=== PATIENT | male | born 1935 | race Caucasian/White ===

== ENCOUNTER 2020-01-08 13:46 | Outpatient (CLI) | payer MEDICARE, SELFPAY ==
--- NOTE | ~2020-01-08 | CT_ITS ---
EXAMINATION: CT chest w con DATE: 01/08/2020 14:42 INDICATION: THORACIC AORTIC ANEURYSM TECHNIQUE: Computed tomography (CT) of the chest was performed with 100 mL Omnipaque-350 intravenous contrast. Additional 3D reconstructions utilizing coronal maximum intensity projection (MIP) were per formed. Automated exposure control and iterative reconstruction technique were employed. The dose-annabelle gth product was 135.32 mGy-cm. COMPARISON: 07/11/2019 FINDINGS: Lungs are clear with no evident lung disease, pulmonary edema, pleural effusion or pneumothorax. Mild cardiomegaly. No pericardial effusion. Mild scattered atherosclerotic coronary artery calcifications . 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 The aorta tapers to a normal caliber at the takeoff of the left subclavian artery with normal caliber of the descending thoracic aorta. No aortic dissection. No pathologically enlarged thoracic l ymphadenopathy. Bilateral gynecomastia. Partially visualized 4.0 cm exophytic cyst at the upper pole of the right kidney. There are bridging osteophytes at multiple levels in the spine, consistent with diffuse idiopathic skeletal hyperostosis (DISH). IMPRESSION: 1. No significant change in a 5.1 x 4.7 cm these from aneurysm of the ascending thoracic aorta. 2. Unchanged mild cardiomegaly. Reviewed, dictated and finalized at location A.
[2020-01-08 14:24] LABS: Estimated Glomerular Filt Rate 39
== END 2020-01-08 13:47 | disposition home or self-care (01) ==
PROVIDERS: PCP Internal Medicine
DX: I71.2 Thoracic aortic aneurysm, without rupture (principal)
CPT/HCPCS: 36415; 71260; Q9967

== ENCOUNTER 2020-07-08 14:56 | Outpatient (CLI) | payer MEDICARE, SELFPAY ==
--- NOTE | ~2020-07-08 | CT_ITS ---
EXAMINATION: CTA chest EXAM DATE: 07/08/2020 15:35 INDICATION: Thoracic aortic aneurysm. TECHNIQUE: Spiral CT of the chest following intravenous injection of 75 mL Omnipaque 350. Axial, cor onal and sagittal images were reviewed. Coronal maximum intensity pixel images of chest reviewed. T he dose-length product (DLP) for this examination was 175.40 mGy-cm. The exposure was tailored accor ding to patient size (auto mA exposure control), and iterative reconstruction (ASIR) was used as kianna tional dose reduction technique. Comparison is made to prior examination from 01/07/2029. FINDINGS: Dimension the patient's ascending aortic aneurysm today are 5.2 x 4.9 cm, slightly increase d in reported dimensions on prior study (previously 5.1 x 4.7 cm). There is no aortic dissection. The re are no central pulmonary emboli. The lungs are clear. There are no pleural or pericardial effusi ons. Tracheobronchial tree is patent. There is no mediastinal, hilar or axillary lymphadenopathy. There is no pneumothorax. Mild cardiomegaly. No evidence of coronary arterial calcification. U pper abdomen is unremarkable. There is thoracic spondylosis without osteoblastic or osteolytic lesi ons identified. IMPRESSION: 1. Modest interval increase in ascending aortic aneurysm size up to 5.2 cm. 2. Mild cardiomegaly. Reviewed, dictated and finalized at location A.
[2020-07-08 15:30] LABS: Estimated Glomerular Filt Rate 39
== END 2020-07-08 14:57 | disposition home or self-care (01) ==
LOC: ANHIMG 14:57
PROVIDERS: PCP Internal Medicine
DX: I71.2 Thoracic aortic aneurysm, without rupture (principal)
CPT/HCPCS: 71275; Q9967

== ENCOUNTER 2021-01-15 08:19 | Outpatient (CLI) | payer MEDICARE, SELFPAY ==
--- NOTE | ~2021-01-15 | CT_ITS ---
EXAMINATION: CTA chest DATE: 01/15/2021 08:56 INDICATION: Thoracic aortic aneurysm. TECHNIQUE: Computed tomographic angiography (CTA) of the chest was performed with 100 mL Omnipaque-35 0 intravenous contrast. Automated exposure control and iterative reconstruction technique were employ ed. The dose-length product was 185.86 mGy-cm. Maximum intensity projection 3D-reconstructions of the aorta and other arteries were constructed by the technologist on a separate workstation. COMPARISON: CT 07/08/2020 FINDINGS: The lungs demonstrate mild atelectasis. There is minimal scarring at the lung apices. No pl eural effusion. The heart size is normal. No pericardial effusion. Partially visualized is a 4.2 cm c yst in right kidney. There is cortical thinning in left kidney. The aorta measures 4.8 cm at the sinu ses of Valsalva, 3.5 cm at the sinotubular junction, 5.1 cm in the mid ascending aorta, 3.1 cm at the aortic isthmus, and 2.9 cm in the mid descending aorta. There are bridging endplate osteophytes at m ultiple levels in the spine, consistent with diffuse idiopathic skeletal hyperostosis (DISH). IMPRESSION: 1. Stable 5.1 cm fusiform aneurysm of ascending aorta. Reviewed, dictated and finalized at location B.
== END 2021-01-15 08:20 | disposition home or self-care (01) ==
PROVIDERS: PCP Internal Medicine
DX: I71.2 Thoracic aortic aneurysm, without rupture (principal)
CPT/HCPCS: 71275; Q9967

== ENCOUNTER → 2021-01-21 13:20 | Outpatient (CLI) | payer MEDICARE, SELFPAY ==
--- NOTE | ~2021-01-21 | US_ITS ---
EXAMINATION: US soft tissue head and neck DATE: 01/21/2021 13:51 INDICATION: Neck mass. TECHNIQUE: Multiple grayscale and Doppler ultrasound images of the neck were obtained. COMPARISON: None FINDINGS: There is no abnormal lymphadenopathy in the patient's areas of concern in the neck. Right t hyroid lobe measures 4.5 x 1.5 x 1.9 cm. Left thyroid lobe measures 4.9 x 1.5 x 1.3 cm. There is a 4 mm nodule in left thyroid lobe, likely not clinically significant. IMPRESSION: 1. No lymphadenopathy. Reviewed, dictated and finalized at location A. IMPRESSION: 1. No lymphadenopathy.
== END ==
PROVIDERS: PCP Internal Medicine; Visit Provider Internal Medicine
DX: R22.1 Localized swelling, mass and lump, neck (principal); I10 Essential (primary) hypertension; Z79.899 Other long term (current) drug therapy
CPT/HCPCS: 76536

== ENCOUNTER 2024-07-07 11:27 | Outpatient (CLI) | payer MEDICARE, SELFPAY ==
--- NOTE | ~2024-07-07 | PE_ITS ---
EXAMINATION: PET_PETPSMAST_PT DATE: 07/07/2024 14:04 INDICATION: Malignant neoplasm of prostate. TECHNIQUE: 4.746 mCi of Ga-68 gozetotide was administered intravenously. Low dose computed tomography (CT) images were acquired from the base of the brain to the proximal thighs for attenuation correcti on and anatomic localization. Automated exposure control was employed. Dose-length product (DLP) was 586 mGy-cm. Positron emission tomography (PET) images were acquired in the same distribution. COMPARISON: Chest CT 01/15/2021, CT abdomen and pelvis 12/30/2016 FINDINGS: Head/neck: There are no pathologically enlarged lymph nodes. Chest: There is scattered centrilobular nodules and tree-in-bud opacities in all lobes, consistent wi th pneumonia. No pleural effusion. Cardiomegaly is noted. There are coronary artery calcifications. N o pericardial effusion. There is a 5.2 cm fusiform aneurysm of ascending aorta. Abdomen/pelvis/proximal thighs: Calcifications in the liver consistent with old edematous disease. Th ere is an 8 mm cyst in the liver. There are gallstones in the gallbladder, which is normal in size. T he spleen, pancreas, and adrenal glands are normal. There is a 5.3 cm cyst in right kidney. There is mild atrophy of the kidneys. The prostate is moderately enlarged. There is increased activity in the prostate on the right and in the right seminal vesicle with maximum SUV of 36.9. There is diverticulo sis of the colon without evidence of diverticulitis. There are no dilated loops of bowel. The appendi x is normal. There are no pathologically enlarged lymph nodes. There is increased activity in bilater al internal iliac, right external iliac, and bilateral common iliac lymph nodes. There is no free int raperitoneal fluid. There is focal increased activity at left sacroiliac joint with maximum SUV of 6. 6. IMPRESSION: 1. Moderately enlarged prostate with increased activity in the prostate and right seminal vesicle, co nsistent with primary malignancy. 2. Increased activity in normal-sized pelvic lymph nodes, consistent with metastatic disease. 3. Focal increased activity at left sacroiliac joint suspicious for metastatic disease. 4. Bilateral pneumonia. 5. Stable 5.2 cm fusiform aneurysm of ascending aorta. Reviewed, dictated and finalized at location A. IMPRESSION: 1. Moderately enlarged prostate with increased activity in the prostate and rig ht seminal vesicle, consistent with primary malignancy. 2. Increased activity in normal-sized pelvic lymph nodes, consistent with metas tatic disease. 3. Focal increased activity at left sacroiliac joint suspicious for metastatic disease. 4. Bilateral pneumonia. 5. Stable 5.2 cm fusiform aneurysm of ascending aorta.
== END 2024-07-07 11:28 | disposition home or self-care (01) ==
PROVIDERS: PCP Nurse Practitioner Family; Visit Provider Urology
DX: C61 Malignant neoplasm of prostate (principal); J18.9 Pneumonia, unspecified organism; I71.21 Aneurysm of the ascending aorta, without rupture
CPT/HCPCS: 78815; A9596

== ENCOUNTER 2024-08-30 10:38 | Outpatient (CLI) | payer MEDICARE, SELFPAY ==
--- NOTE | ~2024-08-30 | XR_ITS ---
EXAMINATION: XR chest 2V DATE: 08/30/2024 10:55 INDICATION: Pneumonia TECHNIQUE: PA and lateral views of the chest were obtained. COMPARISON: Chest radiograph dated 01/12/2019 and PET/CT dated 07/07/2024 FINDINGS: New small right pleural effusion. There are few small patchy airspace opacity left midlung zone corre sponding to the centrilobular nodular groundglass opacities seen on the prior PET/CT. Similar opaciti es in the right mid and lower lung on the prior PET/CT have now coalesced into a larger region of con solidation in the anterior segment of the right upper lobe and increasing patchy airspace opacities i n the lower lung zone. The appearance and temporal evolution of the opacities within the most consist ent with progression of multifocal pneumonia. No pneumothorax or left-sided pleural effusion. Heart s ize is normal. Increased prominence of the ascending thoracic aorta corresponding to a fusiform aneur ysm measuring up to 5.2 cm on the recent prior PET/CT. Visualized bones and soft tissues are unremark able. IMPRESSION: 1. Bilateral lung disease most prominent in width significant progression in the anterior segment of the right upper lobe consistent with progression of multifocal pneumonia. 2. New small right pleural effusion. 3. Aneurysmal ascending thoracic aorta. Reviewed, dictated and finalized at location A. NG SERVICE WORKER IMPRESSION: 1. Bilateral lung disease most prominent in width significant progression in th e anterior segment of the right upper lobe consistent with progression of multi focal pneumonia. 2. New small right pleural effusion. 3. Aneurysmal ascending thoracic aorta.
== END 2024-08-30 10:39 | disposition home or self-care (01) ==
LOC: MICIMG 10:38
PROVIDERS: PCP Nurse Practitioner Family; Visit Provider Nurse Practitioner Family
DX: J98.4 Other disorders of lung (principal); J90 Pleural effusion, not elsewhere classified; I71.21 Aneurysm of the ascending aorta, without rupture; J18.9 Pneumonia, unspecified organism
CPT/HCPCS: 71046

== ENCOUNTER 2024-09-07 13:42 | Outpatient (CLI) | payer MEDICARE, SELFPAY ==
--- NOTE | ~2024-09-07 | XR_ITS ---
EXAMINATION: XR chest 2V DATE: 09/07/2024 14:10 INDICATION: Pneumonia. TECHNIQUE: Frontal and lateral views of the chest were obtained. COMPARISON: Chest 2 views 08/30/2024 FINDINGS: There are airspace opacities in right midlung zone with interval improvement. There is a sm all right pleural effusion. No pneumothorax. The heart size is normal. IMPRESSION: 1. Airspace opacities in right midlung zone with interval improvement, consistent with pneumonia. 2. Small right pleural effusion. Reviewed, dictated and finalized at location A. 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 Airspace opacities in right midlung zone with interval improvement, consiste nt with pneumonia. 2. Small right pleural effusion.
== END 2024-09-07 13:43 | disposition home or self-care (01) ==
PROVIDERS: PCP Nurse Practitioner Family; Visit Provider Nurse Practitioner Family
DX: J18.9 Pneumonia, unspecified organism (principal); J90 Pleural effusion, not elsewhere classified; R91.8 Other nonspecific abnormal finding of lung field
CPT/HCPCS: 71046

== ENCOUNTER 2024-09-21 18:03 | Inpatient (IN) | payer MEDICARE, SELFPAY ==
--- NOTE | ~2024-09-21 | XR_ITS ---
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 RESULT: Lines, tubes, and devices: None. Lungs and pleura: Emphysematous/senescent change. Improving wedge-shaped consolidation in the periph eral right midlung with adjacent atelectasis/scar. Minimal bilateral hemidiaphragm tenting. Cardiomediastinal silhouette: Stable. Aortic ectasia. Other: No acute osseous or upper abdominal finding. IMPRESSION: No acute cardiopulmonary process. Reviewed, dictated and finalized at location K. ENING INSTRUCTOR
--- NOTE | ~2024-09-21 | XR_ITS ---
EXAMINATION: XR barium swallow modified DATE: 10/02/2024 10:43 INDICATION: Dysphagia. TECHNIQUE: The patient was given barium-containing material of multiple consistencies to swallow by t hieu speech pathologist while I performed fluoroscopy. Fluoroscopy exposure time was 1.8 minutes. The n umber of fluoroscopy images saved to the PACS was 1. Dose-area product was 1 Gy-cm^2. FINDINGS: There is reduced laryngeal elevation, reduced laryngeal adduction, reduced tongue base retraction, re duced pharyngeal squeeze, vallecular residue, pyriform sinus residue, laryngeal penetration, and aspi ration. IMPRESSION: 1. Aspiration. 2. Please refer to the speech therapy report for recommendations. Reviewed, dictated and finalized at location A. OR MANUFACTURING TEST ENGINEER
--- NOTE | ~2024-09-21 | XR_ITS ---
XR chest 1V portable Ordering provider: Ezra Collins MD History: 88 years Male with . possible aspiration . Comparison: September 21, 2024 FINDINGS: MEDIASTINUM: The cardiac silhouette is not enlarged. LUNGS: No effusions or pneumothorax. Opacification in the right upper lobe near to the transverse fis sure is seen laterally minimally changed since previous examination. Patchy opacities in the left yan g perihilar noted. Follow-up to resolution is advised. Emphysematous changes. OTHER: No free air under the diaphragm. Degenerative changes of the spine. IMPRESSION: Atelectasis versus pneumonia in the right upper lobe near to the transverse fissure. Follow-up to res olution is advised. Reviewed, dictated and finalized at location A. FLEXER IMPRESSION: Atelectasis versus pneumonia in the right upper lobe near to the transverse fis sure. Follow-up to resolution is advised.
--- NOTE | ~2024-09-21 | XR_ITS ---
EXAMINATION: XR barium swallow modified DATE: 10/10/2024 15:00 INDICATION: Dysphagia. TECHNIQUE: The patient was given barium-containing material of multiple consistencies to swallow by t hieu speech pathologist while I performed fluoroscopy. Fluoroscopy exposure time was 3.2 minutes. The n umber of fluoroscopy images saved to the PACS was 1. Dose-area product was 1.8 Gy-cm^2. FINDINGS: There is reduced laryngeal elevation, reduced tongue base retraction, reduced pharyngeal squeeze, gail lecular residue, pyriform sinus residue, pharyngeal wall residue, and laryngeal penetration. IMPRESSION: 1. Laryngeal penetration. 2. Please refer to the speech therapy report for recommendations. Reviewed, dictated and finalized at location A. SAFETY INSPECTOR
--- NOTE | ~2024-09-21 | NM_ITS ---
EXAMINATION: NM hepatobiliary wo pharm DATE: 09/25/2024 12:17 INDICATION: Gallstones. Abdominal pain. COMPARISON: Ultrasound dated 09/22/2024 TECHNIQUE: 5.9 mCi Tc-99m mebrofenin (Choletec) was administered intravenously. Scintigraphic images of the abdomen were obtained for one hour. Additional 1.5 hour delayed scintigrams obtained. FINDINGS: There is normal clearance of radiotracer from the blood pool. There is homogeneous tracer u ptake by the liver. Activity progresses to the bowel with duodenal and jejunal activity seen by 20 m inutes. Activity seen within the gallbladder on the 1.5 hour delayed image. IMPRESSION: 1. Normal hepatobiliary scan. Reviewed, dictated and finalized at location B. ATOR CATALYST CONCENTRATION
--- NOTE | ~2024-09-21 | XR_ITS ---
EXAMINATION: XR barium swallow modified DATE: 10/09/2024 11:46 INDICATION: Dysphagia. Weakness. TECHNIQUE: The patient was given barium-containing material of multiple consistencies to swallow by t hieu speech pathologist while I performed fluoroscopy. Fluoroscopy exposure time was 1.7 minutes. The n umber of fluoroscopy images saved to the PACS was 1. Dose-area product was 0.837 Gy-cm^2. FINDINGS: There is reduced laryngeal elevation, reduced tongue base retraction, reduced pharyngeal squeeze, gail lecular residue, pyriform sinus residue, pharyngeal wall residue, laryngeal penetration, and aspirati on. Cervical spine osteophytes are noted. IMPRESSION: 1. Aspiration. 2. Please refer to the speech therapy report for recommendations. Reviewed, dictated and finalized at location A. E ASSEMBLER
--- NOTE | ~2024-09-21 | US_ITS ---
COMPLETE ABDOMINAL ULTRASOUND Ordering provider: Uri Feldman MD History: . right upper quadrant pain w/ meals . Comparison: None. FINDINGS: LIVER: Normal size and echotexture. No focal hepatic lesions or perihepatic fluid collections are lyndsey ntified. Cyst is seen in the left lobe measuring 0.8 x 0.6 x 0.7 cm. Normal flow of the portal vein. GALLBLADDER: Cholelithiasis. The largest stone measures 1.1 x 1.3 x 1.4 cm. No evidence for sludge, o r gallbladder wall thickening. Minimal pericholecystic fluid.. Thickness is 3 mm. A negative sonographic Foster's sign was noted. BILIARY DUCTS: No evidence for intra or extrahepatic biliary dilation. Common bile duct measures 5 mm in diameter which is within normal limits. PANCREAS: Normal echotexture and size. SPLEEN: Normal size, echotexture and contour and measures 6.7 cm in length. KIDNEYS: Right measures 12.3x 3.8x 4 cm in length and the left 9x 3.9x 3.6 cm in length. There is no evidence for hydronephrosis, solid renal mass, renal calculi or perinephric fluid collections. Simple cyst is seen in the right kidney upper pole measuring 4.7 x 4.8 x 4 cm. Cyst is seen in the left kidney upper pole measuring 1.2 x 0.9 x 1.2 cm. UPPER ABDOMINAL AORTA: Normal in caliber. Proximal aorta measures 1.5 cm. Mid aorta measures 1.5 cm. Distal aorta measures 1.6 cm. IVC: Patent. FREE FLUID: None. IMPRESSION: Cholelithiasis. Possibility of cholecystitis cannot be excluded. Clinical correlation advised. Bilateral renal cysts. Small left hepatic lobe cyst. Reviewed, dictated and finalized at location A. GENCY SERVICE RESTORER IMPRESSION: Cholelithiasis. Possibility of cholecystitis cannot be excluded. Clinical corre lation advised. Bilateral renal cysts. Small left hepatic lobe cyst.
--- NOTE | ~2024-09-21 | CT_ITS ---
CT chest abdomen pelvis wo con Ordering provider: Ezra Collins MD History: . new peg tube placement, new onset nausea, vomiting . Comparison: 01 15 2021 Technique: CT chest without IV contrast. CT abdomen and pelvis without oral and IV contrast. Radiatio n reduction technique utilized. The dose-length product was 265.77 mGy-cm FINDINGS: The study is limited due to lack of IV contrast. CHEST: --VISUALIZED THORACIC INLET: Normal as visualized. --MEDIASTINUM: Aorta/coronary arteries: Mild atheromatous disease. Ascending aorta measures 5 cm. Heart/other: The heart is slightly enlarged. Prominent pulmonary vessels suggestive of portal hypert ension. Lymph nodes: No mediastinal or hilar adenopathy. Prevascular lymph node --LUNGS: Nodule in the left lower lobe measuring 7.5 cm. Groundglass area seen in the left upper lobe laterally which may be nodules measuring 1.1 cm. Possible nodule in the left apical area medially 4 mm. Nodule also seen in the lingula measuring 9 mm. Another nodule in the lingula is seen 5 mm. No pu lmonary masses. Pneumonia in the right upper lobe is noted laterally.. No pneumothorax. --MUSCULOSKELETAL: Soft tissues: The superficial soft tissues are normal. Bones: Age appropriate degenerative changes of the spine. ABDOMEN/PELVIS: --MUSCULOSKELETAL: Bones: Age appropriate degenerative changes of the spine. Bilateral sacroiliitis Superficial soft tissues: The superficial soft tissues are normal. --UPPER ABDOMINAL ORGANS: Liver: Hepatomegaly. Gallbladder: Normal. Spleen: Normal. Stomach/duodenum: Gastrostomy is seen. Pancreas: Normal. Adrenals: Normal. Kidneys: Large cyst in the right kidney upper pole measuring 5.3 --PELVIC ORGANS: The bladder is normal. No bladder stones. --BOWEL AND MESENTERY: Colon: No evidence of direct colitis. Residual contrast seen in the colon. No evidence of appendiciti s. Small Bowel: Normal. No obstruction. Peritoneum/mesentery: No free air or free fluid. No mesenteric lymphadenopathy. --RETROPERITONEUM: Mild atheromatous disease of the abdominal aorta. No retroperitoneal lymphadenop athy. IMPRESSION: CHEST: 1. Dilated ascending aorta measuring 5 cm. 2. Dilated pulmonary vessels suggestive of pulmonary hypertension. 3. Multiple nodules. 3 months follow-up or PET scan is advised. 4. Pneumonia in the right upper lobe. ABDOMEN/PELVIS: 1. Hepatomegaly. 2. Cholelithiasis 3. Large cyst in the right kidney upper pole. 4. No evidence of appendicitis, diverticulitis or intestinal obstruction. 5. Colostomy tube with no definite abnormality. Reviewed, dictated and finalized at location A. CTOR CHILD ABUSE THERAPY
[2024-09-21 18:27] VITALS: BP 143/74; PULSE 58; RESP 18; TEMP 36.7; O2SAT 99
--- NOTE | 2024-09-21 18:27 | ECG_ITS ---
Test Date: 2024-09-21 19:04:22 Measurements Intervals [place] Rate: 59 P: 0 AL: 0 QRS: 88 QRSD: 102 T: 250 QT: 466 QTc: 465 Interpretive Statements SINUS BRADYCARDIA PREMATURE ATRIAL CONTRACTIONS INCOMPLETE RIGHT BUNDLE BRANCH BLOCK [90+ ms QRS DURATION, TERMINAL R IN V1/V2, 40+ ms S IN I/aVL/V4/V5/V6] POSSIBLE LEFT VENTRICULAR HYPERTROPHY [VOLTAGE CRITERIA PLUS LAE OR QRS WIDENING] ST DEVIATION AND MODERATE T-WAVE ABNORMALITY, CONSIDER LATERAL ISCHEMIA [-0.1+ mV T WAVE IN I/aVL/V5/V6] ST DEVIATION AND MODERATE T-WAVE ABNORMALITY, CONSIDER INFERIOR ISCHEMIA [-0.1+ mV T WAVE IN II/aVF] No previous ECG available for comparison Electronically Signed On 09-22-2024 17:08:08 ENGLISH LECTURER by Damaso Coats M.D.
--- NOTE | 2024-09-21 18:27 | ED_ITS ---
HPI - General Adult General Chief complaint: Unspecified Stated complaint: weight loss, decreased appetite Time Seen by Provider: 09/21/24 18:27 Focused HPI: This is a 88 year old male that presents to the ER for generalized weakness. Reports weight loss and no appetite. This has been ongoing over the last month. He does have history of prostate cancer. Undergoing treatment GENERAL: Elderly, thin, and in no acute distress. HEAD: Normocephalic, atraumatic. CHEST: Clear to auscultation. ?No respiratory distress. HEART: Regular rate and rhythm.? NEURO: ?Alert and oriented x3. Patient screened in triage and initial orders placed.? ?Additional care and disposition to be based upon?diagnostic testing and treatment. Related Data Home Medications ?Medication ?Instructions ?Recorded ?Confirmed ?Last Taken ?Type multivitamin 1 tablet PO DAILY 12/08/19 09/07/24 Unknown History sotalol 80 mg tablet 80 mg PO DAILY 09/14/23 09/07/24 Unknown History enzalutamide 80 mg tablet (Xtandi) 80 mg PO DAILY 08/30/24 09/07/24 Unknown History Allergies Allergy/AdvReac Type Severity Reaction Status Date / Time No Known Allergies Allergy Verified 09/07/24 13:00 [facility] Past Medical History Medical History Anxiety CKD (chronic kidney disease), stage III Essential hypertension H/O Malignant melanoma Mixed hyperlipidemia Prostatism Thoracic aortic aneurysm (TAA) Surgical History Surgical History H/O hernia repair Social History Social History Smoking packs per day: 0.5 Smoking cigarettes per day: 10.0 Years smoked: 10 Smoking pack-years: 5.00 Smoking status: Former smoker Second hand tobacco smoke exposure: No Smoking end date: 10/05/79 Alcohol intake: current Alcohol use details: social Substance use: never Substance use type: does not use Lack of Transportation: No Lack of Food: Never True Current Housing: I Have Housing Concerned About Future Housing: No Difficulty Paying Gas/Electric Bills: No Difficulty Paying for Meds: No Currently Unemployed: No Education: Trade/Vocational Certificate Difficulty w/ Childcare or Family Care: No Gender identity (if verbalized by the patient): Male Sexual Orientation (if Verbalized by the Patient): Straight or Heterosexual Spiritual care concerns: No Agree to blood products: Yes Discharge Plan Discharge Patient Language: Libyan Prescriptions: No Action Xtandi 80 mg tablet 80 mg PO DAILY fluticasone propionate [Children's Flonase Allergy Rlf] 50 mcg/actuation spray,suspension 2 spray intranasal DAILY Qty: 16 0RF Rx Instructions: administer into each nostril albuterol sulfate 90 mcg/actuation HFA aerosol inhaler 2 inh inhalation Q4H PRN (Reason: shortness of breath or wheezing) Qty: 8.5 0RF sotalol 80 mg tablet 80 mg PO DAILY Patient Comments: half a pill escitalopram oxalate [Lexapro] 5 mg tablet 5 mg PO DAILY Qty: 30 1RF multivitamin Tablet 1 tablet PO DAILY fluticasone propionate 50 mcg/actuation spray,suspension See Rx Instructions .ROUTE .COMPLEX Qty: 48 0RF Dose Instruction: SHAKE LIQUID AND USE 1 SPRAY IN EACH NOSTRIL TWICE DAILY FOR 14 DAYS Rx Instructions: SHAKE LIQUID AND USE 1 SPRAY IN EACH NOSTRIL TWICE DAILY FOR 14 DAYS lorazepam 0.5 mg tablet 0.5 mg PO TID PRN (Reason: anxiety) Qty: 90 0RF amoxicillin-pot clavulanate 500-125 mg tablet 1 tablet PO Q12H Qty: 14 0RF famotidine 20 mg tablet See Rx Instructions .ROUTE .COMPLEX Qty: 90 0RF Dose Instruction: TAKE 1 TABLET BY MOUTH DAILY Rx Instructions: TAKE 1 TABLET BY MOUTH DAILY dicyclomine 20 mg tablet 20 mg PO TID PRN (Reason: abdominal pain) Qty: 20 0RF ondansetron 4 mg tablet,disintegrating See Rx Instructions .ROUTE .COMPLEX Qty: 10 0RF Dose Instruction: DISSOLVE 1 TABLET ON THE TONGUE EVERY 8 HOURS NEEDED FOR NAUSEA OR VOMITING Rx Instructions: DISSOLVE 1 TABLET ON THE TONGUE EVERY 8 HOURS NEEDED FOR NAUSEA OR VOMITING doxazosin 8 mg tablet See Rx Instructions .ROUTE .COMPLEX Qty: 90 0RF Dose Instruction: TAKE 1 TABLET BY MOUTH DAILY Rx Instructions: TAKE 1 TABLET BY MOUTH DAILY Follow-up/Referrals: Ibeth Patel APRN [Primary Care Provider] -
[2024-09-21 19:10] LABS: Basophils Percent Auto 0.3 % (0.2-1.2); Eosinophils Absolute Auto 0.1 K/mm3 (0-0.3); Eosinophils Percent Auto 0.8 % (0-4.4); Hematocrit 32.6 % (42.0-52.0); Hemoglobin 10.9 g/dL (14.0-18.0); Immature Granulocyte Absolute 0.03 K/mm3 (0.00-0.031); Immature Granulocyte Percent A 0.4 % (0-0.5); Lymphocytes Absolute Auto 1.94 K/mm3 (0.9-3.2); Lymphocytes Percent Auto 26.9 % (18.3-44.2); Mean Corpuscular HGB Conc 33.4 g/dl (32-36); Mean Corpuscular Hemoglobin 28.5 pg (26-34); Mean Corpuscular Volume 85.1 fl (80-100); Mean Platelet Volume 10.8 fl (7.4-10.4); Monocytes Absolute Auto 0.9 K/mm3 (0.1-0.6); Monocytes Percent Auto 11.8 % (2.6-8.5); Neutrophils Absolute Auto 4.3 K/mm3 (1.3-6.7); Neutrophils Percent Auto 59.8 % (45.5-73.1); Platelet Count Result 165 k/mm3 (150-375); Red Blood Count 3.83 M/mm3 (4.6-6.20); Red Cell Distribution Width 14.4 % (11.5-14.5); White Blood Count 7.2 K/mm3 (4.5-10.0)
[2024-09-21 19:26] LABS: INR 1.6; Prothrombin Time 19.2 Seconds (11.1-14.7)
[2024-09-21 19:32] LABS: Alanine Aminotransferase 12 U/L (6-50); Albumin Level 2.5 g/dL (3.5-5.1); Alkaline Phosphatase 137 U/L (38-126); Anion Gap 1 mmol/L (4-12); Aspartate Amino Transferase 24 U/L (17-59); Bilirubin,Total 0.7 mg/dL (0.2-1.3); Blood Urea Nitrogen 55 mg/dL (9-20); Calcium 8.6 mg/dL (8.4-10.2); Carbon Dioxide 28 mmol/L (22-30); Chloride 98 mmol/L (98-107); Estimated CRCL calculation 18 ml/min; Estimated Glomerular Filt Rate 36; Glucose 105 mg/dL (65-110); Sodium 127 mmol/L (137-145)
[2024-09-21 21:36] VITALS: BP 152/82; PULSE 54; RESP 14; O2SAT 98
--- NOTE | 2024-09-21 21:45 | ED_ITS ---
HPI - General Adult General Chief complaint: Unspecified Stated complaint: weight loss, decreased appetite Time Seen by Provider: 09/21/24 18:27 Source: patient and family Mode of arrival: ambulatory Limitations: no limitations History of Present Illness HPI narrative: 88 years old white male came to the ED from home with his family complaining of poor appetite, weight loss for the last few months. History of prostatic cancer recently had home health care, was suggested that patient go to the ER for further evaluation. Patient is awake, alert and oriented x4 his main complaint right now is scared to of dying. Patient denies any fever, chills, vomiting, diarrhea, constipation, chest pain, shortness of breath or headache or back pain. Patient reports intermittent nausea and stomach upset Related Data Home Medications ?Medication ?Instructions ?Recorded ?Confirmed ?Last Taken ?Type multivitamin 1 tablet PO DAILY 12/08/19 09/07/24 Unknown History sotalol 80 mg tablet 80 mg PO DAILY 09/14/23 09/07/24 Unknown History enzalutamide 80 mg tablet (Xtandi) 80 mg PO DAILY 08/30/24 09/07/24 Unknown History Allergies Allergy/AdvReac Type Severity Reaction Status Date / Time No Known Allergies Allergy Verified 09/07/24 13:00 Review of Systems 2 Review of Systems: All systems reviewed & are unremarkable except as noted in HPI and below PMFSH Past Medical History Medical History Prostatism Thoracic aortic aneurysm (TAA) CKD (chronic kidney disease), stage III H/O Malignant melanoma Anxiety Mixed hyperlipidemia Essential hypertension Surgical History Surgical History H/O hernia repair Social History Social History Smoking packs per day: 0.5 Smoking cigarettes per day: 10.0 Years smoked: 10 Smoking pack-years: 5.00 Smoking status: Former smoker Second hand tobacco smoke exposure: No Smoking end date: 10/05/79 Alcohol intake: current Alcohol use details: social Substance use: never Substance use type: does not use Lack of Transportation: No Lack of Food: Never True Current Housing: I Have Housing Concerned About Future Housing: No Difficulty Paying Gas/Electric Bills: No Difficulty Paying for Meds: No Currently Unemployed: No Education: Trade/Vocational Certificate Difficulty w/ Childcare or Family Care: No Gender identity (if verbalized by the patient): Male Sexual Orientation (if Verbalized by the Patient): Straight or Heterosexual Spiritual care concerns: No Agree to blood products: Yes Exam 2 Narrative: General appearance: Well-developed, malnourished Skin: Normal color Head: Normocephalic, nontraumatic Eyes: Clear conjunctiva ENT: Oropharynx normal, ears normal, nose normal Neck: Supple, nontender Chest and respiratory: Airway patent, no respiratory distress, no accessory muscle use Heart: Regular rate/rhythm Abdomen: Soft, nontender, no organomegaly, quiet bowel sounds Musculoskeletal: Normal range of motion, nontender back Neurologic: Alert and oriented ?3, PLATE GAUGER is normal as tested, no gross motor deficit Course Vital Signs Vital signs: Vital Signs Temperature 36.7 C 09/21/24 18:27 Pulse Rate 58 L 09/21/24 18:27 Respiratory Rate 18 09/21/24 18:27 Blood Pressure 143/74 H 09/21/24 18:27 Pulse Oximetry 99 09/21/24 18:27 Oxygen Delivery Room Air 09/21/24 18:27 Temperature 36.7 C 09/21/24 18:27 Pulse Rate 54 L 09/21/24 21:36 Respiratory Rate 14 09/21/24 21:36 Blood Pressure 152/82 H 09/21/24 21:36 Pulse Oximetry 98 09/21/24 21:36 Oxygen Delivery Room Air 09/21/24 21:36 Medical Decision Making [facility] Narrative Medical decision making narrative: patient came to the ED with poor appetite, weight loss, recent diagnosis of prostatic cancer Vital signs showing sinus bradycardia 58 beats per minute otherwise within normal limit Physical examination showing cachectic patient, severely depressed, Differential diagnosis includes severe depression secondary to recent diagnosis of prostatic cancer, poor p.o. intake secondary to depression and prostatic cancer medications. Blood workup today includes CBC, CMP which showed hemoglobin of 10.9, sodium 127, creatinine 1.8, anion gap of 1, protein of 5.0, albumin 2.5. Urinalysis showed no evidence of infection Chest x-ray showed no acute abnormalities Differential Diagnosis Differential Diagnosis: as above Vital Signs Vital Signs: Vital Signs Temperature 36.7 C 09/21/24 18:27 Pulse Rate 58 L 09/21/24 18:27 Respiratory Rate 18 09/21/24 18:27 Blood Pressure 143/74 H 09/21/24 18:27 Pulse Oximetry 99 09/21/24 18:27 Oxygen Delivery Room Air 09/21/24 18:27 Temperature 36.7 C 09/21/24 18:27 Pulse Rate 54 L 09/21/24 21:36 Respiratory Rate 14 09/21/24 21:36 Blood Pressure 152/82 H 09/21/24 21:36 Pulse Oximetry 98 09/21/24 21:36 Oxygen Delivery Room Air 09/21/24 21:36 Lab Data 09/21/24 19:01 09/21/24 19:01 Labs: Lab Results 09/21/24 09/21/24 Range/Units 19:01 21:51 WBC 7.2 (4.5-10.0) K/mm3 RBC 3.83 L (4.6-6.20) M/mm3 Hgb 10.9 L (14.0-18.0) g/dL Hct 32.6 L (42.0-52.0) % MCV 85.1 (80-100) fl MCH 28.5 (26-34) pg MCHC 33.4 (32-36) g/dl RDW 14.4 (11.5-14.5) % Plt Count 165 (150-375) k/mm3 MPV 10.8 H (7.4-10.4) fl Immature Gran % (Auto) 0.4 (0-0.5) % Neut % (Auto) 59.8 (45.5-73.1) % Lymph % (Auto) 26.9 (18.3-44.2) % Thayer % (Auto) 11.8 H (2.6-8.5) % Eos % (Auto) 0.8 (0-4.4) % Baso % (Auto) 0.3 (0.2-1.2) % Lymph # (Auto) 1.94 (0.9-3.2) K/mm3 [place]ayer # (Auto) 0.9 H (0.1-0.6) K/mm3 Eos # (Auto) 0.1 (0-0.3) K/mm3 Baso # (Auto) 0.0 (0.0-0.1) K/mm3 Abs Immat Gran (auto) 0.03 (0.00-0.031) K/mm3 Absolute Neuts (auto) 4.3 (1.3-6.7) K/mm3 Absolute Nucleated RBC 0.000 (0.0-0.012) K/mm3 Nucleated RBC % 0.0 (0.0-0.2) % PT 19.2 H (11.1-14.7) Seconds INR 1.6 APTT 34.0 (22.3-36.8) Seconds Sodium 127 L (137-145) mmol/L Potassium 4.0 (3.4-5.0) mmol/L Chloride 98 (98-107) mmol/L Carbon Dioxide 28 (22-30) mmol/L Anion Gap 1 L (4-12) mmol/L BUN 55 H (9-20) mg/dL Creatinine 1.80 H (0.7-1.3) mg/dL Estim Creat Clear Calc 18 ml/min Estimated GFR 36 L (59 - ) Glucose 105 (65-110) mg/dL Calcium 8.6 (8.4-10.2) mg/dL Total Bilirubin 0.7 (0.2-1.3) mg/dL AST 24 (17-59) U/L ALT 12 (6-50) U/L Alkaline Phosphatase 137 H (38-126) U/L Total Protein 5.0 L (6.3-8.2) g/dL Albumin 2.5 L (3.5-5.1) g/dL Urine Color Yellow (Yellow) Urine Appearance Clear (Clear) Urine pH 6.0 (5.0-9.0) Ur Specific [place] 1.012 (1.001-1.035) Urine Protein 1+ H (Negative) mg/dL Urine Glucose (UA) Negative (Negative) mg/dL Urine Ketones Negative (Negative) mg/dL Ur Blood (Man) Negative (Negative) Urine Nitrate Negative (Negative) Urine Bilirubin Negative (Negative) Urine Urobilinogen 0.2 (<2.0) mg/dL Leukocyte Esterase Rfl Negative (Negative) VENKATESH/UL Urine RBC 0-2 (0-2) /hpf Urine WBC 0-5 (0-3) /hpf Ur Squamous Epith Cells None seen (Few) /hpf Urine Bacteria None seen /hpf Urine Casts 0-2 Imaging Data Radiologist's impression: Impressions Chest X-Ray 09/21/24 19:27 IMPRESSION: No acute cardiopulmonary process. Critical Care Time Critical Care Time Critical Care Time: No Discharge Plan Discharge Clinical Impression: Adult failure to thrive, Major depression, Acute hyponatremia Patient Disposition: Still a Patient Condition: Stable Patient Language: Tajik Prescriptions: No Action Xtandi 80 mg tablet 80 mg PO DAILY fluticasone propionate [Children's Flonase Allergy Rlf] 50 mcg/actuation spray,suspension 2 spray intranasal DAILY Qty: 16 0RF Rx Instructions: administer into each nostril albuterol sulfate 90 mcg/actuation HFA aerosol inhaler 2 inh inhalation Q4H PRN (Reason: shortness of breath or wheezing) Qty: 8.5 0RF sotalol 80 mg tablet 80 mg PO DAILY Patient Comments: half a pill escitalopram oxalate [Lexapro] 5 mg tablet 5 mg PO DAILY Qty: 30 1RF multivitamin Tablet 1 tablet PO DAILY fluticasone propionate 50 mcg/actuation spray,suspension See Rx Instructions .ROUTE .COMPLEX Qty: 48 0RF Dose Instruction: SHAKE LIQUID AND USE 1 SPRAY IN EACH NOSTRIL TWICE DAILY FOR 14 DAYS Rx Instructions: SHAKE LIQUID AND USE 1 SPRAY IN EACH NOSTRIL TWICE DAILY FOR 14 DAYS lorazepam 0.5 mg tablet 0.5 mg PO TID PRN (Reason: anxiety) Qty: 90 0RF amoxicillin-pot clavulanate 500-125 mg tablet 1 tablet PO Q12H Qty: 14 0RF famotidine 20 mg tablet See Rx Instructions .ROUTE .COMPLEX Qty: 90 0RF Dose Instruction: TAKE 1 TABLET BY MOUTH DAILY Rx Instructions: TAKE 1 TABLET BY MOUTH DAILY dicyclomine 20 mg tablet 20 mg PO TID PRN (Reason: abdominal pain) Qty: 20 0RF ondansetron 4 mg tablet,disintegrating See Rx Instructions .ROUTE .COMPLEX Qty: 10 0RF Dose Instruction: DISSOLVE 1 TABLET ON THE TONGUE EVERY 8 HOURS NEEDED FOR NAUSEA OR VOMITING Rx Instructions: DISSOLVE 1 TABLET ON THE TONGUE EVERY 8 HOURS NEEDED FOR NAUSEA OR VOMITING doxazosin 8 mg tablet See Rx Instructions .ROUTE .COMPLEX Qty: 90 0RF Dose Instruction: TAKE 1 TABLET BY MOUTH DAILY Rx Instructions: TAKE 1 TABLET BY MOUTH DAILY Follow-up/Referrals: Ibeth Patel APRN [Primary Care Provider] -
[2024-09-21 21:58] LABS: Add Urine Microscopic? YES; Appearance Urine Clear (Clear); Bacteria Urine None Seen /hpf; Bilirubin Urine Negative (Negative); Blood Urine Negative (Negative); Color Urine Yellow (Yellow); Glucose Urine UA Negative (Negative); Ketones Urine Negative (Negative); Leukocyte Esterase Ur Negative LEU/UL (Negative); Nitrate Urine Negative (Negative); Non Pathogenic Casts 0-2; Protein Urine 1+ mg/dL (Negative); RBC Urine 0-2 /hpf (0-2); Specific Grav Ur 1.012 (1.001-1.035); Squamous Epithelial Cell Urine None Seen /hpf (Few); Urobilinogen Urine 0.2 mg/dL (<2.0); WBC Urine 0-5 /hpf (0-3)
[2024-09-21] MEDS: SODIUM CHLORIDE 0.9% IV 1,000 ML 100 ML IV CONT (22:06)
--- NOTE | 2024-09-21 22:47 | PM.IMHP ---
H&P: HPI History of Present Illness Date/Time: 09/21/24 22:47 Chief Complaint: Generalized weakness Narrative: This is an 88-year-old male with past medical history significant for prostate CA, chronic kidney disease ,anxiety, hypertension ,dyslipidemia. Patient was brought to the emergency room due to poor per orally intake, weight loss, generalized weakness. Patient denies any fevers, rigors, chills, cough, sputum production, shortness of breath, nausea, vomiting, diarrhea. Most of the history has been obtained from daughter who is at bedside. Preliminary workup has been significant for sodium of 127, creatinine is 1.8 BUN is 55 albumin is 2.5. Patient has been admitted for further evaluation management and treatment. 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 RESULT: Lines, tubes, and devices: None. Lungs and pleura: Emphysematous/senescent change. Improving wedge-shaped consolidation in the peripheral right midlung with adjacent atelectasis/scar. Minimal bilateral hemidiaphragm tenting. Cardiomediastinal silhouette: Stable. Aortic ectasia. Other: No acute osseous or upper abdominal finding. IMPRESSION: No acute cardiopulmonary process. Review of Systems Review of Systems: Generalized weakness, poor appetite, poor per orally intake PMFSH Past Medical History Medical History Prostatism Thoracic aortic aneurysm (TAA) CKD (chronic kidney disease), stage III H/O Malignant melanoma Anxiety Mixed hyperlipidemia Essential hypertension Surgical History Surgical History H/O hernia repair Family History Family History (Updated 09/22/24 @ 02:32 by Marilyn Garcia) Father Hypertension Mother Hypertension Sibling Hypertension Social History Social History Smoking packs per day: 0.5 Smoking cigarettes per day: 10.0 Years smoked: 10 Smoking pack-years: 5.00 Smoking status: Former smoker Second hand tobacco smoke exposure: No Alcohol intake: former Alcohol use details: social Substance use: never Substance use type: does not use Do You Feel Safe in your Home?: Yes Lack of Transportation: No Lack of Food: Never True Current Housing: I Have Housing Concerned About Future Housing: No Difficulty Paying Gas/Electric Bills: No Difficulty Paying for Meds: No Currently Unemployed: No Education: Trade/Vocational Certificate Difficulty w/ Childcare or Family Care: No Gender identity (if verbalized by the patient): Male Sexual Orientation (if Verbalized by the Patient): Straight or Heterosexual Spiritual care concerns: No Agree to blood products: Yes Meds Home Medications and Allergies Home Medications ?Medication ?Instructions ?Recorded ?Confirmed ?Type multivitamin 1 tablet PO DAILY 12/08/19 09/22/24 History sotalol 80 mg tablet 40 mg PO DAILY 09/14/23 09/22/24 History albuterol sulfate 90 mcg/actuation 2 inh inhalation Q4H PRN shortness 08/30/24 09/22/24 Rx aerosol inhaler of breath or wheezing #8.5 grams enzalutamide 80 mg tablet (Xtandi) 80 mg PO DAILY 08/30/24 09/22/24 History fluticasone propionate 50 2 spray intranasal DAILY #16 grams 08/30/24 09/22/24 Rx mcg/actuation nasal spray,suspension (Children's Flonase Allergy Relief) lorazepam 0.5 mg tablet 0.5 mg PO TID PRN anxiety #90 tabs 09/01/24 09/22/24 Rx escitalopram oxalate 5 mg tablet 5 mg PO DAILY #30 tabs 09/07/24 09/22/24 Rx (Lexapro) dicyclomine 20 mg tablet 20 mg PO TID PRN abdominal pain 09/13/24 09/22/24 Rx #20 tabs famotidine 20 mg tablet See Rx Instructions .Route 09/13/24 09/22/24 Rx .COMPLEX #90 tabs ondansetron 4 mg disintegrating See Rx Instructions .Route 09/18/24 09/22/24 Rx tablet .COMPLEX #10 tabs doxazosin 8 mg tablet See Rx Instructions .Route 09/19/24 09/22/24 Rx .COMPLEX #90 tabs apixaban 2.5 mg tablet (Eliquis) 2.5 mg PO .q12hr 09/22/24 09/22/24 History Allergies Allergy/AdvReac Type Severity Reaction Status Date / Time latex Allergy Mild Rash Verified 09/22/24 02:17 Vital Signs Vital Signs - 24 hr 09/21/24 18:27 09/21/24 21:36 Temperature 98.1 F Pulse Rate 58 L 54 L Respiratory Rate 18 14 Blood Pressure 143/74 H 152/82 H Pulse Oximetry 99 98 Oxygen Delivery Room Air Room Air Exam Narrative: Patient is laying in a stretcher Const: General: comfortable, no acute distress, well developed, alert, awake, ill appearing chronically, malnourished and underweight Nutritional Appearance: malnourished and underweight Orientation/consciousness: patient oriented x3 HENMT: Head: normal to inspection, normocephalic and atraumatic Ears: hearing grossly normal bilaterally Face/Nose/Sinus: normal facial exam Face and sinus: normal facial exam Other: Bitemporal muscle wasting Eyes: General: appearance normal, both eyes and all related structures Pupils: Equal, round and reactive pupils present EOM: EOMs intact bilaterally Neck: Neck: full ROM, no lymphadenopathy and no JVD Thyroid: thyroid normal Lymphatic: no lymphadenopathy noted Resp: Effort & Inspection: normal respiratory effort and able to speak in complete sentences Auscultation: clear to auscultation bilaterally Cardio: Jugular venous distension: no JVD Rate: regular rate Rhythm: regular rhythm Heart sounds: S1 normal heart sound present and S2 normal heart sound present GI: GI Palp: Yes Soft to palpation and Yes No hepatosplenomegaly present : General: Yes deferred Skin: Rashes: no rashes Wounds: no wounds Neuro: General: patient oriented x3 and CN's II-XI intact bilaterally Cranial nerves: Yes CN's II-XII intact bilaterally and Yes Equal, round and reactive pupils present Cognition (Neuro): normal cognition Speech: normal speech Gait exam (Neuro): Normal gait present Motor exam (neuro): 5/5 motor strength present throughout Extrem: General: normal to inspection, full ROM, no joint enlargement and no pedal edema H&P: Results Labs Labs: Short CBC 09/21/24 Range/Units 19:01 WBC 7.2 (4.5-10.0) K/mm3 Hgb 10.9 L (14.0-18.0) g/dL Hct 32.6 L (42.0-52.0) % Plt Count 165 (150-375) k/mm3 BMP 09/21/24 19:01 Sodium 127 L Potassium 4.0 Chloride 98 Carbon Dioxide 28 BUN 55 H Creatinine 1.80 H Glucose 105 Calcium 8.6 Liver Function 09/21/24 Range/Units 19:01 Total Bilirubin 0.7 (0.2-1.3) mg/dL AST 24 (17-59) U/L ALT 12 (6-50) U/L Alkaline Phosphatase 137 H (38-126) U/L Albumin 2.5 L (3.5-5.1) g/dL Urine 09/21/24 Range/Units 21:51 Urine Color Yellow (Yellow) Urine Appearance Clear (Clear) Urine pH 6.0 (5.0-9.0) Ur Specific [place] 1.012 (1.001-1.035) Urine Protein 1+ H (Negative) mg/dL Urine Glucose (UA) Negative (Negative) mg/dL Assessment and Plan Assessment and plan (1) Acute hyponatremia: Code(s): E87.1 - Hypo-osmolality and hyponatremia Status: Acute Assessment and Plan: Admit to regular medical floor Currently on NS likely secondary to poor per orally intake (2) Adult failure to thrive: Code(s): R62.7 - Adult failure to thrive Status: Acute Assessment and Plan: PT OT consult Consider speech therapy consult Calorie count (3) Unintentional weight loss: Code(s): R63.4 - Abnormal weight loss Status: Acute Assessment and Plan: Poor per orally intake (4) Protein-calorie malnutrition, moderate: Code(s): E44.0 - Moderate protein-calorie malnutrition Status: Acute Assessment and Plan: Reinforce diet (5) Major depression: Code(s): F32.9 - Major depressive disorder, single episode, unspecified Status: Acute Assessment and Plan: Continue Lexapro (6) Afib: Code(s): I48.91 - Unspecified atrial fibrillation Status: Acute Assessment and Plan: Rate controlled anticoagulated (7) Prostate CA: Code(s): C61 - Malignant neoplasm of prostate Status: Acute Assessment and Plan: Follow-up in outpatient setting Hospitalist MIPS Advance Care Plan I have confirmed that the patient's Advanced Care Plan is present, code status is documented, or surrogate decision maker is listed in patient medical record.: Yes Medication Reconciliation I have utilized all available resources to obtain, update and review the patients current medications (includes all prescriptions, OTC, herbals, cannabis, and nutritional supplements).: Yes
[2024-09-21 23:41] VITALS: BP 165/75; PULSE 56; RESP 16; O2SAT 96
[2024-09-22 01:10] VITALS: BMI 15.0
--- NOTE | 2024-09-22 01:10 | ADMGEN ---
This patient, Trevor Condon Jr., was admitted to [facility] Surg Room 309-01 at 01:10. Patient/family oriented to hospital policies and general routines including ID bracelet, bed and alarms, visiting hours, pain management, procedures, bathroom and other care routines, personal items, smoking policy, room service/diet, and visiting hours. Information on how to activate the Rapid Response Team has been discussed. Patient/Family are encouraged to report perceived risks to care and to ask questions if they do not understand what they are told or what they should do.
[2024-09-22 01:34] VITALS: BP 157/82; PULSE 51; RESP 12; TEMP 36.7; O2SAT 98
[2024-09-22] MEDS: SODIUM CHLORIDE 0.9% IV 1,000 ML 100 ML IV CONT ×2 (01:48→19:00)
[2024-09-22] MEDS: ONDANSETRON INJ 4 MG/2 ML VIAL IV PUSH ×2 (01:48→08:55)
[2024-09-22 05:17] VITALS: BP 154/71; PULSE 52; RESP 14; TEMP 36.7; O2SAT 100
[2024-09-22 08:44] LABS: Alanine Aminotransferase 11 U/L (6-50); Albumin Level 2.1 g/dL (3.5-5.1); Alkaline Phosphatase 121 U/L (38-126); Anion Gap -1 mmol/L (4-12); Aspartate Amino Transferase 19 U/L (17-59); Bilirubin,Total 0.8 mg/dL (0.2-1.3); Blood Urea Nitrogen 44 mg/dL (9-20); Calcium 8.2 mg/dL (8.4-10.2); Carbon Dioxide 29 mmol/L (22-30); Chloride 106 mmol/L (98-107); Estimated CRCL calculation 19 ml/min; Estimated Glomerular Filt Rate 38; Glucose 82 mg/dL (65-110); Magnesium 2.1 mg/dL (1.6-2.3); Potassium 3.8 mmol/L (3.4-5.0); Sodium 134 mmol/L (137-145)
[2024-09-22 09:08] LABS: Basophils Percent Auto 0.3 % (0.2-1.2); Eosinophils Absolute Auto 0.1 K/mm3 (0-0.3); Eosinophils Percent Auto 0.7 % (0-4.4); Hematocrit 30.1 % (42.0-52.0); Hemoglobin 9.7 g/dL (14.0-18.0); Immature Granulocyte Absolute 0.02 K/mm3 (0.00-0.031); Immature Granulocyte Percent A 0.3 % (0-0.5); Immature Platelet Fraction Pct 5.4 % (0.9-11.2); Lymphocytes Absolute Auto 2.27 K/mm3 (0.9-3.2); Lymphocytes Percent Auto 33.9 % (18.3-44.2); Mean Corpuscular HGB Conc 32.2 g/dl (32-36); Mean Corpuscular Hemoglobin 28.2 pg (26-34); Mean Corpuscular Volume 87.5 fl (80-100); Mean Platelet Volume 11.1 fl (7.4-10.4); Monocytes Absolute Auto 0.8 K/mm3 (0.1-0.6); Monocytes Percent Auto 11.5 % (2.6-8.5); Neutrophils Absolute Auto 3.6 K/mm3 (1.3-6.7); Neutrophils Percent Auto 53.3 % (45.5-73.1); Platelet Count Result 135 k/mm3 (150-375); Red Blood Count 3.44 M/mm3 (4.6-6.20); Red Cell Distribution Width 14.5 % (11.5-14.5); White Blood Count 6.7 K/mm3 (4.5-10.0)
[2024-09-22] MEDS: PROMETHAZINE HCL 25 MG/ML AMPUL 12.5 MG IV PUSH ×2 (10:27→23:26)
[2024-09-22] MEDS: FLUTICASONE PROPIONATE 0.05% NA SPR 16 GM BTL (*BKC) 2 SPRAY NASAL (10:32)
[2024-09-22] MEDS: ESCITALOPRAM OXALATE 5 MG TABLET PO (10:32)
[2024-09-22] MEDS: APIXABAN 2.5 MG TABLET PO ×2 (10:32→20:38)
[2024-09-22] MEDS: FAMOTIDINE 20 MG TABLET BY MOUTH (10:32)
[2024-09-22] MEDS: SOTALOL HCL 40 MG TABLET PO ×2 (10:33→20:38)
[2024-09-22] MEDS: DOXAZOSIN MESYLATE 4 MG TABLET 8 MG BY MOUTH (10:34)
--- NOTE | 2024-09-22 12:16 | PM.IMPN ---
Progress Note: A&P Assessment and Plan (1) Acute hyponatremia: Code(s): E87.1 - Hypo-osmolality and hyponatremia Status: Acute Assessment and Plan: NA 134 Currently on NS likely secondary to poor per orally intake Patient still vomiting Monitor (2) Adult failure to thrive: Code(s): R62.7 - Adult failure to thrive Status: Acute Assessment and Plan: PT OT consult Consider speech therapy consult Calorie count Protein supplementation (3) Unintentional weight loss: Code(s): R63.4 - Abnormal weight loss Status: Acute Assessment and Plan: Poor per orally intake (4) Protein-calorie malnutrition, moderate: Code(s): E44.0 - Moderate protein-calorie malnutrition Status: Acute Assessment and Plan: Continue above care Dronabinol ordered (5) Major depression: Code(s): F32.9 - Major depressive disorder, single episode, unspecified Status: Acute Assessment and Plan: Continue Lexapro (6) Afib: Code(s): I48.91 - Unspecified atrial fibrillation Status: Acute Assessment and Plan: Rate controlled anticoagulated (7) Prostate CA: Code(s): C61 - Malignant neoplasm of prostate Status: Acute Assessment and Plan: Follow-up in outpatient setting Plan DVT prophylaxis on Eliquis Subjective Date/time seen: 09/22/24 12:16 Interval history: Patient comfortable at bedside adn still having nausea and vomiting Promethazine added to ZOfran and monitor Review of Systems Review of Systems: Generalized weakness, poor appetite, poor per orally intake Exam Narrative: Patient is laying in a stretcher Const: General: comfortable, no acute distress, well developed, alert, awake, ill appearing chronically, malnourished and underweight Nutritional Appearance: malnourished and underweight Orientation/consciousness: patient oriented x3 HENMT: Head: normal to inspection, normocephalic and atraumatic Ears: hearing grossly normal bilaterally Face/Nose/Sinus: normal facial exam Face and sinus: normal facial exam Other: Bitemporal muscle wasting Eyes: General: appearance normal, both eyes and all related structures Pupils: Equal, round and reactive pupils present EOM: EOMs intact bilaterally Neck: Neck: full ROM, no lymphadenopathy and no JVD Thyroid: thyroid normal Lymphatic: no lymphadenopathy noted Resp: Effort & Inspection: normal respiratory effort and able to speak in complete sentences Auscultation: clear to auscultation bilaterally Cardio: Jugular venous distension: no JVD Rate: regular rate Rhythm: regular rhythm Heart sounds: S1 normal heart sound present and S2 normal heart sound present : General: Yes deferred Skin: Rashes: no rashes Wounds: no wounds Neuro: General: patient oriented x3 and CN's II-XI intact bilaterally Cranial nerves: Yes CN's II-XII intact bilaterally and Yes Equal, round and reactive pupils present Cognition (Neuro): normal cognition Speech: normal speech Gait exam (Neuro): Normal gait present Motor exam (neuro): 5/5 motor strength present throughout Extrem: General: normal to inspection, full ROM, no joint enlargement and no pedal edema Objective Data Vital Signs Vital Signs: Vital Signs - 24 hr 09/21/24 18:27 09/21/24 21:36 09/21/24 23:41 Temperature 98.1 F Pulse Rate 58 L 54 L 56 L Respiratory Rate 18 14 16 Blood Pressure 143/74 H 152/82 H 165/75 H Pulse Oximetry 99 98 96 Oxygen Delivery Room Air Room Air 09/22/24 01:10 09/22/24 01:34 09/22/24 05:17 Temperature 98.1 F 98.0 F Pulse Rate 51 L 52 L Respiratory Rate 12 14 Blood Pressure 157/82 H 154/71 H Pulse Oximetry 98 100 Oxygen Delivery Room Air Intake/Output Intake/Output: Intake & Output 09/19/24 09/20/24 09/21/24 09/22/24 23:59 23:59 23:59 23:59 Intake Total 240 Output Total 500 Balance -500 240 Meds/Results Medications: Active Medications Generic Name Dose Route Start Last Admin Trade Name Freq PRN Reason Stop Dose Admin Acetaminophen 650 mg 09/21/24 22:50 Acetaminophen 325 Mg Tablet PO Q4H PRN Mild Pain (1-3) or Fever Albuterol 2 puff 09/22/24 02:42 Albuterol Sulfate (*Sp) Aerosol 1 Puff INHALATION Q4HRT PRN shortness of breath or wheezing Apixaban 2.5 mg 09/22/24 09:00 09/22/24 10:32 Apixaban 2.5 Mg Tablet PO 2.5 mg Q12HR [facility]UE Administration Dicyclomine HCl 20 mg 09/22/24 02:42 Dicyclomine Hcl 10 Mg Capsule PO TID PRN abdominal pain Doxazosin Mesylate 8 mg 09/22/24 09:00 09/22/24 10:34 Doxazosin Mesylate 4 Mg Tablet BY MOUTH 8 mg DAILY HUE Administration Escitalopram Oxalate 5 mg 09/22/24 09:00 09/22/24 10:32 Escitalopram Oxalate 5 Mg Tablet PO 5 mg DAILY [facility]UE Administration Famotidine 20 mg 09/22/24 09:00 09/22/24 10:32 Famotidine 20 Mg Tablet BY MOUTH 20 mg DAILY [facility]UE Administration Fluticasone Propionate 2 spray 09/22/24 09:00 09/22/24 10:32 Fluticasone Propionate 0.05% Na Spr 16 Gm Btl (*Bkc) NASAL 2 spray DAILY [facility]UE Administration Sodium Chloride 1,000 mls @ 100 mls/hr 09/21/24 22:50 09/22/24 01:48 Normal Saline Iv IV CONT 100 mls/hr .Q10H [facility]UE Administration Megestrol Acetate 40 mg 09/22/24 09:00 09/22/24 10:33 Megestrol Acetate (*Chemo) 40 Mg Tablet PO 40 mg QID HUE Administration Miscellaneous Information 1 each 09/22/24 00:01 Enzalutamide [Xtandi] 80 Mg Tablet Is Nonformulary, Can Patient Bring From Home? XX 10/22/24 00:00 CL[facility]IFY [facility] [place] Non-Formulary Medication 80 mg 09/22/24 09:00 Enzalutamide [Xtandi] PO 10/22/24 08:59 DAILY [facility] [place] Ondansetron HCl 4 mg 09/21/24 22:50 09/22/24 08:55 Ondansetron Inj 4 Mg/2 Ml Vial IV PUSH 4 mg Q4H PRN Administration Nausea Promethazine HCl 12.5 mg 09/22/24 09:57 09/22/24 10:27 Promethazine Hcl 25 Mg/Ml Ampul IV PUSH 12.5 mg Q6H PRN Administration Nausea And Vomiting Sotalol HCl 40 mg 09/22/24 09:00 09/22/24 10:33 Sotalol Hcl 40 Mg Tablet PO 40 mg Q12HR [facility]UE Administration Radiology Results: ITS Impressions Chest X-Ray 09/21/24 19:27 IMPRESSION: No acute cardiopulmonary process. Labs Labs: Laboratory Results - last 24 hr 09/21/24 09/21/2424 19:01 21:51 07:57 WBC 7.2 6.7 RBC 3.83 L 3.44 L Hgb 10.9 L 9.7 L Hct 32.6 L 30.1 L MCV 85.1 87.5 MCH 28.5 28.2 MCHC 33.4 32.2 RDW 14.4 14.5 Plt Count 165 135 L MPV 10.8 H 11.1 H Immature Gran % (Auto) 0.4 0.3 Neut % (Auto) 59.8 53.3 Lymph % (Auto) 26.9 33.9 [place] % (Auto) 11.8 H 11.5 H Eos % (Auto) 0.8 0.7 Baso % (Auto) 0.3 0.3 Lymph # (Auto) 1.94 2.27 [place] # (Auto) 0.9 H 0.8 H Eos # (Auto) 0.1 0.1 Baso # (Auto) 0.0 0.0 Abs Immat Gran (auto) 0.03 0.02 Absolute Neuts (auto) 4.3 3.6 Absolute Nucleated RBC 0.000 0.000 Nucleated RBC % 0.0 0.0 % Immature Plt Fraction 5.4 PT 19.2 H INR 1.6 APTT 34.0 Sodium 127 L 134 L Potassium 4.0 3.8 Chloride 98 106 Carbon Dioxide 28 29 Anion Gap 1 L -1 L BUN 55 H 44 H D Creatinine 1.80 H 1.70 H Estim Creat Clear Calc 18 19 Estimated GFR 36 L 38 L Glucose 105 82 Calcium 8.6 8.2 L Magnesium 2.1 Total Bilirubin 0.7 0.8 AST 24 19 ALT 12 11 Alkaline Phosphatase 137 H 121 Total Protein 5.0 L 5.0 L Albumin 2.5 L 2.1 L Urine Color Yellow Urine Appearance Clear Urine pH 6.0 Ur Specific [place] 1.012 Urine Protein 1+ H Urine Glucose (UA) Negative Urine Ketones Negative Ur Blood (Man) Negative Urine Nitrate Negative Urine Bilirubin Negative Urine Urobilinogen 0.2 Leukocyte Esterase Rfl Negative Urine RBC 0-2 Urine WBC 0-5 Ur Squamous Epith Cells None seen Urine Bacteria None seen Urine Casts 0-2
[2024-09-22 12:22] VITALS: BMI 15.0
[2024-09-22] MEDS: MEGESTROL ACETATE (*CHEMO) 40 MG TABLET PO ×3 (12:30→20:38)
[2024-09-22 14:00] VITALS: BP 127/67; PULSE 53; RESP 14; TEMP 37.1; O2SAT 97
[2024-09-22] MEDS: droNABinol (*CRX) 2.5 MG CAPSULE PO (18:57)
[2024-09-22 20:38] VITALS: PULSE 64
[2024-09-22 20:45] VITALS: BP 144/57; PULSE 111; RESP 18; TEMP 36.9; O2SAT 97
[2024-09-22] MEDS: traZODone HCL 50 MG TABLET PO (22:41)
[2024-09-23] MEDS: ACETAMINOPHEN 325 MG TABLET 650 MG PO ×2 (00:10→20:37)
--- NOTE | 2024-09-23 01:42 | PC.NURSE ---
pt repeatedly using call light and yelling into hallway that he cannot sleep. order for trazodone receieved. prn phenergan given for pt's c/o nausea in hopes of increasing drowsiness. pt still states he cannot sleep and begged this RN to just put me to sleep . order for one time PO benadryl recieved. this RN brought the medication to pt's room and told pt it will help make him sleepy. patient refused to take it, verbalized that he is agitated, and asked why won't they just give me my lorazepam?
[2024-09-23 04:00] VITALS: BP 112/64; PULSE 54; RESP 18; TEMP 36.6; O2SAT 95
[2024-09-23 06:30] LABS: Basophils Percent Auto 0.4 % (0.2-1.2); Eosinophils Absolute Auto 0.1 K/mm3 (0-0.3); Eosinophils Percent Auto 1.3 % (0-4.4); Hematocrit 29.4 % (42.0-52.0); Hemoglobin 9.8 g/dL (14.0-18.0); Immature Granulocyte Absolute 0.03 K/mm3 (0.00-0.031); Immature Granulocyte Percent A 0.6 % (0-0.5); Immature Platelet Fraction Pct 4.3 % (0.9-11.2); Lymphocytes Absolute Auto 1.92 K/mm3 (0.9-3.2); Lymphocytes Percent Auto 35.2 % (18.3-44.2); Mean Corpuscular HGB Conc 33.3 g/dl (32-36); Mean Corpuscular Hemoglobin 28.7 pg (26-34); Mean Corpuscular Volume 86.2 fl (80-100); Mean Platelet Volume 11.3 fl (7.4-10.4); Monocytes Absolute Auto 0.6 K/mm3 (0.1-0.6); Monocytes Percent Auto 10.8 % (2.6-8.5); Neutrophils Absolute Auto 2.8 K/mm3 (1.3-6.7); Neutrophils Percent Auto 51.7 % (45.5-73.1); Platelet Count Result 116 k/mm3 (150-375); Red Blood Count 3.41 M/mm3 (4.6-6.20); Red Cell Distribution Width 14.6 % (11.5-14.5); White Blood Count 5.5 K/mm3 (4.5-10.0)
[2024-09-23 06:40] LABS: Alanine Aminotransferase 11 U/L (6-50); Albumin Level 2.2 g/dL (3.5-5.1); Alkaline Phosphatase 120 U/L (38-126); Anion Gap -1 mmol/L (4-12); Aspartate Amino Transferase 20 U/L (17-59); Bilirubin,Total 0.8 mg/dL (0.2-1.3); Blood Urea Nitrogen 37 mg/dL (9-20); Carbon Dioxide 28 mmol/L (22-30); Chloride 105 mmol/L (98-107); Estimated CRCL calculation 19 ml/min; Estimated Glomerular Filt Rate 38; Glucose 85 mg/dL (65-110); Potassium 3.1 mmol/L (3.4-5.0); Sodium 132 mmol/L (137-145)
--- NOTE | 2024-09-23 08:50 | PCPTNOTE ---
Ateempted to see the patient, but patient having trouble staying awake, reports he didn't get much sleep last night and wants to sleep more. Physical therapy will check on patient again as time allows.
[2024-09-23 08:58] VITALS: O2SAT 97
[2024-09-23] MEDS: FLUTICASONE PROPIONATE 0.05% NA SPR 16 GM BTL (*BKC) 2 SPRAY NASAL (11:17)
[2024-09-23] MEDS: SODIUM CHLORIDE 0.9% IV 1,000 ML 100 ML IV CONT (11:17)
[2024-09-23] MEDS: PROMETHAZINE HCL 25 MG/ML AMPUL 12.5 MG IV PUSH ×2 (11:50→20:37)
[2024-09-23] MEDS: ALBUMIN HUMAN 25% 25 GM/100 ML 100 ML IVPB (12:10)
[2024-09-23 14:00] VITALS: BP 137/69; PULSE 59; RESP 18; TEMP 36.7; O2SAT 98
--- NOTE | 2024-09-23 14:31 | PCPTNOTE ---
Patient still sleeping and not wanting to do physical therapy at 1415 this afternoon. Physical therapy will check on patient again tomorrow as time allows.
[2024-09-23] MEDS: MEGESTROL ACETATE (*CHEMO) 40 MG TABLET PO ×3 (15:00→20:37)
--- NOTE | 2024-09-23 15:09 | PM.IMPN ---
Progress Note: A&P Assessment and Plan (1) Acute hyponatremia: Code(s): E87.1 - Hypo-osmolality and hyponatremia Status: Acute Assessment and Plan: NA 134 Currently on NS likely secondary to poor per orally intake lethargic at bedside Monitor (2) Adult failure to thrive: Code(s): R62.7 - Adult failure to thrive Status: Acute Assessment and Plan: PT OT consult Consider speech therapy consult Calorie count Protein supplementation (3) Unintentional weight loss: Code(s): R63.4 - Abnormal weight loss Status: Acute Assessment and Plan: Poor per orally intake (4) Protein-calorie malnutrition, moderate: Code(s): E44.0 - Moderate protein-calorie malnutrition Status: Acute Assessment and Plan: Continue above care On Dronabinol (5) Major depression: Code(s): F32.9 - Major depressive disorder, single episode, unspecified Status: Acute Assessment and Plan: Continue Lexapro (6) Afib: Code(s): I48.91 - Unspecified atrial fibrillation Status: Acute Assessment and Plan: Rate controlled anticoagulated (7) Prostate CA: Code(s): C61 - Malignant neoplasm of prostate Status: Acute Assessment and Plan: Follow-up in outpatient setting Plan DVT prophylaxis on Eliquis Subjective Date/time seen: 09/23/24 15:09 Interval history: Patient very lethargic at bedside this morning, was noted to refuse foods and meds I discuss with family to consider hospice/comfort care RUQ US showed cholelithiasis and patient reported pain with meals Family noted they will discuss hospice at a later time thus gen surgery consulted Still do not think patient is a good candidate for surgery Review of Systems Review of Systems: Generalized weakness, poor appetite, poor per orally intake Exam Narrative: Patient is laying in a stretcher Const: General: comfortable, no acute distress, well developed, alert, awake, ill appearing chronically, malnourished and underweight Nutritional Appearance: malnourished and underweight Orientation/consciousness: patient oriented x3 HENMT: Head: normal to inspection, normocephalic and atraumatic Ears: hearing grossly normal bilaterally Face/Nose/Sinus: normal facial exam Face and sinus: normal facial exam Other: Bitemporal muscle wasting Eyes: General: appearance normal, both eyes and all related structures Pupils: Equal, round and reactive pupils present EOM: EOMs intact bilaterally Neck: Neck: full ROM, no lymphadenopathy and no JVD Thyroid: thyroid normal Lymphatic: no lymphadenopathy noted Resp: Effort & Inspection: normal respiratory effort and able to speak in complete sentences Auscultation: clear to auscultation bilaterally Cardio: Jugular venous distension: no JVD Rate: regular rate Rhythm: regular rhythm Heart sounds: S1 normal heart sound present and S2 normal heart sound present : General: Yes deferred Skin: Rashes: no rashes Wounds: no wounds Neuro: General: patient oriented x3 and CN's II-XI intact bilaterally Cranial nerves: Yes CN's II-XII intact bilaterally and Yes Equal, round and reactive pupils present Cognition (Neuro): normal cognition Speech: normal speech Gait exam (Neuro): Normal gait present Motor exam (neuro): 5/5 motor strength present throughout Extrem: General: normal to inspection, full ROM, no joint enlargement and no pedal edema Objective Data Vital Signs Vital Signs: Vital Signs - 24 hr 09/22/24 15:40 09/22/24 20:00 09/22/24 20:38 Temperature Pulse Rate 64 Respiratory Rate Blood Pressure Pulse Oximetry Oxygen Delivery Room Air Room Air Fraction of Inspired Oxygen 09/22/24 20:45 09/23/24 04:00 09/23/24 08:58 Temperature 98.4 F 97.8 F Pulse Rate 111 H 54 L Respiratory Rate 18 18 Blood Pressure 144/57 H 112/64 Pulse Oximetry 97 95 97 Oxygen Delivery Room Air Fraction of Inspired Oxygen 21 Intake/Output Intake/Output: Intake & Output 09/20/24 09/21/24 09/22/24 09/23/24 23:59 23:59 23:59 23:59 Intake Total 2140 1693.0 Output Total 500 Balance -500 2140 1693.0 Meds/Results Medications: Active Medications Generic Name Dose Route Start Last Admin Trade Name Freq PRN Reason Stop Dose Admin Acetaminophen 650 mg 09/21/24 22:50 09/23/24 00:10 Acetaminophen 325 Mg Tablet PO 650 mg Q4H PRN Administration Mild Pain (1-3) or Fever Albuterol 2 puff 09/22/24 02:42 Albuterol Sulfate (*Sp) Aerosol 1 Puff INHALATION Q4HRT PRN shortness of breath or wheezing Apixaban 2.5 mg 09/22/24 09:00 09/23/24 10:45 Apixaban 2.5 Mg Tablet PO Not Given Q12HR [facility] Dicyclomine HCl 20 mg 09/22/24 02:42 Dicyclomine Hcl 10 Mg Capsule PO TID PRN abdominal pain Doxazosin Mesylate 8 mg 09/22/24 09:00 09/23/24 10:45 Doxazosin Mesylate 4 Mg Tablet BY MOUTH Not Given DAILY [facility] Dronabinol 2.5 mg 09/22/24 17:00 09/23/24 10:45 Dronabinol (*Crx) 2.5 Mg Capsule PO Not Given BID [facility] Escitalopram Oxalate 5 mg 09/22/24 09:00 09/23/24 10:45 Escitalopram Oxalate 5 Mg Tablet PO Not Given DAILY [facility] Famotidine 20 mg 09/22/24 09:00 09/23/24 10:45 Famotidine 20 Mg Tablet BY MOUTH Not Given DAILY [facility] Fluticasone Propionate 2 spray 09/22/24 09:00 09/23/24 11:17 Fluticasone Propionate 0.05% Na Spr 16 Gm Btl (*Bkc) NASAL 2 spray DAILY [facility]UE Administration Sodium Chloride 1,000 mls @ 100 mls/hr 09/21/24 22:50 09/23/24 14:59 Normal Saline Iv IV CONT 100 mls/hr .Q10H [facility]UE Infusion Lorazepam 0.5 mg 09/23/24 11:48 Lorazepam (*Crx) 0.5 Mg Tablet PO BID PRN Anxiety Megestrol Acetate 40 mg 09/22/24 09:00 09/23/24 15:00 Megestrol Acetate (*Chemo) 40 Mg Tablet PO 40 mg QID [facility] Administration Miscellaneous Information 1 each 09/22/24 00:01 Enzalutamide [Xtandi] 80 Mg Tablet Is Nonformulary, Can Patient Bring From Home? XX 10/22/24 00:00 CLARIFY [facility] Non-Formulary Medication 80 mg 09/22/24 09:00 Enzalutamide [Xtandi] PO 10/22/24 08:59 DAILY [facility] Ondansetron HCl 4 mg 09/21/24 22:50 09/22/24 08:55 Ondansetron Inj 4 Mg/2 Ml Vial IV PUSH 4 mg Q4H PRN Administration Nausea Promethazine HCl 12.5 mg 09/22/24 09:57 09/23/24 11:50 Promethazine Hcl 25 Mg/Ml Ampul IV PUSH 12.5 mg Q6H PRN Administration Nausea And Vomiting Sotalol HCl 40 mg 09/22/24 09:00 09/23/24 10:45 Sotalol Hcl 40 Mg Tablet PO Not Given Q12HR [facility] Trazodone HCl 50 mg 09/22/24 22:25 09/22/24 22:41 Trazodone Hcl 50 Mg Tablet PO 50 mg HS HUE Administration Radiology Results: ITS Impressions Chest X-Ray 09/21/24 19:27 IMPRESSION: No acute cardiopulmonary process. Abdomen Ultrasound 09/22/24 19:31 IMPRESSION: Cholelithiasis. Possibility of cholecystitis cannot be excluded. Clinical correlation advised. Bilateral renal cysts. Small left hepatic lobe cyst. Labs Labs: Laboratory Results - last 24 hr 09/23/24 06:04 WBC 5.5 RBC 3.41 L Hgb 9.8 L Hct 29.4 L MCV 86.2 MCH 28.7 MCHC 33.3 RDW 14.6 H Plt Count 116 L MPV 11.3 H Immature Gran % (Auto) 0.6 H Neut % (Auto) 51.7 Lymph % (Auto) 35.2 [place] % (Auto) 10.8 H Eos % (Auto) 1.3 Baso % (Auto) 0.4 Lymph # (Auto) 1.92 [place] # (Auto) 0.6 Eos # (Auto) 0.1 Baso # (Auto) 0.0 Abs Immat Gran (auto) 0.03 Absolute Neuts (auto) 2.8 Absolute Nucleated RBC 0.000 Nucleated RBC % 0.0 % Immature Plt Fraction 4.3 Sodium 132 L Potassium 3.1 L Chloride 105 Carbon Dioxide 28 Anion Gap -1 L BUN 37 H Creatinine 1.70 H Estim Creat Clear Calc 19 Estimated GFR 38 L Glucose 85 Calcium 8.0 L Magnesium 2.0 Total Bilirubin 0.8 AST 20 ALT 11 Alkaline Phosphatase 120 Total Protein 5.0 L Albumin 2.2 L
--- NOTE | 2024-09-23 15:45 | PM.CNGS ---
Assessment and Plan Assessment and plan (1) Cholelithiasis: Qualifiers: Cholelithiasis location: gallbladder Cholecystitis presence: without cholecystitis Biliary obstruction: without biliary obstruction Qualified Code(s): K80.20 - Calculus of gallbladder without cholecystitis without obstruction Code(s): K80.20 - Calculus of gallbladder without cholecystitis without obstruction Status: Acute Assessment and Plan: Ultrasound showed gallstones. There was no evidence of cholecystitis on the ultrasound. I explained to the patient's daughter and to his , as well as the patient, that gallstones can be a cause of chronic abdominal pain and poor eating in the elderly. I will order an hepatobiliary scan for Wednesday. If this shows cholecystitis, we will discuss further the option of cholecystectomy. If this is normal. I would not advocate cholecystectomy. (2) Adult failure to thrive: Code(s): R62.7 - Adult failure to thrive Status: Chronic Assessment and Plan: Multifactorial but could be related to chronic cholecystitis. (3) Unintentional weight loss: Code(s): R63.4 - Abnormal weight loss Status: Chronic Assessment and Plan: Eating better in the hospital on Megestrol. Seems that his poor appetite is relatively coincident with treatment of prostate cancer with hormonal antineoplastic chemotherapy and leuprolide. This could also be contributing to his poor eating and being helped with the Megestrol. 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 He was diagnosed with high risk prostate cancer last January. He has been undergoing hormonal anti neoplastic chemotherapy. He was also diagnosed with pneumonia at the in of July, early August. He came to the emergency room 09/21/24 with his family due to his continued poor eating, weight loss and deterioration. He was admitted for evaluation. He was started on 40mg of Megestrol QID and his family reports that he has been eating better. He has had some vague complaints of abdominal pain which after more direct questioning in the hospital, seemed to be in the right upper quadrant per the patient's daughter. An ultrasound of the gallbladder was performed and did showed gallstones with the largest of the stones being 1.4 cm. There was no gallbladder wall thickening, no sonographic Foster sign, no pericholecystic fluid. I was asked to see the patient in consultation regarding chronic cholecystitis as a cause for his persistent weight loss and poor eating. Patient appeared tired when I evaluated him. He did not identify abdominal pain at this time. He does take Eliquis for history of atrial fibrillation although is EKG on admission did not show atrial fibrillation. Review of Systems Review of Systems: All systems reviewed & are unremarkable except as noted in HPI and below (HPI) FORMERLY [facility] Past Medical History Medical History Prostatism Thoracic aortic aneurysm (TAA) CKD (chronic kidney disease), stage III H/O Malignant melanoma Anxiety Mixed hyperlipidemia Essential hypertension Surgical History Surgical History H/O hernia repair Family History Family History Father Hypertension Mother Hypertension Sibling Hypertension Social History Social History Smoking packs per day: 0.5 Smoking cigarettes per day: 10.0 Years smoked: 10 Smoking pack-years: 5.00 Smoking status: Former smoker Second hand tobacco smoke exposure: No Alcohol intake: former Alcohol use details: social Substance use: never Substance use type: does not use Do You Feel Safe in your Home?: Yes Lack of Transportation: No Lack of Food: Never True Current Housing: I Have Housing Concerned About Future Housing: No Difficulty Paying Gas/Electric Bills: No Difficulty Paying for Meds: No Currently Unemployed: No Education: Trade/Vocational Certificate Difficulty w/ Childcare or Family Care: No Gender identity (if verbalized by the patient): Male Sexual Orientation (if Verbalized by the Patient): Straight or Heterosexual Spiritual care concerns: No Agree to blood products: Yes Meds Home Medications and Allergies Home Medications ?Medication ?Instructions ?Recorded ?Confirmed ?Type multivitamin 1 tablet PO DAILY 12/08/19 09/22/24 History sotalol 80 mg tablet 40 mg PO DAILY 09/14/23 09/22/24 History albuterol sulfate 90 mcg/actuation 2 inh inhalation Q4H PRN shortness 08/30/24 09/22/24 Rx aerosol inhaler of breath or wheezing #8.5 grams enzalutamide 80 mg tablet (Xtandi) 80 mg PO DAILY 08/30/24 09/22/24 History fluticasone propionate 50 2 spray intranasal DAILY #16 grams 08/30/24 09/22/24 Rx mcg/actuation nasal spray,suspension (Children's Flonase Allergy Relief) lorazepam 0.5 mg tablet 0.5 mg PO TID PRN anxiety #90 tabs 09/01/24 09/22/24 Rx escitalopram oxalate 5 mg tablet 5 mg PO DAILY #30 tabs 09/07/24 09/22/24 Rx (Lexapro) dicyclomine 20 mg tablet 20 mg PO TID PRN abdominal pain 09/13/24 09/22/24 Rx #20 tabs famotidine 20 mg tablet See Rx Instructions .Route 09/13/24 09/22/24 Rx .COMPLEX #90 tabs ondansetron 4 mg disintegrating See Rx Instructions .Route 09/18/24 09/22/24 Rx tablet .COMPLEX #10 tabs doxazosin 8 mg tablet See Rx Instructions .Route 09/19/24 09/22/24 Rx .COMPLEX #90 tabs apixaban 2.5 mg tablet (Eliquis) 2.5 mg PO .q12hr 09/22/24 09/22/24 History Allergies Allergy/AdvReac Type Severity Reaction Status Date / Time latex Allergy Mild Rash Verified 09/22/24 02:17 Vital Signs Vital Signs - 24 hr 09/22/24 20:00 09/22/24 20:38 09/22/24 20:45 Temperature 36.9 C Pulse Rate 64 111 H Respiratory Rate 18 Blood Pressure 144/57 H Pulse Oximetry 97 Oxygen Delivery Room Air Fraction of Inspired Oxygen 09/23/24 04:00 09/23/24 08:58 09/23/24 14:00 Temperature 36.6 C 36.7 C Pulse Rate 54 L 59 L Respiratory Rate 18 18 Blood Pressure 112/64 137/69 Pulse Oximetry 95 97 98 Oxygen Delivery Room Air Fraction of Inspired Oxygen 21 Exam Const: General: awake, lethargic, tired appearing and cachectic Orientation/consciousness: lethargic HENMT: Head: normocephalic and atraumatic Ears: external ears normal Face/Nose/Sinus: Normal external nose present and Normal nares present Face and sinus: face symmetric, no crepitus, no ecchymosis, no erythema and dry mucous membranes Mouth: Yes Normal oral and palatal mucosa present and Yes dry mucous membranes Eyes: Conjunctivae: conjunctivae normal Pupils: Equal, round and reactive pupils present EOM: EOMs intact bilaterally Neck: Neck: normal visual inspection, no lymphadenopathy and nontender Resp: Effort & Inspection: normal respiratory effort Auscultation: clear to auscultation bilaterally Cardio: Rate: regular rate Rhythm: regular rhythm Heart sounds: no gallops, no murmurs and no rubs GI: Inspection: non-distended GI Palp: Yes Soft to palpation, No Tenderness to palpation present (GI), No Hepatomegaly present and No Splenomegaly present Skin: Lesions: no lesions Rashes: no rashes Neuro: General: no focal motor deficits and CN's II-XI intact bilaterally Cranial nerves: Yes Equal, round and reactive pupils present, Yes Bilaterally intact EOM present, Yes facial symmetry and Yes Midline tongue present Speech: normal speech Motor exam (neuro): 5/5 motor strength present throughout and Motor abnormalities not present Extrem: General: no clubbing, cyanosis or edema and edema Psych: Speech and movement: Clear speech present Affect: Indifferent affect present Attitude: cooperative Thought process: Impoverished thought process present Insight: Limited insight present (Psych) Results Labs 09/23/24 06:04 09/23/24 06:04 Labs: Abnormal lab results 09/23/24 Range/Units 06:04 RBC 3.41 L (4.6-6.20) M/mm3 Hgb 9.8 L (14.0-18.0) g/dL Hct 29.4 L (42.0-52.0) % RDW 14.6 H (11.5-14.5) % Plt Count 116 L (150-375) k/mm3 MPV 11.3 H (7.4-10.4) fl Immature Gran % (Auto) 0.6 H (0-0.5) % [place] % (Auto) 10.8 H (2.6-8.5) % Sodium 132 L (137-145) mmol/L Potassium 3.1 L (3.4-5.0) mmol/L Anion Gap -1 L (4-12) mmol/L BUN 37 H (9-20) mg/dL Creatinine 1.70 H (0.7-1.3) mg/dL Estimated GFR 38 L (59 - ) Calcium 8.0 L (8.4-10.2) mg/dL Total Protein 5.0 L (6.3-8.2) g/dL Albumin 2.2 L (3.5-5.1) g/dL Diabetes panel 09/23/24 Range/Units 06:04 Sodium 132 L (137-145) mmol/L Potassium 3.1 L (3.4-5.0) mmol/L Chloride 105 (98-107) mmol/L Carbon Dioxide 28 (22-30) mmol/L BUN 37 H (9-20) mg/dL Creatinine 1.70 H (0.7-1.3) mg/dL Glucose 85 (65-110) mg/dL Calcium 8.0 L (8.4-10.2) mg/dL AST 20 (17-59) U/L ALT 11 (6-50) U/L Alkaline Phosphatase 120 (38-126) U/L Total Protein 5.0 L (6.3-8.2) g/dL Albumin 2.2 L (3.5-5.1) g/dL Calcium panel 09/23/24 Range/Units 06:04 Calcium 8.0 L (8.4-10.2) mg/dL Albumin 2.2 L (3.5-5.1) g/dL Pituitary panel 09/23/24 Range/Units 06:04 Sodium 132 L (137-145) mmol/L Potassium 3.1 L (3.4-5.0) mmol/L Chloride 105 (98-107) mmol/L Carbon Dioxide 28 (22-30) mmol/L BUN 37 H (9-20) mg/dL Creatinine 1.70 H (0.7-1.3) mg/dL Glucose 85 (65-110) mg/dL Calcium 8.0 L (8.4-10.2) mg/dL Adrenal panel 09/23/24 Range/Units 06:04 Sodium 132 L (137-145) mmol/L Potassium 3.1 L (3.4-5.0) mmol/L Chloride 105 (98-107) mmol/L Carbon Dioxide 28 (22-30) mmol/L BUN 37 H (9-20) mg/dL Creatinine 1.70 H (0.7-1.3) mg/dL Glucose 85 (65-110) mg/dL Calcium 8.0 L (8.4-10.2) mg/dL Total Bilirubin 0.8 (0.2-1.3) mg/dL AST 20 (17-59) U/L ALT 11 (6-50) U/L Alkaline Phosphatase 120 (38-126) U/L Total Protein 5.0 L (6.3-8.2) g/dL Albumin 2.2 L (3.5-5.1) g/dL All other labs normal.
[2024-09-23] MEDS: droNABinol (*CRX) 2.5 MG CAPSULE PO (18:56)
[2024-09-23] MEDS: LORazepam (*CRX) 0.5 MG TABLET PO (18:56)
[2024-09-23 20:00] VITALS: PULSE 52; RESP 18; O2SAT 98
[2024-09-23 20:35] VITALS: BP 159/87; PULSE 52; PULSE 59; RESP 18; TEMP 37.3; O2SAT 97
[2024-09-23] MEDS: DICYCLOMINE HCL 10 MG CAPSULE 20 MG PO (20:35)
[2024-09-23] MEDS: SOTALOL HCL 40 MG TABLET PO (20:35)
[2024-09-23] MEDS: traZODone HCL 50 MG TABLET PO (20:37)
[2024-09-23] MEDS: APIXABAN 2.5 MG TABLET PO (20:37)
[2024-09-24 05:45] VITALS: BP 176/85; PULSE 58; RESP 18; TEMP 37.2; O2SAT 97
[2024-09-24] MEDS: SODIUM CHLORIDE 0.9% IV 1,000 ML 100 ML IV CONT ×2 (08:09→21:55)
[2024-09-24] MEDS: PROMETHAZINE HCL 25 MG/ML AMPUL 12.5 MG IV PUSH (08:10)
[2024-09-24] MEDS: LORazepam (*CRX) 0.5 MG TABLET PO ×2 (10:48→21:54)
[2024-09-24] MEDS: MEGESTROL ACETATE (*CHEMO) 40 MG TABLET PO ×4 (10:48→21:54)
[2024-09-24] MEDS: droNABinol (*CRX) 2.5 MG CAPSULE PO ×2 (10:49→17:49)
--- NOTE | 2024-09-24 10:52 | PCOTNOTE ---
Attempted to see pt for OT treatment. Per RN, pt is not appropriate at this time. Will continue per poc duration/frequency when appropriate.
--- NOTE | 2024-09-24 10:53 | PM.IMPN ---
Progress Note: A&P Assessment and Plan (1) Acute hyponatremia: Code(s): E87.1 - Hypo-osmolality and hyponatremia Status: Acute Assessment and Plan: NA 134 Currently on NS likely secondary to poor per orally intake lethargic at bedside Monitor (2) Adult failure to thrive: Code(s): R62.7 - Adult failure to thrive Status: Chronic Assessment and Plan: PT OT consult Consider speech therapy consult Calorie count Protein supplementation (3) Unintentional weight loss: Code(s): R63.4 - Abnormal weight loss Status: Chronic Assessment and Plan: Poor per orally intake (4) Protein-calorie malnutrition, moderate: Code(s): E44.0 - Moderate protein-calorie malnutrition Status: Acute Assessment and Plan: Continue above care On Dronabinol (5) Major depression: Code(s): F32.9 - Major depressive disorder, single episode, unspecified Status: Acute Assessment and Plan: Continue Lexapro (6) Afib: Qualifiers: Atrial fibrillation type: paroxysmal Qualified Code(s): I48.0 - Paroxysmal atrial fibrillation Code(s): I48.91 - Unspecified atrial fibrillation Status: Chronic Assessment and Plan: Rate controlled anticoagulated (7) Prostate CA: Code(s): C61 - Malignant neoplasm of prostate Status: Chronic Assessment and Plan: Follow-up in outpatient setting Plan Cholelithiasis r/o Cholecystitis RUQ US showed Cholelithiasis, HIDA scan to rule out Blood culture and Zosyn pending HIDA scan Gen surgery following monitor DVT prophylaxis on Eliquis Subjective Date/time seen: 09/24/24 10:53 Interval history: Gen surgery eval appreciated, HIDA scan pending Review of Systems Review of Systems: Generalized weakness, poor appetite, poor per orally intake Exam Narrative: Patient is laying in a stretcher Const: General: comfortable, no acute distress, well developed, alert, awake, ill appearing chronically, malnourished and underweight Nutritional Appearance: malnourished and underweight Orientation/consciousness: patient oriented x3 HENMT: Head: normal to inspection, normocephalic and atraumatic Ears: hearing grossly normal bilaterally Face/Nose/Sinus: normal facial exam Face and sinus: normal facial exam Other: Bitemporal muscle wasting Eyes: General: appearance normal, both eyes and all related structures Pupils: Equal, round and reactive pupils present EOM: EOMs intact bilaterally Neck: Neck: full ROM, no lymphadenopathy and no JVD Thyroid: thyroid normal Lymphatic: no lymphadenopathy noted Resp: Effort & Inspection: normal respiratory effort and able to speak in complete sentences Auscultation: clear to auscultation bilaterally Cardio: Jugular venous distension: no JVD Rate: regular rate Rhythm: regular rhythm Heart sounds: S1 normal heart sound present and S2 normal heart sound present : General: Yes deferred Skin: Rashes: no rashes Wounds: no wounds Neuro: General: patient oriented x3 and CN's II-XI intact bilaterally Cranial nerves: Yes CN's II-XII intact bilaterally and Yes Equal, round and reactive pupils present Cognition (Neuro): normal cognition Speech: normal speech Gait exam (Neuro): Normal gait present Motor exam (neuro): 5/5 motor strength present throughout Extrem: General: normal to inspection, full ROM, no joint enlargement and no pedal edema Objective Data Vital Signs Vital Signs: Vital Signs - 24 hr 09/23/24 14:00 09/23/24 20:00 09/23/24 20:35 Temperature 98.0 F Pulse Rate 59 L 52 L 52 L Respiratory Rate 18 18 Blood Pressure 137/69 Pulse Oximetry 98 98 Oxygen Delivery Room Air Fraction of Inspired Oxygen 21 09/23/24 20:35 09/24/24 05:45 Temperature 99.2 F 99 F Pulse Rate 59 L 58 L Respiratory Rate 18 18 Blood Pressure 159/87 H 176/85 H Pulse Oximetry 97 97 Oxygen Delivery Fraction of Inspired Oxygen Intake/Output Intake/Output: Intake & Output 09/21/24 09/22/24 09/23/24 09/24/24 23:59 23:59 23:59 23:59 Intake Total 2140 2258.0 582 Output Total 500 1400 Balance -500 2140 2258.0 -818 Meds/Results Medications: Active Medications Generic Name Dose Route Start Last Admin Trade Name Freq PRN Reason Stop Dose Admin Acetaminophen 650 mg 09/21/24 22:50 09/23/24 20:37 Acetaminophen 325 Mg Tablet PO 650 mg Q4H PRN Administration Mild Pain (1-3) or Fever Albuterol 2 puff 09/22/24 02:42 Albuterol Sulfate (*Sp) Aerosol 1 Puff INHALATION Q4HRT PRN shortness of breath or wheezing Apixaban 2.5 mg 09/22/24 09:00 09/23/24 20:37 Apixaban 2.5 Mg Tablet PO 2.5 mg Q12HR HUE Administration Dicyclomine HCl 20 mg 09/22/24 02:42 09/23/24 20:35 Dicyclomine Hcl 10 Mg Capsule PO 20 mg TID PRN Administration abdominal pain Doxazosin Mesylate 8 mg 09/22/24 09:00 09/23/24 10:45 Doxazosin Mesylate 4 Mg Tablet BY MOUTH Not Given DAILY HUE Doxycycline Hyclate 100 mg 09/24/24 17:00 Doxycycline Hyclate 100 Mg Tablet PO BID HUE Dronabinol 2.5 mg 09/22/24 17:00 09/23/24 18:56 Dronabinol (*Crx) 2.5 Mg Capsule PO 2.5 mg BID HUE Administration Escitalopram Oxalate 5 mg 09/22/24 09:00 09/23/24 10:45 Escitalopram Oxalate 5 Mg Tablet PO Not Given DAILY HUE Famotidine 20 mg 09/22/24 09:00 09/23/24 10:45 Famotidine 20 Mg Tablet BY MOUTH Not Given DAILY HUE Fluticasone Propionate 2 spray 09/22/24 09:00 09/23/24 11:17 Fluticasone Propionate 0.05% Na Spr 16 Gm Btl (*Bkc) NASAL 2 spray DAILY HUE Administration Sodium Chloride 1,000 mls @ 100 mls/hr 09/21/24 22:50 09/24/24 08:09 Normal Saline Iv IV CONT 50 mls/hr .Q10H HUE Administration Lisinopril 5 mg 09/24/24 09:00 Lisinopril 5 Mg Tablet PO QAM HUE Lisinopril 5 mg 09/24/24 10:55 Lisinopril 5 Mg Tablet PO QAM HUE Lorazepam 0.5 mg 09/23/24 11:48 09/23/24 18:56 Lorazepam (*Crx) 0.5 Mg Tablet PO 0.5 mg BID PRN Administration Anxiety Megestrol Acetate 40 mg 09/22/24 09:00 09/23/24 20:37 Megestrol Acetate (*Chemo) 40 Mg Tablet PO 40 mg QID HUE Administration Miscellaneous Information 1 each 09/22/24 00:01 Enzalutamide [Xtandi] 80 Mg Tablet Is Nonformulary, Can Patient Bring From Home? XX 10/22/24 00:00 CLARIFY HUE Non-Formulary Medication 80 mg 09/22/24 09:00 Enzalutamide [Xtandi] PO 10/22/24 08:59 DAILY HUE Ondansetron HCl 4 mg 09/21/24 22:50 09/22/24 08:55 Ondansetron Inj 4 Mg/2 Ml Vial IV PUSH 4 mg Q4H PRN Administration Nausea Promethazine HCl 12.5 mg 09/22/24 09:57 09/24/24 08:10 Promethazine Hcl 25 Mg/Ml Ampul IV PUSH 12.5 mg Q6H PRN Administration Nausea And Vomiting Sotalol HCl 40 mg 09/22/24 09:00 09/23/24 20:35 Sotalol Hcl 40 Mg Tablet PO 40 mg Q12HR HUE Administration Trazodone HCl 50 mg 09/22/24 22:25 09/23/24 20:37 Trazodone Hcl 50 Mg Tablet PO 50 mg HS HUE Administration Radiology Results: ITS Impressions Chest X-Ray 09/21/24 19:27 IMPRESSION: No acute cardiopulmonary process. Abdomen Ultrasound 09/22/24 19:31 IMPRESSION: Cholelithiasis. Possibility of cholecystitis cannot be excluded. Clinical correlation advised. Bilateral renal cysts. Small left hepatic lobe cyst.
[2024-09-24] MEDS: DOXAZOSIN MESYLATE 4 MG TABLET 8 MG BY MOUTH (11:25)
[2024-09-24] MEDS: ESCITALOPRAM OXALATE 5 MG TABLET PO (11:25)
[2024-09-24 11:26] VITALS: PULSE 58
[2024-09-24] MEDS: SOTALOL HCL 40 MG TABLET PO ×2 (11:26→21:54)
[2024-09-24] MEDS: APIXABAN 2.5 MG TABLET PO ×2 (11:26→21:54)
[2024-09-24] MEDS: FAMOTIDINE 20 MG TABLET BY MOUTH (11:27)
[2024-09-24] MEDS: lisinopriL 5 MG TABLET PO (11:27)
[2024-09-24] MEDS: FLUTICASONE PROPIONATE 0.05% NA SPR 16 GM BTL (*BKC) 2 SPRAY NASAL (11:27)
--- NOTE | 2024-09-24 11:58 | PHAR ---
HOME MED XTANDI 80 MG TAB; TAKE 2 TABS BY MOUTH DAILY. BOTTLE HAS 2 PM WRITTEN ON IT.VERIFIED BY PHARMACY.
[2024-09-24] MEDS: ENZALUTAMIDE 80 MG 160 EACH PO (13:49)
[2024-09-24 14:00] VITALS: BP 108/73; PULSE 106; RESP 18; TEMP 37.1; O2SAT 97
[2024-09-24] MEDS: DOXYCYCLINE HYCLATE 100 MG TABLET PO (17:49)
[2024-09-24] MEDS: PIPERACILLIN/TAZ 2.25G/NS 50ML 2.25 GM/50 ML BAG IVPB ×2 (17:50→21:55)
[2024-09-24 21:54] VITALS: PULSE 60
[2024-09-24] MEDS: traZODone HCL 50 MG TABLET PO (21:54)
[2024-09-24 22:00] VITALS: BP 125/69; PULSE 57; RESP 14; TEMP 36.5; O2SAT 98
[2024-09-24] MEDS: ACETAMINOPHEN 325 MG TABLET 650 MG PO (23:47)
[2024-09-25] VITALS (10 sets, daily range): BP systolic 93–155; BP diastolic 60–84; PULSE 51–77; RESP 20–25; TEMP 36.2–37.2; O2SAT 96–98
[2024-09-25] MEDS: PIPERACILLIN/TAZ 2.25G/NS 50ML 2.25 GM/50 ML BAG IVPB (05:11)
[2024-09-25 06:25] LABS: Basophils Percent Auto 0.4 % (0.2-1.2); Eosinophils Absolute Auto 0.3 K/mm3 (0-0.3); Eosinophils Percent Auto 3.6 % (0-4.4); Hematocrit 29.6 % (42.0-52.0); Hemoglobin 9.8 g/dL (14.0-18.0); Immature Granulocyte Absolute 0.02 K/mm3 (0.00-0.031); Immature Granulocyte Percent A 0.3 % (0-0.5); Lymphocytes Absolute Auto 2.36 K/mm3 (0.9-3.2); Lymphocytes Percent Auto 34.4 % (18.3-44.2); Mean Corpuscular HGB Conc 33.1 g/dl (32-36); Mean Corpuscular Hemoglobin 28.4 pg (26-34); Mean Corpuscular Volume 85.8 fl (80-100); Mean Platelet Volume 10.5 fl (7.4-10.4); Monocytes Absolute Auto 0.8 K/mm3 (0.1-0.6); Monocytes Percent Auto 11.8 % (2.6-8.5); Neutrophils Absolute Auto 3.4 K/mm3 (1.3-6.7); Neutrophils Percent Auto 49.5 % (45.5-73.1); Platelet Count Result 117 k/mm3 (150-375); Red Blood Count 3.45 M/mm3 (4.6-6.20); Red Cell Distribution Width 14.5 % (11.5-14.5); White Blood Count 6.9 K/mm3 (4.5-10.0)
[2024-09-25 06:56] LABS: Alanine Aminotransferase 10 U/L (6-50); Albumin Level 2.3 g/dL (3.5-5.1); Alkaline Phosphatase 108 U/L (38-126); Anion Gap 0 mmol/L (4-12); Aspartate Amino Transferase 20 U/L (17-59); Bilirubin,Total 1.3 mg/dL (0.2-1.3); Blood Urea Nitrogen 27 mg/dL (9-20); Calcium 8.1 mg/dL (8.4-10.2); Carbon Dioxide 28 mmol/L (22-30); Chloride 108 mmol/L (98-107); Estimated CRCL calculation 17 ml/min; Estimated Glomerular Filt Rate 34; Glucose 87 mg/dL (65-110); Magnesium 1.8 mg/dL (1.6-2.3); Potassium 2.3 mmol/L (3.4-5.0); Sodium 136 mmol/L (137-145)
[2024-09-25] MEDS: SODIUM CHLORIDE 0.9% IV 1,000 ML 100 ML IV CONT (07:35)
[2024-09-25] MEDS: POTASSIUM CHLORIDE INJ 40 MEQ in SODIUM CHLORIDE 0.9% IV 500 ML 90 MEQ IVPB ×2 (07:35→13:05)
[2024-09-25] MEDS: MAGNESIUM SULF 1 GM/D5W 100 ML 1 GM/100 ML BAG IVPB (09:13)
[2024-09-25] MEDS: LORazepam (*CRX) 0.5 MG TABLET PO ×2 (09:44→22:20)
--- NOTE | 2024-09-25 10:06 | PCOTNOTE ---
Patient unavailable for OT treatment session at this time. Patient is going down for a HIDA scan at this time.
--- NOTE | 2024-09-25 10:28 | P.PNGS_ITS ---
Progress Note: A&P Assessment and Plan (1) Cholelithiasis: Qualifiers: Cholelithiasis location: gallbladder Cholecystitis presence: without cholecystitis Biliary obstruction: without biliary obstruction Qualified Code(s): K80.20 - Calculus of gallbladder without cholecystitis without obstruction Code(s): K80.20 - Calculus of gallbladder without cholecystitis without obstruction Status: Acute Assessment and Plan: US showed cholelithiasis and he has been experiencing chronic abdominal pain and poor eating with weight loss. HIDA scan ordered today. If this shows cholecystitis, then we will discuss the option of cholecystectomy further. If this is normal, then we would not advocate cholecystectomy. (2) Adult failure to thrive: Code(s): R62.7 - Adult failure to thrive Status: Chronic Assessment and Plan: Multifactorial and HIDA ordered today to further evaluate for cholecystitis. 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 Laguerre. Subjective Subjective Date/Time Seen: 09/25/24 10:28 Interval history: Chart reviewed and patient seen today with his and daughter at the bedside. He does not endorse any abdominal pain to me at this time. His family states he has eaten at times, but refuses at other times. They have not noticed him complaining of abdominal pain the past few days. He denies nausea this morning, but endorses generalized malaise without other specific complaints. Exam Const: General: no acute distress and tired appearing Nutritional Appearance: cachectic Orientation/consciousness: oriented to person and oriented to place GI: Inspection: non-distended GI Palp: Yes Soft to palpation, Yes Tenderness to palpation present (GI) (RUQ), No Guarding due to palpation present (GI), Yes No hepatosplenomegaly present and No Rebound tenderness present Auscultation: normal bowel sounds Objective Data Vital Signs Vital Signs: Vital Signs - 24 hr 09/24/24 11:26 09/24/24 13:21 09/24/24 14:00 Temperature 98.7 F Pulse Rate 58 L 106 H Respiratory Rate 18 Blood Pressure 108/73 Pulse Oximetry 97 Oxygen Delivery Room Air 09/24/24 20:00 09/24/24 21:54 09/24/24 22:00 Temperature 97.7 F Pulse Rate 60 57 L Respiratory Rate 14 Blood Pressure 125/69 Pulse Oximetry 98 Oxygen Delivery Room Air 09/25/24 06:00 09/25/24 06:05 09/25/24 08:00 Temperature 97.1 F L Pulse Rate 51 L 54 L Respiratory Rate 25 H Blood Pressure 155/83 H Pulse Oximetry 98 Oxygen Delivery Room Air Intake/Output Intake/Output: Intake & Output 09/22/24 09/23/24 09/24/24 09/25/24 23:59 23:59 23:59 23:59 Intake Total 2140 2258.0 2282 1206.7 Output Total 2900 750 Balance 2140 2258.0 -618 456.7 Meds/Results Medications: Active Medications Generic Name Dose Route Start Last Admin Trade Name Freq PRN Reason Stop Dose Admin Acetaminophen 650 mg 09/21/24 22:50 09/24/24 23:47 Acetaminophen 325 Mg Tablet PO 650 mg Q4H PRN Administration Mild Pain (1-3) or Fever Albuterol 2 puff 09/22/24 02:42 Albuterol Sulfate (*Sp) Aerosol 1 Puff INHALATION Q4HRT PRN shortness of breath or wheezing Apixaban 2.5 mg 09/22/24 09:00 09/24/24 21:54 Apixaban 2.5 Mg Tablet PO 2.5 mg Q12HR HUE Administration Dicyclomine HCl 20 mg 09/22/24 02:42 09/23/24 20:35 Dicyclomine Hcl 10 Mg Capsule PO 20 mg TID PRN Administration abdominal pain Doxazosin Mesylate 8 mg 09/22/24 09:00 09/24/24 11:25 Doxazosin Mesylate 4 Mg Tablet BY MOUTH 8 mg DAILY HUE Administration Doxycycline Hyclate 100 mg 09/24/24 17:00 09/24/24 17:49 Doxycycline Hyclate 100 Mg Tablet PO 100 mg BID HUE Administration Dronabinol 2.5 mg 09/22/24 17:00 09/24/24 17:49 Dronabinol (*Crx) 2.5 Mg Capsule PO 2.5 mg BID HUE Administration Escitalopram Oxalate 5 mg 09/22/24 09:00 09/24/24 11:25 Escitalopram Oxalate 5 Mg Tablet PO 5 mg DAILY HUE Administration Famotidine 20 mg 09/22/24 09:00 09/24/24 11:27 Famotidine 20 Mg Tablet BY MOUTH 20 mg DAILY HUE Administration Fluticasone Propionate 2 spray 09/22/24 09:00 09/24/24 11:27 Fluticasone Propionate 0.05% Na Spr 16 Gm Btl (*Bkc) NASAL 2 spray DAILY HUE Administration Sodium Chloride 1,000 mls @ 100 mls/hr 09/21/24 22:50 09/25/24 10:13 Normal Saline Iv IV CONT Not Given .Q10H HUE Piperacillin Sod/Tazobactam Sod 2.25 gm in 50 mls @ 100 mls/hr 09/24/24 14:00 09/25/24 05:11 Zosyn 2.25 Gm/Ns 50 Ml IVPB 100 mls/hr Q8HR HUE Administration Potassium Chloride 40 meq/ 520 mls @ 130 mls/hr 09/25/24 07:30 09/25/24 07:35 Sodium Chloride IVPB 09/25/24 11:29 90 mls/hr ONCE ONE Administration Potassium Chloride 40 meq/ 520 mls @ 130 mls/hr 09/25/24 11:30 Sodium Chloride IVPB 09/25/24 15:29 ONCE ONE Lisinopril 5 mg 09/24/24 09:00 09/24/24 11:27 Lisinopril 5 Mg Tablet PO 5 mg QAM HUE Administration Lisinopril 5 mg 09/24/24 10:55 09/24/24 10:55 Lisinopril 5 Mg Tablet PO Not Given QAM HUE Lorazepam 0.5 mg 09/23/24 11:48 09/25/24 09:44 Lorazepam (*Crx) 0.5 Mg Tablet PO 0.5 mg BID PRN Administration Anxiety Megestrol Acetate 40 mg 09/22/24 09:00 09/25/24 09:53 Megestrol Acetate (*Chemo) 40 Mg Tablet PO Not Given QID [facility] Enzalutamide [Xtandi 160 mg 09/24/24 14:00 09/24/24 13:49 ] 80 Mg Tablet PO 10/24/24 13:59 160 mg Home DAILY@1400 [facility] Administration Ondansetron HCl 4 mg 09/21/24 22:50 09/22/24 08:55 Ondansetron Inj 4 Mg/2 Ml Vial IV PUSH 4 mg Q4H PRN Administration Nausea Promethazine HCl 12.5 mg 09/22/24 09:57 09/24/24 08:10 Promethazine Hcl 25 Mg/Ml Ampul IV PUSH 12.5 mg Q6H PRN Administration Nausea And Vomiting Sotalol HCl 40 mg 09/22/24 09:00 09/24/24 21:54 Sotalol Hcl 40 Mg Tablet PO 40 mg Q12HR HUE Administration Trazodone HCl 50 mg 09/22/24 22:25 09/24/24 21:54 Trazodone Hcl 50 Mg Tablet PO 50 mg HS HUE Administration Radiology Results: ITS Impressions Chest X-Ray 09/21/24 19:27 IMPRESSION: No acute cardiopulmonary process. Abdomen Ultrasound 09/22/24 19:31 IMPRESSION: Cholelithiasis. Possibility of cholecystitis cannot be excluded. Clinical correlation advised. Bilateral renal cysts. Small left hepatic lobe cyst. Labs Labs: Laboratory Results - last 24 hr 09/25/24 06:20 WBC 6.9 RBC 3.45 L Hgb 9.8 L Hct 29.6 L MCV 85.8 MCH 28.4 MCHC 33.1 RDW 14.5 Plt Count 117 L MPV 10.5 H Immature Gran % (Auto) 0.3 Neut % (Auto) 49.5 Lymph % (Auto) 34.4 [place] % (Auto) 11.8 H Eos % (Auto) 3.6 Baso % (Auto) 0.4 Lymph # (Auto) 2.36 [place] # (Auto) 0.8 H Eos # (Auto) 0.3 Baso # (Auto) 0.0 Abs Immat Gran (auto) 0.02 Absolute Neuts (auto) 3.4 Absolute Nucleated RBC 0.000 Nucleated RBC % 0.0 Sodium 136 L Potassium 2.3 L* Chloride 108 H Carbon Dioxide 28 Anion Gap 0 L BUN 27 H D Creatinine 1.90 H Estim Creat Clear Calc 17 Estimated GFR 34 L Glucose 87 Calcium 8.1 L Magnesium 1.8 Total Bilirubin 1.3 AST 20 ALT 10 Alkaline Phosphatase 108 Total Protein 5.0 L Albumin 2.3 L
--- NOTE | 2024-09-25 10:30 | PC.NURSE ---
Patient down to HIDA scan via bed.
--- NOTE | 2024-09-25 11:58 | P.PNIM_ITS ---
Progress Note: A&P Assessment and Plan (1) Acute hyponatremia: Code(s): E87.1 - Hypo-osmolality and hyponatremia Status: Acute Assessment and Plan: NA 134 Currently on NS likely secondary to poor per orally intake lethargic at bedside Monitor (2) Adult failure to thrive: Code(s): R62.7 - Adult failure to thrive Status: Chronic Assessment and Plan: PT OT consult Consider speech therapy consult Calorie count Protein supplementation (3) Unintentional weight loss: Code(s): R63.4 - Abnormal weight loss Status: Chronic Assessment and Plan: Poor per orally intake (4) Protein-calorie malnutrition, moderate: Code(s): E44.0 - Moderate protein-calorie malnutrition Status: Acute Assessment and Plan: Continue above care On Dronabinol (5) Major depression: Code(s): F32.9 - Major depressive disorder, single episode, unspecified Status: Acute Assessment and Plan: Continue Lexapro (6) Afib: Qualifiers: Atrial fibrillation type: paroxysmal Qualified Code(s): I48.0 - Paroxysmal atrial fibrillation Code(s): I48.91 - Unspecified atrial fibrillation Status: Chronic Assessment and Plan: Rate controlled anticoagulated (7) Prostate CA: Code(s): C61 - Malignant neoplasm of prostate Status: Chronic Assessment and Plan: Follow-up in outpatient setting Plan Cholelithiasis r/o Cholecystitis RUQ US showed Cholelithiasis, HIDA scan to rule out Blood culture and Zosyn pending HIDA scan Gen surgery following monitor DVT prophylaxis on Eliquis Subjective Date/time seen: 09/25/24 11:58 Interval history: HIDA scan pending this morning Review of Systems Review of Systems: Generalized weakness, poor appetite, poor per orally intake Exam Narrative: Patient is laying in a stretcher Const: General: comfortable, no acute distress, well developed, alert, awake, ill appearing chronically, malnourished and underweight Nutritional Appearance: malnourished and underweight Orientation/consciousness: patient oriented x3 HENMT: Head: normal to inspection, normocephalic and atraumatic Ears: hearing grossly normal bilaterally Face/Nose/Sinus: normal facial exam Face and sinus: normal facial exam Other: Bitemporal muscle wasting Eyes: General: appearance normal, both eyes and all related structures Pupils: Equal, round and reactive pupils present EOM: EOMs intact bilaterally Neck: Neck: full ROM, no lymphadenopathy and no JVD Thyroid: thyroid normal Lymphatic: no lymphadenopathy noted Resp: Effort & Inspection: normal respiratory effort and able to speak in complete sentences Auscultation: clear to auscultation bilaterally Cardio: Jugular venous distension: no JVD Rate: regular rate Rhythm: regular rhythm Heart sounds: S1 normal heart sound present and S2 normal heart sound present : General: Yes deferred Skin: Rashes: no rashes Wounds: no wounds Neuro: General: patient oriented x3 and CN's II-XI intact bilaterally Cranial nerves: Yes CN's II-XII intact bilaterally and Yes Equal, round and reactive pupils present Cognition (Neuro): normal cognition Speech: normal speech Gait exam (Neuro): Normal gait present Motor exam (neuro): 5/5 motor strength present throughout Extrem: General: normal to inspection, full ROM, no joint enlargement and no pedal edema Objective Data Vital Signs Vital Signs: Vital Signs - 24 hr 09/24/24 13:21 09/24/24 14:00 09/24/24 20:00 Temperature 98.7 F Pulse Rate 106 H Respiratory Rate 18 Blood Pressure 108/73 Pulse Oximetry 97 Oxygen Delivery Room Air Room Air 09/24/24 21:54 09/24/24 22:00 09/25/24 06:00 Temperature 97.7 F 97.1 F L Pulse Rate 60 57 L 51 L Respiratory Rate 14 25 H Blood Pressure 125/69 155/83 H Pulse Oximetry 98 98 Oxygen Delivery 09/25/24 06:05 09/25/24 08:00 09/25/24 08:00 Temperature Pulse Rate 54 L 65 Respiratory Rate Blood Pressure Pulse Oximetry Oxygen Delivery Room Air Intake/Output Intake/Output: Intake & Output 09/22/24 09/23/24 09/24/24 09/25/24 23:59 23:59 23:59 23:59 Intake Total 2140 2258.0 2282 1206.7 Output Total 2900 750 Balance 2140 2258.0 -618 456.7 Meds/Results Medications: Active Medications Generic Name Dose Route Start Last Admin Trade Name Freq PRN Reason Stop Dose Admin Acetaminophen 650 mg 09/21/24 22:50 09/24/24 23:47 Acetaminophen 325 Mg Tablet PO 650 mg Q4H PRN Administration Mild Pain (1-3) or Fever Albuterol 2 puff 12/27/24 02:42 Albuterol Sulfate (*Sp) Aerosol 1 Puff INHALATION Q4HRT PRN shortness of breath or wheezing Apixaban 2.5 mg 09/22/24 09:00 09/24/24 21:54 Apixaban 2.5 Mg Tablet PO 2.5 mg Q12HR HUE Administration Dicyclomine HCl 20 mg 09/22/24 02:42 09/23/24 20:35 Dicyclomine Hcl 10 Mg Capsule PO 20 mg TID PRN Administration abdominal pain Doxazosin Mesylate 8 mg 09/22/24 09:00 09/24/24 11:25 Doxazosin Mesylate 4 Mg Tablet BY MOUTH 8 mg DAILY HUE Administration Doxycycline Hyclate 100 mg 09/24/24 17:00 09/24/24 17:49 Doxycycline Hyclate 100 Mg Tablet PO 100 mg BID HUE Administration Dronabinol 2.5 mg 09/22/24 17:00 09/24/24 17:49 Dronabinol (*Crx) 2.5 Mg Capsule PO 2.5 mg BID HUE Administration Escitalopram Oxalate 5 mg 09/22/24 09:00 09/24/24 11:25 Escitalopram Oxalate 5 Mg Tablet PO 5 mg DAILY HUE Administration Famotidine 20 mg 09/22/24 09:00 09/24/24 11:27 Famotidine 20 Mg Tablet BY MOUTH 20 mg DAILY HUE Administration Fluticasone Propionate 2 spray 09/22/24 09:00 09/24/24 11:27 Fluticasone Propionate 0.05% Na Spr 16 Gm Btl (*Bkc) NASAL 2 spray DAILY HUE Administration Sodium Chloride 1,000 mls @ 100 mls/hr 09/21/24 22:50 09/25/24 10:13 Normal Saline Iv IV CONT Not Given .Q10H HUE Piperacillin Sod/Tazobactam Sod 2.25 gm in 50 mls @ 100 mls/hr 09/24/24 14:00 09/25/24 05:11 Zosyn 2.25 Gm/Ns 50 Ml IVPB 100 mls/hr Q8HR HUE Administration Potassium Chloride 40 meq/ 520 mls @ 130 mls/hr 09/25/24 11:30 Sodium Chloride IVPB 09/25/24 15:29 ONCE ONE Lisinopril 5 mg 09/24/24 09:00 09/24/24 11:27 Lisinopril 5 Mg Tablet PO 5 mg QAM HUE Administration Lisinopril 5 mg 09/24/24 10:55 09/24/24 10:55 Lisinopril 5 Mg Tablet PO Not Given QAM HUE Lorazepam 0.5 mg 09/23/24 11:48 09/25/24 09:44 Lorazepam (*Crx) 0.5 Mg Tablet PO 0.5 mg BID PRN Administration Anxiety Megestrol Acetate 40 mg 09/22/24 09:00 09/25/24 09:53 Megestrol Acetate (*Chemo) 40 Mg Tablet PO Not Given QID HUE Enzalutamide [Xtandi 160 mg 09/24/24 14:00 09/24/24 13:49 ] 80 Mg Tablet PO 10/24/24 13:59 160 mg Home DAILY@1400 HUE Administration Ondansetron HCl 4 mg 09/21/24 22:50 09/22/24 08:55 Ondansetron Inj 4 Mg/2 Ml Vial IV PUSH 4 mg Q4H PRN Administration Nausea Promethazine HCl 12.5 mg 09/22/24 09:57 09/24/24 08:10 Promethazine Hcl 25 Mg/Ml Ampul IV PUSH 12.5 mg Q6H PRN Administration Nausea And Vomiting Sotalol HCl 40 mg 09/22/24 09:00 09/24/24 21:54 Sotalol Hcl 40 Mg Tablet PO 40 mg Q12HR HUE Administration Trazodone HCl 50 mg 09/22/24 22:25 09/24/24 21:54 Trazodone Hcl 50 Mg Tablet PO 50 mg HS HUE Administration Radiology Results: ITS Impressions Chest X-Ray 09/21/24 19:27 IMPRESSION: No acute cardiopulmonary process. Abdomen Ultrasound 09/22/24 19:31 IMPRESSION: Cholelithiasis. Possibility of cholecystitis cannot be excluded. Clinical correlation advised. Bilateral renal cysts. Small left hepatic lobe cyst. Labs Labs: Laboratory Results - last 24 hr 09/25/24 06:20 WBC 6.9 RBC 3.45 L Hgb 9.8 L Hct 29.6 L MCV 85.8 MCH 28.4 MCHC 33.1 RDW 14.5 Plt Count 117 L MPV 10.5 H Immature Gran % (Auto) 0.3 Neut % (Auto) 49.5 Lymph % (Auto) 34.4 [place] % (Auto) 11.8 H Eos % (Auto) 3.6 Baso % (Auto) 0.4 Lymph # (Auto) 2.36 [place] # (Auto) 0.8 H Eos # (Auto) 0.3 Baso # (Auto) 0.0 Abs Immat Gran (auto) 0.02 Absolute Neuts (auto) 3.4 Absolute Nucleated RBC 0.000 Nucleated RBC % 0.0 Sodium 136 L Potassium 2.3 L* Chloride 108 H Carbon Dioxide 28 Anion Gap 0 L BUN 27 H D Creatinine 1.90 H Estim Creat Clear Calc 17 Estimated GFR 34 L Glucose 87 Calcium 8.1 L Magnesium 1.8 Total Bilirubin 1.3 AST 20 ALT 10 Alkaline Phosphatase 108 Total Protein 5.0 L Albumin 2.3 L
[2024-09-25] MEDS: ONDANSETRON INJ 4 MG/2 ML VIAL IV PUSH (13:01)
[2024-09-25] MEDS: SOTALOL HCL 40 MG TABLET PO ×2 (13:04→22:20)
[2024-09-25] MEDS: APIXABAN 2.5 MG TABLET PO ×2 (13:04→22:20)
[2024-09-25] MEDS: ESCITALOPRAM OXALATE 5 MG TABLET PO (13:04)
[2024-09-25] MEDS: droNABinol (*CRX) 2.5 MG CAPSULE PO ×2 (13:04→17:33)
[2024-09-25] MEDS: MEGESTROL ACETATE (*CHEMO) 40 MG TABLET PO ×3 (13:04→22:20)
[2024-09-25] MEDS: DOXAZOSIN MESYLATE 4 MG TABLET 8 MG BY MOUTH (13:04)
[2024-09-25] MEDS: lisinopriL 5 MG TABLET PO (13:04)
[2024-09-25] MEDS: FAMOTIDINE 20 MG TABLET BY MOUTH (13:04)
[2024-09-25] MEDS: DOXYCYCLINE HYCLATE 100 MG TABLET PO (13:04)
[2024-09-25] MEDS: FLUTICASONE PROPIONATE 0.05% NA SPR 16 GM BTL (*BKC) 2 SPRAY NASAL (13:05)
--- NOTE | 2024-09-25 13:50 | PCOTNOTE ---
Attempted again this afternoon, Patient's family have left, Patient states, finally some quite. Patient refuses to participate in therapy, states, not today, I need some sleep .
--- NOTE | 2024-09-25 14:20 | PCNFU ---
Nutrition Follow-Up Complete: Severe protein calorie malnutrition related to reduced po intake as evidenced by family report of poor po intake for greater than 1 month, a significant weight loss of -25% x 6 months, and NFPE findings for severe subcutaneous fat loss (cheeks) and severe muscle wasting (temples, clavicle, shoulders). Goal:PO intake greater than 50% of meal Pt not meeting goal at this time. Pt current nutrition is NPO. Nutrition recommendation: resume regular diet, with Ensure Enlive and thrive ice cream BID Last recorded weight is 49 kg. Bowel Motility: +BM 09/24 Labs Reviewed: Hgb:8.1, HCT:29.6, Alb:2.3, NA:136, K:2.3, GFR:34, BUN:27, Cr:1.9 Meds Noted: megace, eliquis Skin: WNL Additional Notes: Pt NPO today for testing. Was on a regular diet, noted some refusals of meals, some meals 50% intake, family reports intake varied. Recommend to resume a regular diet, resume ensure enlive BID and nutrition ice cream cups BID as previous. Encourage po intake. Monitor intake, wt, labs. Follow up in 5 days.
[2024-09-25] MEDS: traZODone HCL 50 MG TABLET PO (22:20)
[2024-09-25] MEDS: DOXYCYCLINE 100 MG/NS 100 ML 100 MG/100 ML BAG IVPB (22:20)
[2024-09-26] VITALS (11 sets, daily range): BP systolic 108–145; BP diastolic 63–78; PULSE 59–75; RESP 18–20; TEMP 36.5–37.6; O2SAT 96–98
[2024-09-26] MEDS: ONDANSETRON INJ 4 MG/2 ML VIAL IV PUSH ×2 (04:53→21:00)
[2024-09-26] MEDS: SODIUM CHLORIDE 0.9% IV 1,000 ML 100 ML IV CONT ×2 (04:53→14:06)
[2024-09-26] MEDS: ESCITALOPRAM OXALATE 5 MG TABLET PO (09:42)
[2024-09-26] MEDS: LORazepam (*CRX) 0.5 MG TABLET PO ×2 (09:42→21:00)
[2024-09-26] MEDS: SOTALOL HCL 40 MG TABLET PO ×2 (09:42→21:00)
[2024-09-26] MEDS: APIXABAN 2.5 MG TABLET PO ×2 (09:47→21:00)
[2024-09-26] MEDS: FAMOTIDINE 20 MG TABLET BY MOUTH (09:47)
[2024-09-26] MEDS: MEGESTROL ACETATE (*CHEMO) 40 MG TABLET PO ×4 (09:47→21:00)
[2024-09-26] MEDS: DOXAZOSIN MESYLATE 4 MG TABLET 8 MG BY MOUTH (09:47)
[2024-09-26] MEDS: DOXYCYCLINE 100 MG/NS 100 ML 100 MG/100 ML BAG IVPB ×2 (09:47→21:00)
[2024-09-26] MEDS: droNABinol (*CRX) 2.5 MG CAPSULE PO ×2 (09:47→17:24)
[2024-09-26] MEDS: lisinopriL 5 MG TABLET PO ×2 (09:48→09:50)
[2024-09-26] MEDS: FLUTICASONE PROPIONATE 0.05% NA SPR 16 GM BTL (*BKC) 2 SPRAY NASAL (10:00)
--- NOTE | 2024-09-26 13:11 | P.PNIM_ITS ---
Progress Note: A&P Assessment and Plan (1) Acute hyponatremia: Code(s): E87.1 - Hypo-osmolality and hyponatremia Status: Acute Assessment and Plan: NA 136 Currently on NS likely secondary to poor per orally intake lethargic at bedside Monitor (2) Adult failure to thrive: Code(s): R62.7 - Adult failure to thrive Status: Chronic Assessment and Plan: PT OT consult Consider speech therapy consult Calorie count Protein supplementation (3) Unintentional weight loss: Code(s): R63.4 - Abnormal weight loss Status: Chronic Assessment and Plan: Poor per orally intake (4) Protein-calorie malnutrition, moderate: Code(s): E44.0 - Moderate protein-calorie malnutrition Status: Acute Assessment and Plan: Continue above care On Dronabinol (5) Major depression: Code(s): F32.9 - Major depressive disorder, single episode, unspecified Status: Acute Assessment and Plan: Continue Lexapro (6) Afib: Qualifiers: Atrial fibrillation type: paroxysmal Qualified Code(s): I48.0 - Paroxysmal atrial fibrillation Code(s): I48.91 - Unspecified atrial fibrillation Status: Chronic Assessment and Plan: Rate controlled anticoagulated (7) Prostate CA: Code(s): C61 - Malignant neoplasm of prostate Status: Chronic Assessment and Plan: Follow-up in outpatient setting Plan Cholelithiasis r/o Cholecystitis RUQ US showed Cholelithiasis, HIDA scan ordered for today Blood culture and Zosyn pending HIDA scan Gen surgery following monitor DVT prophylaxis on Eliquis Subjective Date/time seen: 09/26/24 13:11 Interval history: Patient was seen during the morning rounds today. Patient is feeling slightly better. No shortness of breath or chest pain. No nausea or vomiting. Review of Systems Review of Systems: Generalized weakness, poor appetite, poor per orally intake Exam Narrative: Patient is laying in a stretcher Const: General: comfortable, no acute distress, well developed, alert, awake, ill appearing chronically, malnourished and underweight Nutritional Appearance: malnourished and underweight Orientation/consciousness: patient oriented x3 HENMT: Head: normal to inspection, normocephalic and atraumatic Ears: hearing grossly normal bilaterally Face/Nose/Sinus: normal facial exam Face and sinus: normal facial exam Other: Bitemporal muscle wasting Eyes: General: appearance normal, both eyes and all related structures Pupils: Equal, round and reactive pupils present EOM: EOMs intact bilaterally Neck: Neck: full ROM, no lymphadenopathy and no JVD Thyroid: thyroid normal Lymphatic: no lymphadenopathy noted Resp: Effort & Inspection: normal respiratory effort and able to speak in complete sentences Auscultation: clear to auscultation bilaterally Cardio: Jugular venous distension: no JVD Rate: regular rate Rhythm: regular rhythm Heart sounds: S1 normal heart sound present and S2 normal heart sound present : General: Yes deferred Skin: Rashes: no rashes Wounds: no wounds Neuro: General: patient oriented x3 and CN's II-XI intact bilaterally Cranial nerves: Yes CN's II-XII intact bilaterally and Yes Equal, round and reactive pupils present Cognition (Neuro): normal cognition Speech: normal speech Gait exam (Neuro): Normal gait present Motor exam (neuro): 5/5 motor strength present throughout Extrem: General: normal to inspection, full ROM, no joint enlargement and no pedal edema Objective Data Vital Signs Vital Signs: Vital Signs - 24 hr 09/25/24 14:00 09/25/24 16:00 09/25/24 20:00 Temperature 36.5 C Pulse Rate 64 65 Respiratory Rate 21 H Blood Pressure 93/60 L Pulse Oximetry 96 Oxygen Delivery Room Air Fraction of Inspired Oxygen 21 09/25/24 20:00 09/25/24 22:15 09/25/24 22:20 Temperature 37.2 C Pulse Rate 77 61 64 Respiratory Rate 20 Blood Pressure 126/84 Pulse Oximetry 98 Oxygen Delivery Fraction of Inspired Oxygen 09/26/24 00:00 09/26/24 04:00 09/26/24 06:00 Temperature 36.5 C Pulse Rate 61 59 L 75 Respiratory Rate 20 Blood Pressure 145/78 H Pulse Oximetry 96 Oxygen Delivery Fraction of Inspired Oxygen 09/26/24 08:03 09/26/24 09:42 Temperature Pulse Rate 59 L 74 Respiratory Rate Blood Pressure Pulse Oximetry Oxygen Delivery Fraction of Inspired Oxygen Intake/Output Intake/Output: Intake & Output 09/23/24 09/24/24 09/25/24 09/26/24 23:59 23:59 23:59 23:59 Intake Total 2258.0 2282 3386.7 300 Output Total 2900 1250 750 Balance 2258.0 -618 2136.7 -450 Meds/Results Medications: Active Medications Generic Name Dose Route Start Last Admin Trade Name Freq PRN Reason Stop Dose Admin Acetaminophen 650 mg 09/21/24 22:50 09/24/24 23:47 Acetaminophen 325 Mg Tablet PO 650 mg Q4H PRN Administration Mild Pain (1-3) or Fever Albuterol 2 puff 09/22/24 02:42 Albuterol Sulfate (*Sp) Aerosol 1 Puff INHALATION Q4HRT PRN shortness of breath or wheezing Apixaban 2.5 mg 09/22/24 09:00 09/26/24 09:47 Apixaban 2.5 Mg Tablet PO 2.5 mg Q12HR HUE Administration Dicyclomine HCl 20 mg 09/22/24 02:42 09/23/24 20:35 Dicyclomine Hcl 10 Mg Capsule PO 20 mg TID PRN Administration abdominal pain Doxazosin Mesylate 8 mg 09/22/24 09:00 09/26/24 09:47 Doxazosin Mesylate 4 Mg Tablet BY MOUTH 8 mg DAILY HUE Administration Dronabinol 2.5 mg 09/22/24 17:00 09/26/24 09:47 Dronabinol (*Crx) 2.5 Mg Capsule PO 2.5 mg BID HUE Administration Escitalopram Oxalate 5 mg 09/22/24 09:00 09/26/24 09:42 Escitalopram Oxalate 5 Mg Tablet PO 5 mg DAILY HUE Administration Famotidine 20 mg 09/22/24 09:00 09/26/24 09:47 Famotidine 20 Mg Tablet BY MOUTH 20 mg DAILY HUE Administration Fluticasone Propionate 2 spray 09/22/24 09:00 09/26/24 10:00 Fluticasone Propionate 0.05% Na Spr 16 Gm Btl (*Bkc) NASAL 2 spray DAILY HUE Administration Sodium Chloride 1,000 mls @ 50 mls/hr 09/21/24 22:50 09/26/24 04:53 Normal Saline Iv IV CONT 100 mls/hr .Q20H HUE Administration Doxycycline Hyclate 100 mg in 100 mls @ 100 mls/hr 09/25/24 21:00 09/26/24 09:47 Vibramycin 100 Mg/Ns 100 Ml IVPB 100 mls/hr Q12H HUE Administration Potassium Chloride 40 meq/ 520 mls @ 130 mls/hr 09/26/24 13:10 Sodium Chloride IVPB 09/26/24 17:09 ONCE ONE Lisinopril 5 mg 09/24/24 09:00 09/26/24 09:50 Lisinopril 5 Mg Tablet PO 5 mg QAM HUE Administration Lisinopril 5 mg 09/24/24 10:55 09/26/24 09:50 Lisinopril 5 Mg Tablet PO Not Given QAM HUE Lorazepam 0.5 mg 09/23/24 11:48 09/26/24 09:42 Lorazepam (*Crx) 0.5 Mg Tablet PO 0.5 mg BID PRN Administration Anxiety Megestrol Acetate 40 mg 09/22/24 09:00 09/26/24 09:47 Megestrol Acetate (*Chemo) 40 Mg Tablet PO 40 mg QID HUE Administration Enzalutamide [Xtandi 160 mg 09/24/24 14:00 09/25/24 13:06 ] 80 Mg Tablet PO 10/24/24 13:59 Not Given Home DAILY@1400 [facility] Ondansetron HCl 4 mg 09/21/24 22:50 09/26/24 04:53 Ondansetron Inj 4 Mg/2 Ml Vial IV PUSH 4 mg Q4H PRN Administration Nausea Potassium Chloride 20 meq 09/26/24 13:10 Potassium Chloride 20 Meq Er Tablet PO 09/26/24 13:11 ONCE ONE Promethazine HCl 12.5 mg 09/22/24 09:57 09/24/24 08:10 Promethazine Hcl 25 Mg/Ml Ampul IV PUSH 12.5 mg Q6H PRN Administration Nausea And Vomiting Sotalol HCl 40 mg 09/22/24 09:00 09/26/24 09:42 Sotalol Hcl 40 Mg Tablet PO 40 mg Q12HR HUE Administration Trazodone HCl 50 mg 09/22/24 22:25 09/25/24 22:20 Trazodone Hcl 50 Mg Tablet PO 50 mg HS HUE Administration Radiology Results: ITS Impressions Chest X-Ray 09/21/24 19:27 IMPRESSION: No acute cardiopulmonary process. Abdomen Ultrasound 09/22/24 19:31 IMPRESSION: Cholelithiasis. Possibility of cholecystitis cannot be excluded. Clinical correlation advised. Bilateral renal cysts. Small left hepatic lobe cyst. Hepatobiliary Scan Nuclear Medicine 12/30/24 12:18 IMPRESSION: 1. Normal hepatobiliary scan.
[2024-09-26] MEDS: POTASSIUM CHLORIDE 20 MEQ ER TABLET PO (14:06)
[2024-09-26] MEDS: POTASSIUM CHLORIDE INJ 40 MEQ in SODIUM CHLORIDE 0.9% IV 500 ML 130 MEQ IVPB (14:06)
[2024-09-26] MEDS: traZODone HCL 50 MG TABLET PO (21:00)
[2024-09-27] VITALS (12 sets, daily range): BP systolic 131–164; BP diastolic 66–83; PULSE 59–69; RESP 16–18; TEMP 36.7–37.1; O2SAT 96–99
[2024-09-27] MEDS: DOXYCYCLINE 100 MG/NS 100 ML 100 MG/100 ML BAG IVPB ×2 (09:08→21:13)
[2024-09-27] MEDS: ESCITALOPRAM OXALATE 5 MG TABLET PO (09:12)
[2024-09-27] MEDS: MEGESTROL ACETATE (*CHEMO) 40 MG TABLET PO ×4 (09:12→21:13)
[2024-09-27] MEDS: FAMOTIDINE 20 MG TABLET BY MOUTH (09:12)
[2024-09-27] MEDS: droNABinol (*CRX) 2.5 MG CAPSULE PO ×2 (09:12→17:27)
[2024-09-27] MEDS: APIXABAN 2.5 MG TABLET PO ×2 (09:13→21:13)
[2024-09-27] MEDS: SOTALOL HCL 40 MG TABLET PO ×2 (09:16→21:20)
[2024-09-27] MEDS: DOXAZOSIN MESYLATE 4 MG TABLET 8 MG BY MOUTH (09:16)
[2024-09-27] MEDS: FLUTICASONE PROPIONATE 0.05% NA SPR 16 GM BTL (*BKC) 2 SPRAY NASAL (09:18)
[2024-09-27] MEDS: lisinopriL 5 MG TABLET PO (09:31)
--- NOTE | 2024-09-27 10:31 | PM.IMPN ---
Progress Note: A&P Assessment and Plan (1) Acute hyponatremia: Code(s): E87.1 - Hypo-osmolality and hyponatremia Status: Acute Assessment and Plan: NA 135 Currently on NS likely secondary to poor per orally intake lethargic at bedside Monitor (2) Adult failure to thrive: Code(s): R62.7 - Adult failure to thrive Status: Chronic Assessment and Plan: PT OT consult Consider speech therapy consult Calorie count Protein supplementation (3) Unintentional weight loss: Code(s): R63.4 - Abnormal weight loss Status: Chronic Assessment and Plan: Poor per orally intake (4) Protein-calorie malnutrition, moderate: Code(s): E44.0 - Moderate protein-calorie malnutrition Status: Acute Assessment and Plan: Continue above care On Dronabinol (5) Major depression: Code(s): F32.9 - Major depressive disorder, single episode, unspecified Status: Acute Assessment and Plan: Continue Lexapro (6) Afib: Qualifiers: Atrial fibrillation type: paroxysmal Qualified Code(s): I48.0 - Paroxysmal atrial fibrillation Code(s): I48.91 - Unspecified atrial fibrillation Status: Chronic Assessment and Plan: Rate controlled anticoagulated (7) Prostate CA: Code(s): C61 - Malignant neoplasm of prostate Status: Chronic Assessment and Plan: Follow-up in outpatient setting Plan Cholelithiasis r/o Cholecystitis RUQ US showed Cholelithiasis, HIDA scan ordered for today Blood culture and Zosyn pending HIDA scan Gen surgery following monitor DVT prophylaxis on Eliquis Subjective Date/time seen: 09/27/24 10:31 Interval history: Patient was seen during the morning rounds today. No new overnight complaints. Patient is feeling slightly better. No shortness of breath or chest pain. No nausea or vomiting. Review of Systems Review of Systems: Generalized weakness, poor appetite, poor per orally intake Exam Narrative: Patient is laying in a stretcher Const: General: comfortable, no acute distress, well developed, alert, awake, ill appearing chronically, malnourished and underweight Nutritional Appearance: malnourished and underweight Orientation/consciousness: patient oriented x3 HENMT: Head: normal to inspection, normocephalic and atraumatic Ears: hearing grossly normal bilaterally Face/Nose/Sinus: normal facial exam Face and sinus: normal facial exam Other: Bitemporal muscle wasting Eyes: General: appearance normal, both eyes and all related structures Pupils: Equal, round and reactive pupils present EOM: EOMs intact bilaterally Neck: Neck: full ROM, no lymphadenopathy and no JVD Thyroid: thyroid normal Lymphatic: no lymphadenopathy noted Resp: Effort & Inspection: normal respiratory effort and able to speak in complete sentences Auscultation: clear to auscultation bilaterally Cardio: Jugular venous distension: no JVD Rate: regular rate Rhythm: regular rhythm Heart sounds: S1 normal heart sound present and S2 normal heart sound present : General: Yes deferred Skin: Rashes: no rashes Wounds: no wounds Neuro: General: patient oriented x3 and CN's II-XI intact bilaterally Cranial nerves: Yes CN's II-XII intact bilaterally and Yes Equal, round and reactive pupils present Cognition (Neuro): normal cognition Speech: normal speech Gait exam (Neuro): Normal gait present Motor exam (neuro): 5/5 motor strength present throughout Extrem: General: normal to inspection, full ROM, no joint enlargement and no pedal edema Objective Data Vital Signs Vital Signs: Vital Signs - 24 hr 09/26/24 12:00 09/26/24 14:00 09/26/24 16:00 Temperature 36.8 C Pulse Rate 66 62 70 Respiratory Rate 18 Blood Pressure 108/63 Pulse Oximetry 97 Oxygen Delivery Fraction of Inspired Oxygen 09/26/24 20:00 09/26/24 20:00 09/26/24 20:27 Temperature 37.6 C H Pulse Rate 73 67 Respiratory Rate 18 Blood Pressure 119/64 Pulse Oximetry 98 Oxygen Delivery Room Air Fraction of Inspired Oxygen 21 09/26/24 21:00 09/27/24 00:00 09/27/24 04:00 Temperature Pulse Rate 60 68 67 Respiratory Rate Blood Pressure Pulse Oximetry Oxygen Delivery Fraction of Inspired Oxygen 09/27/24 06:00 09/27/24 09:16 Temperature 37.1 C Pulse Rate 62 67 Respiratory Rate 18 Blood Pressure 148/66 H Pulse Oximetry 97 Oxygen Delivery Fraction of Inspired Oxygen Intake/Output Intake/Output: Intake & Output 09/24/24 09/25/24 09/26/24 09/27/24 23:59 23:59 23:59 23:59 Intake Total 2282 3386.7 1471.7 1650 Output Total 2900 1250 1150 725 Balance -618 2136.7 321.7 925 Meds/Results Medications: Active Medications Generic Name Dose Route Start Last Admin Trade Name Freq PRN Reason Stop Dose Admin Acetaminophen 650 mg 09/21/24 22:50 09/24/24 23:47 Acetaminophen 325 Mg Tablet PO 650 mg Q4H PRN Administration Mild Pain (1-3) or Fever Albuterol 2 puff 09/22/24 02:42 Albuterol Sulfate (*Sp) Aerosol 1 Puff INHALATION Q4HRT PRN shortness of breath or wheezing Apixaban 2.5 mg 09/22/24 09:00 09/27/24 09:13 Apixaban 2.5 Mg Tablet PO 2.5 mg Q12HR HUE Administration Dicyclomine HCl 20 mg 09/22/24 02:42 09/23/24 20:35 Dicyclomine Hcl 10 Mg Capsule PO 20 mg TID PRN Administration abdominal pain Doxazosin Mesylate 8 mg 09/22/24 09:00 09/27/24 09:16 Doxazosin Mesylate 4 Mg Tablet BY MOUTH 8 mg DAILY HUE Administration Dronabinol 2.5 mg 09/22/24 17:00 09/27/24 09:12 Dronabinol (*Crx) 2.5 Mg Capsule PO 2.5 mg BID HUE Administration Escitalopram Oxalate 5 mg 09/22/24 09:00 09/27/24 09:12 Escitalopram Oxalate 5 Mg Tablet PO 5 mg DAILY HUE Administration Famotidine 20 mg 09/22/24 09:00 09/27/24 09:12 Famotidine 20 Mg Tablet BY MOUTH 20 mg DAILY HUE Administration Fluticasone Propionate 2 spray 09/22/24 09:00 09/27/24 09:18 Fluticasone Propionate 0.05% Na Spr 16 Gm Btl (*Bkc) NASAL 2 spray DAILY HUE Administration Sodium Chloride 1,000 mls @ 50 mls/hr 09/21/24 22:50 09/27/24 09:07 Normal Saline Iv IV CONT Not Given .Q20H HUE Doxycycline Hyclate 100 mg in 100 mls @ 100 mls/hr 09/25/24 21:00 09/27/24 09:08 Vibramycin 100 Mg/Ns 100 Ml IVPB 100 mls/hr Q12H HUE Administration Lisinopril 5 mg 09/27/24 09:00 09/27/24 09:31 Lisinopril 5 Mg Tablet PO 5 mg QAM HUE Administration Lorazepam 0.5 mg 09/23/24 11:48 09/26/24 21:00 Lorazepam (*Crx) 0.5 Mg Tablet PO 0.5 mg BID PRN Administration Anxiety Megestrol Acetate 40 mg 09/22/24 09:00 09/27/24 09:12 Megestrol Acetate (*Chemo) 40 Mg Tablet PO 40 mg QID HUE Administration Enzalutamide [Xtandi 160 mg 09/24/24 14:00 09/26/24 14:08 ] 80 Mg Tablet PO 10/24/24 13:59 Not Given Home DAILY@1400 HUE Ondansetron HCl 4 mg 09/21/24 22:50 09/26/24 21:00 Ondansetron Inj 4 Mg/2 Ml Vial IV PUSH 4 mg Q4H PRN Administration Nausea Promethazine HCl 12.5 mg 09/22/24 09:57 09/24/24 08:10 Promethazine Hcl 25 Mg/Ml Ampul IV PUSH 12.5 mg Q6H PRN Administration Nausea And Vomiting Sotalol HCl 40 mg 09/22/24 09:00 09/27/24 09:16 Sotalol Hcl 40 Mg Tablet PO 40 mg Q12HR HUE Administration Trazodone HCl 50 mg 09/22/24 22:25 09/26/24 21:00 Trazodone Hcl 50 Mg Tablet PO 50 mg HS HUE Administration Radiology Results: ITS Impressions Chest X-Ray 09/21/24 19:27 IMPRESSION: No acute cardiopulmonary process. Abdomen Ultrasound 09/22/24 19:31 IMPRESSION: Cholelithiasis. Possibility of cholecystitis cannot be excluded. Clinical correlation advised. Bilateral renal cysts. Small left hepatic lobe cyst. Hepatobiliary Scan Nuclear Medicine 09/25/24 12:18 IMPRESSION: 1. Normal hepatobiliary scan.
[2024-09-27 11:06] LABS: Alanine Aminotransferase 9 U/L (6-50); Albumin Level 2.1 g/dL (3.5-5.1); Alkaline Phosphatase 114 U/L (38-126); Anion Gap -1 mmol/L (4-12); Aspartate Amino Transferase 18 U/L (17-59); Bilirubin,Total 0.9 mg/dL (0.2-1.3); Blood Urea Nitrogen 32 mg/dL (9-20); Calcium 8.1 mg/dL (8.4-10.2); Carbon Dioxide 25 mmol/L (22-30); Chloride 111 mmol/L (98-107); Estimated CRCL calculation 18 ml/min; Estimated Glomerular Filt Rate 36; Glucose 85 mg/dL (65-110); Potassium 3.7 mmol/L (3.4-5.0); Sodium 135 mmol/L (137-145)
[2024-09-27] MEDS: PROMETHAZINE HCL 25 MG/ML AMPUL 12.5 MG IV PUSH (13:32)
[2024-09-27] MEDS: SODIUM CHLORIDE 0.9% IV 1,000 ML 50 ML IV CONT (18:43)
[2024-09-27] MEDS: LORazepam (*CRX) 0.5 MG TABLET PO (20:19)
[2024-09-27] MEDS: traZODone HCL 50 MG TABLET PO (21:13)
[2024-09-28] VITALS (11 sets, daily range): BP systolic 103–154; BP diastolic 67–83; PULSE 57–111; RESP 12–20; TEMP 36.6–37.2; O2SAT 97–98
[2024-09-28 06:34] LABS: Hematocrit 28.7 % (42.0-52.0); Hemoglobin 9.3 g/dL (14.0-18.0); Mean Corpuscular HGB Conc 32.4 g/dl (32-36); Mean Corpuscular Hemoglobin 27.9 pg (26-34); Mean Corpuscular Volume 86.2 fl (80-100); Mean Platelet Volume 10.9 fl (7.4-10.4); Platelet Count Result 131 k/mm3 (150-375); Red Blood Count 3.33 M/mm3 (4.6-6.20); Red Cell Distribution Width 15.4 % (11.5-14.5); White Blood Count 6.9 K/mm3 (4.5-10.0)
[2024-09-28 06:46] LABS: Alanine Aminotransferase 9 U/L (6-50); Alkaline Phosphatase 126 U/L (38-126); Anion Gap 1 mmol/L (4-12); Aspartate Amino Transferase 16 U/L (17-59); Bilirubin,Total 0.9 mg/dL (0.2-1.3); Blood Urea Nitrogen 32 mg/dL (9-20); Calcium 8.2 mg/dL (8.4-10.2); Carbon Dioxide 26 mmol/L (22-30); Chloride 110 mmol/L (98-107); Estimated CRCL calculation 17 ml/min; Estimated Glomerular Filt Rate 34; Glucose 78 mg/dL (65-110); Potassium 3.1 mmol/L (3.4-5.0); Sodium 137 mmol/L (137-145)
[2024-09-28] MEDS: ONDANSETRON INJ 4 MG/2 ML VIAL IV PUSH (08:52)
[2024-09-28] MEDS: DOXYCYCLINE 100 MG/NS 100 ML 100 MG/100 ML BAG IVPB (08:55)
--- NOTE | 2024-09-28 10:01 | PM.IMPN ---
Progress Note: A&P Assessment and Plan (1) Acute hyponatremia: Code(s): E87.1 - Hypo-osmolality and hyponatremia Status: Acute Assessment and Plan: NA 137 Currently on NS likely secondary to poor per orally intake lethargic at bedside Monitor (2) Adult failure to thrive: Code(s): R62.7 - Adult failure to thrive Status: Chronic Assessment and Plan: PT OT consult Consider speech therapy consult Calorie count Protein supplementation (3) Unintentional weight loss: Code(s): R63.4 - Abnormal weight loss Status: Chronic Assessment and Plan: Poor per orally intake (4) Protein-calorie malnutrition, moderate: Code(s): E44.0 - Moderate protein-calorie malnutrition Status: Acute Assessment and Plan: Continue above care On Dronabinol (5) Major depression: Code(s): F32.9 - Major depressive disorder, single episode, unspecified Status: Acute Assessment and Plan: Continue Lexapro (6) Afib: Qualifiers: Atrial fibrillation type: paroxysmal Qualified Code(s): I48.0 - Paroxysmal atrial fibrillation Code(s): I48.91 - Unspecified atrial fibrillation Status: Chronic Assessment and Plan: Rate controlled anticoagulated (7) Prostate CA: Code(s): C61 - Malignant neoplasm of prostate Status: Chronic Assessment and Plan: Follow-up in outpatient setting Plan Cholelithiasis r/o Cholecystitis RUQ US showed Cholelithiasis, HIDA scan negative On doxycycline started by previous hospitalist and will be continued until 09/30 Gen surgery following monitor DVT prophylaxis on Eliquis Subjective Date/time seen: 09/28/24 10:01 Interval history: Patient has a past medical history of prostate cancer, was admitted due to failure to thrive and decreased appetite. Patient lost approximately 40 lb since February 2024. Right upper quadrant ultrasound showed cholelithiasis HIDA scan was ordered which was negative. Patient is on doxycycline started by previous hospitalist and will be continued until 09/30. Had a conversation with his daughter and his about code status. For now they wanted to continue full code. Review of Systems Review of Systems: Generalized weakness, poor appetite, poor per orally intake Exam Narrative: Patient is laying in a stretcher Const: General: comfortable, no acute distress, well developed, alert, awake, ill appearing chronically, malnourished and underweight Nutritional Appearance: malnourished and underweight Orientation/consciousness: patient oriented x3 HENMT: Head: normal to inspection, normocephalic and atraumatic Ears: hearing grossly normal bilaterally Face/Nose/Sinus: normal facial exam Face and sinus: normal facial exam Other: Bitemporal muscle wasting Eyes: General: appearance normal, both eyes and all related structures Pupils: Equal, round and reactive pupils present EOM: EOMs intact bilaterally Neck: Neck: full ROM, no lymphadenopathy and no JVD Thyroid: thyroid normal Lymphatic: no lymphadenopathy noted Resp: Effort & Inspection: normal respiratory effort and able to speak in complete sentences Auscultation: clear to auscultation bilaterally Cardio: Jugular venous distension: no JVD Rate: regular rate Rhythm: regular rhythm Heart sounds: S1 normal heart sound present and S2 normal heart sound present : General: Yes deferred Skin: Rashes: no rashes Wounds: no wounds Neuro: General: patient oriented x3 and CN's II-XI intact bilaterally Cranial nerves: Yes CN's II-XII intact bilaterally and Yes Equal, round and reactive pupils present Cognition (Neuro): normal cognition Speech: normal speech Gait exam (Neuro): Normal gait present Motor exam (neuro): 5/5 motor strength present throughout Extrem: General: normal to inspection, full ROM, no joint enlargement and no pedal edema Objective Data Vital Signs Vital Signs: Vital Signs - 24 hr 09/27/24 12:00 09/27/24 14:00 09/27/24 16:00 Temperature 98.8 F Pulse Rate 63 59 L 63 Respiratory Rate 18 Blood Pressure 131/83 Pulse Oximetry 96 Oxygen Delivery 09/27/24 20:00 09/27/24 20:14 09/27/24 21:19 Temperature 98.1 F Pulse Rate 62 62 Respiratory Rate 16 Blood Pressure 164/77 H Pulse Oximetry 98 Oxygen Delivery Room Air 09/27/24 21:20 09/28/24 00:00 09/28/24 04:00 Temperature Pulse Rate 62 60 69 Respiratory Rate Blood Pressure Pulse Oximetry Oxygen Delivery 09/28/24 06:00 Temperature 98.5 F Pulse Rate 67 Respiratory Rate 12 Blood Pressure 154/83 H Pulse Oximetry 97 Oxygen Delivery Intake/Output Intake/Output: Intake & Output 09/25/24 09/26/24 09/27/24 09/28/24 23:59 23:59 23:59 23:59 Intake Total 3386.7 1471.7 2870 Output Total 1250 1150 1525 1000 Balance 2136.7 321.7 1345 -1000 Meds/Results Medications: Active Medications Generic Name Dose Route Start Last Admin Trade Name Freq PRN Reason Stop Dose Admin Acetaminophen 650 mg 09/21/24 22:50 09/24/24 23:47 Acetaminophen 325 Mg Tablet PO 650 mg Q4H PRN Administration Mild Pain (1-3) or Fever Albuterol 2 puff 09/22/24 02:42 Albuterol Sulfate (*Sp) Aerosol 1 Puff INHALATION Q4HRT PRN shortness of breath or wheezing Apixaban 2.5 mg 09/22/24 09:00 09/27/24 21:13 Apixaban 2.5 Mg Tablet PO 2.5 mg Q12HR HUE Administration Dicyclomine HCl 20 mg 09/22/24 02:42 09/23/24 20:35 Dicyclomine Hcl 10 Mg Capsule PO 20 mg TID PRN Administration abdominal pain Doxazosin Mesylate 8 mg 09/22/24 09:00 09/27/24 09:16 Doxazosin Mesylate 4 Mg Tablet BY MOUTH 8 mg DAILY HUE Administration Dronabinol 2.5 mg 09/22/24 17:00 09/27/24 17:27 Dronabinol (*Crx) 2.5 Mg Capsule PO 2.5 mg BID HUE Administration Escitalopram Oxalate 5 mg 09/22/24 09:00 09/27/24 09:12 Escitalopram Oxalate 5 Mg Tablet PO 5 mg DAILY HUE Administration Famotidine 20 mg 09/22/24 09:00 09/27/24 09:12 Famotidine 20 Mg Tablet BY MOUTH 20 mg DAILY HUE Administration Fluticasone Propionate 2 spray 09/22/24 09:00 09/27/24 09:18 Fluticasone Propionate 0.05% Na Spr 16 Gm Btl (*Bkc) NASAL 2 spray DAILY HUE Administration Sodium Chloride 1,000 mls @ 50 mls/hr 09/21/24 22:50 09/27/24 18:43 Normal Saline Iv IV CONT 50 mls/hr .Q20H HUE Administration Doxycycline Hyclate 100 mg in 100 mls @ 100 mls/hr 09/25/24 21:00 09/28/24 08:55 Vibramycin 100 Mg/Ns 100 Ml IVPB 100 mls/hr Q12H HUE Administration Lisinopril 5 mg 09/27/24 09:00 09/27/24 09:31 Lisinopril 5 Mg Tablet PO 5 mg QAM HUE Administration Lorazepam 0.5 mg 09/23/24 11:48 09/27/24 20:19 Lorazepam (*Crx) 0.5 Mg Tablet PO 0.5 mg BID PRN Administration Anxiety Megestrol Acetate 40 mg 09/22/24 09:00 09/27/24 21:13 Megestrol Acetate (*Chemo) 40 Mg Tablet PO 40 mg QID HUE Administration Ondansetron HCl 4 mg 09/21/24 22:50 09/28/24 08:52 Ondansetron Inj 4 Mg/2 Ml Vial IV PUSH 4 mg Q4H PRN Administration Nausea Promethazine HCl 12.5 mg 09/22/24 09:57 09/27/24 13:32 Promethazine Hcl 25 Mg/Ml Ampul IV PUSH 12.5 mg Q6H PRN Administration Nausea And Vomiting Sotalol HCl 40 mg 09/22/24 09:00 09/27/24 21:20 Sotalol Hcl 40 Mg Tablet PO 40 mg Q12HR HUE Administration Trazodone HCl 50 mg 09/22/24 22:25 09/27/24 21:13 Trazodone Hcl 50 Mg Tablet PO 50 mg HS HUE Administration Radiology Results: ITS Impressions Chest X-Ray 09/21/24 19:27 IMPRESSION: No acute cardiopulmonary process. Abdomen Ultrasound 09/22/24 19:31 IMPRESSION: Cholelithiasis. Possibility of cholecystitis cannot be excluded. Clinical correlation advised. Bilateral renal cysts. Small left hepatic lobe cyst. Hepatobiliary Scan Nuclear Medicine 09/25/24 12:18 IMPRESSION: 1. Normal hepatobiliary scan. Labs Labs: Laboratory Results - last 24 hr 09/27/24 09/28/24 10:45 06:11 WBC 6.9 RBC 3.33 L Hgb 9.3 L Hct 28.7 L MCV 86.2 MCH 27.9 MCHC 32.4 RDW 15.4 H Plt Count 131 L MPV 10.9 H Sodium 135 L 137 Potassium 3.7 3.1 L Chloride 111 H 110 H Carbon Dioxide 25 26 Anion Gap -1 L 1 L BUN 32 H 32 H Creatinine 1.80 H 1.90 H Estim Creat Clear Calc 18 17 Estimated GFR 36 L 34 L Glucose 85 78 Calcium 8.1 L 8.2 L Total Bilirubin 0.9 0.9 AST 18 16 L ALT 9 9 Alkaline Phosphatase 114 126 Total Protein 5.0 L 4.0 L Albumin 2.1 L 2.0 L Hospitalist MIPS Advance Care Plan I have confirmed that the patient's Advanced Care Plan is present, code status is documented, or surrogate decision maker is listed in patient medical record.: Yes Medication Reconciliation I have utilized all available resources to obtain, update and review the patients current medications (includes all prescriptions, OTC, herbals, cannabis, and nutritional supplements).: Yes
[2024-09-28] MEDS: SOTALOL HCL 40 MG TABLET PO ×2 (10:23→21:19)
[2024-09-28] MEDS: DOXAZOSIN MESYLATE 4 MG TABLET 8 MG BY MOUTH (10:24)
[2024-09-28] MEDS: ESCITALOPRAM OXALATE 5 MG TABLET PO (10:24)
[2024-09-28] MEDS: lisinopriL 5 MG TABLET PO (10:25)
[2024-09-28] MEDS: MEGESTROL ACETATE (*CHEMO) 40 MG TABLET PO ×4 (10:25→21:19)
[2024-09-28] MEDS: FLUTICASONE PROPIONATE 0.05% NA SPR 16 GM BTL (*BKC) 2 SPRAY NASAL (10:25)
[2024-09-28] MEDS: APIXABAN 2.5 MG TABLET PO ×2 (10:25→21:19)
[2024-09-28] MEDS: droNABinol (*CRX) 2.5 MG CAPSULE PO ×2 (10:25→16:56)
[2024-09-28] MEDS: FAMOTIDINE 20 MG TABLET BY MOUTH (10:25)
[2024-09-28 12:42] LABS: Potassium 3.4 mmol/L (3.4-5.0)
[2024-09-28] MEDS: POTASSIUM CHLORIDE INJ 40 MEQ in SODIUM CHLORIDE 0.9% IV 500 ML 130 MEQ IVPB (14:30)
[2024-09-28] MEDS: traZODone HCL 50 MG TABLET PO (21:19)
[2024-09-28] MEDS: LORazepam (*CRX) 0.5 MG TABLET PO (21:19)
[2024-09-28] MEDS: DOXYCYCLINE HYCLATE 100 MG TABLET PO (21:19)
[2024-09-29] VITALS (10 sets, daily range): BP systolic 97–139; BP diastolic 63–72; PULSE 58–78; RESP 14–24; TEMP 36.3–36.9; O2SAT 98
[2024-09-29 07:10] LABS: Alanine Aminotransferase 10 U/L (6-50); Alkaline Phosphatase 117 U/L (38-126); Anion Gap -2 mmol/L (4-12); Aspartate Amino Transferase 20 U/L (17-59); Bilirubin,Total 0.8 mg/dL (0.2-1.3); Blood Urea Nitrogen 40 mg/dL (9-20); Calcium 8.1 mg/dL (8.4-10.2); Carbon Dioxide 25 mmol/L (22-30); Chloride 112 mmol/L (98-107); Estimated CRCL calculation 19 ml/min; Estimated Glomerular Filt Rate 38; Glucose 84 mg/dL (65-110); Potassium 3.7 mmol/L (3.4-5.0); Sodium 135 mmol/L (137-145)
[2024-09-29 08:18] LABS: Hematocrit 28.1 % (42.0-52.0); Hemoglobin 9.4 g/dL (14.0-18.0); Mean Corpuscular HGB Conc 33.5 g/dl (32-36); Mean Corpuscular Hemoglobin 28.5 pg (26-34); Mean Corpuscular Volume 85.2 fl (80-100); Mean Platelet Volume 11.1 fl (7.4-10.4); Platelet Count Result 144 k/mm3 (150-375); Red Cell Distribution Width 15.4 % (11.5-14.5)
[2024-09-29] MEDS: ESCITALOPRAM OXALATE 5 MG TABLET PO (09:10)
[2024-09-29] MEDS: FAMOTIDINE 20 MG TABLET BY MOUTH (09:42)
[2024-09-29] MEDS: SODIUM CHLORIDE 0.9% IV 1,000 ML 50 ML IV CONT (09:42)
[2024-09-29] MEDS: SOTALOL HCL 40 MG TABLET PO ×2 (09:43→20:28)
[2024-09-29] MEDS: lisinopriL 5 MG TABLET PO (09:43)
[2024-09-29] MEDS: APIXABAN 2.5 MG TABLET PO ×2 (09:43→20:27)
[2024-09-29] MEDS: DOXYCYCLINE HYCLATE 100 MG TABLET PO ×2 (09:43→20:27)
[2024-09-29] MEDS: FLUTICASONE PROPIONATE 0.05% NA SPR 16 GM BTL (*BKC) 2 SPRAY NASAL (09:44)
[2024-09-29] MEDS: DOXAZOSIN MESYLATE 4 MG TABLET 8 MG BY MOUTH (09:44)
[2024-09-29] MEDS: MEGESTROL ACETATE (*CHEMO) 40 MG TABLET PO ×3 (09:44→20:27)
[2024-09-29] MEDS: droNABinol (*CRX) 2.5 MG CAPSULE PO ×2 (09:44→17:28)
[2024-09-29] MEDS: ONDANSETRON INJ 4 MG/2 ML VIAL IV PUSH ×2 (09:47→20:42)
--- NOTE | 2024-09-29 14:35 | PC.NURSE ---
Pt given pills by this RN this AM. Pt HOB elevated prior to start. Pt coughed after swallowing 4/7 pills I gave. Pt panting after each pill swallowed. Provider made aware. Family not present during med pass. When they arrived in this AM, they gave the few pills left, stating he did just fine. Family also requesting more food, as it was lunch time. Advised family I would speak with provider. Provider said he would speak with family. After talking with family, provider stated that pt okay to eat and swallow pills at this time.
--- NOTE | 2024-09-29 16:30 | PM.IMPN ---
Progress Note: A&P Assessment and Plan (1) Acute hyponatremia: Code(s): E87.1 - Hypo-osmolality and hyponatremia Status: Acute Assessment and Plan: NA 137 Currently on NS likely secondary to poor per orally intake lethargic at bedside Monitor (2) Adult failure to thrive: Code(s): R62.7 - Adult failure to thrive Status: Chronic Assessment and Plan: PT OT consult Consider speech therapy consult Calorie count Protein supplementation (3) Unintentional weight loss: Code(s): R63.4 - Abnormal weight loss Status: Chronic Assessment and Plan: Poor per orally intake (4) Protein-calorie malnutrition, moderate: Code(s): E44.0 - Moderate protein-calorie malnutrition Status: Acute Assessment and Plan: Continue above care On Dronabinol (5) Major depression: Code(s): F32.9 - Major depressive disorder, single episode, unspecified Status: Acute Assessment and Plan: Continue Lexapro (6) Afib: Qualifiers: Atrial fibrillation type: paroxysmal Qualified Code(s): I48.0 - Paroxysmal atrial fibrillation Code(s): I48.91 - Unspecified atrial fibrillation Status: Chronic Assessment and Plan: Rate controlled anticoagulated (7) Prostate CA: Code(s): C61 - Malignant neoplasm of prostate Status: Chronic Assessment and Plan: Follow-up in outpatient setting Plan Cholelithiasis r/o Cholecystitis RUQ US showed Cholelithiasis, HIDA scan negative On doxycycline started by previous hospitalist and will be continued until 09/30 Gen surgery following monitor DVT prophylaxis on Eliquis Subjective Date/time seen: 09/29/24 16:30 Interval history: Ordered bedside swallow eval. No acute events overnight. Patient's family reports he is able to eat without any signs of choking. Review of Systems Review of Systems: Generalized weakness, poor appetite, poor per orally intake Exam Narrative: Patient is laying in a stretcher Const: General: comfortable, no acute distress, well developed, alert, awake, ill appearing chronically, malnourished and underweight Nutritional Appearance: malnourished and underweight Orientation/consciousness: patient oriented x3 HENMT: Head: normal to inspection, normocephalic and atraumatic Ears: hearing grossly normal bilaterally Face/Nose/Sinus: normal facial exam Face and sinus: normal facial exam Other: Bitemporal muscle wasting Eyes: General: appearance normal, both eyes and all related structures Pupils: Equal, round and reactive pupils present EOM: EOMs intact bilaterally Neck: Neck: full ROM, no lymphadenopathy and no JVD Thyroid: thyroid normal Lymphatic: no lymphadenopathy noted Resp: Effort & Inspection: normal respiratory effort and able to speak in complete sentences Auscultation: clear to auscultation bilaterally Cardio: Jugular venous distension: no JVD Rate: regular rate Rhythm: regular rhythm Heart sounds: S1 normal heart sound present and S2 normal heart sound present : General: Yes deferred Skin: Rashes: no rashes Wounds: no wounds Neuro: General: patient oriented x3 and CN's II-XI intact bilaterally Cranial nerves: Yes CN's II-XII intact bilaterally and Yes Equal, round and reactive pupils present Cognition (Neuro): normal cognition Speech: normal speech Gait exam (Neuro): Normal gait present Motor exam (neuro): 5/5 motor strength present throughout Extrem: General: normal to inspection, full ROM, no joint enlargement and no pedal edema Objective Data Vital Signs Vital Signs: Vital Signs - 24 hr 09/28/24 20:00 09/28/24 21:33 09/29/24 00:00 Temperature 98.9 F Pulse Rate 72 72 64 Respiratory Rate 18 Blood Pressure 135/67 Pulse Oximetry 98 09/29/24 04:00 09/29/24 06:00 09/29/24 08:00 Temperature 97.3 F L Pulse Rate 58 L 77 59 L Respiratory Rate 14 Blood Pressure 139/72 Pulse Oximetry 98 09/29/24 09:43 09/29/24 12:00 09/29/24 14:00 Temperature 98.1 F Pulse Rate 59 L 70 72 Respiratory Rate 24 H Blood Pressure 98/64 L Pulse Oximetry 98 Intake/Output Intake/Output: Intake & Output 09/26/24 09/27/24 09/28/24 09/29/24 23:59 23:59 23:59 23:59 Intake Total 1471.7 2870 1240 550 Output Total 1150 1525 1000 250 Balance 321.7 1345 240 300 Meds/Results Medications: Active Medications Generic Name Dose Route Start Last Admin Trade Name Freq PRN Reason Stop Dose Admin Acetaminophen 650 mg 09/21/24 22:50 09/24/24 23:47 Acetaminophen 325 Mg Tablet PO 650 mg Q4H PRN Administration Mild Pain (1-3) or Fever Albuterol 2 puff 09/22/24 02:42 Albuterol Sulfate (*Sp) Aerosol 1 Puff INHALATION Q4HRT PRN shortness of breath or wheezing Apixaban 2.5 mg 09/22/24 09:00 09/29/24 09:43 Apixaban 2.5 Mg Tablet PO 2.5 mg Q12HR HUE Administration Dicyclomine HCl 20 mg 09/22/24 02:42 09/23/24 20:35 Dicyclomine Hcl 10 Mg Capsule PO 20 mg TID PRN Administration abdominal pain Doxazosin Mesylate 8 mg 09/22/24 09:00 09/29/24 09:44 Doxazosin Mesylate 4 Mg Tablet BY MOUTH 8 mg DAILY HUE Administration Doxycycline Hyclate 100 mg 09/28/24 21:00 09/29/24 09:43 Doxycycline Hyclate 100 Mg Tablet PO 09/30/24 09:01 100 mg Q12HR HUE Administration Dronabinol 2.5 mg 09/22/24 17:00 09/29/24 09:44 Dronabinol (*Crx) 2.5 Mg Capsule PO 2.5 mg BID HUE Administration Escitalopram Oxalate 5 mg 09/22/24 09:00 09/29/24 09:10 Escitalopram Oxalate 5 Mg Tablet PO 5 mg DAILY HUE Administration Famotidine 20 mg 09/22/24 09:00 09/29/24 09:42 Famotidine 20 Mg Tablet BY MOUTH 20 mg DAILY HUE Administration Fluticasone Propionate 2 spray 09/22/24 09:00 09/29/24 09:44 Fluticasone Propionate 0.05% Na Spr 16 Gm Btl (*Bkc) NASAL 2 spray DAILY HUE Administration Sodium Chloride 1,000 mls @ 50 mls/hr 09/21/24 22:50 09/29/24 09:42 Normal Saline Iv IV CONT 50 mls/hr .Q20H HUE Administration Lisinopril 5 mg 09/27/24 09:00 09/29/24 09:43 Lisinopril 5 Mg Tablet PO 5 mg QAM HUE Administration Lorazepam 0.5 mg 09/23/24 11:48 09/28/24 21:19 Lorazepam (*Crx) 0.5 Mg Tablet PO 0.5 mg BID PRN Administration Anxiety Megestrol Acetate 40 mg 09/22/24 09:00 09/29/24 15:10 Megestrol Acetate (*Chemo) 40 Mg Tablet PO Not Given QID HUE Ondansetron HCl 4 mg 09/21/24 22:50 09/29/24 09:47 Ondansetron Inj 4 Mg/2 Ml Vial IV PUSH 4 mg Q4H PRN Administration Nausea Promethazine HCl 12.5 mg 09/22/24 09:57 09/27/24 13:32 Promethazine Hcl 25 Mg/Ml Ampul IV PUSH 12.5 mg Q6H PRN Administration Nausea And Vomiting Sotalol HCl 40 mg 09/22/24 09:00 09/29/24 09:43 Sotalol Hcl 40 Mg Tablet PO 40 mg Q12HR HUE Administration Trazodone HCl 50 mg 09/22/24 22:25 09/28/24 21:19 Trazodone Hcl 50 Mg Tablet PO 50 mg HS HUE Administration Radiology Results: ITS Impressions Chest X-Ray 09/21/24 19:27 IMPRESSION: No acute cardiopulmonary process. Abdomen Ultrasound 09/22/24 19:31 IMPRESSION: Cholelithiasis. Possibility of cholecystitis cannot be excluded. Clinical correlation advised. Bilateral renal cysts. Small left hepatic lobe cyst. Hepatobiliary Scan Nuclear Medicine 09/25/24 12:18 IMPRESSION: 1. Normal hepatobiliary scan. Labs Labs: Laboratory Results - last 24 hr 09/29/24 09/29/24 06:54 08:00 WBC 7.0 RBC 3.30 L Hgb 9.4 L Hct 28.1 L MCV 85.2 MCH 28.5 MCHC 33.5 RDW 15.4 H Plt Count 144 L MPV 11.1 H Sodium 135 L Potassium 3.7 Chloride 112 H Carbon Dioxide 25 Anion Gap -2 L BUN 40 H Creatinine 1.70 H Estim Creat Clear Calc 19 Estimated GFR 38 L Glucose 84 Calcium 8.1 L Total Bilirubin 0.8 AST 20 ALT 10 Alkaline Phosphatase 117 Total Protein 5.0 L Albumin 2.0 L Hospitalist MIPS Advance Care Plan I have confirmed that the patient's Advanced Care Plan is present, code status is documented, or surrogate decision maker is listed in patient medical record.: Yes Medication Reconciliation I have utilized all available resources to obtain, update and review the patients current medications (includes all prescriptions, OTC, herbals, cannabis, and nutritional supplements).: Yes
--- OUTSIDE RECORDS SUMMARY | 2024-09-29 19:20 | XMS_ITS | Clinical Summary ---
Author Organization [facility] Address [facility] [place] [address] [place] [address] Care Team Providers Care Human Resources Consultant Name Role Phone Ibeth Patel NP Primary Care Provider [phone] Ousmane Galvin MD Unavailable [phone] Allergies No known active allergies Medications doxazosin (CARDURA) 8 MG tablet Take 1 tablet (8 mg total) by mouth daily. Active fluticasone propionate (FLONASE) 50 MCG/ACT nasal spray 1 spray by Each Nostril route 2 (two) times daily. 12/12/2023 Active LORazepam (ATIVAN) 0.5 MG tablet Take 1 tablet (0.5 mg total) by mouth 2 (two) times daily as needed. FOR ANXIETY 01/17/2024 Active metoprolol tartrate (LOPRESSOR) 25 MG tablet Take 1 tablet (25 mg total) by mouth 2 (two) times daily. 12/01/2023 Active Multiple Vitamin (MULTIVITAMIN) capsule Take 1 capsule by mouth daily. Active sertraline (ZOLOFT) 25 MG tablet Take 1 tablet (25 mg total) by mouth daily. 12/14/2023 Active sotalol (BETAPACE) 80 MG tablet Take 0.5 tablets (40 mg total) by mouth daily. 12/30/2023 Active Social History Tobacco Use Types Packs/Day Years Used Date Smoking Tobacco: Former Cigarettes 0.5 22 1 957 - 1979 Smokeless Tobacco: Never Alcohol Use Standard Drinks/Week Comments Not Currently 0 (1 standard drink = 0.6 oz pur e alcohol) Sex and Gender Information Value Date Recorded Sex Assigned at Not on file Legal Sex Male 7:31 AM CDT Gender Identity Not on file Sexual Orientation Not on file Last Filed Vital Signs Vital Sign Reading Time Taken Comments Blood Pressure 150/91 02/02/2024 3:40 PM CDT Pulse 55 02/02/2024 3:40 PM CDT Temperature 36.1 ??C (97 ??F) 02/02/2024 3:40 PM CDT Respiratory Rate 16 02/02/2024 3:40 PM CDT Oxygen Saturation 98% 02/02/2024 3:40 PM CDT Inhaled Oxygen Concentration - - Weight 60.7 kg (133 lb 13.1 oz) 024 12:00 PM CDT Height 180.3 cm (5' 11 ) 02/02/2024 12: 00 PM CDT Body Mass Index 18.66 02/02/2024 12:00 PM CDT Plan of Treatment Health Maintenance Due Date Last Done Comments DTaP, Tdap and Td Vaccines (1 - Tdap) 1955 Zoster Vaccines (1 of 2) 1986 Annual Medicare Wellness Visit 2001 RSV Immunization or 60+ Years (1 - 1-dose 75+ series) 2011 Pneumococcal Vaccine: 65+ Years (2 of 2 - PPSV23 or PCV20) 12/21/2017 12/21/2016 COVID-19 Vaccine ( season) 2024 07/20/2023, 05/15/2022, 08/05/2021, Additional history exists Influenza Adult (#1) 2024 06/29/2019, 06/22/2018, 06/24/2017, Additional history exists Meningococcal Vaccine Aged Out No cristo fede eligible based on patient's age to complete this topic RSV Immunizations Under 20 Months Aged Out No longer eligible based on patient's age to complete this topic Insurance [employer] Care Teams Human Resources Consultant Relationship Specialty Start Date End Date Ibeth Patel NP [address] [place] [address] PCP - General Nurse Practitioner Family 01/24/24 Ousmane Galvin MD [address] [facility] [address] [place] [address] CARDIOVASCULAR DISEASE 01/25/24
--- OUTSIDE RECORDS SUMMARY | 2024-09-29 19:20 | XMS_ITS | Encounter Summary ---
Author Organization [facility] Address [facility] [facility]. [place], [place] [address] [place] [id number] Care Team Providers Care School Standards Coach Name Role Phone Ibeth Patel NP Primary Care Provider [phone] Ousmane Galvin MD Unavailable [phone] Encounter Details Date Type Department Care Team (Latest Contact Info) Description 02/02/2024 Travel Social History Tobacco Use Types Packs/Day Years Used Date Smoking Tobacco: Former Cigarettes 0.5 22 1 957 - 1978 Smokeless Tobacco: Never Alcohol Use Standard Drinks/Week Comments Not Currently 0 (1 standard drink = 0.6 oz pur e alcohol) Sex and Gender Information Value Date Recorded Sex Assigned at Not on file Legal Sex Male 7:31 AM CDT Gender Identity Not on file Sexual Orientation Not on file documented as of this encounter Plan of Treatment Not on file documented as of this encounter Visit Diagnoses Not on filedocumented in this encounter Care Teams School Standards Coach Relationship Specialty Start Date End Date Ibeth Patel NP [address] [place] [address] PCP - General Nurse Practitioner Family 01/24/24 Ousmane Galvin MD [address] [facility] [address] [address] CARDIOVASCULAR DISEASE 01/25/24 documented as of this encounter
--- OUTSIDE RECORDS SUMMARY | 2024-09-29 19:20 | XMS_ITS | Encounter Summary ---
Author Organization [facility] Address Critical access hospital[facility] [place] [address] [place] [address] Care Team Providers Care Tablet Coater Name Role Phone Ibeth Patel NP Primary Care Provider [phone] Ousmane Galvin MD Unavailable [phone] Reason for Visit * Auth/Cert Specialty Diagnoses / Procedures Referred By Odette t Referred To Contact Diagnoses PSA ELEVATION; R97.20 Procedures TRANSRECTAL ULTRASOUND FUSION GUIDED PROSTATE BIOPSY Jose A Alatorre MD [address] [facility] [address] [place] [address] Phone: tel: fax: Referral ID Status Reason Start Date Expiration Date Visits Re quested Visits Authorized [id number] 1 1 Encounter Details Date Type Department Care Team (Late st Contact Info) Description 02/02/2024 2:15 PM CDT - 02/02/2024 2:55 PM CDT Surgery [facility] [place], [place] [address] Jose A Alatorre MD [address] [facility] [address] [place] [address] [phone] TRANSRECTAL ULTRASOUND FUSION GUIDED PROSTATE BIOPSY Surgery Details Date/Time Status Location OR Service Patient Class Case Class Case Type Trauma Case? 02/02/2024 2:15 PM Posted [facility] OR OR 10 Urology Short Stay/Outpat ient Surgery E - Elective No Panel 1 Procedure LRB Anes Op Region Wound Class Comments TRANSRECTAL ULTRASOUND FUSION GUIDED PROSTATE BIOPSY N/A Monitor Anesthesia Care Anus Clean Surgeon Surgeon Role Service Panel Jose A Alatorre MD Primary Urology 1 Case Notes SCHED BY FAX 01/13/24 [facility] PHONE [facility] documented in this encounter Social History Tobacco Use Types Packs/Day Years [...] on file documented as of this encounter Last Filed Vital Signs Vital Sign Reading Time Taken Comments Blood Pressure 152/72 02/02/2024 2:45 PM CDT Pulse 52 02/02/2024 2:45 PM CDT Temperature 36.1 ??C (97 ??F) 02/02/2024 2:30 PM CDT Respiratory Rate 18 02/02/2024 2:45 PM CDT Oxygen Saturation 96% 02/02/2024 2:45 PM CDT Inhaled Oxygen Concentration - - Weight 60.7 kg (133 lb 13.1 oz) 024 12:00 PM CDT Height 180.3 cm (5' 11 ) 02/02/2024 12: 00 PM CDT Body Mass Index 18.66 02/02/2024 12:00 PM CDT documented in this encounter Discharge Instructions * Discharge Instructions* Krupa Espinoza RN - 02/02/2024 3:18 PM CDT Your urine and stool may be bloody and should begin to clear a few days after your treatment. Increase fluids until your urine clears. Call your doctor if you develop a fever above 100 degrees or have thick, blood clotted urine. If your doctor hasn???t given you a prescription for pain relievers, take two Tylenol every four hours, as needed. If the pain does not get better, call your doctor. Return to your usual medications, unless otherwise directed by your doctor. Because you had anesthesia No driving for 24 hrs/ or while taking narcotic pain medication No alcohol, no operating machinery, do not sign any binding contracts for 24 hrs/ or while taking narcotic pain medications. Take pain medicine with food. Drink lots of fluids Use stool softener while on narcotics Resume your regular diet and advance as tolerated. Avoid greasy, fried or spicy foods for the rest of today Must have a responsible adult to stay with you for the rest of today and tonight. Home and rest, activity as tolerated. If any emergent problems such as shortness of breath, chest pain or calf pain go to emergency room If unable to void go to ED If you have fever, pain not controlled by your medication, signs of infection such as redness or discharge or swelling at the site, or any other questions, please call your surgeon. * Attachments The following attachments cannot be sent through Care Everywhere. * Prostate Biopsy Discharge Instructions ([place]) * General Anesthesia Discharge Instructions ([place]) documented in this encounter Medications at Time of Discharge doxazosin (CARDURA) 8 MG tablet Take 1 tablet (8 mg total) by mouth daily. fluticasone propionate (FLONASE) 50 MCG/ACT nasal spray 1 spray by Each Nostril route 2 (two) times daily. 12/12/2023 LORazepam (ATIVAN) 0.5 MG tablet Take 1 tablet (0.5 mg total) by mouth 2 (two) times daily as needed. FOR ANXIETY 01/17/2024 metoprolol tartrate (LOPRESSOR) 25 MG tablet Take 1 tablet (25 mg total) by mouth 2 (two) times daily. 12/01/2023 Multiple Vitamin (MULTIVITAMIN) capsule Take 1 capsule by mouth daily. sertraline (ZOLOFT) 25 MG tablet Take 1 tablet (25 mg total) by mouth daily. 12/14/2023 sotalol (BETAPACE) 80 MG tablet Take 0.5 tablets (40 mg total) by mouth daily. 12/30/2023 documented as of this encounter H&P Notes * Jose A Alatorre MD - 02/02/2024 1:13 PM CDT Attending Provider: Jose A Alatorre MD PCP: Ibeth Patel NP Cyrus Condon Jr. is an 88-year-old male. Reason for Admission: * No active hospital problems. * Elevated PSA and prostate nodule HPI: Mr. Condon has an elevated Psa and prostate nodule. We discussed observation versus having a biopsy. Imaging was suspicious for metastatic disease being present. He elected to have the biopsy to helpwith planning for his family. Past Medical History: Diagnosis Date Anxiety Atrial fibrillation (CMS/HCC HHS/HCC) CKD (chronic kidney disease) stage 3, GFR 30-59 ml/min (CMS/HCC HHS/HCC) Elevated PSA Hypertension Skin cancer Thoracic aortic aneurysm (CMS/HCC) Wears dentures Allergies: No Known Allergies Social History Tobacco Use Smoking status: Former Current packs/day: 0.00 Average packs/day: 0.5 packs/day for 22.0 years (11.0 ttl pk-yrs) Types: Cigarettes Start date: 1956 Quit date: 1978 Years since quittin.3 Smokeless tobacco: Never Substance Use Topics Alcohol use: Not Currently Past Surgical History: Procedure Laterality Date COLONOSCOPY EYE SURGERY HERNIA REPAIR OTHER PROCEDURE skin cancer removal from back No family history on file. Travel Exposure: No current facility-administered medications on file prior to encounter. Current Outpatient Medications on File Prior to Encounter Medication Sig doxazosin (CARDURA) 8 MG tablet Take 1 tablet (8 mg total) by mouth daily. fluticasone propionate (FLONASE) 50 MCG/ACT nasal spray 1 spray by Each Nostril route 2 (two) timesdaily. LORazepam (ATIVAN) 0.5 MG tablet Take 1 tablet (0.5 mg total) by mouth 2 (two) times daily as needed. FOR ANXIETY metoprolol tartrate (LOPRESSOR) 25 MG tablet Take 1 tablet (25 mg total) by mouth 2 (two) times daily. Multiple Vitamin (MULTIVITAMIN) capsule Take 1 capsule by mouth daily. sertraline (ZOLOFT) 25 MG tablet Take 1 tablet (25 mg total) by mouth daily. sotalol (BETAPACE) 80 MG tablet Take 0.5 tablets (40 mg total) by mouth daily. Blood pressure (!) 178/85, pulse (!) 52, temperature 97 ??F (36.1 ??C), temperature source Temporal, resp. rate 18, height 1.803 m (5' 11 ), weight 60.7 kg (133 lb 13.1 oz), SpO2 96%. Review of Systems All other systems reviewed and are negative. Physical Exam Constitutional: Appearance: He is normal weight. Pulmonary: Effort: Pulmonary effort is normal. Neurological: General: No focal deficit present. Mental Status: He is alert and oriented to person, place, and time. Psychiatric: Mood and Affect: Mood normal. Behavior: Behavior normal. Assessment: Elevated Psa and prostate nodule Plan: Uronav MRI-US fusion biopsy of the prostate We reviewed risks of bleeding and infection with the biopsy. We discussed that depending on the findings, we may have observation versus treatment. He would like to proceed as planned. JOSE A ALATORRE MD 02/02/2024 documented in this encounter OR Notes * Op Note - Jose A Alatorre MD - 02/02/2024 2:25 PM CDT Operative Report SURGEON: Jose A Alatorre MD SURGICAL TEAM: Surgeons and Role: * Jose A Alatorre MD - Primary DATE OF SURGERY : 02/02/2024 PREOPERATIVE DIAGNOSIS: PSA ELEVATION; R97.20 POSTOPERATIVE DIAGNOSIS: * No Diagnosis Codes entered * PROCEDURE: Prostate biopsy Transrectal ultrasound needle guidance DRAINS: None INDICATION FOR PROCEDURE: This is a 88-year-old man who presents to [facility] with elevated PSA and prostate nodule. Prior to the procedure, I discussed the benefits, risks and alternatives to this procedure. Findings Large right sided prostate nodule 2 LUIS including transition zone and right lobe of prostate No bleeding with procedure ANESTHESIA: Monitor Anesthesia Care Specimens: Order Name Source Comment Collection Info Order Time PATHOLOGY PROSTATE Collected By: Jose A Alatorre MD 02/02/2024 2:05 PM Release to patient System release PATHOLOGY PROSTATE Collected By: Jose A Alatorre MD 02/02/2024 2:08 PM Release to patient System release Complications: none OPERATIVE DETAILS The patient was brought to the operating room in stable condition. He was placed under sedation. Hewas in a left lateral decubitus position. The prostate was examined. There was a large nodule on the right side of the prostate. The ultrasound was placed. On US, the nodule was clearly seen as a hypoechoic area. The MRI and US images were fused. I then performed biopsy of the two LUIS. I then took 6 template biopsies, 3 from the right and 3 from the left. The US was removed. No bleeding was noted. The patient tolerated the procedure well. Condition on Discharge from the operating room was stable JOSE A ALATORRE MD Date: 02/02/2024 Time: 2:26 PM * OR PreOp - Krupa Valle CNP - 01/25/2024 3:03 PM CDT Chart reviewed. Per phone interview, patient denies any SOB/CP with 2 FOS or recent changes in activity tolerance in past 6 months. Patient sees die operator Dr. Galvin and previous cardiac testing copied. EKG listed in Care Everywhere 09/08/23 but no results available. Please request EKG tracing. Per Dr. Galvin's last office note 11/03/23 in Care Everywhere He believes he is scheduled for a prostate biopsy. I told him if that is the case he will need to interrupt his apixaban for 3 days prior to the biopsy 14 day event monitor demonstrates paroxysmal atrial fibrillation with a AF burden of 15% Addendum 01/27/24 EKG 09/08/23 Sinus or ectopic atrial rhythm Probable LVH Rate 62 * OR PreOp - Essence Alva RN - 01/25/2024 2:51 PM CDT Can you climb 2 flights of stairs without CP or extreme SOB? yes Are you physically able to do the same things today that you could 6 months ago? yes What is your average blood pressure? Doesn't know (last 2 charted office visits - 178/92, 156/82) Any recent heart testing? (EKG, stress test, Echo?) EKG - 09/08/23 Do you see a die operator? Who is it? Dr. Galvin Contacted patient regarding pre-op evaluation phone call. Medical history and medications reviewed.Pre-op instructions were discussed. Instructed patient to hold multivitamin # days prior to surgery. Told him pre-op urine sample is needed and to come to [facility] outpatient by 01/28 to have that collected. Patient voiced understanding and questions were answered. Faxed request for EKG tracing to [facility] at [phone]. Addendum 01/27 6976: Called patient to remind him to get a urine culture done at [facility] outpatient lab by Sunday 01/28. Patient voiced understanding and said he was going to do that on Wednesday. documented in this encounter Plan of Treatment Not on file documented as of this encounter Procedures Procedure Name Priority Date/Time Associated Diagnosis Comments BIOPSY PROSTATE TRANSRECTAL WITH ULTRASOUND 02/02/2024 2:09 PM CDT PSA ELEVATION; R97.20 Case Notes SCHED BY FAX 01/13/24 [facility] PHONE ASSESS PATHOLOGY Routine 02/02/2024 12:00 AM CDT documented in this encounter Results * Pathology (02/02/2024 12:00 AM CDT) PATHOLOGY [facility] ? Department of Laboratory Medicine ?[address] [facility] ?[place] [address] ? , extension [phone] ? Pathology Report ? Surgical Pathology Report Name: PERLACYRUS RIVAS JR. ?Specimen #: [id number] Age: 2 1935 (Age: 88) ? Location: [facility] Sex: M ?Procedure Date: 02/02/2024 Hospital #: [id number] ?Date Received: 02/03/2024 Date Reported: 02/10/2024 Provider: JOSE A ALATORRE MD Source: A: Prostate, right medial base, needle biopsy B: Prostate, right medial mid, needle biopsy C: Prostate, right medial apex, needle biopsy D: Prostate, left medial base, needle biopsy E: Prostate, left medial mid, needle biopsy F: Prostate, left medial apex, needle biopsy G: Prostate, LUIS #1, needle biopsy H: Prostate, LUIS #2 needle biopsy Clinical History: Elevated PSA Gross Description: A. ??Received in formalin, labeled with a patient label and as right medial base is a 1.2 cm long, less than 0.1 cm diameter core of white-calderon tissue. ??The specimen is entirely submitted in cassette A1. B. ??Received in formalin, labeled with a patient label and as right medial mid is a 1.1 cm long, less than 0.1 cm diameter core of white-calderon tissue. ??The specimen is entirely submitted in cassette B1. C. ??Received in formalin, labeled with a patient label and as right medial apex is a 1.1 cm long, less than 0.1 cm diameter core of white-calderon tissue. ??The specimen is entirely submitted in cassette C1. D. Received in formalin, labeled with a patient label and as left medial base is a 1.0 cm long, less than 0.1 cm diameter core of white-calderon tissue. ??The specimen is entirely submitted in cassette D1. E. ??Received in formalin, labeled with a patient label and as left medial mid is a 0.7 cm long, less than 0.1 cm diameter core of white-calderon tissue. ??The specimen is entirely submitted in cassette E1. F. ??Received in formalin, labeled with a patient label and as left medial apex is a 1.1 cm long, less than 0.1 cm diameter core of white-calderon tissue. ??The specimen is entirely submitted in cassette F1. G. ??Received in formalin, labeled with a patient label and as region of interest #1 is a 1.0 cm long, less than 0.1 cm diameter core of white-calderon tissue. ??The specimen is entirely submitted in cassette G1. H. ??Received in formalin, labeled with a patient label and as region of interest #2 are 2 less than 0.1 cm diameter cores of white-calderon tissue, each 1.1 cm in length. ??The specimen is entirely submitted in cassette H1. Gross examination (when applicable) was performed at [facility], [address] [place] [address]. This case was interpreted and signed out at [facility], [address] [place] [id number]. FINAL DIAGNOSIS: A. Prostate, right medial base, biopsy: ? 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 Prostate, right medial mid, biopsy: ? -Prostatic adenocarcinoma, grade group 2 (Live score 3+4=7), involving 1 of 1 core and >95% of the tissue ? -Perineural invasion is identified ??C. Prostate, right medial apex, biopsy: ? -Prostatic adenocarcinoma, grade group 2 (Live score 3+4=7), involving 1 of 1 core and >95% of the tissue ??D. Prostate, left medial base, biopsy: ? -Prostatic adenocarcinoma, grade group 1 (Camarillo score 3+3=6), involving 1 of 1 core and 25% of the tissue ?? E. Prostate, left medial mid, biopsy: ? -Prostatic parenchyma with no significant pathologic abnormality F. Prostate, left medial apex, biopsy: ? -Prostatic parenchyma with no significant pathologic abnormality ??G. Prostate, LUIS #1, biopsy: ? -Prostatic parenchyma with no significant pathologic abnormality H. Prostate, LUIS #2, biopsy: ? -Prostatic adenocarcinoma, grade group 2 (Live score 3+4=7), involving 2 of 2 cores and 80% of the tissue Diagnosis Comment: A triple immunostain for AMACR/HMWK/p63 performed on blocks A1, B1, C1, and H1 highlights the areas of prostatic adenocarcinoma in this specimen, characterized by absence of basal cells with strong reactivity for AMACR. A subset of the adenocarcinoma demonstrates a foamy gland appearance as can be seen in foamy gland subtype. Correlation with the resection specimen is recommended, if clinically indicated. The reported immunohistochemistry test(s) was developed and its performance characteristics determined by [facility]. It has not been cleared or approved by the U.S. Food and Drug Administration. However, the use of Analyte Specific Reagents does not require FDA approval. Electronically Signed Out ? URVASHI JACINTO MD [facility] TISSUE PROSTATIC STRUCTURE / Unknown 02/02/2024 2:02 PM CDT Tissue specimen (specimen) PROSTATIC STRUCTURE / Unknown 02/02/2024 2:02 PM CDT Tissue specimen (specimen) PROSTATIC STRUCTURE / Unknown 02/02/2024 2:02 PM CDT Tissue specimen (specimen) PROSTATIC STRUCTURE / Unknown 02/02/2024 2:02 PM CDT Tissue specimen (specimen) PROSTATIC STRUCTURE / Unknown 02/02/2024 2:02 PM CDT Tissue specimen (specimen) PROSTATIC STRUCTURE / Unknown 02/02/2024 2:02 PM CDT us Jose A Alatorre MD PATHOLOGY/CYTOLOGY ORDERABLES F inal Result [facility] [address] [place] [address], [id number] documented in this encounter Visit Diagnoses Not on filedocumented in this encounter Administered Medications Inactive Administered Medications - up to 3 most recent administrations Medication Order MAR Action Action Date Dose Rate Site cefTRIAXone (ROCEPHIN) 2 g in sodium chloride 0.9 % 50 mL IVPB 2 g, Intravenous, at 100 mL/hr, publicist to O.R., 1 dose, First dose on Wed02/02/24 at 1145, Pre-OpIndications:Freehold rosmery PSA New Bag 02/02/2024 1:20 PM CDT 2 g 100 mL/hr gentamicin (GARAMYCIN) 120 mg in sodium chloride 0.9 % 103 mL IVPB 120 mg, Intravenous, at 103 mL/hr, publicist to O.R., 1 dose, First dose on Wed02/02/24 at 1145, Pre-OpIndications:Freehold rosmery PSA New Bag 02/02/2024 12:36 PM CDT 120 mg 103 mL/hr lidocaine (XYLOCAINE) 1 % injection SOLN As needed, Starting on Wed02/02/24 at 1416, Until Wed02/02/24 at 1433, Intra-Op Given 02/02/2024 2:16 PM CDT 10 mLs Operative Site documented in this encounter Active and Recently Administered Medications Times are shown in CDT. Scheduled Medication Order 01/31/2024 02/01/2024 02/02/2024 cefTRIAXone (ROCEPHIN) 2 g in sodium chloride 0.9 % 50 mL IVPB (COMPLETED) 2 g, Intravenous, at 100 mL/hr, publicist to O.R., 1 dose, First dose on Wed02/02/24 at 1145, Pre-Op 1320 (New Bag - Prov ider: Krupa Espinoza, SARA)1330 (Infusion Stop Time - Provider: Krupa Espinoza RN) gentamicin (GARAMYCIN) 120 mg in sodium chloride 0.9 % 103 mL IVPB (COMPLETED) 120 mg, Intravenous, at 103 mL/hr, publicist to O.R., 1 dose, First dose on Wed02/02/24 at 1145, Pre-Op 1236 (New Bag - Prov ider: Ifrah Lal RN)1320 (Infusion Stop Time - Provider: Krupa Espinoza, SARA) PRN Medication Order 01/31/2024 02/01/2024 02/02/2024 lidocaine (XYLOCAINE) 1 % injection SOLN (CANCELED) As needed, Starting on Wed02/02/24 at 1416, Until Wed02/02/24 at 1433, Intra-Op 1416 (Given - Provid er: Jose A Alatorre MD) documented in this encounter Care Teams Tablet Coater Relationship Specialty Start Date End Date Ibeth Patel NP [address] [place] [address] PCP - General Nurse Practitioner Family 01/24/24 Ousmane Galvin MD [address] [address] CARDIOVASCULAR DISEASE 01/25/24 documented as of this encounter
--- OUTSIDE RECORDS SUMMARY | 2024-09-29 19:20 | XMS_ITS | CONTINUITY OF CARE DOCUMENT ---
Author Name jeff tresjose martin Address Unknown Organization [facility] Address [address] [place] [address] Phone [phone] Care Team Providers Care Chief Informatics Officer Name Role Phone Kathryn RODRIGUEZ, Emmett Crespo Unavailable [phone] JESSICA ELIZABETH MD Unavailable GLENN RODRIGUEZ, JESSICA Unavailable [phone] INSURANCE PROVIDERS Payer name Policy type / Coverage type [place] [employer] party ID [facility] MEDICARE ADVANTAGE (HMO) Commercial in [employer] [id number]
--- OUTSIDE RECORDS SUMMARY | 2024-09-29 19:21 | XMS_ITS | Encounter Summary ---
Author Organization [facility] Address [facility]. [place], [place] [address] [place] [address] Care Team Providers Care Assembler Faucets Name Role Phone Ibeth Patel NP Primary Care Provider [phone] Ousmane Galvin MD Unavailable [phone] Reason for Visit * Auth/Cert Specialty Diagnoses / Procedures Referred By Odette t Referred To Contact Diagnoses PSA ELEVATION; R97.20 Procedures TRANSRECTAL ULTRASOUND FUSION GUIDED PROSTATE BIOPSY Iker Alatorre MD [address] [facility] [address] [place] [address] Phone: tel: fax: Referral ID Status Reason Start Date Expiration Date Visits Re quested Visits Authorized [id number] 1 1 Encounter Details Date Type Department Care Team (Late st Contact Info) Description 02/02/2024 11:16 AM CDT - 02/02/2024 3:50 PM T Hospital Encounter [facility] [place] [address] Iker Alatorre MD [address] [facility] [address] [place] [phone] Discharge Disposition: Home or Self Care (Routine Discharge) Social History Tobacco Use Types Packs/Day Years [...] Care Everywhere. * Prostate Biopsy Discharge Instructions (Welsh) * General Anesthesia Discharge Instructions (Welsh) documented in this encounter Medications at Time [...] as of this encounter H&P Notes * Iker Alatorre MD - 02/02/2024 1:13 PM CDT Attending Provider: Iker Alatorre MD PCP: Ibeth Patel NP Trevor Duncan Jr. is an 88-year-old male. Reason for Admission: * No active hospital problems. * Elevated PSA and prostate nodule HPI: Mr. Duncan has an elevated Psa and prostate nodule. We discussed observation versus having a biopsy. Imaging was suspicious for metastatic disease being present. He elected to have the biopsy to helpwith planning for his family. Past Medical History: Diagnosis Date Anxiety Atrial fibrillation (CMS/HCC HHS/HCC) CKD (chronic kidney disease) stage 3, GFR 30-59 ml/min ([facility]/HCC HHS/HCC) Elevated PSA Hypertension Skin cancer Thoracic [...] He would like to proceed as planned. IKER ALATORRE MD 02/02/2024 documented in this encounter OR Notes * Op Note - Iker Alatorre MD - 02/02/2024 2:25 PM CDT Operative Report SURGEON: Iker Alatorre MD SURGICAL TEAM: Surgeons and Role: * Iker Alatorre MD - Primary DATE OF SURGERY : 02/02/2024 PREOPERATIVE DIAGNOSIS: PSA ELEVATION; R97.20 POSTOPERATIVE DIAGNOSIS: * No Diagnosis Codes entered * PROCEDURE: Prostate biopsy Transrectal ultrasound needle guidance DRAINS: None INDICATION FOR PROCEDURE: This is a 88-year-old man who presents to [facility] with elevated PSA and prostate nodule. Prior to the procedure, I discussed the benefits, risks and alternatives to this procedure. Findings Large right sided prostate nodule 2 LUIS including transition zone and right lobe of prostate No bleeding with procedure ANESTHESIA: Monitor Anesthesia Care Specimens: Order Name Source Comment Collection Info Order Time PATHOLOGY PROSTATE Collected By: Iker Alatorre MD 02/02/2024 2:05 PM Release to patient System release PATHOLOGY PROSTATE Collected By: kIer Alatorre MD 02/02/2024 2:08 PM Release to [...] Discharge from the operating room was stable IKER ALATORRE MD Date: 02/02/2024 Time: 2:26 PM * OR PreOp - Krupa Valle CNP - 01/25/2024 3:03 PM CDT Chart reviewed. Per phone interview, patient denies any SOB/CP with 2 FOS or recent changes in activity tolerance in past 6 months. Patient sees technical data analyst Dr. Galvin and previous cardiac testing copied. [...] EKG - 09/08/23 Do you see a technical data analyst? Who is it? Dr. Galvin Contacted patient regarding pre-op evaluation phone call. Medical history and medications reviewed.Pre-op instructions were discussed. Instructed patient to hold multivitamin # days prior to surgery. Told him pre-op urine sample is needed and to come to [facility] outpatient by 01/28 to have that collected. Patient voiced understanding and questions were answered. Faxed request for EKG tracing to [facility] Cardiology [facility] at [phone]. Addendum 01/27 8856: Called patient to remind him to get a urine culture done at [facility] outpatient lab by Sunday 01/28. Patient voiced understanding and said he was going to do that on Wednesday. documented in this encounter Plan of Treatment Not on file documented as of this encounter Procedures Procedure Name Priority Date/Time Associated Diagnosis Comments BIOPSY PROSTATE TRANSRECTAL WITH ULTRASOUND 02/02/2024 2:09 PM CDT PSA ELEVATION; R97.20 Case Notes SCHED BY FAX 01/13/24 [facility] PHONE ASSESS PATHOLOGY Routine 02/02/2024 12:00 AM CDT documented in this encounter Results * Pathology (02/02/2024 12:00 AM CDT) PATHOLOGY [facility] [place] [facility] ? Department of Laboratory Medicine ?[address] ?[place] [address] ? , extension [phone] ? Pathology Report ? Surgical Pathology Report Name: TREVOR DUNCAN JR. ?Specimen #: [id number] Age: 2 1935 (Age: 88) ? Location: [facility] Sex: M ?Procedure Date: 02/02/2024 Hospital #: [id number] ?Date Received: 02/03/2024 Date Reported: 02/10/2024 Provider: IKER ALATORRE MD Source: A: Prostate, right medial [...] Gross examination (when applicable) was performed at [facility], [address] [place] [address]. This case was interpreted and signed out at [facility], [address] [place] [address]. FINAL DIAGNOSIS: A. Prostate, right medial base, biopsy: ? -Prostatic adenocarcinoma, grade group 2 (Joshua score 3+4=7), involving 1 of 1 core and >95% of the tissue B. Prostate, right medial mid, biopsy: ? -Prostatic adenocarcinoma, grade group 2 (Joshua score 3+4=7), involving 1 of 1 core and >95% of the tissue ? -Perineural invasion is identified ??C. Prostate, right medial apex, biopsy: ? -Prostatic adenocarcinoma, grade group 2 (Live score 3+4=7), involving 1 of 1 core and >95% of the tissue ??D. Prostate, left medial base, biopsy: ? -Prostatic adenocarcinoma, grade group 1 (Joshua score 3+3=6), involving 1 of 1 core [...] developed and its performance characteristics determined by [facility]. It has not been cleared or approved by the U.S. Food and Drug Administration. However, the use of Analyte Specific Reagents does not require FDA approval. Electronically Signed Out ? URVASHI JACINTO MD [facility] TISSUE PROSTATIC STRUCTURE / Unknown 02/02/2024 [...] / Unknown 02/02/2024 2:02 PM CDT us Iker Alatorre MD PATHOLOGY/CYTOLOGY ORDERABLES F inal Result [facility] [address] [place] [address], [id number] documented in this encounter Visit Diagnoses Diagnosis Elevated PSA- Primary Elevated prostate specific antigen (PSA) documented in this encounter Administered Medications Inactive Administered Medications - up to 3 most recent administrations Medication Order MAR Action Action Date Dose Rate Site cefTRIAXone (ROCEPHIN) 2 g in sodium chloride 0.9 % 50 mL IVPB 2 g, Intravenous, at 100 mL/hr, crew caller to O.R., 1 dose, First dose on Wed02/02/24 at 1145, Pre-OpIndications:Elevated PSA New Bag 02/02/2024 1:20 PM CDT 2 g 100 mL/hr gentamicin (GARAMYCIN) 120 mg in sodium chloride 0.9 % 103 mL IVPB 120 mg, Intravenous, at 103 mL/hr, crew caller to O.R., 1 dose, First dose on Wed02/02/24 at 1145, Pre-OpIndications:Elevated PSA New Bag 02/02/2024 12:36 PM CDT 120 mg 103 mL/hr documented in this encounter Active and Recently Administered Medications Times are shown in CDT. Scheduled Medication Order 01/31/2024 02/01/2024 02/02/2024 cefTRIAXone (ROCEPHIN) 2 g in sodium chloride 0.9 % 50 mL IVPB (COMPLETED) 2 g, Intravenous, at 100 mL/hr, crew caller to O.R., 1 dose, First dose on Wed02/02/24 at 1145, Pre-Op 1320 (New Bag - Prov ider: Krupa Espinoza RN)1330 (Infusion Stop Time - Provider: Krupa Espinoza RN) gentamicin (GARAMYCIN) 120 mg in sodium chloride 0.9 % 103 mL IVPB (COMPLETED) 120 mg, Intravenous, at 103 mL/hr, crew caller to O.R., 1 dose, First dose on Wed02/02/24 at 1145, Pre-Op 1236 (New Bag - Prov ider: Ifrah Lal RN)1320 (Infusion Stop Time - Provider: Krupa Espinoza RN) PRN Medication Order 01/31/2024 02/01/2024 02/02/2024 lidocaine (XYLOCAINE) 1 % injection SOLN (CANCELED) As needed, Starting on Wed02/02/24 at 1416, Until Wed02/02/24 at 1433, Intra-Op 1416 (Given - Provid er: Iker Alatorre MD) documented in this encounter Care Teams Assembler Faucets Relationship Specialty Start Date End Date Ibeth Patel NP [address] [place] [address] PCP - General Nurse Practitioner Family 01/24/24 Ousmane Galvin MD [address] [facility] [address] [place] [address] CARDIOVASCULAR DISEASE 01/25/24 documented as of this encounter
--- OUTSIDE RECORDS SUMMARY | 2024-09-29 19:21 | XMS_ITS | Referral Summary ---
Author Organization [facility] [address] Address [address] [place] [address] Care Team Providers Care Circuit Walker Name Role Phone Jules Vanegas MD Primary Care Provider [phone] Allergies No known active allergies Medications LORazepam (ATIVAN) 1 mg tablet 1 tablet (1 mg total) daily 1 9 Active doxazosin (CARDURA) 8 mg tablet 3 Active fluticasone propionate (FLONASE) 50 mcg/actuation nasal spray Administer 1 spray into each nostril daily Active sotaloL (BETAPACE) 80 mg tablet TAKE 1/2 TABLET(40 MG) BY MOUTH TWICE DAILY 90 tablet 2 4 Active Eliquis 2.5 mg tablet TAKE 1 TABLET(2.5 MG) BY MOUTH TWICE DAILY 60 tablet 3 4 Active Active Problems Problem Noted Date Diagnosed Date Syncope and collapse 09/08/2023 Atrial fibrillation (CMS/HCC) 09/08/2023 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 Never 09/08/2023 Q2: How many drinks containi ng alcohol do you have on a typical day when you are drinking? Patient does not drink Q3: How often do you have si x or more drinks on one occasion? Never 09/08/2023 Personal Safety Answer Date Recorded Getting School Help Needed Not on file 09/06 Sex and Gender Information Value Date Recorded Sex Assigned at Not on file Legal Sex Male 7:48 PM HEAD ROSE GROWER Gender Identity Not on file Sexual Orientation Not on file Last Filed Vital Signs Vital Sign Reading Time Taken Comments Blood Pressure 178/92 05/17/2024 11:31 AM CDT Pulse 60 05/17/2024 11:31 AM CDT Temperature - - Respiratory Rate 16 05/17/2024 11:31 AM CDT Oxygen Saturation 98% 11/03/2023 11:39 AM HEAD ROSE GROWER Inhaled Oxygen Concentration - - Weight 57.6 kg (127 lb) 05/17/2024 11:31 AM CDT Height 182.9 cm (6') 05/17/2024 11:31 AM CDT Body Mass Index 17.22 05/17/2024 11:31 AM CDT Plan of Treatment Not on file Insurance 20[address] [place] [id number] AET MEDICARE Care Teams Circuit Walker Relationship Specialty Start Date End Date Jules Vanegas MD PCP - General Family Practice 11/03/23
--- OUTSIDE RECORDS SUMMARY | 2024-09-29 19:21 | XMS_ITS | Encounter Summary ---
Author Organization [facility] Address [address] [place] [address] Care Team Providers Care Manual Qa Tester Name Role Phone Shane Whiteside DO Primary Care Provider [phone] Encounter Details Date Type Department Care Team (Late st Contact Info) Description 08/17/[address] [facility] Cardiology [address] [place] [id number] Ousmane Galvin MD [address] [place] [address] Social History Tobacco Use Types Packs/Day Years Used Date Smoking Tobacco: Former Smokeless Tobacco: Never Comments:50 YEARS AGO QUITE Alcohol Use Standard Drinks/Week Comments Not Currently 0 (1 standard drink = 0.6 oz pur e alcohol) Sex and Gender Information Value Date Recorded Sex Assigned at Not on file Legal Sex Male 7:48 PM ORTHO ASSISTANT Gender Identity Not on file Sexual Orientation Not on file documented as of this encounter Miscellaneous Notes * Telephone Encounter - Yael Vernon RN - 08/18/2023 12:36 PM CST Note for Rebeca at her desk with note to make sure these are avail for [facility] appt O ASSISTANT * Telephone Encounter - Yael Vernon RN - 08/17/2023 3:36 PM CST Monitor request sent to Dr Dove office as well O ASSISTANT * Telephone Encounter - Yael Vernon RN - 08/17/2023 3:14 PM CST Spoke with pt. He was in after a fall and cut to his head. He passed out. He was told they thought it was due to his BP meds and Low BP. Pt would like to follow with [facility]. Appt with CT cancelled since pt has not been sen in years here and rescheduled with [facility]. Pt has had no further episodes of lightheadedness, dizziness, or syncope. Records request sent to [facility] for monitor result and in patient record. O ASSISTANT * Telephone Encounter - Janie Westbrook - 08/17/2023 2:28 PM CST Pt requesting a call back to confirm whether or not our office has received heart monitor results. Contact:[phone] O ASSISTANT documented in this encounter Plan of Treatment Not on file documented as of this encounter Visit Diagnoses Not on filedocumented in this encounter Care Teams Manual Qa Tester Relationship Specialty Start Date End Date Shane Whiteside DO PCP - General Internal Medicine 01/31/19 11/02/23 documented as of this encounter
--- OUTSIDE RECORDS SUMMARY | 2024-09-29 19:21 | XMS_ITS | Encounter Summary ---
Author Organization [facility] Healthcare Address [address] [place] [address] Care Team Providers Care Operators School Manager Name Role Phone Shane Whiteside DO Primary Care Provider [phone] Reason for Visit * Reason Comments New Patient Atrial Fibrillation Syncope * Consultation (Routine) - Closed Specialty Diagnoses / Procedures Referred By Odette andersen Referred To Contact Cardiology Diagnoses Atrial fibrillation, unspecified type (HCC) Jules Vanegas MD Phone: tel: fax: [facility] Referral ID Status Reason Start Date Expiration Date V isits Requested Visits Authorized [id number] Closed Specialty Services Required 08/16/2023 02/12/2024 10 10 Encounter Details Date Type Department Care Team (Latest Contact Info) Description 09/08/2023 11:15 AM MAINTENANCE MECHANIC TECHNICIAN Office Visit [facility] Cardiology at [address] [place] [address] Ousmane Galvin MD [address] [facility] [address] [place] [address] Syncope and collapse (Primary Dx); Atrial fibrillation, unspecified type (HCC); Aneurysm of ascending aorta without rupture (HCC); Other thrombophilia (HCC) Social History Tobacco Use Types Packs/Day Years [...] on file Legal Sex Male 7:48 PM MAINTENANCE MECHANIC TECHNICIAN Gender Identity Not on file Sexual Orientation Not on file documented as of this encounter Last Filed Vital Signs Vital Sign Reading Time Taken Comments Blood Pressure 156/82 09/08/2023 11:13 AM MAINTENANCE MECHANIC TECHNICIAN Pulse 62 09/08/2023 11:13 AM MAINTENANCE MECHANIC TECHNICIAN Temperature - - Respiratory Rate - - Oxygen Saturation 98% 09/08/2023 11:13 AM MAINTENANCE MECHANIC TECHNICIAN Inhaled Oxygen Concentration - - Weight 61.2 kg (135 lb) 09/08/2023 11:13 AM MAINTENANCE MECHANIC TECHNICIAN Height 182.9 cm (6') 09/08/2023 11:13 AM MAINTENANCE MECHANIC TECHNICIAN Body Mass Index 18.31 09/08/2023 11:13 AM MAINTENANCE MECHANIC TECHNICIAN documented in this encounter Ordered Prescriptions Prescription Sig Dispense Quantity Refills Last Filled Start Date End Date apixaban (ELIQUIS) 2.5 mg tabletIndications: atrial fibrillation Take 1 tablet (2.5 mg total) by mouth 2 (two) times a day 60 tablet 3 09/08/2023 4 sotaloL (BETAPACE) 80 mg tablet Take 0.5 tablets (40 mg total) by mouth 2 (two) times a day 30 tablet 3 09/08/2023 4 documented in this encounter Progress Notes * Ousmane Galvin MD - 09/08/2023 11:15 AM CST [facility] CARDIOLOG[facility] 09/08/2023 CHIEF COMPLAINT Referral for consultation regarding recent syncopal episode/paroxysmal atrial fibrillation HPI Trevor Condon is a 87 y.o. male with a recent syncopal episode for which he was seen hospitalizedin [place] in July of 2023. He was seen by physicians there including blister rust eradicator. We he was found to have atrial fibrillation. A event monitor was done for 2 weeks following the the the dis charge and he is referred today for follow-up. Apparently when he was hospitalized he experienced asyncopal episode and had a laceration to the scalp. I had seen this patient in the past in 2019 forevaluation and follow-up of a thoracic aortic aneurysms. At the time of my last appointment in August of 2019 he indicated that because of his advanced age he would not consider surgical repair of this. Given that decision we did not recommend ongoing follow-up or imaging of his thoracic aorta since it was not going to affect management. He was of course metoprolol as part of his antihypertensive regimen because of this. His 14 day event monitor demonstrates paroxysmal atrial fibrillation with a AF burden of 15%. His AF at times was with rapid ventricular response his maximum heart rate with rapid AFib was 162. His slowest heart rate with sinus rhythm was 51 beats per minute. There were no significant conversion pauses identified. Since the above described Hospital care he says he has been feeling well he is really not experiencing any further episodes of dizziness but he still is experiencing episodes of intermittent tachycardia/palpitations. I did discuss with he and his family in detail the findings of his 14 day event monitor. Can not recall anybody in the hospital discussing with him the issues regarding his atrial fib, rhythm control or stroke prevention. I do not have those hospital records available to me as I see him in the office at this time. MEDICAL HISTORY History reviewed. No pertinent past medical history. History reviewed. No pertinent surgical history. History reviewed. No pertinent family history. Social History Tobacco Use Smoking status: Former Smokeless tobacco: Never Tobacco comments: 50 YEARS AGO QUITE Substance and Sexual Activity Drug use: Never Sexual activity: None Alcohol Use: Not At Risk (09/08/2023) AUDIT-C Frequency of Alcohol Consumption: Never Average Number of Drinks: Patient does not drink Frequency of Binge Drinking: Never Current Outpatient Medications Medication doxazosin (CARDURA) 8 mg tablet LORazepam (ATIVAN) 1 mg tablet metoprolol tartrate (LOPRESSOR) 25 mg immediate release tablet multivitamin capsule No current facility-administered medications for this visit. No Known Allergies REVIEW OF SYSTEMS General ROS: negative for - chills, fatigue, fever, malaise, night sweats, weight gain or weight loss Psychological ROS: negative for - anxiety, depression, memory difficulties or sleep disturbances Ophthalmic ROS: negative for - blurry vision, decreased vision, loss of vision or scotomata ENT ROS: negative for - epistaxis, headaches, hearing change, nasal congestion, nasal discharge, sore throat, vertigo or visual changes Hematological and Lymphatic ROS: negative for - bleeding problems, blood clots, bruising, fatigue or weight loss Endocrine ROS: negative for - hot flashes, palpitations, polydipsia/polyuria or unexpected weight changes Respiratory ROS: negative for - cough, hemoptysis, orthopnea, shortness of breath, tachypnea or wheezing Cardiovascular ROS: negative for - chest pain, dyspnea on exertion, edema, irregular heartbeat, loss of consciousness, murmur, orthopnea, palpitations, paroxysmal nocturnal dyspnea, rapid heart rate or shortness of breath Gastrointestinal ROS: negative for - abdominal pain, appetite loss, blood in stools, constipation, diarrhea, gas/bloating, heartburn, hematemesis, melena or nausea/vomiting Genito-Urinary ROS: negative for - dysuria, erectile dysfunction or hematuria Musculoskeletal ROS: negative for - joint pain, muscle pain or muscular weakness Dermatological ROS: negative for dry skin, eczema, pruritus and rash LABS AND OTHER DIAGNOSTIC TESTS No results found for: WBC , HGB , HCT , MCV , PLT No lab exists for component: LABALBU No results found for: CHOL No results found for: HDL No results found for: LDLCALC No results found for: TRIG No results found for: CHOLHDL PHYSICAL EXAM Vitals BP 156/82 (BP Location: Right arm, Patient Position: Sitting) Pulse 62 Ht 182.9 cm (6') Wt 61.2 kg (135 lb) SpO2 98% BMI 18.31 kg/m?? General appearance - alert, very pleasant tall thin elderly man oriented to person, place, and timeand acyanotic, in no respiratory distress Mental status - affect appropriate to mood Eyes - extraocular eye movements intact, sclera anicteric, no pallor Ears - external earsappear normal, hearing grossly normal bilaterally Nose - normal and patent, no erythema or discharge Mouth - mucous membranes moist, pharynx appears normal, dental hygiene good and tongue normal Neck - supple, no significant neck masses, carotids upstroke normal bilaterally, no bruits, no JVD Chest - clear to auscultation, no wheezes, rales or rhonchi, symmetric air entry, no tachypnea, retractions or cyanosis Heart - normal rate, regular rhythm, normal S1, S2, very soft crescendo decrescendo murmur not radiating from the left sternal border rubs, clicks or gallops, no JVD Abdomen - soft, nontender, nondistended, no masses or organomegaly bowel sounds normal Neurological - alert, oriented, normal speech, no focal findings or movement disorder noted Musculoskeletal - no joint tenderness, deformity or swelling, no muscular tenderness noted Extremities - peripheral pulses normal, no pedal edema, no clubbing or cyanosis Skin - normal coloration and turgor, no rashes, no suspicious skin lesions noted ASSESSMENT Paroxysmal atrial fibrillation/recently diagnosed Recent syncopal episode etiology unclear possibly related to PE AFib but there have been no conversion pauses identified Hypertension Thoracic aortic aneurysms as detailed previously Stage 3 chronic kidney disease according to the chart PLAN/RECOMMENDATIONS Discontinue metoprolol Start sotalol 40 mg q.12h Start apixaban 2.5 mg q.12h Follow-up 1 month from now Ousmane Galvin MD TENANCE MECHANIC TECHNICIAN documented in this encounter Miscellaneous Notes * Addendum Note - Guillermo Hopkins MA - 09/08/2023 11:15 AM CSTAddended by: GUILLERMO HOPKINS on: 09/08/2023 12:32 PM Modules accepted: Orders TENANCE MECHANIC TECHNICIAN documented in this encounter Plan of Treatment Not on file documented as of this encounter Procedures Procedure Name Priority Date/Time Associated Diagnosis Comments ECG 12-LEAD Routine 09/08/2023 Atrial fibrillation, unspecified type (HCC) Syncope and collapse documented in this encounter Results * ECG 12 lead (09/08/2023) us Ousmane Galvin MD ECG ORDERABLES Final Re sult documented in this encounter Visit Diagnoses Diagnosis Syncope and collapse- Primary Atrial fibrillation, unspecified type (HCC) Aneurysm of ascending aorta without rupture (HCC) Other thrombophilia (HCC) documented in this encounter Discontinued Medications Medication Sig Discontinue Reason Start Date End Da te metoprolol XL (TOPROL-XL) 100 mg 24 hr tablet 1 tablet daily Dose adjustment 02/03/2019 09/08/2023 amLODIPine (NORVASC) 10 mg tablet Take 1 tablet (10 mg total) by mouth daily Discontinued by another clinician 02/24/2019 09/08/2023 lisinopril (ZESTRIL) 40 mg tablet Take 1 tablet by mouth daily Discontinued by another clinician 01/12/2019 09/08/2023 niacin (NIACOR) 500 mg tablet Take 1 tablet by mouth every 12 hours Discontinued by another clinician 06/09/2015 09/08/2023 simvastatin (ZOCOR) 20 mg tablet Take 1 tablet by mouth daily Discontinued by another clinician 01/12/2019 09/08/2023 metoprolol tartrate (LOPRESSOR) 25 mg immediate release tablet Take 1 tablet (25 mg total) by mouth 2 (two) times a day 08/25/2023 09/08/2023 documented as of this encounter Historical Medications * This list may reflect changes made after this encounter. doxazosin (CARDURA) 8 mg tablet 08/09/2023 metoprolol tartrate (LOPRESSOR) 25 mg immediate release tablet Take 1 tablet (25 mg total) by mouth 2 (two) times a day 08/25/2023 09/08/2023 added in this encounter Orders Outpatient Referral Count Last Ordered Date Fir st Ordered Date AMB REFERRAL TO CARDIOLOGY 1 09/08/2023 documented in this encounter Care Teams Operators School Manager Relationship Specialty Start Date End Date Shane Whiteside DO PCP - General Internal Medicine 01/31/19 11/02/23 documented as of this encounter
--- OUTSIDE RECORDS SUMMARY | 2024-09-29 19:21 | XMS_ITS | Encounter Summary ---
Author Organization [facility] Address [address] [facility] [address] [place] [address] Care Team Providers Care Receiving Operator Name Role Phone Shane Whiteside DO Primary Care Provider [phone] Encounter Details Date Type Department Care Team (Late st Contact Info) Description 02/05/[address] 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 Gender Identity Not on file Sexual Orientation Not on file documented as of this encounter Plan of Treatment Not on file documented as of this encounter Procedures Procedure Name Priority Date/Time Associated Diagnosis Comments SCAN - OTHER ORDERS Routine 01/16/2020 documented in this encounter Results * SCAN - OTHER ORDERS (01/16/2020) Historical Provider Final Res ult documented in this encounter Visit Diagnoses Not on filedocumented in this encounter Care Teams Receiving Operator Relationship Specialty Start Date End Date Shane Whiteside DO PCP - General Internal Medicine 01/31/19 11/02/23 documented as of this encounter
--- OUTSIDE RECORDS SUMMARY | 2024-09-29 19:21 | XMS_ITS | Encounter Summary ---
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 Gender Identity Not on file Sexual Orientation Not on file documented as of this encounter Plan of Treatment Not on file documented as of this encounter Procedures Procedure Name Priority Date/Time Associated Diagnosis Comments CARDIOLOGY DOCUMENT SCAN 08/02/2023 documented in this encounter Results * Cardiology Document Scan (08/02/2023) Anatomical Region Laterality Modality Other us Provider Scanning CV CARDIAC SERVICES PROCEDURES Final Result documented in this encounter Visit Diagnoses Not on filedocumented in this encounter Care Teams Coal Washer Relationship Specialty Start Date End Date Shane Whiteside DO PCP - General Internal Medicine 01/31/19 11/02/23 Jules Vanegas MD PCP - General Family Practice 11/03/23 documented as of this encounter
--- OUTSIDE RECORDS SUMMARY | 2024-09-29 19:21 | XMS_ITS | Clinical Summary ---
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 Thoracic ascending aortic aneurysm 02/23/2019 Medical History Medical History Date Comments Atrial flutter (CMS/HCC) (HCC) Syncope Family History Relation Name Status Comments Father (Age 69) HEART TADEO CK Mother (Age 80) STROKE Sister (Age 54) CANCER Social History Tobacco Use Types Packs/Day Years [...] on file 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 Gender Identity Not on file Sexual Orientation Not on file Obstetrics History Last Filed Vital Signs Vital Sign Reading Time Taken Comments Blood Pressure 178/92 05/17/2024 11:31 AM CDT Pulse 60 05/17/2024 11:31 AM CDT Temperature - - Respiratory Rate 16 05/17/2024 11:31 AM CDT Oxygen Saturation 98% 11/03/2023 11:39 AM CASHIER CHECKER Inhaled Oxygen Concentration - - Weight 57.6 kg (127 lb) 05/17/2024 11:31 AM CDT Height 182.9 cm (6') 05/17/2024 11:31 AM CDT Body Mass Index 17.22 05/17/2024 11:31 AM CDT Plan of Treatment Health Maintenance Due Date Last Done Comments Depression Screening 1936 Fall Risk Assessment 1936 DTaP/Tdap/Td Vaccine (1 - Tdap) 1947 Hepatitis B Screening 1954 Zoster Vaccine (1 of 2) 1986 Well Visit 65+ 2001 Pneumococcal vaccine 65+ (2 of 2 - PPSV23 or PCV20) 12/21/2017 12/21/2016 Covid-19 Vaccine (2023-2 5 season) 2024 07/20/2023, 05/15/2022, 08/05/2021, Additional history exists Influenza Vaccine (#1) 2024 , 06/12/2022, 06/17/2021, Additional history exists Insurance [employer] MED[employer] Care Teams Manager Balance Relationship Specialty Start Date End Date Jules Vanegas MD PCP - General Family Practice 11/03/23
--- OUTSIDE RECORDS SUMMARY | 2024-09-29 19:21 | XMS_ITS | Encounter Summary ---
Author Organization [facility] Address [facility] [facility] [place] [address] [place] [address] Care Team Providers Care Addiction Professional Name Role Phone Ibeth Patel NP Primary Care Provider [phone] Ousmane Galvin MD Unavailable [phone] Encounter Details Date Type Department Care Team (Late st Contact Info) Description 01/29/2024 8:38 AM CDT - 01/29/2024 11:59 PM CDT Hospital Encounter [facility] [place] [address] Jose A Gold MD [address] [facility] [address] [facility] [place] [address] Discharge Disposition: Home or Self Care (Routine [...] on file documented as of this encounter Medications at Time of Discharge [...] daily. 12/30/2023 documented as of this encounter Plan of Treatment Not on file documented as of this encounter Procedures Procedure Name Priority Date/Time Associated Diagnosis Comments URINE BACTERIA CULTURE Routine 01/29/2024 9:31 AM CDT Elevated PSA BPH (benign prostatic hyperplasia) documented in this encounter Results * CULTURE URINE (01/29/2024 9:31 AM CDT) SPEC DESCRIPTION URINE CLEAN CATCH 01/29/2024 9:32 AM CDT [facility] SPECIAL REQUESTS NO SPECIAL REQUEST 01/29/2024 9:32 AM CDT [facility] CULTURE RESULT NO GROWTH 2 DAYS 01/31/2024 7:24 AM CDT [facility] URINE SPECIMEN OBTAINED BY CLEAN CATCH PROCEDURE / Unknown 01/29/2024 9:31 AM CDT 01/29/2024 9:32 AM CDT us Jose A Gold MD MICROBIOLOGY - GENERAL ORDERABL ES Final Result [facility] [address] [place] [address], [place] [phone] documented in this encounter Visit Diagnoses Diagnosis Elevated PSA Elevated prostate specific antigen (PSA) BPH (benign prostatic hyperplasia) Unspecified hyperplasia of prostate without urinary obstruction and other lower urinary tract symptoms (LUTS) documented in this encounter Care Teams Addiction Professional Relationship Specialty Start Date End Date Ibeth Patel NP [address] [place], [place] [id number] PCP - General Nurse Practitioner Family 01/24/24 Ousmane Galvin MD [address] [address] CARDIOVASCULAR DISEASE 01/25/24 documented as of this encounter
--- OUTSIDE RECORDS SUMMARY | 2024-09-29 19:21 | XMS_ITS | Encounter Summary ---
Author Organization [facility] Address [facility]6 [facility] [place] [address] [place] [address] Care Team Providers Care Barrel Waterer Name Role Phone Ibeth Patel NP Primary Care Provider [phone] Ousmane Galvin MD Unavailable [phone] Reason for Visit * Auth/Cert Specialty Diagnoses / Procedures Referred By Odette andersen Referred To Contact Diagnoses PSA ELEVATION; R97.20 Procedures TRANSRECTAL ULTRASOUND FUSION GUIDED PROSTATE BIOPSY Jose A Gold MD 3 [facility] [address] [place] [address] Phone: tel: fax: Referral ID Status Reason Start Date Expiration Date Visits Re quested Visits Authorized [id number] 1 1 Encounter Details Date Type Department Care Team (Late st Contact Info) Description 02/02/2024 2:09 PM CDT Anesthesia Event [facility] [place] [address] Neema Mariano MD [address] [place] [address] [place] [address] Krupa Valle CNP [address] [place] [address] Anesthesia Record Procedure Summary Procedure Name Responsible Anesthesiologist Anesthesia Start Time Anesthesia Stop Time TRANSRECTAL ULTRASOUND FUSION GUIDED PROSTATE BIOPSY (Anus) Neema Mariano MD 02/02/24 1409 02/02/24 1428 Events Date Time Event Comment 02/02/2024 1252 1409 An Start Patient ID and consent checked and patient reassessed. 1409 An Start Data 1413 Face Mask Applied 1414 An Induction The patient was reevaluated immediately before moderate or deep sedation use and before anesthesia induction. 1414 Anesthesia Ready 1424 An Emergence 1426 an stop data 1428 Post Anesthetic Care Handoff I completed my handoff to the receiving nurse during which we: 1. Identified the patient 2. Identified the responsible provider 3. Reviewed the pertinent medical history 4. Discussed the surgical course 5. Reviewed intra-op anesthesia management and issues during anesthesia 6. Set expectations for post-procedure period 7. Allowed opportunity for questions and acknowledgement of understanding. 1428 An Stop Meds Name Total propofol (DIPRIVAN) 200 mg/20 mL injecti on 50 mg propofol (DIPRIVAN) 1000 mg/100 mL infus ion 118.85 mg lactated ringers infusion 0 mL * Agents Name O2 Inspired Sevoflurane Sevoflurane Ancillary O2 * Blood No blood administrations on file. Lines, Drains, and Airways Type Details Placement Removal Peripheral IV Placement Date: 02/02/24; Placement Time: 1236; Placed Outside of This Facility?: No; Size: 20 G; Orientation: Right; Location: Forearm; Site Prep: Chlorhexidine; Local Anesthetic: None; Inserted By: bryan reyes ods; Insertion attempts: 1; Ultrasound-guided Placement?: No; Patient Tolerance: Tolerated well; Removal Date: 02/02/24; Removal Time: 1540; Removal Reason: Patient Discharged 02/02/24 1236 by Ifrah Lal RN 02/02/24 1540 by Krupa Espinoza RN Surgical/Incision 02/02/24; 1435; Surg ical Wound; Rectum; No dressings required.; 02/02/24; 1540 02/02/24 1435 by Urmila Golden RN 02/02/24 1540 by Krupa Espinoza RN documented in this encounter Social History Tobacco [...] on file documented as of this encounter OR Notes * Anesthesia Postprocedure Evaluation - Neema Mariano MD - 02/02/2024 6:48 PM CDT Anesthesia Post-op Note Trevor Condon Jr. Procedure(s): TRANSRECTAL ULTRASOUND FUSION GUIDED PROSTATE BIOPSY (Anus) Anesthesia type: general Vitals: 02/02/24 1540 BP: (!) 150/91 Vitals: 02/02/24 1540 Pulse: (!) 55 Vitals: 02/02/24 1540 Resp: 16 Vitals: 02/02/24 1540 Temp: 36.1 ??C Vitals: 02/02/24 1540 SpO2: 98% Patient Location: PACU Level of Consciousness: awake Pain Management: adequate analgesia Airway Patency: patent Respiratory Status: acceptable Cardiovascular Status: acceptable Post-Op Nausea: none Postoperative Hydration: euvolemic No notable events documented. * Anesthesia Preprocedure Evaluation - Neema Mariano MD - 02/02/2024 12:45 PM CDT Anesthesia ROS/MED History Reviewed: Patient summary , ECG, Anesthesia history , Labs Pre-Anesthetic State: awake, alert and responds appropriately Pulmonary Cardiovascular (+) hypertension, arrhythmia, (A-fib) Neuro/Psych Substance Use GI/Hepatic/Renal Endo/Other NPO Status: Physical Evaluation Airway Mallampati: II Dental (upper dentures) Pulmonary Pulmonary exam normal Cardiovascular Rhythm: regular Rate: normal STOP-Bang Assessment: Do you snore loudly?: 1 Do you often feel tired or fatigued after your sleep?: 0 Has anyone ever observed you stop breathing in your sleep?: 0 Do you have or are you being treated for high blood pressure?: 1 Recent BMI (Calculated): 19 Is BMI greater than 35 kg/m2?: 0=No Age older than 50 years old?: 1=Yes Is your neck circumference greater than 17 inches (Male) or 16 inches (Female)?: 0 Gender - Male: 1=Yes STOP-Bang Total Score: 4 Anesthesia Plan ASA 3 Intravenous Induction Anesthesia type: general Informed Consent Anesthetic plan and risks discussed with patient of whom. . documented in this encounter Plan of Treatment Not on file documented as of this encounter Visit Diagnoses Not on filedocumented in this encounter Administered Medications Inactive Administered Medications - up to 3 most recent administrations Medication Order MAR Action Action Date Dose Rate Site lactated ringers infusion Intravenous, Continuous PRN, Starting on Wed02/02/24 at 1414, Until Wed02/02/24 at 1431, Anesthesia Intra-Op New Bag 02/02/2024 2:14 PM CDT propofol (DIPRIVAN) infusion Intravenous, PRN, Starting on Wed02/02/24 at 1414, Until Wed02/02/24 at 1431, Anesthesia Intra-Op Rate/Dose Change 02/02/2024 2:18 PM CDT 80 mcg/kg/min 29.136 mL/hr Given 02/02/2024 2:17 PM CDT 80 mg New Bag 02/02/2024 2:14 PM CDT 60 mcg/kg/min 21.852 mL/ hr propofol (DIPRIVAN) IV bolus Intravenous, PRN, Starting on Wed02/02/24 at 1414, Until Wed02/02/24 at 1431, Anesthesia Intra-Op Given 02/02/2024 2:14 PM CDT 50 mg documented in this encounter Care Teams Barrel Waterer Relationship Specialty Start Date End Date Ibeth Patel NP [address] [place] [address] PCP - General Nurse Practitioner Family 01/24/24 Ousmane Galvin MD [address] [address] CARDIOVASCULAR DISEASE 01/25/24 documented as of this encounter
--- OUTSIDE RECORDS SUMMARY | 2024-09-29 19:21 | XMS_ITS | Encounter Summary ---
Author Organization [facility] Address [facility]6 [facility]. [place], [place] [address] [place] [address] Care Team Providers Care Pipe Cleaner Name Role Phone Ibeth Patel NP Primary Care Provider [phone] Ousmane Galvin MD Unavailable [phone] Encounter Details Date Type Department Care Team (Latest Contact Info) Description 01/25/2024 Travel Social History Tobacco Use Types Packs/Day [...] on filedocumented in this encounter Care Teams Pipe Cleaner Relationship Specialty Start Date End Date Ibeth Patel NP [address] [place] [address] PCP - General Nurse Practitioner Family 01/24/24 Ousmane Galvin MD [address] [facility] [address] [address] CARDIOVASCULAR DISEASE 01/25/24 documented as of this encounter
--- OUTSIDE RECORDS SUMMARY | 2024-09-29 19:21 | XMS_ITS | Encounter Summary ---
Author Organization [facility] Healthcare Address [address] [place] [address] Care Team Providers Care Pastry Wrapper Name Role Phone Jules Vanegas MD Primary Care Provider [phone] Reason for Visit * Reason Comments Follow-up 2 mo f/u Thoracic ascending aortic aneurysm Atrial Fibrillation Encounter Details Date Type Department Care Team (Late st Contact Info) Description 11/03/2023 11:30 AM [employer] Office Visit [facility] Medical Group Cardiology at [address] [place] [address] Ousmane Galvin MD [address] [facility] [address] [place] [address] Atrial fibrillation, unspecified type (HCC) (Primary Dx) Social History Tobacco Use Types Packs/Day Years [...] on file Legal Sex Male 7:48 PM [employer] Gender Identity Not on file Sexual Orientation Not on file documented as of this encounter Last Filed Vital Signs Vital Sign Reading Time Taken Comments Blood Pressure 178/92 11/03/2023 11:39 AM [employer] Pulse 57 11/03/2023 11:39 AM [employer] Temperature - - Respiratory Rate - - Oxygen Saturation 98% 11/03/2023 11: 39 AM [employer] Inhaled Oxygen Concentration - - Weight 59.8 kg (131 lb 14.4 oz) 024 11:39 AM [employer] Height 182.9 cm (6') 11/03/2023 11:39 AM [employer] Body Mass Index 17.89 11/03/2023 11:39 AM [employer] documented in this encounter Progress Notes * Ousmane Galvin MD - 11/03/2023 11:30 AM CST [facility] FOLLOW UP 11/03/2023 Trevor Condon is a 88 y.o. male who presents for follow up of atrial fibrillation. This is a patient that I had seen a number of years ago with a thoracic aortic aneurysms which he elected to not pursue further follow-up at his advanced age. I saw him again in consultation in August of 2023 because of paroxysmal atrial fibrillation. He presented to the hospital in [place] with symptoms of palpitations in July of 2023 and was found to be in AFib. A 14 day event monitor demonstrated about 15% AFib burden. After seeing him in consultation I transitioned his medication to sotalol andapixaban at reduced dosage. He presents today for follow-up of his atrial fib he is doing very well he is tolerating his sotalol and apixaban without any problems. He was very concerned to tell me that he was now found to have prostate cancer. He says he had an elevated PSA during a recent checkup with his doctor in an MRI was done demonstrating a prostate mass that is likely to be a malignancy. He has a referral to see a urologist in [place] who has yet to see him in consultation for further evaluation of this. He was very concerned that he was facing a significant operation. I told the patient that at his advanced age a very conservative approach to this is sometimes discussed and would certainly be quite reasonable. He believes he is scheduled for a prostate biopsy. I told him if that is the case he willneed to interrupt his apixaban for 3 days prior to the biopsy REVIEW OF SYSTEMS General ROS: negative for [...] for dry skin, eczema, pruritus and rash HOME MEDICATIONS Current Outpatient Medications: ??? apixaban (ELIQUIS) 2.5 mg tablet, Take 1 tablet (2.5 mg total) by mouth 2 (two) times a day, Disp: 60 tablet, Rfl: 3 ??? doxazosin (CARDURA) 8 mg tablet, , Disp: , Rfl: ??? LORazepam (ATIVAN) 1 mg tablet, 1 tablet (1 mg total) daily, Disp: , Rfl: 1 ??? metoprolol tartrate (LOPRESSOR) 25 mg immediate release tablet, Take 1 tablet (25 mg total) by mouth 2 (two) times a day, Disp: , Rfl: ??? multivitamin capsule, Take 1 capsule by mouth daily, Disp: , Rfl: ??? sotaloL (BETAPACE) 80 mg tablet, Take 0.5 tablets (40 mg total) by mouth 2 (two) times a day, Disp: 30 tablet, Rfl: 3 LABS AND OTHER DIAGNOSTIC TESTS No results found for: CHOL No results found for: HDL No results found for: LDLCALC No results found for: TRIG No results found for: CHOLHDL No results found for: WBC , HGB , HCT , MCV , PLT No lab exists for component: LABALBU PHYSICAL EXAM Vitals BP (!) 178/92 (BP Location: Left arm, Patient Position: Sitting) Pulse 57 Ht 182.9 cm (6') Wt 59.8 kg (131 lb 14.4 oz) SpO2 98% BMI 17.89 kg/m?? Physical Examination: General appearance - alert, well appearing, and in no distress, oriented to person, place, and time and acyanotic, in no respiratory distress Mental status [...] normal rate, regular rhythm, normal S1, S2, soft systolic murmur does not radiate from the left sternal border rubs, clicks [...] suspicious skin lesions noted ASSESSMENT Paroxysmal atrial fibrillation PLAN/RECOMMENDATIONS Discontinue metoprolol I did not wish to have the patient on both metoprolol and sotalol Follow-up 6 months or p.r.n. Hopefully he will not be facing significant treatment for prostate cancer Ousmane Galvin MD [employer] documented in this encounter Plan of Treatment Not on file documented as of this encounter Visit Diagnoses Diagnosis Atrial fibrillation, unspecified type (HCC)- Primary documented in this encounter Discontinued Medications Medication Sig Discontinue Reason Start Date End Da te metoprolol tartrate (LOPRESSOR) 25 mg immediate release tablet Take 1 tablet (25 mg total) by mouth 2 (two) times a day 11/03/2023 documented as of this encounter Historical Medications * This list may reflect changes made after this encounter. metoprolol tartrate (LOPRESSOR) 25 mg immediate release tablet Take 1 tablet (25 mg total) by mouth 2 (two) times a day 11/03/2023 added in this encounter Care Teams Pastry Wrapper Relationship Specialty Start Date End Date Jules Vanegas MD PCP - General Family Practice 11/03/23 documented as of this encounter
--- OUTSIDE RECORDS SUMMARY | 2024-09-29 19:21 | XMS_ITS | Encounter Summary ---
Author Organization [facility] Healthcare Address [address] [place] [address] Care Team Providers Care Director Of Hotel Operations Name Role Phone Shane Whiteside DO Primary Care Provider [phone] Encounter Details Date Type Department Care Team (Late st Contact Info) Description 08/24/2023 Telephone [facility] Medical Group Cardiology [address] [place] [id number] Ousmane Galvin MD [address] [place] [address] Social History Tobacco Use Types [...] on file Legal Sex Male 7:48 PM [employer] Gender Identity Not on file Sexual Orientation Not on file documented as of this encounter Miscellaneous Notes * Telephone Encounter - Neda Hopkins MA - 08/24/2023 4:08 PM CST LM for the patient that we cannot prescribe medications until he is seen by Dr. Galvin in 2 weeks. Advised the patient to contact his PCP for medications in the meantime. [facility] [employer] * Telephone Encounter - Janie Westbrook - 08/24/2023 3:04 PM CST Pt requesting refill for metoprolol XL (TOPROL-XL) 25mg 24 hr tablet with 30 day supply be sent to [facility]. States he was prescribed this medication while in the hospital. Contact:[phone] [employer] documented in this encounter Plan of Treatment Not on file documented as of this encounter Visit Diagnoses Not on filedocumented in this encounter Care Teams Director Of Hotel Operations Relationship Specialty Start Date End Date Shane Whiteside DO PCP - General Internal Medicine 01/31/19 11/02/23 documented as of this encounter
--- OUTSIDE RECORDS SUMMARY | 2024-09-29 19:21 | XMS_ITS | Encounter Summary ---
Author Organization [facility] Address [address] [place] [address]. [place] [address] [place] [address] Care Team Providers Care Campus Administrative Assistant Name Role Phone Ibeth Patel NP Primary Care Provider Ousmane Galvin MD Unavailable [phone] Encounter Details Date Type Department Care Team (Late st Contact Info) Description 01/25/[address] [facility] [address] Jose A Gold MD [address] [facility] [address] [facility] [place], [place] [address] Social History Tobacco Use Types Packs/Day Years [...] on file documented as of this encounter Results * CULTURE URINE (01/29/2024 9:31 AM CDT) SPEC DESCRIPTION URINE CLEAN CATCH 01/29/2024 9:32 AM CDT [facility] SPECIAL REQUESTS NO SPECIAL REQUEST 01/29/2024 9:32 AM CDT [facility] CULTURE RESULT NO GROWTH 2 DAYS 01/31/2024 7:24 AM CDT [facility] URINE SPECIMEN OBTAINED BY CLEAN CATCH PROCEDURE / Unknown 01/29/2024 9:31 AM CDT 01/29/2024 9:32 AM CDT us Jose A Gold MD MICROBIOLOGY - GENERAL ORDERABL ES Final Result [facility] [address] [place] [address], documented in this encounter Visit Diagnoses Diagnosis Elevated PSA- Primary Elevated prostate specific antigen (PSA) BPH (benign prostatic hyperplasia) Unspecified hyperplasia of prostate without urinary obstruction and other lower urinary tract symptoms (LUTS) documented in this encounter Care Teams Campus Administrative Assistant Relationship Specialty Start Date End Date Ibeth Patel NP [address] [place] [address] PCP - General Nurse Practitioner Family 01/24/24 Ousmane Galvin MD [address] [facility] [address] [facility] [address] [place] [address] CARDIOVASCULAR DISEASE 01/25/24 documented as of this encounter
--- OUTSIDE RECORDS SUMMARY | 2024-09-29 19:21 | XMS_ITS | Continuity of Care Document ---
Author Organization [facility] Address [address] [place] [address] [address] [place] [address] Phone Care Team Providers Care Engineer Name Role Phone Misbah Nur Unavailable Unavailable Procedures Procedure Date Post-op Follow-up Visit After Cataract Laser Surgery Office/outpatient Visit, Est Advance Directives Directive Yes / No Effective Date File Name No Information Encounters Encounter Description Practice Location Reason(s) For Visit Diagnoses Date Provider Providers Copied on Encounter [facility], [address] [place], [place] [address], [place], [place], [id number], tel:[phone] [facility] No Information [address] Liudmila Crawley. [address] [facility] , [address], [place], [place], [facility], [place]. tel:[phone] Referring Provider: Diony Jane, [address] [place] [address], [facility]. tel:[phone] [facility], [address] [place] [address] [address], [place], [place], [id number], tel:[phone] [facility] No Information [address] Liudmila Crawley. [address] [facility] , [address], [place], [place], [facility], [place]. tel:[phone] Referring Provider: Diony Jane, [address] [place] [address], [facility]. tel:[phone] Office/outpat ient Visit, Est [facility], [address], [place], [place], [id number], [place] tel:[phone] [facility] No Information 8 Tikimberly Vasiliyjane. [address] [facility] [address], [place], [address], [place]. tel:[phone] Referring Provider: Diony Jane, [address] [facility], [place], [address]. tel:[phone] Family History Family Member Type Diagnosis Age At Onset No Information Payers Payer name Insurance type Covered alliance party ID Authoriza tion(s) No Information Social History Type Description Quantity Date Captured Comments Sex Male Smoking Status No Information Chief Complaint And Reason For Visit No Information Reason For Referral Reason For Referral No Information History Of Present Illness Encounter Date Complaint History Of Prese nt Illness No Information Functional Status Date Functional Assessmen t No Information Instructions Date Instruction Additional Infor mation No Information Assessments Type Assessment Date No Information Patient Care Teams Name Effective Dates (start - stop) Status Members No Information
--- OUTSIDE RECORDS SUMMARY | 2024-09-29 19:21 | XMS_ITS | Encounter Summary ---
Author Organization [facility] Address [facility] [facility]. [place], [place] [address] [place] [address] Care Team Providers Care Early Childhood Teacher Name Role Phone Ibeth Patel NP Primary Care Provider [phone] Ousmane Galvin MD Unavailable [phone] Encounter Details Date Type Department Care Team (Latest Contact Info) Description 01/29/2024 Travel Social History Tobacco Use Types Packs/Day [...] on filedocumented in this encounter Care Teams Early Childhood Teacher Relationship Specialty Start Date End Date Ibeth Patel NP [address] [place] [address] PCP - General Nurse Practitioner Family 01/24/24 Ousmane Galvin MD [address] [facility] [address] [address] CARDIOVASCULAR DISEASE 01/25/24 documented as of this encounter
--- OUTSIDE RECORDS SUMMARY | 2024-09-29 19:21 | XMS_ITS | Encounter Summary ---
Author Organization [facility] Healthcare Address [address] [place] [address] Care Team Providers Care Plywood Layup Line Core Layer Name Role Phone Jules Vanegas MD Primary Care Provider [phone] Reason for Visit * Reason Comments Follow-up 6 mo follow up on PA F Encounter Details Date Type Department Care Team (Late st Contact Info) Description 05/17/2024 11:30 AM CDT Office Visit [facility] Medical Group Cardiology at [address] [place] [address] Ousmane Galvin MD [address] [facility] [address] [place] [address] Longstanding persistent atrial fibrillation (CMS/HCC) (HCC) (Primary Dx) Social History Tobacco Use [...] on file 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 Gender Identity Not on file Sexual Orientation Not on file documented as of this encounter Last Filed Vital Signs Vital Sign Reading Time Taken Comments Blood Pressure 178/92 05/17/2024 11:31 AM CDT Pulse 60 05/17/2024 11:31 AM CDT Temperature - - Respiratory Rate 16 05/17/2024 11:31 AM CDT Oxygen Saturation - - Inhaled Oxygen Concentration - - Weight 57.6 kg (127 lb) 05/17/2024 11:31 AM CDT Height 182.9 cm (6') 05/17/2024 11:31 AM CDT Body Mass Index 17.22 05/17/2024 11:31 AM CDT documented in this encounter Progress Notes * Ousmane Galvin MD - 05/17/2024 11:30 AM CDT [facility] FOLLOW UP 05/17/2024 Trevor Condon is a 88 y.o. male [...] fibrillation. He presented to the hospital in [place] with symptoms of palpitations in July of 2023 and was found to be in AFib. A 14 day event monitor demonstrated about 15% AFib burden. After seeing him in consultation I transitioned his medication to sotalol andapixaban at reduced dosage. In 2022 the patient was found to have prostate cancer with an elevated P SA. He was referred to a urologist in [place] for evaluation/treatment. There are records of having a prostate biopsy in January [facility]. In follow-up today he comes to the office for his atrial fibrillation he has not had any evidence of her symptoms to suggest recurrence of his AFib. He has a variety of complaints none of which are cardiac in nature. Most of this has to do with symptoms of positional vertigo, chronic daily headaches. His prostate biopsy in January did demonstrate evidence of prostate cancer. The patient has made the decision not to pursue any further evaluation or treatment of that. REVIEW OF SYSTEMS General ROS: negative for [...] and rash HOME MEDICATIONS Current Outpatient Medications: doxazosin (CARDURA) 8 mg tablet, , Disp: , Rfl: Eliquis 2.5 mg tablet, TAKE 1 TABLET(2.5 MG) BY MOUTH TWICE DAILY, Disp: 60 tablet, Rfl: 3 fluticasone propionate (FLONASE) 50 mcg/actuation nasal spray, Administer 1 spray into each nostrildaily, Disp: , Rfl: LORazepam (ATIVAN) 1 mg tablet, 1 tablet (1 mg total) daily, Disp: , Rfl: 1 sotaloL (BETAPACE) 80 mg tablet, TAKE 1/2 TABLET(40 MG) BY MOUTH TWICE DAILY, Disp: 30 tablet, Rfl:3 LABS AND OTHER DIAGNOSTIC TESTS No results found for: CHOL No results found for: HDL No results found for: LDLCALC No results found for: TRIG No results found for: CHOLHDL No results found for: WBC , HGB , HCT , MCV , PLT No lab exists for component: LABALBU PHYSICAL EXAM Vitals BP (!) 178/92 (BP Location: Left arm, Patient Position: Sitting) Pulse 60 Resp 16 Ht 182.9 cm (6') Wt 57.6 kg (127 lb) BMI 17.22 kg/m?? Physical Examination: General appearance - alert, [...] lesions noted ASSESSMENT Paroxysmal atrial fibrillation PLAN/RECOMMENDATIONS Continue current regimen of sotalol and anticoagulation for his atrial fib he is successfully maintaining sinus rhythm He has a variety of other complaints today that are not related to his arrhythmias He has made the decision to not treat his prostate cancer from what he tells me today Follow-up 6 months or p.r.n. Ousmane Galvin MD documented in this encounter Plan of Treatment Not on file documented as of this encounter Visit Diagnoses Diagnosis Longstanding persistent atrial fibrillation (CMS/HCC) (HCC)- Primary documented in this encounter Discontinued Medications Medication Sig Discontinue Reason Start Date End Da te multivitamin capsule Take 1 capsule by mouth daily Therapy completed 05/17/2024 documented as of this encounter Historical Medications * This list may reflect changes made after this encounter. fluticasone propionate (FLONASE) 50 mcg/actuation nasal spray Administer 1 spray into each nostril daily added in this encounter Care Teams Plywood Layup Line Core Layer Relationship Specialty Start Date End Date Jules Vanegas MD PCP - General Family Practice 11/03/23 documented as of this encounter
--- OUTSIDE RECORDS SUMMARY | 2024-09-29 19:21 | XMS_ITS | Encounter Summary ---
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 Also, let pt know that sera Kitchen called wanting to be updated about any med changes however,he is not on the HIPAA form to be allowed that information. Pt has appt in April and can update his HIPAA form if he chooses to do so. * Telephone Encounter - Quynh Carbone - 03/21/2024 10:37 AM CDT Pt sera Kitchen called to report pt has been taking Eliquis, Sotalol, and Metoprolol. Yesterday he had an appt with his PCP who instructed him that MJF wanted him to discontinue his Metoprolol at his last visit in October. Imtiaz states pt gets confused often so he is asking if he can get a call when any changes are made with his meds or health. Contact: documented in this encounter Plan of Treatment Not on file documented as of this encounter Visit Diagnoses Not on filedocumented in this encounter Care Teams Blood Bank Attendant Relationship Specialty Start Date End Date Jules Vanegas MD PCP - General Family Practice 11/03/23 documented as of this encounter
--- OUTSIDE RECORDS SUMMARY | 2024-09-29 19:22 | XMS_ITS | Encounter Summary ---
Author Organization [facility] Medical Group Address [address] [facility] [address] [place] [address] Care Team Providers Care Journeyman Patternmaker Name Role Phone Miesha Shane Primary Care Provider [phone] Reason for Referral * (Routine) - Closed Specialty Diagnoses / Procedures Referred By Contac t Referred To Contact Procedures Transthoracic Echo Complete W Doppler/CF [facility] [address] [place] [address] [place] [phone] Phone: tel: fax: Referral ID Status Reason Start Date Expiration Date Visits Re quested Visits Authorized [id number] Closed 02/13/2019 08/24/2020 1 1 Encounter Details Date Type Department Care Team (Late st Contact Info) Description 02/13/2019 Orders Only [facility] [address] [place] [address] [address] [place] [phone] Diana Powell MD [address] [place] [address] Social History Tobacco Use Types Packs/Day Years Used Date Smoking Tobacco: Never Assessed Sex and Gender Information Value Date Recorded Sex Assigned at Not on file 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 Gender Identity Not on file Sexual Orientation Not on file documented as of this encounter Plan of Treatment Not on file documented as of this encounter Procedures Procedure Name Priority Date/Time Associated Diagnosis Comments TRANSTHORACIC ECHO (TTE) COM PLETE W DOPPLER/CF Routine 02/09/2019 documented in this encounter Results * Transthoracic Echo Complete W Doppler/CF (02/09/2019) Anatomical Region Laterality Modality Ultrasound us Historical Provider CV ECHO PROCEDURES Final Result documented in this encounter Visit Diagnoses Not on filedocumented in this encounter Care Teams Journeyman Patternmaker Relationship Specialty Start Date End Date Shane Whiteside DO PCP - General Internal Medicine 01/31/19 11/02/23 documented as of this encounter
--- OUTSIDE RECORDS SUMMARY | 2024-09-29 19:22 | XMS_ITS | Encounter Summary ---
Author Organization [facility] Address [address] [facility] [address] [place] [address] Care Team Providers Care Internal Audit Senior Manager Name Role Phone Shane Whiteside DO Primary Care Provider [phone] Encounter Details Date Type Department Care Team (Late st Contact Info) Description 02/24/2019 Telephone [facility] [address] [facility] [address] [place] [phone] Ousmane Galvin MD [address] [facility] [address] [place] [address] Social History Tobacco Use Types Packs/Day Years Used Date Smoking Tobacco: Former Smokeless Tobacco: Never Comments:50 YEARS AGO QUITE Alcohol Use Standard Drinks/Week Comments Not Currently 0 (1 standard drink = 0.6 oz pur e alcohol) Sex and Gender Information Value Date Recorded Sex Assigned at Not on file 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 Cancelled previous Rx for 2.5 mg x4 tabs daily and called the new one in for amlodipine 10 mg daily. * Telephone Encounter - Alicia oNrman - 02/24/2019 12:30 PM CDT Doloresclemente wants to know if pt's amlodipine 2.5 mg tabs 4 per day can be changed to 10 mg tablet 1 per day. documented in this encounter Plan of Treatment Not on file documented as of this encounter Visit Diagnoses Not on filedocumented in this encounter Discontinued Medications Medication Sig Discontinue Reason Start Date End Da te amLODIPine (NORVASC) 2.5 mg tablet TAKE 4 TABLETS BY MOUTH DAILY 02/24/2019 02/24/2019 documented as of this encounter Care Teams Internal Audit Senior Manager Relationship Specialty Start Date End Date Shane Whiteside DO PCP - General Internal Medicine 01/31/19 11/02/23 documented as of this encounter
--- OUTSIDE RECORDS SUMMARY | 2024-09-29 19:22 | XMS_ITS | Encounter Summary ---
Author Organization 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
--- OUTSIDE RECORDS SUMMARY | 2024-09-29 19:22 | XMS_ITS | Encounter Summary ---
Author Organization [facility] Medical [facility] Address [address] [facility] [address] [place] [address] Care Team Providers Care Bus Driver Supervisor Name Role Phone Shane Whiteside DO Primary Care Provider [phone] Reason for Visit * Reason Comments New Patient THORACIC AA W/OUT RU PTURE * Consultation (Routine) - Closed Specialty Diagnoses / Procedures Referred By Odette t Referred To Contact Cardiology Diagnoses Thoracic aortic aneurysm without rupture (HCC) Shane Whiteside DO Phone: tel: fax: [facility] [address] [place] [phone] Phone: tel: fax: Referral ID Status Reason Start Date Expiration Date V isits Requested Visits Authorized [id number] Closed Specialty Services Required 01/31/2019 08/11/2020 1 1 Encounter Details Date Type Department Care Team (Late st Contact Info) Description 02/23/2019 4:00 PM CDT Office Visit [facility] [address] [place] [phone] Ousmane Galvin MD [address] [place] [address] [address] [place] [address] Thoracic aortic aneurysm without rupture (CMS/HCC) Social History Tobacco Use Types Packs/Day Years Used Date Smoking Tobacco: Former Smokeless Tobacco: Never Comments:50 YEARS AGO QUITE Alcohol Use Standard Drinks/Week Comments Not Currently 0 (1 standard drink = 0.6 oz pur e alcohol) Sex and Gender Information Value Date Recorded Sex Assigned at Not on file 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 Gender Identity Not on file Sexual Orientation Not on file documented as of this encounter Last Filed Vital Signs Vital Sign Reading Time Taken Comments Blood Pressure 172/98 02/23/2019 3:43 PM CDT Pulse 56 02/23/2019 3:43 PM CDT Temperature - - Respiratory Rate - - Oxygen Saturation 97% 02/23/2019 3:43 PM CDT Inhaled Oxygen Concentration - - Weight 61.7 kg (136 lb) 02/23/2019 3:43 PM CDT Height 182.9 cm (6') 02/23/2019 3:43 PM CDT Body Mass Index 18.44 02/23/2019 3:43 PM CDT documented in this encounter Ordered Prescriptions Prescription Sig Dispense Quantity Refills Last Filled Start Date End Date amLODIPine (NORVASC) 2.5 mg tabletIndications: hypertension Take 4 tablets (10 mg total) by mouth daily 30 tablet 3 02/23/2019 9 documented in this encounter Progress Notes * Ousmane Galvin MD - 02/23/2019 4:00 PM CDT [facility] 02/23/2019 CHIEF COMPLAINT Care and follow-up of thoracic aortic aneurysm HPI Trevor Condon is a 83 y.o. male with recently identified ascending thoracic aortic aneurysm referred here for ongoing care and follow-up. The patient states that he had a routine the for performed chest x-ray done earlier this year as part of a follow-up of a history of melanoma. He states he hada melanoma several decades ago he has not had any recurrence of it but is having routine x-rays for this reason. He states he has never been known to have any significant cardiac pathology he does have longstanding hypertension. His chest x-ray apparently demonstrated enlargement of his thoracic aorta and this led to a CT scan. His thoracic CT demonstrates at 5.1 cm fusiform aneurysm of the ascending aorta. He was then referred by his PCP to see Cardiothoracic surgery, Dr. Ziyad ocasio in [place] who plans to see this man at 6 month intervals with this information his PCP started him on beta-homa treatment in place of verapamil which of course is appropriate and the surgeon of course recommended that a simulation tech see him for ongoing follow-up as well. In anticipation of this appointment an echocardiogram was done in the hospital and interpreted by Dr. Kelly. The exam demonstrates a normal left ventricular size with concentric LVH and contractility was preserved with an ejection fraction of 50-55%. His aortic valve is a normal trileaflet structure he does have some mild sclerosis of the valve and mild to moderate aortic valve regurgitation. The patient is not having any symptoms of chest pain pressure or heaviness he has no sense of palpitations no history of syncope no orthopnea PND or edema. Twelve lead ECG done in the office today as a new patient shows sinus bradycardia heart rate 56 with left ventricular hypertrophy. The 12 lead was personally reviewed by myself. MEDICAL HISTORY History reviewed. No pertinent past medical history. History reviewed. No pertinent surgical history. History reviewed. No pertinent family history. Social History Socioeconomic History ??? Marital status: Spouse name: Not on file ??? Number of children: Not on file ??? Years of education: Not on file ??? Highest education level: Not on file Occupational History ??? Not on file Social Needs ??? Financial resource strain: Not on file ??? Food insecurity: Worry: Not on file Inability: Not on file ??? Transportation needs: Medical: Not on file Non-medical: Not on file Tobacco Use ??? Smoking status: Former Smoker ??? Smokeless tobacco: Never Used ??? Tobacco comment: 50 YEARS AGO QUITE Substance and Sexual Activity ??? Alcohol use: Not Currently ??? Drug use: Never ??? Sexual activity: Not on file Lifestyle ??? Physical activity: Days per week: Not on file Minutes per session: Not on file ??? Stress: Not on file Relationships ??? Social connections: Talks on phone: Not on file Gets together: Not on file Attends latter day service: Not on file Active member of club or organization: Not on file Attends meetings of clubs or organizations: Not on file Relationship status: Not on file ??? Intimate partner violence: Fear of current or ex partner: Not on file Emotionally abused: Not on file Physically abused: Not on file Forced sexual activity: Not on file Other Topics Concern ??? Not on file Social History Narrative ??? Not on file (Not in a hospital admission) No Known Allergies REVIEW OF SYSTEMS General [...] OTHER DIAGNOSTIC TESTS No results found for: WBC, HGB, HCT, MCV, PLT No lab exists for component: LABALBU No results found for: CHOL No results found for: HDL No results found for: LDLCALC No results found for: TRIG No results found for: CHOLHDL PHYSICAL EXAM Vitals BP (!) 172/98 (BP Location: Right arm, Patient Position: Sitting) Pulse 56 Ht 182.9 cm (6') Wt 61.7 kg (136 lb) SpO2 97% BMI 18.44 kg/m?? General appearance - alert, thin, underweight, and in no distress, oriented to person, [...] normal rate, regular rhythm, normal S1, S2, grade 1-2 systolic crescendo murmur audible at the base with very soft diastolic decrescendo murmur audible at the apex., rubs, clicks or gallops, no JVD Abdomen [...] rashes, no suspicious skin lesions noted ASSESSMENT Ascending thoracic aortic aneurysm [id number] aortic regurgitation Longstanding hypertension PLAN/RECOMMENDATIONS Continue MIRIAN-inhibitor and beta-homa which are both clearly appropriate and guideline indicated And amlodipine 10 mg daily to his regimen Surveillance follow-up in 6 month intervals In longitudinal follow-up if it becomes necessary to consider Mr. Condon a candidate for thoracic aortic aneurysm surgery he will need a catheterization performed but that is not indicated current Ousmane Galvin MD documented in this encounter Miscellaneous Notes * Addendum Note - Ifrah Thomas MA - 02/23/2019 4:00 PM CDTAddended by: IFRAH THOMAS on: 02/24/2019 09:04 AM Modules accepted: Orders documented in this encounter Plan of Treatment Not on file documented as of this encounter Procedures Procedure Name Priority Date/Time Associated Diagnosis Comments ECG 12-LEAD Routine 02/23/2019 Thoracic aortic aneurysm without rupture (CMS/HCC) documented in this encounter Results * ECG 12 lead (02/23/2019) us Ousmane Galvin MD ECG ORDERABLES Final Re sult documented in this encounter Visit Diagnoses Diagnosis Thoracic aortic aneurysm without rupture (HCC) documented in this encounter Historical Medications * This list may reflect changes made after this encounter. LORazepam (ATIVAN) 1 mg tablet 1 tablet (1 mg total) daily 1 01/19/2019 omega-3 fatty acids-fish oil 300-1,000 mg capsule Take 2 g by mouth daily 09/07/2019 niacin (NIACOR) 500 mg tablet Take 1 tablet by mouth every 12 hours 06/09/2015 09/08/2023 simvastatin (ZOCOR) 20 mg tablet Take 1 tablet by mouth daily 01/12/2019 09/08/2023 lisinopril (ZESTRIL) 40 mg tablet Take 1 tablet by mouth daily 01/12/2019 09/08/2023 metoprolol XL (TOPROL-XL) 100 mg 24 hr tablet 1 tablet daily 1 02/03/2019 09/08/2023 added in this encounter Orders Outpatient Referral Count Last Ordered Date Fir st Ordered Date AMB REFERRAL TO CARDIOLOGY 1 02/23/2019 documented in this encounter Care Teams Bus Driver Supervisor Relationship Specialty Start Date End Date Shane Whiteside DO PCP - General Internal Medicine 01/31/19 11/02/23 documented as of this encounter
--- OUTSIDE RECORDS SUMMARY | 2024-09-29 19:22 | XMS_ITS | Encounter Summary ---
Author Organization [facility] Facility Care Team Providers Care Baggage Checker Name Role Phone Shane Whiteside DO Primary Care Provider [phone] Encounter Details Date Type Department Care Team (Latest Contact Info) Description 02/23/2019 Travel Social History Tobacco Use Types Packs/Day Years Used Date Smoking Tobacco: Former Smokeless Tobacco: Never Comments:50 YEARS AGO QUITE Alcohol Use Standard Drinks/Week Comments Not Currently 0 (1 standard drink = 0.6 oz pur e alcohol) Sex and Gender Information Value Date Recorded Sex Assigned at Not on file 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
--- OUTSIDE RECORDS SUMMARY | 2024-09-29 19:22 | XMS_ITS | Encounter Summary ---
Author Organization [facility] Address [address] [facility] [address] [place] [address] Care Team Providers Care Store Planner Name Role Phone Shane Whiteside DO Primary Care Provider [phone] Reason for Visit * Reason Comments Follow-up 6 mo fu on TAA * Cardiology (Routine) - Closed Specialty Diagnoses / Procedures Referred By Contac t Referred To Contact Cardiology Diagnoses Thoracic aortic aneurysm, without rupture Shane Whiteside DO Phone: tel: fax: [facility] [address] [place] [id number] Phone: tel: fax: Referral ID Status Reason Start Date Expiration Date Visits Re quested Visits Authorized [id number] Closed 07/14/2019 01/10/2020 3 3 Encounter Details Date Type Department Care Team (Late st Contact Info) Description 09/07/2019 1:15 PM SEATER ASSEMBLER Office Visit [facility] [address] [place] [id number] Ousmane Galvin MD [address] [place] [address] [place] [id number] Thoracic ascending aortic aneurysm (CMS/HCC) (Primary Dx) Social History Tobacco Use Types Packs/Day Years Used Date Smoking Tobacco: Former Smokeless Tobacco: Never Comments:50 YEARS AGO QUITE Alcohol Use Standard Drinks/Week Comments Not Currently 0 (1 standard drink = 0.6 oz pur e alcohol) Sex and Gender Information Value Date Recorded Sex Assigned at Not on file 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 Gender Identity Not on file Sexual Orientation Not on file documented as of this encounter Last Filed Vital Signs Vital Sign Reading Time Taken Comments Blood Pressure 128/68 09/07/2019 1:23 PM SEATER ASSEMBLER Pulse 63 09/07/2019 1:23 PM SEATER ASSEMBLER Temperature - - Respiratory Rate - - Oxygen Saturation 98% 09/07/2019 1:23 PM SEATER ASSEMBLER Inhaled Oxygen Concentration - - Weight 61.7 kg (136 lb) 09/07/2019 1:23 PM SEATER ASSEMBLER Height 182.9 cm (6') 09/07/2019 1:23 PM SEATER ASSEMBLER Body Mass Index 18.44 09/07/2019 1:23 PM SEATER ASSEMBLER documented in this encounter Progress Notes * Ousmane Galvin MD - 09/07/2019 1:15 PM CST [facility] CL[facility]IC FOLLOW UP 09/07/2019 Trevor Condon is a 83 y.o. male who presents for follow up of an ascending thoracic aortic aneurysm. This is a patient who was referred to see me for follow-up of this in January of 2019. He has longstanding hypertension and was found on a CT scan to have a 5.1 cm fusiform aneurysm of the ascending aorta. Interestingly he was referred both to Dr. Lackey of Cardiothoracic surgery [facility] in [place] as well as to [facility] for longitudinal follow-up of this. The patient's medical therapy will have is appropriate for this it was my impression to see him at 6 month intervals. He returns today for follow-up and has no cardiovascular complaints. The patient states he has considered the decision about his aortic aneurysm has decided to forego any operation in the future evenif it enlarges. He believes at his advanced age he is not interested in this type of surgery. We talked for quite a while about this and at this point that being the case I don't really see the pointin having longitudinal follow-up with this gentleman if he has decided to forego surgical repair ofhis aorta. He was following up as I stated with both our practice as well as cardiothoracic surgery. I will communicate this to his primary care and be happy to see him in the future if the need arises but at this point this patient has made the decision to not consider himself a candidate for surgical aortic repair now or at any time in the future REVIEW OF SYSTEMS General ROS: negative for [...] rash HOME MEDICATIONS Current Outpatient Medications: ??? amLODIPine (NORVASC) 10 mg tablet, Take 1 tablet (10 mg total) by mouth daily, Disp: 90 tablet,Rfl: 3 ??? lisinopril (ZESTRIL) 40 mg tablet, Take 1 tablet by mouth daily, Disp: , Rfl: ??? LORazepam (ATIVAN) 1 mg tablet, 1 tablet daily, Disp: , Rfl: 1 ??? metoprolol XL (TOPROL-XL) 100 mg 24 hr tablet, 1 tablet daily, Disp: , Rfl: 1 ??? multivitamin capsule, Take 1 capsule by mouth daily, Disp: , Rfl: ??? niacin (NIACOR) 500 mg tablet, Take 1 tablet by mouth every 12 hours, Disp: , Rfl: ??? simvastatin (ZOCOR) 20 mg tablet, Take 1 tablet by mouth daily, Disp: , Rfl: LABS AND OTHER DIAGNOSTIC TESTS No results found for: CHOL No results found for: HDL No results found for: LDLCALC No results found for: TRIG No results found for: CHOLHDL No results found for: WBC, HGB, HCT, MCV, PLT No lab exists for component: LABALBU PHYSICAL EXAM Vitals BP 128/68 (BP Location: Right arm, Patient Position: Sitting) Pulse 63 Ht 182.9 cm (6') Wt 61.7 kg (136 lb) SpO2 98% BMI 18.44 kg/m?? Physical Examination: General appearance - alert, [...] normal rate, regular rhythm, normal S1, S2, no murmurs, rubs, clicks or gallops, no JVD Abdomen [...] rashes, no suspicious skin lesions noted ASSESSMENT Trevor was seen today for follow-up. Diagnoses and all orders for this visit: Thoracic ascending aortic aneurysm (CMS/HCC) PLAN/RECOMMENDATIONS Current medical regimen should be continued the patient's blood pressure control is excellent I will see him as needed there is no need for longitudinal follow-up of his aortic aneurysm since he has decided that he is not interested in any sort of surgical treatment Ousmane Galvin MD ER ASSEMBLER documented in this encounter Plan of Treatment Not on file documented as of this encounter Visit Diagnoses Diagnosis Thoracic ascending aortic aneurysm (HCC)- Primary documented in this encounter Discontinued Medications Medication Sig Discontinue Reason Start Date End Da te omega-3 fatty acids-fish oil 300-1,000 mg capsule Take 2 g by mouth daily Therapy completed 09/07/2019 documented as of this encounter Historical Medications * This list may reflect changes made after this encounter. multivitamin capsule Take 1 capsule by mouth daily 05/17/2024 added in this encounter Care Teams Store Planner Relationship Specialty Start Date End Date Shane Whiteside DO PCP - General Internal Medicine 01/31/19 11/02/23 documented as of this encounter
--- OUTSIDE RECORDS SUMMARY | 2024-09-29 19:22 | XMS_ITS | Encounter Summary ---
Author Organization [facility] Facility Care Team Providers Care Design Studio Consultant Name Role Phone Shane Whiteside DO Primary Care Provider [phone] Encounter Details Date Type Department Care Team (Latest Contact Info) Description 09/07/2019 Travel Social History Tobacco Use Types Packs/Day Years Used Date Smoking Tobacco: Former Smokeless Tobacco: Never Comments:50 YEARS AGO QUITE Alcohol Use Standard Drinks/Week Comments Not Currently 0 (1 standard drink = 0.6 oz pur e alcohol) Sex and Gender Information Value Date Recorded Sex Assigned at Not on file 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
--- OUTSIDE RECORDS SUMMARY | 2024-09-29 19:22 | XMS_ITS | Encounter Summary ---
Author Organization [facility] Medical Group Address [address] [facility] [address] [place] [address] Care Team Providers Care Cottage Cheese Maker Name Role Phone Shane Whiteside DO Primary Care Provider Encounter Details Date Type Department Care Team (Late st Contact Info) Description 02/09/2019 Orders Only [facility] Health Information Management [address] [place] [id number] Scanning, Provider Social History Tobacco Use Types Packs/Day Years Used Date Smoking Tobacco: Never Assessed Sex and Gender Information Value Date Recorded Sex Assigned at Not on file 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 Gender Identity Not on file Sexual Orientation Not on file documented as of this encounter Plan of Treatment Not on file documented as of this encounter Procedures Procedure Name Priority Date/Time Associated Diagnosis Comments CARDIOLOGY DOCUMENT SCAN 02/09/2019 documented in this encounter Results * SCAN - CARDIOLOGY (02/09/2019) Anatomical Region Laterality Modality Other us Provider Scanning CV CARDIAC SERVICES PROCEDURES Final Result documented in this encounter Visit Diagnoses Not on filedocumented in this encounter Care Teams Cottage Cheese Maker Relationship Specialty Start Date End Date Shane Whiteside DO PCP - General Internal Medicine 01/31/19 11/02/23 documented as of this encounter
[2024-09-29] MEDS: traZODone HCL 50 MG TABLET PO (20:28)
[2024-09-29] MEDS: ACETAMINOPHEN 325 MG TABLET 650 MG PO (20:31)
[2024-09-29] MEDS: LORazepam (*CRX) 0.5 MG TABLET PO (20:31)
[2024-09-30] VITALS (12 sets, daily range): BP systolic 91–126; BP diastolic 59–65; PULSE 59–78; RESP 12–17; TEMP 36.4–36.9; O2SAT 98–100
[2024-09-30 07:30] LABS: Hematocrit 26.9 % (42.0-52.0); Mean Corpuscular HGB Conc 33.5 g/dl (32-36); Mean Corpuscular Hemoglobin 28.7 pg (26-34); Mean Corpuscular Volume 85.7 fl (80-100); Mean Platelet Volume 11.5 fl (7.4-10.4); Platelet Count Result 148 k/mm3 (150-375); Red Blood Count 3.14 M/mm3 (4.6-6.20); Red Cell Distribution Width 15.7 % (11.5-14.5); White Blood Count 7.3 K/mm3 (4.5-10.0)
[2024-09-30 07:45] LABS: Alanine Aminotransferase 9 U/L (6-50); Albumin Level 1.8 g/dL (3.5-5.1); Alkaline Phosphatase 117 U/L (38-126); Anion Gap 1 mmol/L (4-12); Aspartate Amino Transferase 15 U/L (17-59); Bilirubin,Total 0.7 mg/dL (0.2-1.3); Blood Urea Nitrogen 48 mg/dL (9-20); Calcium 8.1 mg/dL (8.4-10.2); Carbon Dioxide 24 mmol/L (22-30); Chloride 108 mmol/L (98-107); Estimated CRCL calculation 16 ml/min; Estimated Glomerular Filt Rate 32; Glucose 82 mg/dL (65-110); Potassium 3.6 mmol/L (3.4-5.0); Sodium 133 mmol/L (137-145)
[2024-09-30] MEDS: droNABinol (*CRX) 2.5 MG CAPSULE PO ×2 (09:55→16:49)
[2024-09-30] MEDS: DOXYCYCLINE HYCLATE 100 MG TABLET PO (09:55)
[2024-09-30] MEDS: MEGESTROL ACETATE (*CHEMO) 40 MG TABLET PO ×4 (09:55→22:20)
[2024-09-30] MEDS: APIXABAN 2.5 MG TABLET PO ×2 (09:55→22:21)
[2024-09-30] MEDS: SOTALOL HCL 40 MG TABLET PO ×2 (09:55→22:20)
[2024-09-30] MEDS: FAMOTIDINE 20 MG TABLET BY MOUTH (09:55)
[2024-09-30] MEDS: ESCITALOPRAM OXALATE 5 MG TABLET PO (09:55)
[2024-09-30] MEDS: DOXAZOSIN MESYLATE 4 MG TABLET 8 MG BY MOUTH (09:55)
[2024-09-30] MEDS: lisinopriL 5 MG TABLET PO (09:55)
[2024-09-30] MEDS: FLUTICASONE PROPIONATE 0.05% NA SPR 16 GM BTL (*BKC) 2 SPRAY NASAL (09:56)
--- NOTE | 2024-09-30 10:17 | PCNFU ---
Nutrition Follow-Up Complete: Severe protein calorie malnutrition related to reduced po intake as evidenced by family report of poor po intake for greater than 1 month, a significant weight loss of -25% x 6 months, and NFPE findings for severe subcutaneous fat loss (cheeks) and severe muscle wasting (temples, clavicle, shoulders). Goal:PO intake greater than 50% of meals Pt slowly progressing towards goal, continue with same goal Pt current nutrition is Regular, Ensure Enlive BID. Nutrition recommendation: increase Ensure to TID Last recorded weight is 49 kg. Bowel Motility: +BM 1/2 Labs Reviewed: Hgb:90, HCT:26.9, Alb:1.8, NA:133, GFR:32, BUN:48, Cr:2 Meds Noted: megace, eliquis Skin: WNL Additional Notes: Pt continues on a regular diet, intake varied from 25-75%. Ensure Enlive ordered BID, will increased to TID. Monitor intake, wt, labs. Follow up in 5 days.
--- NOTE | 2024-09-30 16:25 | PCSTNOTE ---
Please refer to the Bedside Swallow Evaluation in the EMR. Please note, silent aspiration cannot be ruled out at bedside. This pleasant, 88 year old male patient was evaluated at bedside to assess his ability to safely tolerate oral intake. The pt was admitted on 09/21/24 d/t poor oral intake, weight loss, and generalized weakness. The pt reports no trouble swallowing and family has verbalized that he is not choking when he is eating . SARA Blanchard verbalized that the pt takes his pills with sips of water and has had no trouble. An oral motor exam revealed appropriate strength, ROM and symmetry for oral intake. Trials of thin, mildly thick, moderately thick, pureed, and solid consistencies were trialed this date via straw and spoon. The pt demonstrated a double swallow on every trial as well as either a throat clear or coughing during or after each trial. Thin liquids caused the most discomfort for the pt, so trials of mildly thick and moderately thick liquids were given. The pt demonstrated a throat clear/cough on each consistency, and exhibited a wet/gurgly vocal quality following the trial of moderately thickened liquids. Additionally, the pt verbalized that it felt like something was getting caught up in his throat no matter what consistency was trialed. No oral residue was observed on pureed or solid consistencies, and laryngeal elevation appeared adequate and timely for all swallows. Please note that silent aspiration cannot be ruled out at bedside. Given the results of this assessment, an MBS is recommended. Pt and family are in agreement with additional testing. It is the ST's recommendation that the pt be NPO until the completion of the MBS. A radiologist is not on site, so the next available time to complete the MBS will be on 10/02. SARA Blanchard and Dr. Collins have been informed of results and recommendations. Thank you for this referral.
[2024-09-30] MEDS: LORazepam (*CRX) 0.5 MG TABLET PO ×2 (16:48→22:21)
[2024-09-30] MEDS: ONDANSETRON INJ 4 MG/2 ML VIAL IV PUSH ×2 (16:48→22:21)
[2024-09-30] MEDS: DICYCLOMINE HCL 10 MG CAPSULE 20 MG PO (16:48)
--- NOTE | 2024-09-30 17:50 | P.PNIM_ITS ---
Progress Note: A&P Assessment and Plan (1) Acute hyponatremia: Code(s): E87.1 - Hypo-osmolality and hyponatremia Status: Acute Assessment and Plan: NA 137 Currently on NS likely secondary to poor per orally intake lethargic at bedside Monitor (2) Adult failure to thrive: Code(s): R62.7 - Adult failure to thrive Status: Chronic Assessment and Plan: PT OT consult Consider speech therapy consult Calorie count Protein supplementation (3) Unintentional weight loss: Code(s): R63.4 - Abnormal weight loss Status: Chronic Assessment and Plan: Poor per orally intake (4) Protein-calorie malnutrition, moderate: Code(s): E44.0 - Moderate protein-calorie malnutrition Status: Acute Assessment and Plan: Continue above care On Dronabinol (5) Major depression: Code(s): F32.9 - Major depressive disorder, single episode, unspecified Status: Acute Assessment and Plan: Continue Lexapro (6) Afib: Qualifiers: Atrial fibrillation type: paroxysmal Qualified Code(s): I48.0 - Paroxysmal atrial fibrillation Code(s): I48.91 - Unspecified atrial fibrillation Status: Chronic Assessment and Plan: Rate controlled anticoagulated (7) Prostate CA: Code(s): C61 - Malignant neoplasm of prostate Status: Chronic Assessment and Plan: Follow-up in outpatient setting Plan Cholelithiasis r/o Cholecystitis RUQ US showed Cholelithiasis, HIDA scan negative On doxycycline started by previous hospitalist and will be continued until 09/30 Gen surgery following monitor DVT prophylaxis on Eliquis Subjective Date/time seen: 09/30/24 17:50 Interval history: Speech eval done today. Patient failed speech eval. Discussed with his grand son who lives in [place] and also the POA about his code status. Explained about risk of aspiration. He said will discuss with her grand mother and makes a decision on code status. Family decided to continue full code. Understand the risk of aspiration. Review of Systems Review of Systems: Generalized weakness, poor appetite, poor per orally intake Exam Narrative: Patient is laying in a stretcher Const: General: comfortable, no acute distress, well developed, alert, awake, ill appearing chronically, malnourished and underweight Nutritional Appearance: malnourished and underweight Orientation/consciousness: patient oriented x3 HENMT: Head: normal to inspection, normocephalic and atraumatic Ears: hearing grossly normal bilaterally Face/Nose/Sinus: normal facial exam Face and sinus: normal facial exam Other: Bitemporal muscle wasting Eyes: General: appearance normal, both eyes and all related structures Pupils: Equal, round and reactive pupils present EOM: EOMs intact bilaterally Neck: Neck: full ROM, no lymphadenopathy and no JVD Thyroid: thyroid normal Lymphatic: no lymphadenopathy noted Resp: Effort & Inspection: normal respiratory effort and able to speak in complete sentences Auscultation: clear to auscultation bilaterally Cardio: Jugular venous distension: no JVD Rate: regular rate Rhythm: regular rhythm Heart sounds: S1 normal heart sound present and S2 normal heart sound present : General: Yes deferred Skin: Rashes: no rashes Wounds: no wounds Neuro: General: patient oriented x3 and CN's II-XI intact bilaterally Cranial nerves: Yes CN's II-XII intact bilaterally and Yes Equal, round and reactive pupils present Cognition (Neuro): normal cognition Speech: normal speech Gait exam (Neuro): Normal gait present Motor exam (neuro): 5/5 motor strength present throughout Extrem: General: normal to inspection, full ROM, no joint enlargement and no pedal edema Objective Data Vital Signs Vital Signs: Vital Signs - 24 hr 09/29/24 20:00 09/29/24 20:00 09/29/24 21:14 Temperature 98.5 F Pulse Rate 78 69 78 Respiratory Rate 14 14 Blood Pressure 97/63 L Pulse Oximetry 98 98 Oxygen Delivery Room Air Fraction of Inspired Oxygen 09/30/24 00:00 09/30/24 04:00 09/30/24 05:57 Temperature 97.6 F Pulse Rate 59 L 61 63 Respiratory Rate 14 Blood Pressure 126/65 Pulse Oximetry 99 Oxygen Delivery Fraction of Inspired Oxygen 09/30/24 08:00 09/30/24 08:02 09/30/24 09:55 Temperature Pulse Rate 65 62 65 Respiratory Rate 14 Blood Pressure Pulse Oximetry 99 Oxygen Delivery Room Air Fraction of Inspired Oxygen 09/30/24 14:00 Temperature 98.5 F Pulse Rate 66 Respiratory Rate 17 Blood Pressure 91/59 L Pulse Oximetry 100 Oxygen Delivery Fraction of Inspired Oxygen Intake/Output Intake/Output: Intake & Output 09/27/24 09/28/24 09/29/24 09/30/24 23:59 23:59 23:59 23:59 Intake Total 2870 1240 1160 1030 Output Total 1525 1000 250 800 Balance 1345 240 910 230 Meds/Results Medications: Active Medications Generic Name Dose Route Start Last Admin Trade Name Freq PRN Reason Stop Dose Admin Acetaminophen 650 mg 09/21/24 22:50 09/29/24 20:31 Acetaminophen 325 Mg Tablet PO 650 mg Q4H PRN Administration Mild Pain (1-3) or Fever Albuterol 2 puff 09/22/24 02:42 Albuterol Sulfate (*Sp) Aerosol 1 Puff INHALATION Q4HRT PRN shortness of breath or wheezing Apixaban 2.5 mg 09/22/24 09:00 09/30/24 09:55 Apixaban 2.5 Mg Tablet PO 2.5 mg Q12HR HUE Administration Dicyclomine HCl 20 mg 09/22/24 02:42 09/30/24 16:48 Dicyclomine Hcl 10 Mg Capsule PO 20 mg TID PRN Administration abdominal pain Doxazosin Mesylate 8 mg 09/22/24 09:00 09/30/24 09:55 Doxazosin Mesylate 4 Mg Tablet BY MOUTH 8 mg DAILY HUE Administration Dronabinol 2.5 mg 09/22/24 17:00 09/30/24 16:49 Dronabinol (*Crx) 2.5 Mg Capsule PO 2.5 mg BID HUE Administration Escitalopram Oxalate 5 mg 09/22/24 09:00 09/30/24 09:55 Escitalopram Oxalate 5 Mg Tablet PO 5 mg DAILY HUE Administration Famotidine 20 mg 09/22/24 09:00 09/30/24 09:55 Famotidine 20 Mg Tablet BY MOUTH 20 mg DAILY HUE Administration Fluticasone Propionate 2 spray 09/22/24 09:00 09/30/24 09:56 Fluticasone Propionate 0.05% Na Spr 16 Gm Btl (*Bkc) NASAL 2 spray DAILY HUE Administration Sodium Chloride 1,000 mls @ 50 mls/hr 09/21/24 22:50 09/29/24 09:42 Normal Saline Iv IV CONT 50 mls/hr .Q20H HUE Administration Lisinopril 5 mg 09/27/24 09:00 09/30/24 09:55 Lisinopril 5 Mg Tablet PO 5 mg QAM HUE Administration Lorazepam 0.5 mg 09/23/24 11:48 09/30/24 16:48 Lorazepam (*Crx) 0.5 Mg Tablet PO 0.5 mg BID PRN Administration Anxiety Megestrol Acetate 40 mg 09/22/24 09:00 09/30/24 16:48 Megestrol Acetate (*Chemo) 40 Mg Tablet PO 40 mg QID HUE Administration Ondansetron HCl 4 mg 09/21/24 22:50 09/30/24 16:48 Ondansetron Inj 4 Mg/2 Ml Vial IV PUSH 4 mg Q4H PRN Administration Nausea Promethazine HCl 12.5 mg 09/22/24 09:57 09/27/24 13:32 Promethazine Hcl 25 Mg/Ml Ampul IV PUSH 12.5 mg Q6H PRN Administration Nausea And Vomiting Sotalol HCl 40 mg 09/22/24 09:00 09/30/24 09:55 Sotalol Hcl 40 Mg Tablet PO 40 mg Q12HR HUE Administration Trazodone HCl 50 mg 09/22/24 22:25 09/29/24 20:28 Trazodone Hcl 50 Mg Tablet PO 50 mg HS HUE Administration Radiology Results: ITS Impressions Chest X-Ray 09/21/24 19:27 IMPRESSION: No acute cardiopulmonary process. Abdomen Ultrasound 09/22/24 19:31 IMPRESSION: Cholelithiasis. Possibility of cholecystitis cannot be excluded. Clinical correlation advised. Bilateral renal cysts. Small left hepatic lobe cyst. Hepatobiliary Scan Nuclear Medicine 09/25/24 12:18 IMPRESSION: 1. Normal hepatobiliary scan. Labs Labs: Laboratory Results - last 24 hr 09/30/24 06:32 WBC 7.3 RBC 3.14 L Hgb 9.0 L Hct 26.9 L MCV 85.7 MCH 28.7 MCHC 33.5 RDW 15.7 H Plt Count 148 L MPV 11.5 H Sodium 133 L Potassium 3.6 Chloride 108 H Carbon Dioxide 24 Anion Gap 1 L BUN 48 H Creatinine 2.00 H Estim Creat Clear Calc 16 Estimated GFR 32 L Glucose 82 Calcium 8.1 L Total Bilirubin 0.7 AST 15 L ALT 9 Alkaline Phosphatase 117 Total Protein 4.0 L Albumin 1.8 L Hospitalist MIPS Advance Care Plan I have confirmed that the patient's Advanced Care Plan is present, code status is documented, or surrogate decision maker is listed in patient medical record.: Yes Medication Reconciliation I have utilized all available resources to obtain, update and review the patients current medications (includes all prescriptions, OTC, herbals, cannabis, and nutritional supplements).: Yes
[2024-09-30] MEDS: traZODone HCL 50 MG TABLET PO (22:21)
[2024-10-01] VITALS (9 sets, daily range): BP systolic 86–135; BP diastolic 48–71; PULSE 57–67; RESP 12–16; TEMP 36.7–36.9; O2SAT 98
[2024-10-01] MEDS: SOTALOL HCL 40 MG TABLET PO ×2 (08:20→20:45)
[2024-10-01] MEDS: APIXABAN 2.5 MG TABLET PO ×2 (08:20→20:45)
[2024-10-01] MEDS: lisinopriL 5 MG TABLET PO (08:20)
[2024-10-01] MEDS: ESCITALOPRAM OXALATE 5 MG TABLET PO (08:20)
[2024-10-01] MEDS: droNABinol (*CRX) 2.5 MG CAPSULE PO ×2 (08:20→16:12)
[2024-10-01] MEDS: FAMOTIDINE 20 MG TABLET BY MOUTH (08:20)
[2024-10-01] MEDS: LORazepam (*CRX) 0.5 MG TABLET PO (08:20)
[2024-10-01] MEDS: MEGESTROL ACETATE (*CHEMO) 40 MG TABLET PO ×4 (08:20→20:45)
[2024-10-01] MEDS: FLUTICASONE PROPIONATE 0.05% NA SPR 16 GM BTL (*BKC) 2 SPRAY NASAL (08:20)
[2024-10-01] MEDS: DOXAZOSIN MESYLATE 4 MG TABLET 8 MG BY MOUTH (08:20)
--- NOTE | 2024-10-01 09:24 | P.PNIM_ITS ---
Progress Note: A&P Assessment and Plan (1) Acute hyponatremia: Code(s): E87.1 - Hypo-osmolality and hyponatremia Status: Acute Assessment and Plan: NA 137 Currently on NS likely secondary to poor per orally intake lethargic at bedside Monitor (2) Adult failure to thrive: Code(s): R62.7 - Adult failure to thrive Status: Chronic Assessment and Plan: PT OT consult Consider speech therapy consult Calorie count Protein supplementation (3) Unintentional weight loss: Code(s): R63.4 - Abnormal weight loss Status: Chronic Assessment and Plan: Poor per orally intake (4) Protein-calorie malnutrition, moderate: Code(s): E44.0 - Moderate protein-calorie malnutrition Status: Acute Assessment and Plan: Continue above care On Dronabinol (5) Major depression: Code(s): F32.9 - Major depressive disorder, single episode, unspecified Status: Acute Assessment and Plan: Continue Lexapro (6) Afib: Qualifiers: Atrial fibrillation type: paroxysmal Qualified Code(s): I48.0 - Paroxysmal atrial fibrillation Code(s): I48.91 - Unspecified atrial fibrillation Status: Chronic Assessment and Plan: Rate controlled anticoagulated (7) Prostate CA: Code(s): C61 - Malignant neoplasm of prostate Status: Chronic Assessment and Plan: Follow-up in outpatient setting Plan Cholelithiasis r/o Cholecystitis RUQ US showed Cholelithiasis, HIDA scan negative On doxycycline started by previous hospitalist and will be continued until 09/30 Gen surgery following monitor DVT prophylaxis on Eliquis Subjective Date/time seen: 10/01/24 09:24 Interval history: As mentioned yesterday patient has a risk of aspiration. He failed his bedside swallow. Tomorrow we will order MBS. Discussed with his grandson Mr. Kitchen who is the POA. We still want to continue full code. Will discuss his code status again today. Review of Systems Review of Systems: Generalized weakness, poor appetite, poor per orally intake Exam Narrative: Patient is laying in a stretcher Const: General: comfortable, no acute distress, well developed, alert, awake, ill appearing chronically, malnourished and underweight Nutritional Appearance: malnourished and underweight Orientation/consciousness: patient oriented x3 HENMT: Head: normal to inspection, normocephalic and atraumatic Ears: hearing grossly normal bilaterally Face/Nose/Sinus: normal facial exam Face and sinus: normal facial exam Other: Bitemporal muscle wasting Eyes: General: appearance normal, both eyes and all related structures Pupils: Equal, round and reactive pupils present EOM: EOMs intact bilaterally Neck: Neck: full ROM, no lymphadenopathy and no JVD Thyroid: thyroid normal Lymphatic: no lymphadenopathy noted Resp: Effort & Inspection: normal respiratory effort and able to speak in complete sentences Auscultation: clear to auscultation bilaterally Cardio: Jugular venous distension: no JVD Rate: regular rate Rhythm: regular rhythm Heart sounds: S1 normal heart sound present and S2 normal heart sound present : General: Yes deferred Skin: Rashes: no rashes Wounds: no wounds Neuro: General: patient oriented x3 and CN's II-XI intact bilaterally Cranial nerves: Yes CN's II-XII intact bilaterally and Yes Equal, round and reactive pupils present Cognition (Neuro): normal cognition Speech: normal speech Gait exam (Neuro): Normal gait present Motor exam (neuro): 5/5 motor strength present throughout Extrem: General: normal to inspection, full ROM, no joint enlargement and no pedal edema Objective Data Vital Signs Vital Signs: Vital Signs - 24 hr 09/30/24 09:55 09/30/24 12:02 09/30/24 14:00 Temperature 98.5 F Pulse Rate 65 62 66 Respiratory Rate 17 Blood Pressure 91/59 L Pulse Oximetry 100 Oxygen Delivery Fraction of Inspired Oxygen 09/30/24 16:02 09/30/24 20:00 09/30/24 20:00 Temperature Pulse Rate 78 73 Respiratory Rate Blood Pressure Pulse Oximetry Oxygen Delivery Room Air Fraction of Inspired Oxygen 21 09/30/24 22:00 09/30/24 22:20 10/01/24 00:00 Temperature 97.5 F L Pulse Rate 72 76 67 Respiratory Rate 12 Blood Pressure 122/61 Pulse Oximetry 98 Oxygen Delivery Fraction of Inspired Oxygen 10/01/24 04:00 10/01/24 06:00 10/01/24 08:20 Temperature 98.1 F Pulse Rate 63 62 66 Respiratory Rate 12 Blood Pressure 135/71 Pulse Oximetry 98 Oxygen Delivery Fraction of Inspired Oxygen Intake/Output Intake/Output: Intake & Output 09/28/24 09/29/24 09/30/24 10/01/24 23:59 23:59 23:59 23:59 Intake Total 1240 1160 1270 Output Total 8698 057 2294 400 Balance 240 397 -043 -400 Meds/Results Medications: Active Medications Generic Name Dose Route Start Last Admin Trade Name Freq PRN Reason Stop Dose Admin Acetaminophen 650 mg 09/21/24 22:50 09/29/24 20:31 Acetaminophen 325 Mg Tablet PO 650 mg Q4H PRN Administration Mild Pain (1-3) or Fever Albuterol 2 puff 09/22/24 02:42 Albuterol Sulfate (*Sp) Aerosol 1 Puff INHALATION Q4HRT PRN shortness of breath or wheezing Apixaban 2.5 mg 09/22/24 09:00 10/01/24 08:20 Apixaban 2.5 Mg Tablet PO 2.5 mg Q12HR HUE Administration Dicyclomine HCl 20 mg 09/22/24 02:42 09/30/24 16:48 Dicyclomine Hcl 10 Mg Capsule PO 20 mg TID PRN Administration abdominal pain Doxazosin Mesylate 8 mg 09/22/24 09:00 10/01/24 08:20 Doxazosin Mesylate 4 Mg Tablet BY MOUTH 8 mg DAILY HUE Administration Dronabinol 2.5 mg 09/22/24 17:00 10/01/24 08:20 Dronabinol (*Crx) 2.5 Mg Capsule PO 2.5 mg BID HUE Administration Escitalopram Oxalate 5 mg 09/22/24 09:00 10/01/24 08:20 Escitalopram Oxalate 5 Mg Tablet PO 5 mg DAILY HUE Administration Famotidine 20 mg 09/22/24 09:00 10/01/24 08:20 Famotidine 20 Mg Tablet BY MOUTH 20 mg DAILY HUE Administration Fluticasone Propionate 2 spray 09/22/24 09:00 10/01/24 08:20 Fluticasone Propionate 0.05% Na Spr 16 Gm Btl (*Bkc) NASAL 2 spray DAILY HUE Administration Sodium Chloride 1,000 mls @ 50 mls/hr 09/21/24 22:50 09/29/24 09:42 Normal Saline Iv IV CONT 50 mls/hr .Q20H HUE Administration Lisinopril 5 mg 09/27/24 09:00 10/01/24 08:20 Lisinopril 5 Mg Tablet PO 5 mg QAM HUE Administration Lorazepam 0.5 mg 09/23/24 11:48 10/01/24 08:20 Lorazepam (*Crx) 0.5 Mg Tablet PO 0.5 mg BID PRN Administration Anxiety Megestrol Acetate 40 mg 09/22/24 09:00 10/01/24 08:20 Megestrol Acetate (*Chemo) 40 Mg Tablet PO 40 mg QID HUE Administration Ondansetron HCl 4 mg 09/21/24 22:50 09/30/24 22:21 Ondansetron Inj 4 Mg/2 Ml Vial IV PUSH 4 mg Q4H PRN Administration Nausea Promethazine HCl 12.5 mg 09/22/24 09:57 09/27/24 13:32 Promethazine Hcl 25 Mg/Ml Ampul IV PUSH 12.5 mg Q6H PRN Administration Nausea And Vomiting Sotalol HCl 40 mg 09/22/24 09:00 10/01/24 08:20 Sotalol Hcl 40 Mg Tablet PO 40 mg Q12HR UHE Administration Trazodone HCl 50 mg 09/22/24 22:25 09/30/24 22:21 Trazodone Hcl 50 Mg Tablet PO 50 mg HS HUE Administration Radiology Results: ITS Impressions Chest X-Ray 09/21/24 19:27 IMPRESSION: No acute cardiopulmonary process. Abdomen Ultrasound 09/22/24 19:31 IMPRESSION: Cholelithiasis. Possibility of cholecystitis cannot be excluded. Clinical correlation advised. Bilateral renal cysts. Small left hepatic lobe cyst. Hepatobiliary Scan Nuclear Medicine 09/25/24 12:18 IMPRESSION: 1. Normal hepatobiliary scan. Hospitalist [facility] Advance Care Plan I have confirmed that the patient's Advanced Care Plan is present, code status is documented, or surrogate decision maker is listed in patient medical record.: Yes Medication Reconciliation I have utilized all available resources to obtain, update and review the patients current medications (includes all prescriptions, OTC, herbals, cannabis, and nutritional supplements).: Yes
[2024-10-01 10:07] LABS: Hematocrit 27.1 % (42.0-52.0); Hemoglobin 9.1 g/dL (14.0-18.0); Mean Corpuscular HGB Conc 33.6 g/dl (32-36); Mean Corpuscular Hemoglobin 28.3 pg (26-34); Mean Corpuscular Volume 84.4 fl (80-100); Mean Platelet Volume 10.9 fl (7.4-10.4); Platelet Count Result 159 k/mm3 (150-375); Red Blood Count 3.21 M/mm3 (4.6-6.20); Red Cell Distribution Width 15.4 % (11.5-14.5); White Blood Count 6.7 K/mm3 (4.5-10.0)
[2024-10-01 10:18] LABS: Alanine Aminotransferase 10 U/L (6-50); Albumin Level 1.9 g/dL (3.5-5.1); Alkaline Phosphatase 116 U/L (38-126); Anion Gap -2 mmol/L (4-12); Aspartate Amino Transferase 17 U/L (17-59); Bilirubin,Total 0.6 mg/dL (0.2-1.3); Blood Urea Nitrogen 55 mg/dL (9-20); Calcium 8.3 mg/dL (8.4-10.2); Carbon Dioxide 29 mmol/L (22-30); Chloride 107 mmol/L (98-107); Estimated CRCL calculation 15 ml/min; Estimated Glomerular Filt Rate 28; Glucose 84 mg/dL (65-110); Potassium 3.7 mmol/L (3.4-5.0); Sodium 134 mmol/L (137-145)
[2024-10-01] MEDS: ONDANSETRON INJ 4 MG/2 ML VIAL IV PUSH (17:57)
[2024-10-01] MEDS: traZODone HCL 50 MG TABLET PO (20:45)
[2024-10-02] VITALS (11 sets, daily range): BP systolic 94–135; BP diastolic 52–69; PULSE 56–68; RESP 14–16; TEMP 36.7–37; O2SAT 98
[2024-10-02 06:50] LABS: Hematocrit 25.7 % (42.0-52.0); Hemoglobin 8.7 g/dL (14.0-18.0); Mean Corpuscular HGB Conc 33.9 g/dl (32-36); Mean Corpuscular Hemoglobin 28.5 pg (26-34); Mean Corpuscular Volume 84.3 fl (80-100); Mean Platelet Volume 10.9 fl (7.4-10.4); Platelet Count Result 156 k/mm3 (150-375); Red Blood Count 3.05 M/mm3 (4.6-6.20); Red Cell Distribution Width 15.6 % (11.5-14.5); White Blood Count 6.9 K/mm3 (4.5-10.0)
[2024-10-02 07:05] LABS: Alanine Aminotransferase 10 U/L (6-50); Albumin Level 1.8 g/dL (3.5-5.1); Alkaline Phosphatase 126 U/L (38-126); Anion Gap -3 mmol/L (4-12); Aspartate Amino Transferase 16 U/L (17-59); Bilirubin,Total 0.6 mg/dL (0.2-1.3); Blood Urea Nitrogen 58 mg/dL (9-20); Calcium 8.3 mg/dL (8.4-10.2); Carbon Dioxide 29 mmol/L (22-30); Chloride 109 mmol/L (98-107); Estimated CRCL calculation 14 ml/min; Estimated Glomerular Filt Rate 27; Glucose 82 mg/dL (65-110); Potassium 3.4 mmol/L (3.4-5.0); Sodium 135 mmol/L (137-145)
[2024-10-02] MEDS: ESCITALOPRAM OXALATE 5 MG TABLET PO (08:57)
[2024-10-02] MEDS: SOTALOL HCL 40 MG TABLET PO ×2 (08:57→20:51)
[2024-10-02] MEDS: lisinopriL 5 MG TABLET PO (08:57)
[2024-10-02] MEDS: DOXAZOSIN MESYLATE 4 MG TABLET 8 MG BY MOUTH (08:57)
[2024-10-02] MEDS: droNABinol (*CRX) 2.5 MG CAPSULE PO (08:57)
[2024-10-02] MEDS: FAMOTIDINE 20 MG TABLET BY MOUTH (08:58)
[2024-10-02] MEDS: APIXABAN 2.5 MG TABLET PO ×2 (08:58→20:52)
[2024-10-02] MEDS: MEGESTROL ACETATE (*CHEMO) 40 MG TABLET PO ×4 (08:58→20:52)
[2024-10-02] MEDS: FLUTICASONE PROPIONATE 0.05% NA SPR 16 GM BTL (*BKC) 2 SPRAY NASAL (08:59)
--- NOTE | 2024-10-02 10:05 | P.PNIM_ITS ---
Progress Note: A&P Assessment and Plan (1) Acute hyponatremia: Code(s): E87.1 - Hypo-osmolality and hyponatremia Status: Acute Assessment and Plan: NA 135 Currently on NS likely secondary to poor per orally intake lethargic at bedside Monitor (2) Adult failure to thrive: Code(s): R62.7 - Adult failure to thrive Status: Chronic Assessment and Plan: PT OT consult Consider speech therapy consult Calorie count Protein supplementation (3) Unintentional weight loss: Code(s): R63.4 - Abnormal weight loss Status: Chronic Assessment and Plan: Poor per orally intake (4) Protein-calorie malnutrition, moderate: Code(s): E44.0 - Moderate protein-calorie malnutrition Status: Acute Assessment and Plan: Continue above care On Dronabinol (5) Major depression: Code(s): F32.9 - Major depressive disorder, single episode, unspecified Status: Acute Assessment and Plan: Continue Lexapro (6) Afib: Qualifiers: Atrial fibrillation type: paroxysmal Qualified Code(s): I48.0 - Paroxysmal atrial fibrillation Code(s): I48.91 - Unspecified atrial fibrillation Status: Chronic Assessment and Plan: Rate controlled anticoagulated (7) Prostate CA: Code(s): C61 - Malignant neoplasm of prostate Status: Chronic Assessment and Plan: Follow-up in outpatient setting (8) Dysphagia: Code(s): R13.10 - Dysphagia, unspecified Status: Acute Assessment and Plan: Failed bed swallow Failed MBS Plan Cholelithiasis r/o Cholecystitis RUQ US showed Cholelithiasis, HIDA scan negative On doxycycline started by previous hospitalist and completed on 09/30 Gen surgery following monitor DVT prophylaxis on Eliquis Subjective Date/time seen: 10/02/24 10:05 Interval history: Patient will undergo MBS today. The admitted due to decreased appetite. Patient failed bedside swallow. Family insist on full code. Will discuss again the code status today. I spoke with his grandson today. I updated him about failed MBS. He still wants to keep the patient on oral feeding. He reports will be back to the hospital on evening from [place]. Upon insisting the risk of aspiration, he reports will discuss with his family and let us know. Review of Systems Review of Systems: Generalized weakness, poor appetite, poor per orally intake Exam Narrative: Patient is laying in a stretcher Const: General: comfortable, no acute distress, well developed, alert, awake, ill appearing chronically, malnourished and underweight Nutritional Appearance: malnourished and underweight Orientation/consciousness: patient oriented x3 HENMT: Head: normal to inspection, normocephalic and atraumatic Ears: hearing grossly normal bilaterally Face/Nose/Sinus: normal facial exam Face and sinus: normal facial exam Other: Bitemporal muscle wasting Eyes: General: appearance normal, both eyes and all related structures Pupils: Equal, round and reactive pupils present EOM: EOMs intact bilaterally Neck: Neck: full ROM, no lymphadenopathy and no JVD Thyroid: thyroid normal Lymphatic: no lymphadenopathy noted Resp: Effort & Inspection: normal respiratory effort and able to speak in complete sentences Auscultation: clear to auscultation bilaterally Cardio: Jugular venous distension: no JVD Rate: regular rate Rhythm: regular rhythm Heart sounds: S1 normal heart sound present and S2 normal heart sound present : General: Yes deferred Skin: Rashes: no rashes Wounds: no wounds Neuro: General: patient oriented x3 and CN's II-XI intact bilaterally Cranial nerves: Yes CN's II-XII intact bilaterally and Yes Equal, round and reactive pupils present Cognition (Neuro): normal cognition Speech: normal speech Gait exam (Neuro): Normal gait present Motor exam (neuro): 5/5 motor strength present throughout Extrem: General: normal to inspection, full ROM, no joint enlargement and no pedal edema Objective Data Vital Signs Vital Signs: Vital Signs - 24 hr 10/01/24 12:00 10/01/24 14:00 10/01/24 20:00 Temperature 98.2 F Pulse Rate 59 L 57 L Respiratory Rate 12 Blood Pressure 86/48 L Pulse Oximetry 98 Oxygen Delivery Room Air 10/01/24 20:00 10/01/24 20:45 10/01/24 22:00 Temperature 98.5 F Pulse Rate 63 66 66 Respiratory Rate 16 Blood Pressure 119/62 Pulse Oximetry 98 Oxygen Delivery 10/02/24 00:00 10/02/24 04:00 10/02/24 06:00 Temperature 98.0 F Pulse Rate 57 L 61 60 Respiratory Rate 16 Blood Pressure 135/68 Pulse Oximetry 98 Oxygen Delivery 10/02/24 08:57 Temperature Pulse Rate 56 L Respiratory Rate Blood Pressure Pulse Oximetry Oxygen Delivery Intake/Output Intake/Output: Intake & Output 09/29/24 09/30/24 10/01/24 10/02/24 23:59 23:59 23:59 23:59 Intake Total 1160 1270 870 0 Output Total 250 1450 875 500 Balance 910 -180 -5 -500 Meds/Results Medications: Active Medications Generic Name Dose Route Start Last Admin Trade Name Freq PRN Reason Stop Dose Admin Acetaminophen 650 mg 09/21/24 22:50 09/29/24 20:31 Acetaminophen 325 Mg Tablet PO 650 mg Q4H PRN Administration Mild Pain (1-3) or Fever Albuterol 2 puff 09/22/24 02:42 Albuterol Sulfate (*Sp) Aerosol 1 Puff INHALATION Q4HRT PRN shortness of breath or wheezing Apixaban 2.5 mg 09/22/24 09:00 10/02/24 08:58 Apixaban 2.5 Mg Tablet PO 2.5 mg Q12HR HUE Administration Dicyclomine HCl 20 mg 09/22/24 02:42 09/30/24 16:48 Dicyclomine Hcl 10 Mg Capsule PO 20 mg TID PRN Administration abdominal pain Doxazosin Mesylate 8 mg 09/22/24 09:00 10/02/24 08:57 Doxazosin Mesylate 4 Mg Tablet BY MOUTH 8 mg DAILY HUE Administration Dronabinol 2.5 mg 09/22/24 17:00 10/02/24 08:57 Dronabinol (*Crx) 2.5 Mg Capsule PO 2.5 mg BID HUE Administration Escitalopram Oxalate 5 mg 09/22/24 09:00 10/02/24 08:57 Escitalopram Oxalate 5 Mg Tablet PO 5 mg DAILY HUE Administration Famotidine 20 mg 09/22/24 09:00 10/02/24 08:58 Famotidine 20 Mg Tablet BY MOUTH 20 mg DAILY HUE Administration Fluticasone Propionate 2 spray 09/22/24 09:00 10/02/24 08:59 Fluticasone Propionate 0.05% Na Spr 16 Gm Btl (*Bkc) NASAL 2 spray DAILY HUE Administration Lisinopril 5 mg 09/27/24 09:00 10/02/24 08:57 Lisinopril 5 Mg Tablet PO 5 mg QAM HUE Administration Lorazepam 0.5 mg 09/23/24 11:48 10/01/24 08:20 Lorazepam (*Crx) 0.5 Mg Tablet PO 0.5 mg BID PRN Administration Anxiety Megestrol Acetate 40 mg 09/22/24 09:00 10/02/24 08:58 Megestrol Acetate (*Chemo) 40 Mg Tablet PO 40 mg QID HUE Administration Miscellaneous Information 1 each 10/01/24 00:01 Dronabinol Will If Not Renewed XX 10/31/24 00:00 CLARIFY HUE Ondansetron HCl 4 mg 09/21/24 22:50 10/01/24 17:57 Ondansetron Inj 4 Mg/2 Ml Vial IV PUSH 4 mg Q4H PRN Administration Nausea Promethazine HCl 12.5 mg 09/22/24 09:57 09/27/24 13:32 Promethazine Hcl 25 Mg/Ml Ampul IV PUSH 12.5 mg Q6H PRN Administration Nausea And Vomiting Sotalol HCl 40 mg 09/22/24 09:00 10/02/24 08:57 Sotalol Hcl 40 Mg Tablet PO 40 mg Q12HR HUE Administration Trazodone HCl 50 mg 09/22/24 22:25 10/01/24 20:45 Trazodone Hcl 50 Mg Tablet PO 50 mg HS HUE Administration Radiology Results: ITS Impressions Chest X-Ray 09/21/24 19:27 IMPRESSION: No acute cardiopulmonary process. Abdomen Ultrasound 09/22/24 19:31 IMPRESSION: Cholelithiasis. Possibility of cholecystitis cannot be excluded. Clinical correlation advised. Bilateral renal cysts. Small left hepatic lobe cyst. Hepatobiliary Scan Nuclear Medicine 09/25/24 12:18 IMPRESSION: 1. Normal hepatobiliary scan. Labs Labs: Laboratory Results - last 24 hr 10/01/24 10/02/24 09:55 06:29 WBC 6.7 6.9 RBC 3.21 L 3.05 L Hgb 9.1 L 8.7 L Hct 27.1 L 25.7 L MCV 84.4 84.3 MCH 28.3 28.5 MCHC 33.6 33.9 RDW 15.4 H 15.6 H Plt Count 159 156 MPV 10.9 H 10.9 H Sodium 134 L 135 L Potassium 3.7 3.4 Chloride 107 109 H Carbon Dioxide 29 29 Anion Gap -2 L -3 L BUN 55 H 58 H Creatinine 2.20 H 2.30 H Estim Creat Clear Calc 15 14 Estimated GFR 28 L 27 L Glucose 84 82 Calcium 8.3 L 8.3 L Total Bilirubin 0.6 0.6 AST 17 16 L ALT 10 10 Alkaline Phosphatase 116 126 Total Protein 4.0 L 4.0 L Albumin 1.9 L 1.8 L Hospitalist MIPS Advance Care Plan I have confirmed that the patient's Advanced Care Plan is present, code status is documented, or surrogate decision maker is listed in patient medical record.: Yes Medication Reconciliation I have utilized all available resources to obtain, update and review the patients current medications (includes all prescriptions, OTC, herbals, cannabis, and nutritional supplements).: Yes
[2024-10-02] MEDS: ONDANSETRON INJ 4 MG/2 ML VIAL IV PUSH ×3 (11:56→20:50)
--- NOTE | 2024-10-02 13:07 | PCSTNOTE ---
Please refer to the Modified Barium Swallow Evaluation in the EMR. The pt was seated for a lateral view and presented with thin liquids, pudding consistency, and moderately thick liquids in controlled amounts. The oral stages were within functional limits; no leakage or pocketing occurred; during the pharyngeal stage, reduced tongue base retraction was exhibited as evidenced by vallecular residue (mild); reduced laryngeal elevation as evidenced by laryngeal penetration during the swallow & pyriform sinus residue; and reduced pharyngeal squeeze as evidenced by pharyngeal wall coating. Pt lacked sensitivity to the residual as well as the penetration as he did not dry swallow or cough/clear his throat. Instances of silent aspiration occurred after the swallow with all trials. Impression: severe dysphagia Recommendation: non oral feeding; trial of dysphagia therapy
[2024-10-02] MEDS: traZODone HCL 50 MG TABLET PO (20:51)
[2024-10-02] MEDS: LORazepam (*CRX) 0.5 MG TABLET PO (20:56)
[2024-10-03] VITALS (9 sets, daily range): BP systolic 113–160; BP diastolic 68–89; PULSE 58–105; RESP 12–18; TEMP 36.2–37.7; O2SAT 97–99
[2024-10-03 06:35] LABS: Hematocrit 27.6 % (42.0-52.0); Hemoglobin 9.1 g/dL (14.0-18.0); Mean Corpuscular Hemoglobin 28.2 pg (26-34); Mean Corpuscular Volume 85.4 fl (80-100); Mean Platelet Volume 10.8 fl (7.4-10.4); Platelet Count Result 178 k/mm3 (150-375); Red Blood Count 3.23 M/mm3 (4.6-6.20); Red Cell Distribution Width 15.8 % (11.5-14.5); White Blood Count 6.6 K/mm3 (4.5-10.0)
[2024-10-03 06:48] LABS: Alanine Aminotransferase 11 U/L (6-50); Albumin Level 2.1 g/dL (3.5-5.1); Alkaline Phosphatase 128 U/L (38-126); Anion Gap 2 mmol/L (4-12); Aspartate Amino Transferase 16 U/L (17-59); Bilirubin,Total 0.8 mg/dL (0.2-1.3); Blood Urea Nitrogen 62 mg/dL (9-20); Calcium 8.6 mg/dL (8.4-10.2); Carbon Dioxide 31 mmol/L (22-30); Chloride 106 mmol/L (98-107); Estimated CRCL calculation 15 ml/min; Estimated Glomerular Filt Rate 28; Glucose 89 mg/dL (65-110); Potassium 4.2 mmol/L (3.4-5.0); Sodium 139 mmol/L (137-145)
[2024-10-03 09:09] LABS: Iron 59 ug/dL (49-181)
[2024-10-03 09:18] LABS: Percent Iron Saturation 51 % (20-50)
--- NOTE | 2024-10-03 12:28 | PM.IMPN ---
Progress Note: A&P Assessment and Plan (1) Acute hyponatremia: Code(s): E87.1 - Hypo-osmolality and hyponatremia Status: Acute Assessment and Plan: NA 139 Currently on NS likely secondary to poor per orally intake resolved monitor (2) Adult failure to thrive: Code(s): R62.7 - Adult failure to thrive Status: Chronic Assessment and Plan: Speech eval recommended non oral feeds PPN started Awaiting response from family about G tube placement (3) Unintentional weight loss: Code(s): R63.4 - Abnormal weight loss Status: Chronic Assessment and Plan: Poor per orally intake (4) Protein-calorie malnutrition, moderate: Code(s): E44.0 - Moderate protein-calorie malnutrition Status: Acute Assessment and Plan: Continue above care On Dronabinol (5) Major depression: Code(s): F32.9 - Major depressive disorder, single episode, unspecified Status: Acute Assessment and Plan: Continue Lexapro (6) Afib: Qualifiers: Atrial fibrillation type: paroxysmal Qualified Code(s): I48.0 - Paroxysmal atrial fibrillation Code(s): I48.91 - Unspecified atrial fibrillation Status: Chronic Assessment and Plan: Rate controlled anticoagulated (7) Prostate CA: Code(s): C61 - Malignant neoplasm of prostate Status: Chronic Assessment and Plan: Follow-up in outpatient setting (8) Dysphagia: Code(s): R13.10 - Dysphagia, unspecified Status: Acute Assessment and Plan: Failed bed swallow Failed MBS Plan Cholelithiasis r/o Cholecystitis RUQ US showed Cholelithiasis, HIDA scan negative On doxycycline started by previous hospitalist and completed on 09/30 Gen surgery following monitor DVT prophylaxis on Eliquis Subjective Date/time seen: 10/03/24 12:28 Interval history: Patient comfortable at bedside Speech therapy noted aspiration during MBS and recommended non oral feeding for Start PPN and discussed G tube placement with NITA Kitchen and he will discussed with patient's and get back to me Review of Systems Review of Systems: Generalized weakness, poor appetite, poor per orally intake Exam Narrative: Patient is laying in a stretcher Const: General: comfortable, no acute distress, well developed, alert, awake, ill appearing chronically, malnourished and underweight Nutritional Appearance: malnourished and underweight Orientation/consciousness: patient oriented x3 HENMT: Head: normal to inspection, normocephalic and atraumatic Ears: hearing grossly normal bilaterally Face/Nose/Sinus: normal facial exam Face and sinus: normal facial exam Other: Bitemporal muscle wasting Eyes: General: appearance normal, both eyes and all related structures Pupils: Equal, round and reactive pupils present EOM: EOMs intact bilaterally Neck: Neck: full ROM, no lymphadenopathy and no JVD Thyroid: thyroid normal Lymphatic: no lymphadenopathy noted Resp: Effort & Inspection: normal respiratory effort and able to speak in complete sentences Auscultation: clear to auscultation bilaterally Cardio: Jugular venous distension: no JVD Rate: regular rate Rhythm: regular rhythm Heart sounds: S1 normal heart sound present and S2 normal heart sound present : General: Yes deferred Skin: Rashes: no rashes Wounds: no wounds Neuro: General: patient oriented x3 and CN's II-XI intact bilaterally Cranial nerves: Yes CN's II-XII intact bilaterally and Yes Equal, round and reactive pupils present Cognition (Neuro): normal cognition Speech: normal speech Gait exam (Neuro): Normal gait present Motor exam (neuro): 5/5 motor strength present throughout Extrem: General: normal to inspection, full ROM, no joint enlargement and no pedal edema Objective Data Vital Signs Vital Signs: Vital Signs - 24 hr 10/02/24 14:00 10/02/24 16:00 10/02/24 20:00 Temperature 98.6 F Pulse Rate 64 62 65 Respiratory Rate 14 Blood Pressure 94/52 L Pulse Oximetry 98 10/02/24 20:51 10/02/24 22:00 10/03/24 00:00 Temperature 98.5 F Pulse Rate 68 60 61 Respiratory Rate 16 Blood Pressure 119/69 Pulse Oximetry 98 10/03/24 04:00 10/03/24 05:53 Temperature 98.4 F Pulse Rate 67 70 Respiratory Rate 18 Blood Pressure 132/89 Pulse Oximetry 97 Intake/Output Intake/Output: Intake & Output 09/30/24 10/01/24 10/02/24 10/03/24 23:59 23:59 23:59 23:59 Intake Total 1270 870 480 100 Output Total 1450 875 500 550 Balance -180 -5 -20 -450 Meds/Results Medications: Active Medications Generic Name Dose Route Start Last Admin Trade Name Freq PRN Reason Stop Dose Admin Acetaminophen 650 mg 09/21/24 22:50 09/29/24 20:31 Acetaminophen 325 Mg Tablet PO 650 mg Q4H PRN Administration Mild Pain (1-3) or Fever Albuterol 2 puff 09/22/24 02:42 Albuterol Sulfate (*Sp) Aerosol 1 Puff INHALATION Q4HRT PRN shortness of breath or wheezing Apixaban 2.5 mg 09/22/24 09:00 10/02/24 20:52 Apixaban 2.5 Mg Tablet PO 2.5 mg Q12HR HUE Administration Dicyclomine HCl 20 mg 09/22/24 02:42 09/30/24 16:48 Dicyclomine Hcl 10 Mg Capsule PO 20 mg TID PRN Administration abdominal pain Doxazosin Mesylate 8 mg 09/22/24 09:00 10/02/24 08:57 Doxazosin Mesylate 4 Mg Tablet BY MOUTH 8 mg DAILY HUE Administration Escitalopram Oxalate 5 mg 09/22/24 09:00 10/02/24 08:57 Escitalopram Oxalate 5 Mg Tablet PO 5 mg DAILY HUE Administration Famotidine 20 mg 09/22/24 09:00 10/02/24 08:58 Famotidine 20 Mg Tablet BY MOUTH 20 mg DAILY HUE Administration Fluticasone Propionate 2 spray 09/22/24 09:00 10/02/24 08:59 Fluticasone Propionate 0.05% Na Spr 16 Gm Btl (*Bkc) NASAL 2 spray DAILY HUE Administration Lisinopril 5 mg 09/27/24 09:00 10/02/24 08:57 Lisinopril 5 Mg Tablet PO 5 mg QAM HUE Administration Megestrol Acetate 40 mg 09/22/24 09:00 10/02/24 20:52 Megestrol Acetate (*Chemo) 40 Mg Tablet PO 40 mg QID HUE Administration Miscellaneous Information 1 each 10/01/24 00:01 Dronabinol Will If Not Renewed XX 10/31/24 00:00 CLARIFY [facility] Ondansetron HCl 4 mg 09/21/24 22:50 10/02/24 20:50 Ondansetron Inj 4 Mg/2 Ml Vial IV PUSH 4 mg Q4H PRN Administration Nausea Promethazine HCl 12.5 mg 09/22/24 09:57 09/27/24 13:32 Promethazine Hcl 25 Mg/Ml Ampul IV PUSH 12.5 mg Q6H PRN Administration Nausea And Vomiting Sotalol HCl 40 mg 09/22/24 09:00 10/02/24 20:51 Sotalol Hcl 40 Mg Tablet PO 40 mg Q12HR HUE Administration Trazodone HCl 50 mg 09/22/24 22:25 10/02/24 20:51 Trazodone Hcl 50 Mg Tablet PO 50 mg HS HUE Administration Radiology Results: ITS Impressions Chest X-Ray 09/21/24 19:27 IMPRESSION: No acute cardiopulmonary process. Abdomen Ultrasound 09/22/24 19:31 IMPRESSION: Cholelithiasis. Possibility of cholecystitis cannot be excluded. Clinical correlation advised. Bilateral renal cysts. Small left hepatic lobe cyst. Hepatobiliary Scan Nuclear Medicine 09/25/24 12:18 IMPRESSION: 1. Normal hepatobiliary scan. Modified Barium Swallow 10/02/24 10:47 IMPRESSION: 1. Aspiration. 2. Please refer to the speech therapy report for recommendations. Labs Labs: Laboratory Results - last 24 hr 10/03/24 06:06 WBC 6.6 RBC 3.23 L Hgb 9.1 L Hct 27.6 L MCV 85.4 MCH 28.2 MCHC 33.0 RDW 15.8 H Plt Count 178 MPV 10.8 H Sodium 139 Potassium 4.2 Chloride 106 Carbon Dioxide 31 H Anion Gap 2 L BUN 62 H Creatinine 2.23 H Estim Creat Clear Calc 15 Estimated GFR 28 L Glucose 89 Calcium 8.6 Iron 59 TIBC 115 L % Saturation 51 H Ferritin 239.00 Total Bilirubin 0.8 AST 16 L ALT 11 Alkaline Phosphatase 128 H Total Protein 5.0 L Albumin 2.1 L
[2024-10-03 13:18] LABS: Basophils Percent Auto 0.4 % (0.2-1.2); Eosinophils Absolute Auto 0.2 K/mm3 (0-0.3); Eosinophils Percent Auto 3.3 % (0-4.4); Hematocrit 29.8 % (42.0-52.0); Immature Granulocyte Absolute 0.04 K/mm3 (0.00-0.031); Immature Granulocyte Percent A 0.6 % (0-0.5); Lymphocytes Absolute Auto 2.01 K/mm3 (0.9-3.2); Lymphocytes Percent Auto 29.1 % (18.3-44.2); Mean Corpuscular HGB Conc 33.6 g/dl (32-36); Mean Corpuscular Hemoglobin 28.6 pg (26-34); Mean Corpuscular Volume 85.1 fl (80-100); Monocytes Absolute Auto 0.7 K/mm3 (0.1-0.6); Monocytes Percent Auto 10.7 % (2.6-8.5); Neutrophils Absolute Auto 3.9 K/mm3 (1.3-6.7); Neutrophils Percent Auto 55.9 % (45.5-73.1); Platelet Count Result 215 k/mm3 (150-375); Red Cell Distribution Width 15.7 % (11.5-14.5); White Blood Count 6.9 K/mm3 (4.5-10.0)
[2024-10-03 13:35] LABS: Partial Thromboplastin Time 31.7 Seconds (22.3-36.8)
[2024-10-03 13:37] LABS: Alanine Aminotransferase 12 U/L (6-50); Albumin Level 2.4 g/dL (3.5-5.1); Alkaline Phosphatase 134 U/L (38-126); Anion Gap 1 mmol/L (4-12); Aspartate Amino Transferase 19 U/L (17-59); Bilirubin,Total 0.9 mg/dL (0.2-1.3); Blood Urea Nitrogen 57 mg/dL (9-20); Calcium 8.7 mg/dL (8.4-10.2); Carbon Dioxide 31 mmol/L (22-30); Chloride 107 mmol/L (98-107); Estimated CRCL calculation 16 ml/min; Estimated Glomerular Filt Rate 31; Glucose 93 mg/dL (65-110); Potassium 4.1 mmol/L (3.4-5.0); Sodium 139 mmol/L (137-145)
[2024-10-03 13:45] LABS: Transferrin < 80 mg/dL (206-381)
--- NOTE | 2024-10-03 13:56 | PCNFU ---
Nutrition Follow-Up Complete: Severe protein calorie malnutrition related to reduced po intake as evidenced by family report of poor po intake for greater than 1 month, a significant weight loss of -25% x 6 months, and NFPE findings for severe subcutaneous fat loss (cheeks) and severe muscle wasting (temples, clavicle, shoulders). Goal:PO intake greater than 50% of meals Pt Now NPO. New goal to meet estimated needs Pt current nutrition is NPO. Nutrition recommendation: PPN per orders Last recorded weight is 49 kg. Bowel Motility: +BM 10/02 Labs Reviewed: Hgb:10, HCT:29.8, Alb:2.1, BUN:57, Cr:2 Meds Noted: megace Skin: WNL Additional Notes: Pt failed MBS with speech, orders now for NPO. PPN orders to start today with Clinimix E 4.25/5 @ 80ml/hr to provide 1153kcals, 82g protein. This is sufficient to meet 60% estimated needs, 100% protein needs. Discussions taking place with family about how to further proceed with care. Monitor intake, wt, labs. Follow up every Wednesday and Wednesday.
[2024-10-03] MEDS: AMINO ACIDS 4.25%/D5W/LYTES/CA 2,000 ML 80 ML IV CONT (15:00)
[2024-10-03] MEDS: FAT EMULSIONS IV 20% 250 ML 20.83 ML IVPB (15:00)
[2024-10-03] MEDS: ONDANSETRON INJ 4 MG/2 ML VIAL IV PUSH (15:19)
[2024-10-03] MEDS: ENOXAPARIN 60 MG/0.6 ML SYRINGE 50 MG SUB-Q (18:03)
[2024-10-03 18:14] LABS: Glucose Point of Care 101 mg/dl (65-105)
[2024-10-03] MEDS: PROMETHAZINE HCL 25 MG/ML AMPUL 12.5 MG IV PUSH (20:11)
[2024-10-04] VITALS (10 sets, daily range): BP systolic 138–163; BP diastolic 58–80; PULSE 54–93; RESP 18–20; TEMP 36.1–36.8; O2SAT 98–99
[2024-10-04 00:03] LABS: Glucose Point of Care 121 mg/dl (65-105)
[2024-10-04] MEDS: LORazepam INJ (*CRX) 2 MG/ML VIAL 0.5 MG IV PUSH (03:20)
[2024-10-04 06:08] LABS: Glucose Point of Care 120 mg/dl (65-105)
[2024-10-04 06:21] LABS: Basophils Percent Auto 0.3 % (0.2-1.2); Eosinophils Absolute Auto 0.3 K/mm3 (0-0.3); Eosinophils Percent Auto 4.3 % (0-4.4); Hematocrit 28.2 % (42.0-52.0); Hemoglobin 9.1 g/dL (14.0-18.0); Immature Granulocyte Absolute 0.04 K/mm3 (0.00-0.031); Immature Granulocyte Percent A 0.6 % (0-0.5); Lymphocytes Absolute Auto 2.32 K/mm3 (0.9-3.2); Lymphocytes Percent Auto 33.3 % (18.3-44.2); Mean Corpuscular HGB Conc 32.3 g/dl (32-36); Mean Corpuscular Hemoglobin 28.3 pg (26-34); Mean Corpuscular Volume 87.9 fl (80-100); Monocytes Absolute Auto 0.8 K/mm3 (0.1-0.6); Monocytes Percent Auto 10.8 % (2.6-8.5); Neutrophils Absolute Auto 3.5 K/mm3 (1.3-6.7); Neutrophils Percent Auto 50.7 % (45.5-73.1); Platelet Count Result 184 k/mm3 (150-375); Red Blood Count 3.21 M/mm3 (4.6-6.20); Red Cell Distribution Width 15.5 % (11.5-14.5)
[2024-10-04 06:38] LABS: Anion Gap 0 mmol/L (4-12); Blood Urea Nitrogen 56 mg/dL (9-20); Calcium 8.5 mg/dL (8.4-10.2); Carbon Dioxide 30 mmol/L (22-30); Chloride 108 mmol/L (98-107); Estimated CRCL calculation 18 ml/min; Estimated Glomerular Filt Rate 35; Glucose 106 mg/dL (65-110); Phosphorus 4.4 mg/dL (2.5-4.5); Potassium 3.7 mmol/L (3.4-5.0); Sodium 138 mmol/L (137-145)
[2024-10-04] MEDS: FLUTICASONE PROPIONATE 0.05% NA SPR 16 GM BTL (*BKC) 2 SPRAY NASAL (09:22)
[2024-10-04] MEDS: ONDANSETRON INJ 4 MG/2 ML VIAL IV PUSH ×2 (09:31→16:59)
[2024-10-04 11:43] LABS: Glucose Point of Care 114 mg/dl (65-105)
[2024-10-04 13:05] LABS: Triglycerides 102 mg/dL (<150)
[2024-10-04] MEDS: AMINO ACIDS 4.25%/D5W/LYTES/CA 2,000 ML 80 ML IV CONT (13:06)
[2024-10-04] MEDS: FAT EMULSIONS IV 20% 250 ML 20.83 ML IVPB (13:06)
--- NOTE | 2024-10-04 13:31 | P.PNIM_ITS ---
Progress Note: A&P Assessment and Plan (1) Acute hyponatremia: Code(s): E87.1 - Hypo-osmolality and hyponatremia Status: Acute Assessment and Plan: NA 139 Currently on NS likely secondary to poor per orally intake resolved monitor (2) Adult failure to thrive: Code(s): R62.7 - Adult failure to thrive Status: Chronic Assessment and Plan: Speech eval recommended non oral feeds Continue PPN Awaiting response from family about G tube placement (3) Unintentional weight loss: Code(s): R63.4 - Abnormal weight loss Status: Chronic Assessment and Plan: Now on PPN awaiting decision on G tube placement (4) Protein-calorie malnutrition, moderate: Code(s): E44.0 - Moderate protein-calorie malnutrition Status: Acute Assessment and Plan: Continue above care On Dronabinol (5) Major depression: Code(s): F32.9 - Major depressive disorder, single episode, unspecified Status: Acute Assessment and Plan: Continue Lexapro (6) Afib: Qualifiers: Atrial fibrillation type: paroxysmal Qualified Code(s): I48.0 - Paroxysmal atrial fibrillation Code(s): I48.91 - Unspecified atrial fibrillation Status: Chronic Assessment and Plan: Rate controlled and anticoagulated (7) Prostate CA: Code(s): C61 - Malignant neoplasm of prostate Status: Chronic Assessment and Plan: Follow-up in outpatient setting (8) Dysphagia: Code(s): R13.10 - Dysphagia, unspecified Status: Acute Assessment and Plan: Failed bed swallow Failed MBS, no PPN and awaiting G tube decision by family Plan Cholelithiasis r/o Cholecystitis RUQ US showed Cholelithiasis, HIDA scan negative Completed Doxycycline which was started prior to this hospitalization Gen surgery following monitor DVT prophylaxis on Eliquis Subjective Date/time seen: 10/04/24 13:31 Interval history: Patient comfortable at bedside Now PPN Awaiting Grandson's decision about G tube and feeding Review of Systems Review of Systems: Generalized weakness, poor appetite, poor per orally intake Exam Narrative: Patient is laying in a stretcher Const: General: comfortable, no acute distress, well developed, alert, awake, ill appearing chronically, malnourished and underweight Nutritional Appearance: malnourished and underweight Orientation/consciousness: patient oriented x3 HENMT: Head: normal to inspection, normocephalic and atraumatic Ears: hearing grossly normal bilaterally Face/Nose/Sinus: normal facial exam Face and sinus: normal facial exam Other: Bitemporal muscle wasting Eyes: General: appearance normal, both eyes and all related structures Pupils: Equal, round and reactive pupils present EOM: EOMs intact bilaterally Neck: Neck: full ROM, no lymphadenopathy and no JVD Thyroid: thyroid normal Lymphatic: no lymphadenopathy noted Resp: Effort & Inspection: normal respiratory effort and able to speak in complete sentences Auscultation: clear to auscultation bilaterally Cardio: Jugular venous distension: no JVD Rate: regular rate Rhythm: regular rhythm Heart sounds: S1 normal heart sound present and S2 normal heart sound present : General: Yes deferred Skin: Rashes: no rashes Wounds: no wounds Neuro: General: patient oriented x3 and CN's II-XI intact bilaterally Cranial nerves: Yes CN's II-XII intact bilaterally and Yes Equal, round and reactive pupils present Cognition (Neuro): normal cognition Speech: normal speech Gait exam (Neuro): Normal gait present Motor exam (neuro): 5/5 motor strength present throughout Extrem: General: normal to inspection, full ROM, no joint enlargement and no pedal edema Objective Data Vital Signs Vital Signs: Vital Signs - 24 hr 10/03/24 14:00 10/03/24 16:00 10/03/24 20:00 Temperature 99.8 F H Pulse Rate 105 H 61 Respiratory Rate 18 Blood Pressure 113/68 Pulse Oximetry 97 Oxygen Delivery Room Air 10/03/24 20:00 10/03/24 20:43 10/04/24 00:00 Temperature 97.1 F L Pulse Rate 66 62 59 L Respiratory Rate 12 Blood Pressure 160/79 H Pulse Oximetry 99 Oxygen Delivery 10/04/24 04:00 10/04/24 04:50 10/04/24 08:00 Temperature 96.9 F L Pulse Rate 55 L 54 L 55 L Respiratory Rate 20 Blood Pressure 138/58 L Pulse Oximetry 98 Oxygen Delivery 10/04/24 09:18 10/04/24 12:00 Temperature Pulse Rate 64 63 Respiratory Rate Blood Pressure Pulse Oximetry Oxygen Delivery Intake/Output Intake/Output: Intake & Output 10/01/24 10/02/24 10/03/24 10/04/24 23:59 23:59 23:59 23:59 Intake Total 870 263 520 5878 Output Total 875 500 550 800 Balance -5 -20 -450 1218 Meds/Results Medications: Active Medications Generic Name Dose Route Start Last Admin Trade Name Freq PRN Reason Stop Dose Admin Acetaminophen 650 mg 09/21/24 22:50 09/29/24 20:31 Acetaminophen 325 Mg Tablet PO 650 mg Q4H PRN Administration Mild Pain (1-3) or Fever Albuterol 2 puff 09/22/24 02:42 Albuterol Sulfate (*Sp) Aerosol 1 Puff INHALATION Q4HRT PRN shortness of breath or wheezing Apixaban 2.5 mg 09/22/24 09:00 10/03/24 13:08 Apixaban 2.5 Mg Tablet PO Not Given Q12HR [facility] Dicyclomine HCl 20 mg 09/22/24 02:42 09/30/24 16:48 Dicyclomine Hcl 10 Mg Capsule PO 20 mg TID PRN Administration abdominal pain Doxazosin Mesylate 8 mg 09/22/24 09:00 10/04/24 09:18 Doxazosin Mesylate 4 Mg Tablet BY MOUTH Not Given DAILY [facility] Enoxaparin Sodium 50 mg 10/03/24 17:00 10/03/24 18:03 Enoxaparin 60 Mg/0.6 Ml Syringe SUB-Q 50 mg Q24H [facility] Administration Escitalopram Oxalate 5 mg 09/22/24 09:00 10/04/24 09:18 Escitalopram Oxalate 5 Mg Tablet PO Not Given DAILY [facility] Famotidine 20 mg 09/22/24 09:00 10/04/24 09:18 Famotidine 20 Mg Tablet BY MOUTH Not Given DAILY [facility] Fluticasone Propionate 2 spray 09/22/24 09:00 10/04/24 09:22 Fluticasone Propionate 0.05% Na Spr 16 Gm Btl (*Bkc) NASAL 2 spray DAILY [facility] Administration Dextrose 1,000 mls @ 50 mls/hr 10/03/24 12:52 Dextrose 10% IV CONT .Q20H PRN if PN is interrupted Amino Acids/Electrolytes/Dextrose 2,000 mls @ 80 mls/hr 10/03/24 14:00 10/04/24 13:06 Clinimix E 4.25%/5% Solution IV CONT 80 mls/hr .Q24H [facility] Administration Protocol Fat Emulsion Intravenous 250 mls @ 20.833 mls/hr 10/03/24 14:00 10/04/24 13:06 Lipids 20% IVPB 20.83 mls/hr Q24H [facility] Administration Insulin Human Regular 0 units 10/03/24 18:00 10/04/24 11:42 Insulin Human Regular (*Bkc) 100 Units/Ml SUB-Q Not Given Q6HR [facility] Protocol Lisinopril 5 mg 09/27/24 09:00 10/04/24 09:18 Lisinopril 5 Mg Tablet PO Not Given QAM [facility] Lorazepam 0.25 mg 10/04/24 13:28 Lorazepam Inj (*Crx) 2 Mg/Ml Vial IV PUSH BID PRN Anxiety Megestrol Acetate 40 mg 09/22/24 09:00 10/04/24 11:30 Megestrol Acetate (*Chemo) 40 Mg Tablet PO Not Given QID [facility] Metoprolol Tartrate 5 mg 10/03/24 15:19 Metoprolol Tartrate Inj 5 Mg/5 Ml Vial IV PUSH Q6HR PRN Tachycardia Miscellaneous Information 1 each 10/01/24 00:01 Dronabinol Will If Not Renewed XX 10/31/24 00:00 CLARIFY [facility] Ondansetron HCl 4 mg 09/21/24 22:50 10/04/24 09:31 Ondansetron Inj 4 Mg/2 Ml Vial IV PUSH 4 mg Q4H PRN Administration Nausea Promethazine HCl 12.5 mg 09/22/24 09:57 10/03/24 20:11 Promethazine Hcl 25 Mg/Ml Ampul IV PUSH 12.5 mg Q6H PRN Administration Nausea And Vomiting Sotalol HCl 40 mg 09/22/24 09:00 10/04/24 09:18 Sotalol Hcl 40 Mg Tablet PO Not Given Q12HR [facility] Trazodone HCl 50 mg 09/22/24 22:25 10/03/24 20:26 Trazodone Hcl 50 Mg Tablet PO Not Given [facility] Radiology Results: ITS Impressions Chest X-Ray 09/21/24 19:27 IMPRESSION: No acute cardiopulmonary process. Abdomen Ultrasound 09/22/24 19:31 IMPRESSION: Cholelithiasis. Possibility of cholecystitis cannot be excluded. Clinical correlation advised. Bilateral renal cysts. Small left hepatic lobe cyst. Hepatobiliary Scan Nuclear Medicine 09/25/24 12:18 IMPRESSION: 1. Normal hepatobiliary scan. Modified Barium Swallow 10/02/24 10:47 IMPRESSION: 1. Aspiration. 2. Please refer to the speech therapy report for recommendations. Labs Labs: Laboratory Results - last 24 hr 10/03/24 10/03/24 10/03/24 13:09 17:45 23:51 WBC RBC Hgb Hct MCV MCH MCHC RDW Plt Count MPV Immature Gran % (Auto) Neut % (Auto) Lymph % (Auto) [place] % (Auto) Eos % (Auto) Baso % (Auto) Lymph # (Auto) [place] # (Auto) Eos # (Auto) Baso # (Auto) Abs Immat Gran (auto) Absolute Neuts (auto) Absolute Nucleated RBC Nucleated RBC % APTT 31.7 Sodium 139 Potassium 4.1 Chloride 107 Carbon Dioxide 31 H Anion Gap 1 L BUN 57 H Creatinine 2.03 H Estim Creat Clear Calc 16 Estimated GFR 31 L Glucose 93 POC Capillary Glucose 101 121 H Calcium 8.7 Phosphorus Magnesium 2.0 Transferrin < 80 L Total Bilirubin 0.9 AST 19 ALT 12 Alkaline Phosphatase 134 H Total Protein 5.0 L Albumin 2.4 L Triglycerides 10/04/24 10/04/24 10/04/24 05:00 05:57 06:02 WBC 7.0 RBC 3.21 L Hgb 9.1 L Hct 28.2 L MCV 87.9 MCH 28.3 MCHC 32.3 RDW 15.5 H Plt Count 184 MPV 11.0 H Immature Gran % (Auto) 0.6 H Neut % (Auto) 50.7 Lymph % (Auto) 33.3 [place] % (Auto) 10.8 H Eos % (Auto) 4.3 Baso % (Auto) 0.3 Lymph # (Auto) 2.32 [place] # (Auto) 0.8 H Eos # (Auto) 0.3 Baso # (Auto) 0.0 Abs Immat Gran (auto) 0.04 H Absolute Neuts (auto) 3.5 Absolute Nucleated RBC 0.000 Nucleated RBC % 0.0 APTT Sodium 138 Potassium 3.7 Chloride 108 H Carbon Dioxide 30 Anion Gap 0 L BUN 56 H Creatinine 1.83 H Estim Creat Clear Calc 18 Estimated GFR 35 L Glucose 106 POC Capillary Glucose 120 H Calcium 8.5 Phosphorus 4.4 Magnesium Transferrin Total Bilirubin AST ALT Alkaline Phosphatase Total Protein Albumin Triglycerides 102 10/04/24 11:36 WBC RBC Hgb Hct MCV MCH MCHC RDW Plt Count MPV Immature Gran % (Auto) Neut % (Auto) Lymph % (Auto) [place] % (Auto) Eos % (Auto) Baso % (Auto) Lymph # (Auto) [place] # (Auto) Eos # (Auto) Baso # (Auto) Abs Immat Gran (auto) Absolute Neuts (auto) Absolute Nucleated RBC Nucleated RBC % APTT Sodium Potassium Chloride Carbon Dioxide Anion Gap BUN Creatinine Estim Creat Clear Calc Estimated GFR Glucose POC Capillary Glucose 114 H Calcium Phosphorus Magnesium Transferrin Total Bilirubin AST ALT Alkaline Phosphatase Total Protein Albumin Triglycerides
[2024-10-04] MEDS: LORazepam INJ (*CRX) 2 MG/ML VIAL 0.25 MG IV PUSH ×2 (13:44→21:42)
[2024-10-04] MEDS: ENOXAPARIN 60 MG/0.6 ML SYRINGE 50 MG SUB-Q (16:54)
[2024-10-04] MEDS: PROMETHAZINE HCL 25 MG/ML AMPUL 12.5 MG IV PUSH (19:59)
[2024-10-04 20:57] LABS: Glucose Point of Care 113 mg/dl (65-105)
[2024-10-05] VITALS (9 sets, daily range): BP systolic 141–175; BP diastolic 68–88; PULSE 57–79; RESP 16–20; TEMP 36.4–37.2; O2SAT 96–98
[2024-10-05 00:41] LABS: Glucose Point of Care 97 mg/dl (65-105)
[2024-10-05] MEDS: ACETAMINOPHEN 650 MG SUPPOSITORY RECTAL (05:55)
[2024-10-05 06:21] LABS: Glucose Point of Care 85 mg/dl (65-105)
[2024-10-05 09:33] LABS: Basophils Percent Auto 0.5 % (0.2-1.2); Eosinophils Absolute Auto 0.3 K/mm3 (0-0.3); Eosinophils Percent Auto 3.4 % (0-4.4); Hematocrit 29.8 % (42.0-52.0); Hemoglobin 9.8 g/dL (14.0-18.0); Immature Granulocyte Absolute 0.05 K/mm3 (0.00-0.031); Immature Granulocyte Percent A 0.7 % (0-0.5); Lymphocytes Absolute Auto 2.41 K/mm3 (0.9-3.2); Lymphocytes Percent Auto 32.9 % (18.3-44.2); Mean Corpuscular HGB Conc 32.9 g/dl (32-36); Mean Corpuscular Hemoglobin 28.7 pg (26-34); Mean Corpuscular Volume 87.4 fl (80-100); Mean Platelet Volume 11.5 fl (7.4-10.4); Monocytes Absolute Auto 0.8 K/mm3 (0.1-0.6); Monocytes Percent Auto 10.6 % (2.6-8.5); Neutrophils Absolute Auto 3.8 K/mm3 (1.3-6.7); Neutrophils Percent Auto 51.9 % (45.5-73.1); Platelet Count Result 195 k/mm3 (150-375); Red Blood Count 3.41 M/mm3 (4.6-6.20); Red Cell Distribution Width 15.6 % (11.5-14.5); White Blood Count 7.3 K/mm3 (4.5-10.0)
[2024-10-05 09:50] LABS: Alanine Aminotransferase 11 U/L (6-50); Albumin Level 2.2 g/dL (3.5-5.1); Alkaline Phosphatase 115 U/L (38-126); Anion Gap 2 mmol/L (4-12); Aspartate Amino Transferase 18 U/L (17-59); Bilirubin,Total 0.6 mg/dL (0.2-1.3); Blood Urea Nitrogen 54 mg/dL (9-20); Calcium 8.4 mg/dL (8.4-10.2); Carbon Dioxide 30 mmol/L (22-30); Chloride 109 mmol/L (98-107); Estimated CRCL calculation 20 ml/min; Estimated Glomerular Filt Rate 41; Glucose 87 mg/dL (65-110); Magnesium 2.3 mg/dL (1.6-2.3); Phosphorus 4.4 mg/dL (2.5-4.5); Potassium 3.9 mmol/L (3.4-5.0); Sodium 141 mmol/L (137-145)
[2024-10-05] MEDS: ONDANSETRON INJ 4 MG/2 ML VIAL IV PUSH ×2 (11:35→21:15)
[2024-10-05] MEDS: FLUTICASONE PROPIONATE 0.05% NA SPR 16 GM BTL (*BKC) 2 SPRAY NASAL (11:35)
[2024-10-05] MEDS: LORazepam INJ (*CRX) 2 MG/ML VIAL 0.25 MG IV PUSH (11:35)
[2024-10-05 12:03] LABS: Glucose Point of Care 93 mg/dl (65-105)
--- NOTE | 2024-10-05 12:13 | P.PNIM_ITS ---
Progress Note: A&P Assessment and Plan (1) Acute hyponatremia: Code(s): E87.1 - Hypo-osmolality and hyponatremia Status: Acute Assessment and Plan: NA 139 Currently on NS likely secondary to poor per orally intake resolved monitor (2) Adult failure to thrive: Code(s): R62.7 - Adult failure to thrive Status: Chronic Assessment and Plan: Speech eval recommended non oral feeds Continue PPN Awaiting response from family about G tube placement (3) Unintentional weight loss: Code(s): R63.4 - Abnormal weight loss Status: Chronic Assessment and Plan: Now on PPN awaiting decision on G tube placement (4) Protein-calorie malnutrition, moderate: Code(s): E44.0 - Moderate protein-calorie malnutrition Status: Acute Assessment and Plan: Continue above care On Dronabinol (5) Major depression: Code(s): F32.9 - Major depressive disorder, single episode, unspecified Status: Acute Assessment and Plan: Continue Lexapro (6) Afib: Qualifiers: Atrial fibrillation type: paroxysmal Qualified Code(s): I48.0 - Paroxysmal atrial fibrillation Code(s): I48.91 - Unspecified atrial fibrillation Status: Chronic Assessment and Plan: Rate controlled and anticoagulated (7) Prostate CA: Code(s): C61 - Malignant neoplasm of prostate Status: Chronic Assessment and Plan: Follow-up in outpatient setting (8) Dysphagia: Code(s): R13.10 - Dysphagia, unspecified Status: Acute Assessment and Plan: Failed bed swallow Failed MBS, no PPN and awaiting G tube decision by family Plan Cholelithiasis r/o Cholecystitis RUQ US showed Cholelithiasis, HIDA scan negative Completed Doxycycline which was started prior to this hospitalization Gen surgery following monitor DVT prophylaxis on Eliquis Awaiting family decisoin on G tubue placement Subjective Date/time seen: 10/05/24 12:13 Interval history: Patient comfortable at bedside Now PPN Awaiting Grandson's decision about G tube and feeding Called Grandson who did not answer his call and i left a message. Review of Systems Review of Systems: Generalized weakness, poor appetite, poor per orally intake Exam Narrative: Patient is laying in a stretcher Const: General: comfortable, no acute distress, well developed, alert, awake, ill appearing chronically, malnourished and underweight Nutritional Appearance: malnourished and underweight Orientation/consciousness: patient oriented x3 HENMT: Head: normal to inspection, normocephalic and atraumatic Ears: hearing grossly normal bilaterally Face/Nose/Sinus: normal facial exam Face and sinus: normal facial exam Other: Bitemporal muscle wasting Eyes: General: appearance normal, both eyes and all related structures Pupils: Equal, round and reactive pupils present EOM: EOMs intact bilaterally Neck: Neck: full ROM, no lymphadenopathy and no JVD Thyroid: thyroid normal Lymphatic: no lymphadenopathy noted Resp: Effort & Inspection: normal respiratory effort and able to speak in complete sentences Auscultation: clear to auscultation bilaterally Cardio: Jugular venous distension: no JVD Rate: regular rate Rhythm: regular rhythm Heart sounds: S1 normal heart sound present and S2 normal heart sound present : General: Yes deferred Skin: Rashes: no rashes Wounds: no wounds Neuro: General: patient oriented x3 and CN's II-XI intact bilaterally Cranial nerves: Yes CN's II-XII intact bilaterally and Yes Equal, round and reactive pupils present Cognition (Neuro): normal cognition Speech: normal speech Gait exam (Neuro): Normal gait present Motor exam (neuro): 5/5 motor strength present throughout Extrem: General: normal to inspection, full ROM, no joint enlargement and no pedal edema Objective Data Vital Signs Vital Signs: Vital Signs - 24 hr 10/04/24 14:00 10/04/24 16:00 10/04/24 19:43 Temperature 96.9 F L 98.2 F Pulse Rate 93 66 87 Respiratory Rate 18 18 Blood Pressure 163/80 H 147/80 H Pulse Oximetry 99 98 Oxygen Delivery 10/04/24 20:00 10/04/24 20:00 10/05/24 00:00 Temperature Pulse Rate 57 L 61 Respiratory Rate Blood Pressure Pulse Oximetry Oxygen Delivery Room Air 10/05/24 04:00 10/05/24 05:08 10/05/24 08:00 Temperature 97.6 F Pulse Rate 61 61 66 Respiratory Rate 16 Blood Pressure 175/85 H Pulse Oximetry 98 Oxygen Delivery 10/05/24 10:14 Temperature Pulse Rate Respiratory Rate Blood Pressure Pulse Oximetry Oxygen Delivery Room Air Intake/Output Intake/Output: Intake & Output 10/02/24 10/03/24 10/04/24 10/05/24 23:59 23:59 23:59 23:59 Intake Total 620 156 8299 800 Output Total 500 582 817 4238 Balance -44 -435 6477 -620 Meds/Results Medications: Active Medications Generic Name Dose Route Start Last Admin Trade Name Freq PRN Reason Stop Dose Admin Acetaminophen 650 mg 09/21/24 22:50 09/29/24 20:31 Acetaminophen 325 Mg Tablet PO 650 mg Q4H PRN Administration Mild Pain (1-3) or Fever Acetaminophen 650 mg 10/05/24 05:27 10/05/24 05:55 Acetaminophen 650 Mg Suppository RECTAL 650 mg ONCE PRN Administration Mild Pain (1-3) Or Fever Albuterol 2 puff 09/22/24 02:42 Albuterol Sulfate (*Sp) Aerosol 1 Puff INHALATION Q4HRT PRN shortness of breath or wheezing Apixaban 2.5 mg 09/22/24 09:00 10/03/24 13:08 Apixaban 2.5 Mg Tablet PO Not Given Q12HR [facility] Dicyclomine HCl 20 mg 09/22/24 02:42 09/30/24 16:48 Dicyclomine Hcl 10 Mg Capsule PO 20 mg TID PRN Administration abdominal pain Doxazosin Mesylate 8 mg 09/22/24 09:00 10/05/24 10:14 Doxazosin Mesylate 4 Mg Tablet BY MOUTH Not Given DAILY [facility] Enoxaparin Sodium 50 mg 10/03/24 17:00 10/04/24 16:54 Enoxaparin 60 Mg/0.6 Ml Syringe SUB-Q 50 mg Q24H [facility] Administration Escitalopram Oxalate 5 mg 09/22/24 09:00 10/05/24 10:14 Escitalopram Oxalate 5 Mg Tablet PO Not Given DAILY [facility] Famotidine 20 mg 09/22/24 09:00 10/05/24 10:14 Famotidine 20 Mg Tablet BY MOUTH Not Given DAILY [facility] Fluticasone Propionate 2 spray 09/22/24 09:00 10/05/24 11:35 Fluticasone Propionate 0.05% Na Spr 16 Gm Btl (*Bkc) NASAL 2 spray DAILY [facility] Administration Dextrose 1,000 mls @ 50 mls/hr 10/03/24 12:52 Dextrose 10% IV CONT .Q20H PRN if PN is interrupted Amino Acids/Electrolytes/Dextrose 2,000 mls @ 80 mls/hr 10/03/24 14:00 10/04/24 13:06 Clinimix E 4.25%/5% Solution IV CONT 80 mls/hr .Q24H [facility] Administration Protocol Fat Emulsion Intravenous 250 mls @ 20.833 mls/hr 10/03/24 14:00 10/05/24 01:07 Lipids 20% IVPB Infused Q24H [facility] Infusion Insulin Human Regular 0 units 10/03/24 18:00 10/05/24 05:40 Insulin Human Regular (*Bkc) 100 Units/Ml SUB-Q Not Given Q6HR [facility] Protocol Lisinopril 5 mg 09/27/24 09:00 10/05/24 10:14 Lisinopril 5 Mg Tablet PO Not Given QAM [facility] Lorazepam 0.25 mg 10/04/24 13:28 10/05/24 11:35 Lorazepam Inj (*Crx) 2 Mg/Ml Vial IV PUSH 0.25 mg BID PRN Administration Anxiety Megestrol Acetate 40 mg 09/22/24 09:00 10/05/24 10:15 Megestrol Acetate (*Chemo) 40 Mg Tablet PO Not Given QID [facility] Metoprolol Tartrate 5 mg 10/03/24 15:19 Metoprolol Tartrate Inj 5 Mg/5 Ml Vial IV PUSH Q6HR PRN Tachycardia Miscellaneous Information 1 each 10/01/24 00:01 Dronabinol Will If Not Renewed XX 10/31/24 00:00 CLARIFY [facility] Ondansetron HCl 4 mg 09/21/24 22:50 10/05/24 11:35 Ondansetron Inj 4 Mg/2 Ml Vial IV PUSH 4 mg Q4H PRN Administration Nausea Promethazine HCl 12.5 mg 09/22/24 09:57 10/04/24 19:59 Promethazine Hcl 25 Mg/Ml Ampul IV PUSH 12.5 mg Q6H PRN Administration Nausea And Vomiting Sotalol HCl 40 mg 09/22/24 09:00 10/05/24 10:15 Sotalol Hcl 40 Mg Tablet PO Not Given Q12HR [facility] Trazodone HCl 50 mg 09/22/24 22:25 10/04/24 21:00 Trazodone Hcl 50 Mg Tablet PO Not Given [facility] Radiology Results: ITS Impressions Chest X-Ray 09/21/24 19:27 IMPRESSION: No acute cardiopulmonary process. Abdomen Ultrasound 09/22/24 19:31 IMPRESSION: Cholelithiasis. Possibility of cholecystitis cannot be excluded. Clinical correlation advised. Bilateral renal cysts. Small left hepatic lobe cyst. Hepatobiliary Scan Nuclear Medicine 09/25/24 12:18 IMPRESSION: 1. Normal hepatobiliary scan. Modified Barium Swallow 10/02/24 10:47 IMPRESSION: 1. Aspiration. 2. Please refer to the speech therapy report for recommendations. Labs Labs: Laboratory Results - last 24 hr 10/04/24 10/04/24 10/05/24 05:57 18:18 00:35 WBC RBC Hgb Hct MCV MCH MCHC RDW Plt Count MPV Immature Gran % (Auto) Neut % (Auto) Lymph % (Auto) [place] % (Auto) Eos % (Auto) Baso % (Auto) Lymph # (Auto) [place] # (Auto) Eos # (Auto) Baso # (Auto) Abs Immat Gran (auto) Absolute Neuts (auto) Absolute Nucleated RBC Nucleated RBC % Sodium Potassium Chloride Carbon Dioxide Anion Gap BUN Creatinine Estim Creat Clear Calc Estimated GFR Glucose POC Capillary Glucose 113 H 97 Calcium Phosphorus Magnesium Total Bilirubin AST ALT Alkaline Phosphatase Total Protein Albumin Triglycerides 102 10/05/24 10/05/24 10/05/24 05:12 08:38 11:57 WBC 7.3 RBC 3.41 L Hgb 9.8 L Hct 29.8 L MCV 87.4 MCH 28.7 MCHC 32.9 RDW 15.6 H Plt Count 195 MPV 11.5 H Immature Gran % (Auto) 0.7 H Neut % (Auto) 51.9 Lymph % (Auto) 32.9 [place] % (Auto) 10.6 H Eos % (Auto) 3.4 Baso % (Auto) 0.5 Lymph # (Auto) 2.41 [place] # (Auto) 0.8 H Eos # (Auto) 0.3 Baso # (Auto) 0.0 Abs Immat Gran (auto) 0.05 H Absolute Neuts (auto) 3.8 Absolute Nucleated RBC 0.000 Nucleated RBC % 0.0 Sodium 141 Potassium 3.9 Chloride 109 H Carbon Dioxide 30 Anion Gap 2 L BUN 54 H Creatinine 1.62 H Estim Creat Clear Calc 20 Estimated GFR 41 L Glucose 87 POC Capillary Glucose 85 93 Calcium 8.4 Phosphorus 4.4 Magnesium 2.3 Total Bilirubin 0.6 AST 18 ALT 11 Alkaline Phosphatase 115 Total Protein 5.0 L Albumin 2.2 L Triglycerides
--- NOTE | 2024-10-05 16:33 | PC.NURSE ---
RN at bedside with child care center assistant director Jeannette, patient's grandson Imtiaz, and patient's spouse. Patient verbalizes he wishes to be a DNR.
[2024-10-05] MEDS: FAT EMULSIONS IV 20% 250 ML 20.83 ML IVPB (18:52)
[2024-10-05] MEDS: AMINO ACIDS 4.25%/D5W/LYTES/CA 2,000 ML 80 ML IV CONT (18:58)
[2024-10-05 19:16] LABS: Glucose Point of Care 89 mg/dl (65-105)
--- NOTE | 2024-10-05 19:30 | PC.NURSE ---
RN spoke with sera Kitchen and patient wishes are to have peg tube placed ONLY IF patient can go to a facility in [place]. If patient cannot go to facility in [place] he wants to go home on hospice. Care coordination is not here at this time, but sera Kitchen did state he left voicemail with care coordination.
[2024-10-06] VITALS (7 sets, daily range): BP systolic 149–184; BP diastolic 79–98; PULSE 62–79; RESP 16–18; TEMP 36.6–36.9; O2SAT 96–98
[2024-10-06 00:38] LABS: Glucose Point of Care 123 mg/dl (65-105)
[2024-10-06 06:47] LABS: Anion Gap 3 mmol/L (4-12); Blood Urea Nitrogen 53 mg/dL (9-20); Calcium 8.4 mg/dL (8.4-10.2); Carbon Dioxide 31 mmol/L (22-30); Chloride 107 mmol/L (98-107); Estimated CRCL calculation 19 ml/min; Estimated Glomerular Filt Rate 37; Glucose 118 mg/dL (65-110); Phosphorus 4.4 mg/dL (2.5-4.5); Potassium 4.6 mmol/L (3.4-5.0); Sodium 141 mmol/L (137-145)
[2024-10-06 08:08] LABS: Glucose Point of Care 132 mg/dl (65-105)
--- NOTE | 2024-10-06 10:00 | PCNFU ---
Nutrition Follow-Up Complete: Severe protein calorie malnutrition related to reduced po intake as evidenced by family report of poor po intake for greater than 1 month, a significant weight loss of -25% x 6 months, and NFPE findings for severe subcutaneous fat loss (cheeks) and severe muscle wasting (temples, clavicle, shoulders). PO intake greater than 50% of meals - Not able to meet goal PO. PPN for nutrition Goal: Pt current nutrition is PPN Clinmix 4.25/5 E @ 80 ml/h. Nutrition recommendation: Continue PPN for now, recommend PEG tube for long-term nutrition Last recorded weight is 47.3 kg. Bowel Motility: +2 BMs 10/03/24 Labs Reviewed: GFR 37, BUN 53, Cre 1.75, Glu 118 Meds Noted: Megace, eliquis Skin: No skin issues Additional Notes: Communication with RN. Family still has not decided on PEG vs hospice. Meeting ~60% energy needs with PPN. Provides 1153 kcal, 82 g protein, 2170 ml total volume. Not recommending increasing volume because of renal labs. Tube feeding recommendations if needed. Monitor intake, wt, labs. Follow up in 5 days.
[2024-10-06] MEDS: FLUTICASONE PROPIONATE 0.05% NA SPR 16 GM BTL (*BKC) 2 SPRAY NASAL (10:05)
[2024-10-06 11:56] LABS: Glucose Point of Care 135 mg/dl (65-105)
[2024-10-06 12:25] LABS: Triglycerides 140 mg/dL (<150)
--- NOTE | 2024-10-06 13:46 | PCDIET ---
TUBE FEEDING RECOMMENDATIONS: If needed; recommend Jevity 1.5 @ goal rate 55 ml/h. Flush 150 ml q 4 hours for total free water 1820 ml/d. Start at 30 ml/h and advance 10 ml q 4 hours as tolerated. to provide 1815 kcal, 77 g protein, 920 ml free water. KZ
[2024-10-06] MEDS: LIDOCAINE 1% LOCAL INJ 2 ML AMPUL 5 ML INFILTRATE (14:30)
[2024-10-06] MEDS: AMINO ACIDS 4.25%/D5W/LYTES/CA 2,000 ML 80 ML IV CONT (15:28)
[2024-10-06] MEDS: FAT EMULSIONS IV 20% 250 ML 20.83 ML IVPB (15:28)
[2024-10-06] MEDS: FAMOTIDINE 20 MG/2 ML VIAL IV PUSH (15:29)
[2024-10-06] MEDS: ENOXAPARIN 60 MG/0.6 ML SYRINGE 50 MG SUB-Q (15:48)
--- NOTE | 2024-10-06 16:31 | P.PNIM_ITS ---
Progress Note: A&P Assessment and Plan (1) Acute hyponatremia: Code(s): E87.1 - Hypo-osmolality and hyponatremia Status: Acute Assessment and Plan: NA 139 Currently on NS likely secondary to poor per orally intake resolved monitor (2) Adult failure to thrive: Code(s): R62.7 - Adult failure to thrive Status: Chronic Assessment and Plan: Speech eval recommended non oral feeds Continue PPN Awaiting response from family about G tube placement (3) Unintentional weight loss: Code(s): R63.4 - Abnormal weight loss Status: Chronic Assessment and Plan: Now on PPN Awaiting G tube placement (4) Protein-calorie malnutrition, moderate: Code(s): E44.0 - Moderate protein-calorie malnutrition Status: Acute Assessment and Plan: Continue above care On Dronabinol (5) Major depression: Code(s): F32.9 - Major depressive disorder, single episode, unspecified Status: Acute Assessment and Plan: Continue Lexapro (6) Afib: Qualifiers: Atrial fibrillation type: paroxysmal Qualified Code(s): I48.0 - Paroxysmal atrial fibrillation Code(s): I48.91 - Unspecified atrial fibrillation Status: Chronic Assessment and Plan: Rate controlled and anticoagulated (7) Prostate CA: Code(s): C61 - Malignant neoplasm of prostate Status: Chronic Assessment and Plan: Follow-up in outpatient setting (8) Dysphagia: Code(s): R13.10 - Dysphagia, unspecified Status: Acute Assessment and Plan: Failed bed swallow Failed MBS, no PPN and awaiting G tube decision by family Plan Cholelithiasis r/o Cholecystitis RUQ US showed Cholelithiasis, HIDA scan negative Completed Doxycycline which was started prior to this hospitalization Gen surgery following monitor DVT prophylaxis on Eliquis Awaiting G tube placement and Placement Subjective Date/time seen: 10/06/24 16:31 Interval history: Patient comfortable at bedside Now PPN Family and patient has agree to fo to rehab and to also get G tube placement GI consulted. Review of Systems Review of Systems: Generalized weakness, poor appetite, poor per orally intake Exam Narrative: Patient is laying in a stretcher Const: General: comfortable, no acute distress, well developed, alert, awake, ill appearing chronically, malnourished and underweight Nutritional Appearance: malnourished and underweight Orientation/consciousness: patient oriented x3 HENMT: Head: normal to inspection, normocephalic and atraumatic Ears: hearing grossly normal bilaterally Face/Nose/Sinus: normal facial exam Face and sinus: normal facial exam Other: Bitemporal muscle wasting Eyes: General: appearance normal, both eyes and all related structures Pupils: Equal, round and reactive pupils present EOM: EOMs intact bilaterally Neck: Neck: full ROM, no lymphadenopathy and no JVD Thyroid: thyroid normal Lymphatic: no lymphadenopathy noted Resp: Effort & Inspection: normal respiratory effort and able to speak in complete sentences Auscultation: clear to auscultation bilaterally Cardio: Jugular venous distension: no JVD Rate: regular rate Rhythm: regular rhythm Heart sounds: S1 normal heart sound present and S2 normal heart sound present : General: Yes deferred Skin: Rashes: no rashes Wounds: no wounds Neuro: General: patient oriented x3 and CN's II-XI intact bilaterally Cranial nerves: Yes CN's II-XII intact bilaterally and Yes Equal, round and reactive pupils present Cognition (Neuro): normal cognition Speech: normal speech Gait exam (Neuro): Normal gait present Motor exam (neuro): 5/5 motor strength present throughout Extrem: General: normal to inspection, full ROM, no joint enlargement and no pedal edema Objective Data Vital Signs Vital Signs: Vital Signs - 24 hr 10/05/24 20:00 10/05/24 20:00 10/05/24 21:15 Temperature 98.2 F Pulse Rate 79 57 L Respiratory Rate 20 Blood Pressure 142/68 H Pulse Oximetry 97 Oxygen Delivery Room Air 10/06/24 00:00 10/06/24 04:00 10/06/24 06:30 Temperature 98.4 F Pulse Rate 79 68 73 Respiratory Rate 18 Blood Pressure 184/98 H Pulse Oximetry 98 Oxygen Delivery 10/06/24 10:00 10/06/24 10:00 10/06/24 14:00 Temperature 98.4 F Pulse Rate 72 75 Respiratory Rate 16 Blood Pressure 149/79 H Pulse Oximetry 98 Oxygen Delivery Room Air Intake/Output Intake/Output: Intake & Output 10/03/24 10/04/24 10/05/24 10/06/24 23:59 23:59 23:59 23:59 Intake Total 100 2018 2800 1890 Output Total 075 458 7560 1200 Balance -450 1218 1000 690 Meds/Results Medications: Active Medications Generic Name Dose Route Start Last Admin Trade Name Freq PRN Reason Stop Dose Admin Acetaminophen 650 mg 09/21/24 22:50 09/29/24 20:31 Acetaminophen 325 Mg Tablet PO 650 mg Q4H PRN Administration Mild Pain (1-3) or Fever Acetaminophen 650 mg 10/05/24 05:27 10/05/24 05:55 Acetaminophen 650 Mg Suppository RECTAL 650 mg ONCE PRN Administration Mild Pain (1-3) Or Fever Albuterol 2 puff 09/22/24 02:42 Albuterol Sulfate (*Sp) Aerosol 1 Puff INHALATION Q4HRT PRN shortness of breath or wheezing Apixaban 2.5 mg 09/22/24 09:00 10/03/24 13:08 Apixaban 2.5 Mg Tablet PO Not Given Q12HR [facility]UE Dicyclomine HCl 20 mg 09/22/24 02:42 09/30/24 16:48 Dicyclomine Hcl 10 Mg Capsule PO 20 mg TID PRN Administration abdominal pain Doxazosin Mesylate 8 mg 09/22/24 09:00 10/06/24 11:46 Doxazosin Mesylate 4 Mg Tablet BY MOUTH Not Given DAILY [facility]UE Enoxaparin Sodium 50 mg 10/03/24 17:00 10/06/24 15:48 Enoxaparin 60 Mg/0.6 Ml Syringe SUB-Q 50 mg Q24H [facility] Administration Escitalopram Oxalate 5 mg 09/22/24 09:00 10/06/24 11:47 Escitalopram Oxalate 5 Mg Tablet PO Not Given DAILY HUE Famotidine 20 mg 10/06/24 11:15 10/06/24 15:29 Famotidine 20 Mg/2 Ml Vial IV PUSH 20 mg DAILY [facility]UE Administration Fluticasone Propionate 2 spray 09/22/24 09:00 10/06/24 10:05 Fluticasone Propionate 0.05% Na Spr 16 Gm Btl (*Bkc) NASAL 2 spray DAILY [facility]UE Administration Hydralazine HCl 10 mg 10/06/24 09:39 Hydralazine Hcl 20 Mg/Ml Vial IV PUSH Q4H PRN Blood Pressure - High Dextrose 1,000 mls @ 50 mls/hr 10/03/24 12:52 Dextrose 10% IV CONT .Q20H PRN if PN is interrupted Amino Acids/Electrolytes/Dextrose 2,000 mls @ 80 mls/hr 10/03/24 14:00 10/06/24 15:28 Clinimix E 4.25%/5% Solution IV CONT 80 mls/hr .Q24H [facility] Administration Protocol Fat Emulsion Intravenous 250 mls @ 20.833 mls/hr 10/03/24 14:00 10/06/24 15:28 Lipids 20% IVPB 20.83 mls/hr Q24H [facility] Administration Insulin Human Regular 0 units 10/03/24 18:00 10/06/24 12:30 Insulin Human Regular (*Bkc) 100 Units/Ml SUB-Q Not Given Q6HR [facility] Protocol Lisinopril 5 mg 09/27/24 09:00 10/06/24 11:47 Lisinopril 5 Mg Tablet PO Not Given QAM [facility] Lorazepam 0.25 mg 10/04/24 13:28 10/05/24 11:35 Lorazepam Inj (*Crx) 2 Mg/Ml Vial IV PUSH 0.25 mg BID PRN Administration Anxiety Metoprolol Tartrate 5 mg 10/03/24 15:19 Metoprolol Tartrate Inj 5 Mg/5 Ml Vial IV PUSH Q6HR PRN Tachycardia Ondansetron HCl 4 mg 09/21/24 22:50 10/05/24 21:15 Ondansetron Inj 4 Mg/2 Ml Vial IV PUSH 4 mg Q4H PRN Administration Nausea Promethazine HCl 12.5 mg 09/22/24 09:57 10/04/24 19:59 Promethazine Hcl 25 Mg/Ml Ampul IV PUSH 12.5 mg Q6H PRN Administration Nausea And Vomiting Sodium Chloride 10 ml 10/06/24 22:00 Saline Lock Flush IV PUSH Q8HR HUE Sodium Chloride 10 ml 10/06/24 14:58 Saline Lock Flush IV PUSH PRN PRN Flush Sodium Chloride 20 ml 10/06/24 14:58 Saline Lock Flush IV PUSH PRN PRN after blood draws Sotalol HCl 40 mg 09/22/24 09:00 10/06/24 11:47 Sotalol Hcl 40 Mg Tablet PO Not Given Q12HR [facility] Trazodone HCl 50 mg 09/22/24 22:25 10/05/24 21:19 Trazodone Hcl 50 Mg Tablet PO Not Given HS [facility] Radiology Results: ITS Impressions Chest X-Ray 09/21/24 19:27 IMPRESSION: No acute cardiopulmonary process. Abdomen Ultrasound 09/22/24 19:31 IMPRESSION: Cholelithiasis. Possibility of cholecystitis cannot be excluded. Clinical correlation advised. Bilateral renal cysts. Small left hepatic lobe cyst. Hepatobiliary Scan Nuclear Medicine 09/25/24 12:18 IMPRESSION: 1. Normal hepatobiliary scan. Modified Barium Swallow 10/02/24 10:47 IMPRESSION: 1. Aspiration. 2. Please refer to the speech therapy report for recommendations. Labs Labs: Laboratory Results - last 24 hr 10/05/24 10/06/24 10/06/24 19:12 00:36 05:53 Sodium Potassium Chloride Carbon Dioxide Anion Gap BUN Creatinine Estim Creat Clear Calc Estimated GFR Glucose POC Capillary Glucose 89 123 H Calcium Phosphorus Triglycerides 140 10/06/24 10/06/24 10/06/24 05:58 06:32 11:53 Sodium 141 Potassium 4.6 Chloride 107 Carbon Dioxide 31 H Anion Gap 3 L BUN 53 H Creatinine 1.75 H Estim Creat Clear Calc 19 Estimated GFR 37 L Glucose 118 H POC Capillary Glucose 132 H 135 H Calcium 8.4 Phosphorus 4.4 Triglycerides
[2024-10-06 18:45] LABS: Glucose Point of Care 125 mg/dl (65-105)
[2024-10-07 00:14] LABS: Glucose Point of Care 103 mg/dl (65-105)
[2024-10-07] MEDS: SALINE LOCK FLUSH 10 ML IV PUSH ×3 (05:25→20:24)
[2024-10-07 06:00] VITALS: BP 148/90; PULSE 60; RESP 18; TEMP 36.3; O2SAT 97
[2024-10-07 06:28] LABS: Glucose Point of Care 94 mg/dl (65-105)
[2024-10-07 07:26] LABS: Basophils Percent Auto 0.5 % (0.2-1.2); Eosinophils Absolute Auto 0.2 K/mm3 (0-0.3); Eosinophils Percent Auto 2.5 % (0-4.4); Hemoglobin 9.8 g/dL (14.0-18.0); Immature Granulocyte Absolute 0.04 K/mm3 (0.00-0.031); Immature Granulocyte Percent A 0.5 % (0-0.5); Lymphocytes Absolute Auto 2.23 K/mm3 (0.9-3.2); Lymphocytes Percent Auto 28.1 % (18.3-44.2); Mean Corpuscular HGB Conc 31.6 g/dl (32-36); Mean Corpuscular Hemoglobin 28.2 pg (26-34); Mean Corpuscular Volume 89.3 fl (80-100); Mean Platelet Volume 11.4 fl (7.4-10.4); Monocytes Absolute Auto 0.7 K/mm3 (0.1-0.6); Monocytes Percent Auto 9.1 % (2.6-8.5); Neutrophils Absolute Auto 4.7 K/mm3 (1.3-6.7); Neutrophils Percent Auto 59.3 % (45.5-73.1); Platelet Count Result 207 k/mm3 (150-375); Red Blood Count 3.47 M/mm3 (4.6-6.20); Red Cell Distribution Width 15.7 % (11.5-14.5); White Blood Count 7.9 K/mm3 (4.5-10.0)
[2024-10-07 08:01] LABS: Alanine Aminotransferase 11 U/L (6-50); Albumin Level 2.4 g/dL (3.5-5.1); Alkaline Phosphatase 116 U/L (38-126); Anion Gap 6 mmol/L (4-12); Aspartate Amino Transferase 21 U/L (17-59); Bilirubin,Total 0.5 mg/dL (0.2-1.3); Blood Urea Nitrogen 51 mg/dL (9-20); Calcium 8.7 mg/dL (8.4-10.2); Carbon Dioxide 27 mmol/L (22-30); Chloride 108 mmol/L (98-107); Estimated CRCL calculation 20 ml/min; Estimated Glomerular Filt Rate 43; Glucose 97 mg/dL (65-110); Magnesium 2.5 mg/dL (1.6-2.3); Phosphorus 4.6 mg/dL (2.5-4.5); Potassium 3.4 mmol/L (3.4-5.0); Sodium 141 mmol/L (137-145)
[2024-10-07 08:14] LABS: Glucose Point of Care 108 mg/dl (65-105)
[2024-10-07] MEDS: FAMOTIDINE 20 MG/2 ML VIAL IV PUSH (09:06)
[2024-10-07] MEDS: FLUTICASONE PROPIONATE 0.05% NA SPR 16 GM BTL (*BKC) 2 SPRAY NASAL (09:06)
[2024-10-07] MEDS: ONDANSETRON INJ 4 MG/2 ML VIAL IV PUSH (09:18)
[2024-10-07] MEDS: LORazepam INJ (*CRX) 2 MG/ML VIAL 0.25 MG IV PUSH (09:18)
[2024-10-07 10:15] LABS: Add Urine Microscopic? YES; Appearance Urine Clear (Clear); Bacteria Urine None Seen /hpf; Bilirubin Urine Negative (Negative); Blood Urine Negative (Negative); Color Urine Yellow (Yellow); Glucose Urine UA Negative (Negative); Ketones Urine Negative (Negative); Leukocyte Esterase Ur Negative LEU/UL (Negative); Nitrate Urine Negative (Negative); Non Pathogenic Casts 0-2; Protein Urine Trace mg/dL (Negative); RBC Urine 0-2 /hpf (0-2); Specific Grav Ur 1.008 (1.001-1.035); Squamous Epithelial Cell Urine None Seen /hpf (Few); Urobilinogen Urine 0.2 mg/dL (<2.0); WBC Urine 0-5 /hpf (0-3); pH Urine 7.5 (5.0-9.0)
--- NOTE | 2024-10-07 10:20 | PM.IMPN ---
Progress Note: A&P Assessment and Plan (1) Acute hyponatremia: Code(s): E87.1 - Hypo-osmolality and hyponatremia Status: Acute Assessment and Plan: NA 139 Currently on NS likely secondary to poor per orally intake resolved monitor (2) Adult failure to thrive: Code(s): R62.7 - Adult failure to thrive Status: Chronic Assessment and Plan: Speech eval recommended non oral feeds Continue PPN Awaiting response from family about G tube placement (3) Unintentional weight loss: Code(s): R63.4 - Abnormal weight loss Status: Chronic Assessment and Plan: Now on PPN Awaiting G tube placement (4) Protein-calorie malnutrition, moderate: Code(s): E44.0 - Moderate protein-calorie malnutrition Status: Acute Assessment and Plan: Continue above care On Dronabinol (5) Major depression: Code(s): F32.9 - Major depressive disorder, single episode, unspecified Status: Acute Assessment and Plan: Continue Lexapro (6) Afib: Qualifiers: Atrial fibrillation type: paroxysmal Qualified Code(s): I48.0 - Paroxysmal atrial fibrillation Code(s): I48.91 - Unspecified atrial fibrillation Status: Chronic Assessment and Plan: Rate controlled and anticoagulated (7) Prostate CA: Code(s): C61 - Malignant neoplasm of prostate Status: Chronic Assessment and Plan: Follow-up in outpatient setting (8) Dysphagia: Code(s): R13.10 - Dysphagia, unspecified Status: Acute Assessment and Plan: Failed bed swallow Awaiting GI eval for G tube placement Plan Cholelithiasis r/o Cholecystitis RUQ US showed Cholelithiasis, HIDA scan negative Completed Doxycycline which was started prior to this hospitalization Gen surgery following monitor DVT prophylaxis on Sq Lovenox (eliquis on hold) Awaiting G tube placement and Placement Subjective Date/time seen: 10/07/24 10:20 Interval history: Patient comfortable at bedside Now PPN Family and patient has agree to fo to rehab and to also get G tube placement awaiting GI eval Review of Systems Review of Systems: Generalized weakness, poor appetite, poor per orally intake Exam Narrative: Patient is laying in a stretcher Const: General: comfortable, no acute distress, well developed, alert, awake, ill appearing chronically, malnourished and underweight Nutritional Appearance: malnourished and underweight Orientation/consciousness: patient oriented x3 HENMT: Head: normal to inspection, normocephalic and atraumatic Ears: hearing grossly normal bilaterally Face/Nose/Sinus: normal facial exam Face and sinus: normal facial exam Other: Bitemporal muscle wasting Eyes: General: appearance normal, both eyes and all related structures Pupils: Equal, round and reactive pupils present EOM: EOMs intact bilaterally Neck: Neck: full ROM, no lymphadenopathy and no JVD Thyroid: thyroid normal Lymphatic: no lymphadenopathy noted Resp: Effort & Inspection: normal respiratory effort and able to speak in complete sentences Auscultation: clear to auscultation bilaterally Cardio: Jugular venous distension: no JVD Rate: regular rate Rhythm: regular rhythm Heart sounds: S1 normal heart sound present and S2 normal heart sound present : General: Yes deferred Skin: Rashes: no rashes Wounds: no wounds Neuro: General: patient oriented x3 and CN's II-XI intact bilaterally Cranial nerves: Yes CN's II-XII intact bilaterally and Yes Equal, round and reactive pupils present Cognition (Neuro): normal cognition Speech: normal speech Gait exam (Neuro): Normal gait present Motor exam (neuro): 5/5 motor strength present throughout Extrem: General: normal to inspection, full ROM, no joint enlargement and no pedal edema Objective Data Vital Signs Vital Signs: Vital Signs - 24 hr 10/06/24 14:00 10/06/24 20:00 10/06/24 22:00 Temperature 98.4 F 97.9 F Pulse Rate 75 75 62 Respiratory Rate 16 16 18 Blood Pressure 149/79 H 168/89 H Pulse Oximetry 98 98 96 Oxygen Delivery Room Air Fraction of Inspired Oxygen 21 10/07/24 06:00 10/07/24 08:47 Temperature 97.4 F L Pulse Rate 60 Respiratory Rate 18 Blood Pressure 148/90 H Pulse Oximetry 97 Oxygen Delivery Room Air Fraction of Inspired Oxygen Intake/Output Intake/Output: Intake & Output 10/04/24 10/05/24 10/06/24 10/07/24 23:59 23:59 23:59 23:59 Intake Total 20170 1890 Output Total 800 1800 1600 1100 Balance 1218 1000 290 -1100 Meds/Results Medications: Active Medications Generic Name Dose Route Start Last Admin Trade Name Freq PRN Reason Stop Dose Admin Acetaminophen 650 mg 09/21/24 22:50 09/29/24 20:31 Acetaminophen 325 Mg Tablet PO 650 mg Q4H PRN Administration Mild Pain (1-3) or Fever Acetaminophen 650 mg 10/05/24 05:27 10/05/24 05:55 Acetaminophen 650 Mg Suppository RECTAL 650 mg ONCE PRN Administration Mild Pain (1-3) Or Fever Albuterol 2 puff 09/22/24 02:42 Albuterol Sulfate (*Sp) Aerosol 1 Puff INHALATION Q4HRT PRN shortness of breath or wheezing Apixaban 2.5 mg 09/22/24 09:00 10/03/24 13:08 Apixaban 2.5 Mg Tablet PO Not Given Q12HR [facility] Dicyclomine HCl 20 mg 09/22/24 02:42 09/30/24 16:48 Dicyclomine Hcl 10 Mg Capsule PO 20 mg TID PRN Administration abdominal pain Doxazosin Mesylate 8 mg 09/22/24 09:00 10/07/24 09:05 Doxazosin Mesylate 4 Mg Tablet BY MOUTH Not Given DAILY [facility]UE Enoxaparin Sodium 50 mg 10/03/24 17:00 10/06/24 15:48 Enoxaparin 60 Mg/0.6 Ml Syringe SUB-Q 50 mg Q24H [facility] Administration Escitalopram Oxalate 5 mg 09/22/24 09:00 10/06/24 11:47 Escitalopram Oxalate 5 Mg Tablet PO Not Given DAILY [facility]UE Famotidine 20 mg 10/06/24 11:15 10/07/24 09:06 Famotidine 20 Mg/2 Ml Vial IV PUSH 20 mg DAILY [facility] Administration Fluticasone Propionate 2 spray 09/22/24 09:00 10/07/24 09:06 Fluticasone Propionate 0.05% Na Spr 16 Gm Btl (*Bkc) NASAL 2 spray DAILY [facility] Administration Hydralazine HCl 10 mg 10/06/24 09:39 Hydralazine Hcl 20 Mg/Ml Vial IV PUSH Q4H PRN Blood Pressure - High Dextrose 1,000 mls @ 50 mls/hr 10/03/24 12:52 Dextrose 10% IV CONT .Q20H PRN if PN is interrupted Amino Acids/Electrolytes/Dextrose 2,000 mls @ 80 mls/hr 10/03/24 14:00 10/06/24 15:28 Clinimix E 4.25%/5% Solution IV CONT 80 mls/hr .Q24H [facility] Administration Protocol Fat Emulsion Intravenous 250 mls @ 20.833 mls/hr 10/03/24 14:00 10/06/24 15:28 Lipids 20% IVPB 20.83 mls/hr Q24H [facility] Administration Insulin Human Regular 0 units 10/03/24 18:00 10/07/24 09:07 Insulin Human Regular (*Bkc) 100 Units/Ml SUB-Q Not Given Q6HR [facility] Protocol Lisinopril 5 mg 09/27/24 09:00 10/07/24 09:05 Lisinopril 5 Mg Tablet PO Not Given QAM [facility] Lorazepam 0.25 mg 10/04/24 13:28 10/07/24 09:18 Lorazepam Inj (*Crx) 2 Mg/Ml Vial IV PUSH 0.25 mg BID PRN Administration Anxiety Metoprolol Tartrate 5 mg 10/03/24 15:19 Metoprolol Tartrate Inj 5 Mg/5 Ml Vial IV PUSH Q6HR PRN Tachycardia Ondansetron HCl 4 mg 09/21/24 22:50 10/07/24 09:18 Ondansetron Inj 4 Mg/2 Ml Vial IV PUSH 4 mg Q4H PRN Administration Nausea Promethazine HCl 12.5 mg 09/22/24 09:57 10/04/24 19:59 Promethazine Hcl 25 Mg/Ml Ampul IV PUSH 12.5 mg Q6H PRN Administration Nausea And Vomiting Sodium Chloride 10 ml 10/06/24 22:00 10/07/24 05:25 Saline Lock Flush IV PUSH 10 ml Q8HR [facility] Administration Sodium Chloride 10 ml 10/06/24 14:58 Saline Lock Flush IV PUSH PRN PRN Flush Sodium Chloride 20 ml 10/06/24 14:58 Saline Lock Flush IV PUSH PRN PRN after blood draws Sotalol HCl 40 mg 09/22/24 09:00 10/07/24 09:06 Sotalol Hcl 40 Mg Tablet PO Not Given Q12HR [facility] Trazodone HCl 50 mg 09/22/24 22:25 10/06/24 20:22 Trazodone Hcl 50 Mg Tablet PO Not Given HS [facility] Radiology Results: ITS Impressions Chest X-Ray 09/21/24 19:27 IMPRESSION: No acute cardiopulmonary process. Abdomen Ultrasound 09/22/24 19:31 IMPRESSION: Cholelithiasis. Possibility of cholecystitis cannot be excluded. Clinical correlation advised. Bilateral renal cysts. Small left hepatic lobe cyst. Hepatobiliary Scan Nuclear Medicine 09/25/24 12:18 IMPRESSION: 1. Normal hepatobiliary scan. Modified Barium Swallow 10/02/24 10:47 IMPRESSION: 1. Aspiration. 2. Please refer to the speech therapy report for recommendations. Labs Labs: Laboratory Results - last 24 hr 10/06/24 10/06/24 10/06/24 05:53 11:53 18:41 WBC RBC Hgb Hct MCV MCH MCHC RDW Plt Count MPV Immature Gran % (Auto) Neut % (Auto) Lymph % (Auto) [place] % (Auto) Eos % (Auto) Baso % (Auto) Lymph # (Auto) [place] # (Auto) Eos # (Auto) Baso # (Auto) Abs Immat Gran (auto) Absolute Neuts (auto) Absolute Nucleated RBC Nucleated RBC % Sodium Potassium Chloride Carbon Dioxide Anion Gap BUN Creatinine Estim Creat Clear Calc Estimated GFR Glucose POC Capillary Glucose 135 H 125 H Calcium Phosphorus Magnesium Total Bilirubin AST ALT Alkaline Phosphatase Total Protein Albumin Triglycerides 140 10/07/24 10/07/24 10/07/24 00:10 06:25 06:45 WBC 7.9 RBC 3.47 L Hgb 9.8 L Hct 31.0 L MCV 89.3 MCH 28.2 MCHC 31.6 L RDW 15.7 H Plt Count 207 MPV 11.4 H Immature Gran % (Auto) 0.5 Neut % (Auto) 59.3 Lymph % (Auto) 28.1 [place] % (Auto) 9.1 H Eos % (Auto) 2.5 Baso % (Auto) 0.5 Lymph # (Auto) 2.23 [place] # (Auto) 0.7 H Eos # (Auto) 0.2 Baso # (Auto) 0.0 Abs Immat Gran (auto) 0.04 H Absolute Neuts (auto) 4.7 Absolute Nucleated RBC 0.000 Nucleated RBC % 0.0 Sodium 141 Potassium 3.4 Chloride 108 H Carbon Dioxide 27 Anion Gap 6 BUN 51 H Creatinine 1.55 H Estim Creat Clear Calc 20 Estimated GFR 43 L Glucose 97 POC Capillary Glucose 103 94 Calcium 8.7 Phosphorus 4.6 H Magnesium 2.5 H Total Bilirubin 0.5 AST 21 ALT 11 Alkaline Phosphatase 116 Total Protein 5.0 L Albumin 2.4 L Triglycerides 10/07/24 08:03 WBC RBC Hgb Hct MCV MCH MCHC RDW Plt Count MPV Immature Gran % (Auto) Neut % (Auto) Lymph % (Auto) [place] % (Auto) Eos % (Auto) Baso % (Auto) Lymph # (Auto) [place] # (Auto) Eos # (Auto) Baso # (Auto) Abs Immat Gran (auto) Absolute Neuts (auto) Absolute Nucleated RBC Nucleated RBC % Sodium Potassium Chloride Carbon Dioxide Anion Gap BUN Creatinine Estim Creat Clear Calc Estimated GFR Glucose POC Capillary Glucose 108 H Calcium Phosphorus Magnesium Total Bilirubin AST ALT Alkaline Phosphatase Total Protein Albumin Triglycerides
[2024-10-07 12:05] LABS: Glucose Point of Care 108 mg/dl (65-105)
--- NOTE | 2024-10-07 13:40 | P.CONGI_ITS ---
Assessment and Plan Assessment and plan (1) Dysphagia: Code(s): R13.10 - Dysphagia, unspecified Status: Acute Assessment and Plan: failed swallow test and risk of aspiration with weight loss will consider peg placement Wednesday if family is agreeable (2) Unintentional weight loss: Code(s): R63.4 - Abnormal weight loss Status: Chronic Assessment and Plan: on TPN for now (3) Protein-calorie malnutrition, moderate: Code(s): E44.0 - Moderate protein-calorie malnutrition Status: Acute (4) Adult failure to thrive: Code(s): R62.7 - Adult failure to thrive Status: Chronic (5) CKD (chronic kidney disease), stage III: Code(s): N18.3 - Chronic kidney disease, stage 3 (moderate) Status: Acute (6) Acute hyponatremia: Code(s): E87.1 - Hypo-osmolality and hyponatremia Status: Acute Assessment and Plan: on admission and was already treated (7) Prostate CA: Code(s): C61 - Malignant neoplasm of prostate Status: Chronic GI Consult Note Consult date/time: 10/07/24 13:40 Reason for consult: dysphagia, malnutrition HPI: Trevor Condon Jr. is a 88 year old male with past medical history significant for prostate CA, chronic kidney disease, anxiety, hypertension admitted 09/21 with failure to thrive and poor oral intake, weight loss, generalized weakness. Evaluated but surgery because cholelithiasis but no indication for surgery, he failed swallowing study and now getting TPN, he has dysphagia and family considering PEG placement. Review of Systems 2 Constitutional: Constitutional: Reports fatigue and Reports lethargy Eyes: Eyes: Denies blurry vision ENT: Reports dysphagia Cardiovascular: Cardiovascular: Denies chest pain Respiratory: Respiratory: Denies chest congestion Gastrointestinal: Gastrointestinal: Reports no additional gastrointestinal complaints Genitourinary: Genitourinary: Denies dysuria Musculoskeletal: Musculoskeletal: Denies neck pain Integumentary/Breasts: Skin/Breast: Denies rash Neurologic: Denies Abnormal speech present Psychiatric: Psychiatric: Reports anxiety REPLACED BY [facility] Past Medical History Medical History Prostatism Thoracic aortic aneurysm (TAA) CKD (chronic kidney disease), stage III H/O Malignant melanoma Anxiety Mixed hyperlipidemia Essential hypertension Surgical History Surgical History H/O hernia repair Family History Family History Father Hypertension Mother Hypertension Sibling Hypertension Social History Social History Smoking packs per day: 0.5 Smoking cigarettes per day: 10.0 Years smoked: 10 Smoking pack-years: 5.00 Smoking status: Former smoker Second hand tobacco smoke exposure: No Alcohol intake: former Alcohol use details: social Substance use: never Substance use type: does not use Do You Feel Safe in your Home?: Yes Lack of Transportation: No Lack of Food: Never True Current Housing: I Have Housing Concerned About Future Housing: No Difficulty Paying Gas/Electric Bills: No Difficulty Paying for Meds: No Currently Unemployed: No Education: Trade/Vocational Certificate Difficulty w/ Childcare or Family Care: No Gender identity (if verbalized by the patient): Male Sexual Orientation (if Verbalized by the Patient): Straight or Heterosexual Spiritual care concerns: No Agree to blood products: Yes Meds Home Medications and Allergies Home Medications ?Medication ?Instructions ?Recorded ?Confirmed ?Type multivitamin 1 tablet PO DAILY 12/08/19 09/22/24 History sotalol 80 mg tablet 40 mg PO DAILY 09/14/23 09/22/24 History albuterol sulfate 90 mcg/actuation 2 inh inhalation Q4H PRN shortness 08/30/24 09/22/24 Rx aerosol inhaler of breath or wheezing #8.5 grams enzalutamide 80 mg tablet (Xtandi) 80 mg PO DAILY 08/30/24 09/22/24 History fluticasone propionate 50 2 spray intranasal DAILY #16 grams 08/30/24 09/22/24 Rx mcg/actuation nasal spray,suspension (Children's Flonase Allergy Relief) lorazepam 0.5 mg tablet 0.5 mg PO TID PRN anxiety #90 tabs 09/01/24 09/22/24 Rx escitalopram oxalate 5 mg tablet 5 mg PO DAILY #30 tabs 09/07/24 09/22/24 Rx (Lexapro) dicyclomine 20 mg tablet 20 mg PO TID PRN abdominal pain 09/13/24 09/22/24 Rx #20 tabs famotidine 20 mg tablet See Rx Instructions .Route 09/13/24 09/22/24 Rx .COMPLEX #90 tabs ondansetron 4 mg disintegrating See Rx Instructions .Route 09/18/24 09/22/24 Rx tablet .COMPLEX #10 tabs doxazosin 8 mg tablet See Rx Instructions .Route 09/19/24 09/22/24 Rx .COMPLEX #90 tabs apixaban 2.5 mg tablet (Eliquis) 2.5 mg PO .q12hr 09/22/24 09/22/24 History Allergies Allergy/AdvReac Type Severity Reaction Status Date / Time latex Allergy Mild Rash Verified 09/22/24 02:17 Vital Signs Vital Signs - 24 hr 10/06/24 14:00 10/06/24 20:00 10/06/24 22:00 Temperature 98.4 F 97.9 F Pulse Rate 75 75 62 Respiratory Rate 16 16 18 Blood Pressure 149/79 H 168/89 H Pulse Oximetry 98 98 96 Oxygen Delivery Room Air Fraction of Inspired Oxygen 21 10/07/24 06:00 10/07/24 08:47 Temperature 97.4 F L Pulse Rate 60 Respiratory Rate 18 Blood Pressure 148/90 H Pulse Oximetry 97 Oxygen Delivery Room Air Fraction of Inspired Oxygen Exam 2 Const: General: comfortable, no acute distress, alert, awake, ill appearing chronically, malnourished and underweight HENMT: Head: normal to inspection and normocephalic Other: Bitemporal muscle wasting Eyes: General: appearance normal, both eyes and all related structures Neck: Neck: full ROM Resp: Effort & Inspection: normal respiratory effort and able to speak in complete sentences Cardio: Jugular venous distension: no JVD Rate: regular rate Rhythm: r egular rhythm GI: GI Palp: Yes Soft to palpation and No Tenderness to palpation present (GI) Auscultation: normal bowel sounds : General: Yes deferred Skin: Rashes: no rashes Neuro: General: patient oriented x3 Extrem: General: normal to inspection Psych: Affect: Anxious affect present Results Labs 10/07/24 06:45 10/07/24 06:45 Labs: Short CBC 10/07/24 Range/Units 06:45 WBC 7.9 (4.5-10.0) K/mm3 Hgb 9.8 L (14.0-18.0) g/dL Hct 31.0 L (42.0-52.0) % Plt Count 207 (150-375) k/mm3 BMP 10/07/24 06:45 Sodium 141 Potassium 3.4 Chloride 108 H Carbon Dioxide 27 BUN 51 H Creatinine 1.55 H Glucose 97 Calcium 8.7 Liver Function 10/07/24 Range/Units 06:45 Total Bilirubin 0.5 (0.2-1.3) mg/dL AST 21 (17-59) U/L ALT 11 (6-50) U/L Alkaline Phosphatase 116 (38-126) U/L Albumin 2.4 L (3.5-5.1) g/dL Urine 10/07/24 Range/Units 10:02 Urine Color Yellow (Yellow) Urine Appearance Clear (Clear) Urine pH 7.5 (5.0-9.0) Ur Specific Dike 1.008 (1.001-1.035) Urine Protein Trace (Negative) mg/dL Urine Glucose (UA) Negative (Negative) mg/dL
[2024-10-07 14:00] VITALS: BP 109/55; PULSE 67; RESP 20; TEMP 36.4; O2SAT 95
[2024-10-07] MEDS: AMINO ACIDS 4.25%/D5W/LYTES/CA 2,000 ML 80 ML IV CONT (14:41)
[2024-10-07] MEDS: FAT EMULSIONS IV 20% 250 ML 20.83 ML IVPB (14:41)
[2024-10-07 16:37] LABS: Glucose Point of Care 124 mg/dl (65-105)
[2024-10-07] MEDS: ENOXAPARIN 60 MG/0.6 ML SYRINGE 50 MG SUB-Q (18:09)
[2024-10-07 21:50] VITALS: BP 112/74; PULSE 74; RESP 18; TEMP 36.8; O2SAT 97
[2024-10-08 02:04] LABS: Glucose Point of Care 108 mg/dl (65-105)
[2024-10-08] MEDS: SALINE LOCK FLUSH 10 ML IV PUSH ×3 (05:20→22:00)
[2024-10-08 06:55] VITALS: BP 143/88; PULSE 82; RESP 18; TEMP 36.4; O2SAT 99
[2024-10-08 06:57] LABS: Glucose Point of Care 107 mg/dl (65-105)
[2024-10-08 07:18] LABS: Anion Gap 3 mmol/L (4-12); Blood Urea Nitrogen 59 mg/dL (9-20); Calcium 8.7 mg/dL (8.4-10.2); Carbon Dioxide 27 mmol/L (22-30); Chloride 109 mmol/L (98-107); Estimated CRCL calculation 18 ml/min; Estimated Glomerular Filt Rate 39; Glucose 104 mg/dL (65-110); Phosphorus 5.6 mg/dL (2.5-4.5); Potassium 3.4 mmol/L (3.4-5.0); Sodium 139 mmol/L (137-145)
[2024-10-08] MEDS: FAMOTIDINE 20 MG/2 ML VIAL IV PUSH (08:41)
[2024-10-08] MEDS: FLUTICASONE PROPIONATE 0.05% NA SPR 16 GM BTL (*BKC) 2 SPRAY NASAL (08:42)
[2024-10-08 11:41] LABS: Glucose Point of Care 112 mg/dl (65-105)
--- NOTE | 2024-10-08 11:49 | P.PNIM_ITS ---
Progress Note: A&P Assessment and Plan (1) Acute hyponatremia: Code(s): E87.1 - Hypo-osmolality and hyponatremia Status: Acute Assessment and Plan: NA 139 Currently on NS likely secondary to poor per orally intake resolved monitor (2) Adult failure to thrive: Code(s): R62.7 - Adult failure to thrive Status: Chronic Assessment and Plan: Speech eval recommended non oral feeds Continue PPN Repeat MBS tomorrow by Speech therapist if still aspirating then GI will go ahead with G tube placement (3) Unintentional weight loss: Code(s): R63.4 - Abnormal weight loss Status: Chronic Assessment and Plan: Now on PPN Awaiting G tube placement (4) Protein-calorie malnutrition, moderate: Code(s): E44.0 - Moderate protein-calorie malnutrition Status: Acute Assessment and Plan: Continue above care On Dronabinol (5) Major depression: Code(s): F32.9 - Major depressive disorder, single episode, unspecified Status: Acute Assessment and Plan: Continue Lexapro (6) Afib: Qualifiers: Atrial fibrillation type: paroxysmal Qualified Code(s): I48.0 - Paroxysmal atrial fibrillation Code(s): I48.91 - Unspecified atrial fibrillation Status: Chronic Assessment and Plan: Rate controlled and anticoagulated (7) Prostate CA: Code(s): C61 - Malignant neoplasm of prostate Status: Chronic Assessment and Plan: Follow-up in outpatient setting (8) Dysphagia: Code(s): R13.10 - Dysphagia, unspecified Status: Acute Assessment and Plan: Failed bed swallow Awaiting GI eval for G tube placement Plan Cholelithiasis RUQ US showed Cholelithiasis, HIDA scan negative Completed Doxycycline which was started prior to this hospitalization Cholecystitis ruled out and Gen surgery signed off monitor DVT prophylaxis on Sq Lovenox (eliquis on hold) Awaiting possible G tube placement and SNF placement Subjective Date/time seen: 10/08/24 11:49 Interval history: Patient comfortable at bedside Now PPN Plan is to repeat MBS tomorrow if still aspirating then GI will go ahead and place Gastric tube for onward tube feeding Review of Systems Review of Systems: Generalized weakness, poor appetite, poor per orally intake Exam Narrative: Patient is laying in a stretcher Const: General: comfortable, no acute distress, well developed, alert, awake, ill appearing chronically, malnourished and underweight Nutritional Appearance: malnourished and underweight Orientation/consciousness: patient oriented x3 HENMT: Head: normal to inspection, normocephalic and atraumatic Ears: h earing grossly normal bilaterally Face/Nose/Sinus: normal facial exam Face and sinus: normal facial exam Other: Bitemporal muscle wasting Eyes: General: appearance normal, both eyes and all related structures Pupils: Equal, round and reactive pupils present EOM: EOMs intact bilaterally Neck: Neck: full ROM, no lymphadenopathy and no JVD Thyroid: thyroid normal Lymphatic: no lymphadenopathy noted Resp: Effort & Inspection: normal respiratory effort and able to speak in complete sentences Auscultation: clear to auscultation bilaterally Cardio: Jugular venous distension: no JVD Rate: regular rate Rhythm: regular rhythm Heart sounds: S1 normal heart sound present and S2 normal heart sound present : General: Yes deferred Skin: Rashes: no rashes Wounds: no wounds Neuro: General: patient oriented x3 and CN's II-XI intact bilaterally Cranial nerves: Yes CN's II-XII intact bilaterally and Yes Equal, round and reactive pupils present Cognition (Neuro): normal cognition Speech: normal speech Gait exam (Neuro): Normal gait present Motor exam (neuro): 5/5 motor strength present throughout Extrem: General: normal to inspection, full ROM, no joint enlargement and no pedal edema Objective Data Vital Signs Vital Signs: Vital Signs - 24 hr 10/07/24 14:00 10/07/24 21:50 10/08/24 06:55 Temperature 97.5 F L 98.2 F 97.6 F Pulse Rate 67 74 82 Respiratory Rate 20 18 18 Blood Pressure 109/55 L 112/74 143/88 H Pulse Oximetry 95 97 99 Intake/Output Intake/Output: Intake & Output 10/05/24 10/06/24 10/07/24 10/08/24 23:59 23:59 23:59 23:59 Intake Total 2800 1890 2107.3 250 Output Total 1800 1600 1900 100 Balance 1000 290 207.3 150 Meds/Results Medications: Active Medications Generic Name Dose Route Start Last Admin Trade Name Freq PRN Reason Stop Dose Admin Acetaminophen 650 mg 09/21/24 22:50 09/29/24 20:31 Acetaminophen 325 Mg Tablet PO 650 mg Q4H PRN Administration Mild Pain (1-3) or Fever Acetaminophen 650 mg 10/05/24 05:27 10/05/24 05:55 Acetaminophen 650 Mg Suppository RECTAL 650 mg ONCE PRN Administration Mild Pain (1-3) Or Fever Acetaminophen 650 mg 10/07/24 20:42 Acetaminophen 325 Mg Tablet PO Q4H PRN Headache Albuterol 2 puff 09/22/24 02:42 Albuterol Sulfate (*Sp) Aerosol 1 Puff INHALATION Q4HRT PRN shortness of breath or wheezing Apixaban 2.5 mg 09/22/24 09:00 10/03/24 13:08 Apixaban 2.5 Mg Tablet PO Not Given Q12HR HUE Dicyclomine HCl 20 mg 09/22/24 02:42 09/30/24 16:48 Dicyclomine Hcl 10 Mg Capsule PO 20 mg TID PRN Administration abdominal pain Doxazosin Mesylate 8 mg 09/22/24 09:00 10/07/24 09:05 Doxazosin Mesylate 4 Mg Tablet BY MOUTH Not Given DAILY HUE Enoxaparin Sodium 50 mg 10/03/24 17:00 10/07/24 18:09 Enoxaparin 60 Mg/0.6 Ml Syringe SUB-Q 50 mg Q24H HUE Administration Escitalopram Oxalate 5 mg 09/22/24 09:00 10/06/24 11:47 Escitalopram Oxalate 5 Mg Tablet PO Not Given DAILY HUE Famotidine 20 mg 10/06/24 11:15 10/08/24 08:41 Famotidine 20 Mg/2 Ml Vial IV PUSH 20 mg DAILY HUE Administration Fluticasone Propionate 2 spray 09/22/24 09:00 10/08/24 08:42 Fluticasone Propionate 0.05% Na Spr 16 Gm Btl (*Bkc) NASAL 2 spray DAILY HUE Administration Hydralazine HCl 10 mg 10/06/24 09:39 Hydralazine Hcl 20 Mg/Ml Vial IV PUSH Q4H PRN Blood Pressure - SBP >160 Dextrose 1,000 mls @ 50 mls/hr 10/03/24 12:52 Dextrose 10% IV CONT .Q20H PRN if PN is interrupted Amino Acids/Electrolytes/Dextrose 2,000 mls @ 80 mls/hr 10/03/24 14:00 10/07/24 14:41 Clinimix E 4.25%/5% Solution IV CONT 80 mls/hr .Q24H HUE Administration Protocol Fat Emulsion Intravenous 250 mls @ 20.833 mls/hr 10/03/24 14:00 10/08/24 02:47 Lipids 20% IVPB Infused Q24H HUE Infusion Insulin Human Regular 0 units 10/03/24 18:00 10/08/24 11:42 Insulin Human Regular (*Bkc) 100 Units/Ml SUB-Q Not Given Q6HR [facility] Protocol Lisinopril 5 mg 09/27/24 09:00 10/07/24 09:05 Lisinopril 5 Mg Tablet PO Not Given QAM HUE Lorazepam 0.25 mg 10/04/24 13:28 10/07/24 09:18 Lorazepam Inj (*Crx) 2 Mg/Ml Vial IV PUSH 0.25 mg BID PRN Administration Anxiety Metoprolol Tartrate 5 mg 10/03/24 15:19 Metoprolol Tartrate Inj 5 Mg/5 Ml Vial IV PUSH Q6HR PRN Tachycardia Ondansetron HCl 4 mg 09/21/24 22:50 10/07/24 09:18 Ondansetron Inj 4 Mg/2 Ml Vial IV PUSH 4 mg Q4H PRN Administration Nausea Promethazine HCl 12.5 mg 09/22/24 09:57 10/04/24 19:59 Promethazine Hcl 25 Mg/Ml Ampul IV PUSH 12.5 mg Q6H PRN Administration Nausea And Vomiting Sodium Chloride 10 ml 10/06/24 22:00 10/08/24 05:20 Saline Lock Flush IV PUSH 10 ml Q8HR HUE Administration Sodium Chloride 10 ml 10/06/24 14:58 Saline Lock Flush IV PUSH PRN PRN Flush Sodium Chloride 20 ml 10/06/24 14:58 Saline Lock Flush IV PUSH PRN PRN after blood draws Sotalol HCl 40 mg 09/22/24 09:00 10/07/24 09:06 Sotalol Hcl 40 Mg Tablet PO Not Given Q12HR [facility] Trazodone HCl 50 mg 09/22/24 22:25 10/06/24 20:22 Trazodone Hcl 50 Mg Tablet PO Not Given HS [facility] Radiology Results: ITS Impressions Chest X-Ray 09/21/24 19:27 IMPRESSION: No acute cardiopulmonary process. Abdomen Ultrasound 09/22/24 19:31 IMPRESSION: Cholelithiasis. Possibility of cholecystitis cannot be excluded. Clinical correlation advised. Bilateral renal cysts. Small left hepatic lobe cyst. Hepatobiliary Scan Nuclear Medicine 09/25/24 12:18 IMPRESSION: 1. Normal hepatobiliary scan. Modified Barium Swallow 10/02/24 10:47 IMPRESSION: 1. Aspiration. 2. Please refer to the speech therapy report for recommendations. Labs Labs: Laboratory Results - last 24 hr 10/07/24 10/07/24 10/08/24 11:56 16:12 02:01 Sodium Potassium Chloride Carbon Dioxide Anion Gap BUN Creatinine Estim Creat Clear Calc Estimated GFR Glucose POC Capillary Glucose 108 H 124 H 108 H Calcium Phosphorus 10/08/24 10/08/24 10/08/24 06:52 06:55 11:38 Sodium 139 Potassium 3.4 Chloride 109 H Carbon Dioxide 27 Anion Gap 3 L BUN 59 H Creatinine 1.68 H Estim Creat Clear Calc 18 Estimated GFR 39 L Glucose 104 POC Capillary Glucose 107 H 112 H Calcium 8.7 Phosphorus 5.6 H
[2024-10-08 12:16] LABS: Triglycerides 55 mg/dL (<150)
[2024-10-08] MEDS: AMINO ACIDS 4.25%/D5W/LYTES/CA 2,000 ML 80 ML IV CONT (13:19)
[2024-10-08] MEDS: FAT EMULSIONS IV 20% 250 ML 20.83 ML IVPB (13:19)
[2024-10-08 14:00] VITALS: BP 126/82; PULSE 83; RESP 18; TEMP 36.8; O2SAT 100
--- NOTE | 2024-10-08 14:11 | P.PNGI_ITS ---
Progress Note: A&P Assessment and Plan (1) Dysphagia: Code(s): R13.10 - Dysphagia, unspecified Status: Acute Assessment and Plan: will repeat swallowing test evaluation tomorrow and if fails again then plan is G-tube placement family is agreeable (2) Protein-calorie malnutrition, moderate: Code(s): E44.0 - Moderate protein-calorie malnutrition Status: Acute Assessment and Plan: tpn for now given risk of aspiration and npo status (3) Adult failure to thrive: Code(s): R62.7 - Adult failure to thrive Status: Chronic (4) CKD (chronic kidney disease), stage III: Code(s): N18.3 - Chronic kidney disease, stage 3 (moderate) Status: Acute Subjective Date/time seen: 10/08/24 14:11 Interval history: family at bedside, they noted that patient is slowly getting stronger, still on TPN Review of Systems Review of Systems: All systems reviewed & are unremarkable except as noted in HPI and below Exam Const: General: comfortable, no acute distress, alert, awake, ill appearing chronically, malnourished and underweight HENMT: Head: normal to inspection and normocephalic Other: Bitemporal muscle wasting Eyes: General: appearance normal, both eyes and all related structures Neck: Neck: full ROM Resp: Effort & Inspection: normal respiratory effort and able to speak in complete sentences Cardio: Rate: regular rate Rhythm: regular rhythm GI: GI Palp: Yes Soft to palpation and No Tenderness to palpation present (GI) Auscultation: normal bowel sounds : General: Yes deferred Skin: Rashes: no rashes Neuro: General: patient oriented x3 Extrem: General: normal to inspection Psych: Affect: Anxious affect present Objective Data Vital Signs Vital Signs: Vital Signs - 24 hr 10/07/24 21:50 10/08/24 06:55 Temperature 98.2 F 97.6 F Pulse Rate 74 82 Respiratory Rate 18 18 Blood Pressure 112/74 143/88 H Pulse Oximetry 97 99 Intake/Output Intake/Output: Intake & Output 10/05/24 10/06/24 10/07/24 10/08/24 23:59 23:59 23:59 23:59 Intake Total 2800 1890 2107.3 2060.7 Output Total 1800 1600 1900 100 Balance 1000 290 207.3 1960.7 Meds/Results Medications: Active Medications Generic Name Dose Route Start Last Admin Trade Name Freq PRN Reason Stop Dose Admin Acetaminophen 650 mg 09/21/24 22:50 09/29/24 20:31 Acetaminophen 325 Mg Tablet PO 650 mg Q4H PRN Administration Mild Pain (1-3) or Fever Acetaminophen 650 mg 10/05/24 05:27 10/05/24 05:55 Acetaminophen 650 Mg Suppository RECTAL 650 mg ONCE PRN Administration Mild Pain (1-3) Or Fever Acetaminophen 650 mg 10/07/24 20:42 Acetaminophen 325 Mg Tablet PO Q4H PRN Headache Albuterol 2 puff 09/22/24 02:42 Albuterol Sulfate (*Sp) Aerosol 1 Puff INHALATION Q4HRT PRN shortness of breath or wheezing Apixaban 2.5 mg 09/22/24 09:00 10/03/24 13:08 Apixaban 2.5 Mg Tablet PO Not Given Q12HR [facility] Dicyclomine HCl 20 mg 09/22/24 02:42 09/30/24 16:48 Dicyclomine Hcl 10 Mg Capsule PO 20 mg TID PRN Administration abdominal pain Doxazosin Mesylate 8 mg 09/22/24 09:00 10/07/24 09:05 Doxazosin Mesylate 4 Mg Tablet BY MOUTH Not Given DAILY [facility] Enoxaparin Sodium 50 mg 10/03/24 17:00 10/07/24 18:09 Enoxaparin 60 Mg/0.6 Ml Syringe SUB-Q 50 mg Q24H [facility]UE Administration Escitalopram Oxalate 5 mg 09/22/24 09:00 10/06/24 11:47 Escitalopram Oxalate 5 Mg Tablet PO Not Given DAILY HUE Famotidine 20 mg 10/06/24 11:15 10/08/24 08:41 Famotidine 20 Mg/2 Ml Vial IV PUSH 20 mg DAILY [facility]UE Administration Fluticasone Propionate 2 spray 09/22/24 09:00 10/08/24 08:42 Fluticasone Propionate 0.05% Na Spr 16 Gm Btl (*Bkc) NASAL 2 spray DAILY [facility]UE Administration Hydralazine HCl 10 mg 10/06/24 09:39 Hydralazine Hcl 20 Mg/Ml Vial IV PUSH Q4H PRN Blood Pressure - SBP >160 Dextrose 1,000 mls @ 50 mls/hr 10/03/24 12:52 Dextrose 10% IV CONT .Q20H PRN if PN is interrupted Amino Acids/Electrolytes/Dextrose 2,000 mls @ 80 mls/hr 10/03/24 14:00 10/08/24 13:19 Clinimix E 4.25%/5% Solution IV CONT 80 mls/hr .Q24H [facility] Administration Protocol Fat Emulsion Intravenous 250 mls @ 20.833 mls/hr 10/03/24 14:00 10/08/24 13:19 Lipids 20% IVPB 20.83 mls/hr Q24H [facility] Administration Insulin Human Regular 0 units 10/03/24 18:00 10/08/24 11:42 Insulin Human Regular (*Bkc) 100 Units/Ml SUB-Q Not Given Q6HR [facility] Protocol Lisinopril 5 mg 09/27/24 09:00 10/07/24 09:05 Lisinopril 5 Mg Tablet PO Not Given QAM HUE Lorazepam 0.25 mg 10/04/24 13:28 10/07/24 09:18 Lorazepam Inj (*Crx) 2 Mg/Ml Vial IV PUSH 0.25 mg BID PRN Administration Anxiety Metoprolol Tartrate 5 mg 10/03/24 15:19 Metoprolol Tartrate Inj 5 Mg/5 Ml Vial IV PUSH Q6HR PRN Tachycardia Ondansetron HCl 4 mg 09/21/24 22:50 10/07/24 09:18 Ondansetron Inj 4 Mg/2 Ml Vial IV PUSH 4 mg Q4H PRN Administration Nausea Promethazine HCl 12.5 mg 09/22/24 09:57 10/04/24 19:59 Promethazine Hcl 25 Mg/Ml Ampul IV PUSH 12.5 mg Q6H PRN Administration Nausea And Vomiting Sodium Chloride 10 ml 10/06/24 22:00 10/08/24 13:19 Saline Lock Flush IV PUSH 10 ml Q8HR [facility]UE Administration Sodium Chloride 10 ml 10/06/24 14:58 Saline Lock Flush IV PUSH PRN PRN Flush Sodium Chloride 20 ml 10/06/24 14:58 Saline Lock Flush IV PUSH PRN PRN after blood draws Sotalol HCl 40 mg 09/22/24 09:00 10/07/24 09:06 Sotalol Hcl 40 Mg Tablet PO Not Given Q12HR [facility] Trazodone HCl 50 mg 09/22/24 22:25 10/06/24 20:22 Trazodone Hcl 50 Mg Tablet PO Not Given HS [facility] Radiology Results: ITS Impressions Chest X-Ray 09/21/24 19:27 IMPRESSION: No acute cardiopulmonary process. Abdomen Ultrasound 09/22/24 19:31 IMPRESSION: Cholelithiasis. Possibility of cholecystitis cannot be excluded. Clinical correlation advised. Bilateral renal cysts. Small left hepatic lobe cyst. Hepatobiliary Scan Nuclear Medicine 09/25/24 12:18 IMPRESSION: 1. Normal hepatobiliary scan. Modified Barium Swallow 10/02/24 10:47 IMPRESSION: 1. Aspiration. 2. Please refer to the speech therapy report for recommendations. Labs Labs: Laboratory Results - last 24 hr 10/07/24 10/08/24 10/08/24 16:12 02:01 06:52 Sodium 139 Potassium 3.4 Chloride 109 H Carbon Dioxide 27 Anion Gap 3 L BUN 59 H Creatinine 1.68 H Estim Creat Clear Calc 18 Estimated GFR 39 L Glucose 104 POC Capillary Glucose 124 H 108 H Calcium 8.7 Phosphorus 5.6 H Triglycerides 55 10/08/24 10/08/24 06:55 11:38 Sodium Potassium Chloride Carbon Dioxide Anion Gap BUN Creatinine Estim Creat Clear Calc Estimated GFR Glucose POC Capillary Glucose 107 H 112 H Calcium Phosphorus Triglycerides
[2024-10-08 18:26] LABS: Glucose Point of Care 108 mg/dl (65-105)
[2024-10-08] MEDS: LORazepam INJ (*CRX) 2 MG/ML VIAL 0.25 MG IV PUSH (21:35)
[2024-10-08 21:44] VITALS: BP 145/85; PULSE 80; RESP 16; TEMP 36.6; O2SAT 100
[2024-10-08 23:46] LABS: Glucose Point of Care 97 mg/dl (65-105)
[2024-10-09 05:14] VITALS: BP 138/85; PULSE 65; RESP 18; TEMP 36.6; O2SAT 99
[2024-10-09 05:52] LABS: Glucose Point of Care 117 mg/dl (65-105)
[2024-10-09] MEDS: SALINE LOCK FLUSH 10 ML IV PUSH ×3 (07:34→22:00)
[2024-10-09] MEDS: FAMOTIDINE 20 MG/2 ML VIAL IV PUSH (08:41)
[2024-10-09] MEDS: FLUTICASONE PROPIONATE 0.05% NA SPR 16 GM BTL (*BKC) 2 SPRAY NASAL (08:43)
[2024-10-09] MEDS: ONDANSETRON INJ 4 MG/2 ML VIAL IV PUSH ×2 (08:45→15:05)
[2024-10-09] MEDS: LORazepam INJ (*CRX) 2 MG/ML VIAL 0.25 MG IV PUSH (08:45)
[2024-10-09 09:08] LABS: Basophils Percent Auto 0.3 % (0.2-1.2); Eosinophils Absolute Auto 0.2 K/mm3 (0-0.3); Eosinophils Percent Auto 3.3 % (0-4.4); Hematocrit 27.9 % (42.0-52.0); Hemoglobin 9.1 g/dL (14.0-18.0); Immature Granulocyte Absolute 0.03 K/mm3 (0.00-0.031); Immature Granulocyte Percent A 0.5 % (0-0.5); Lymphocytes Absolute Auto 1.66 K/mm3 (0.9-3.2); Mean Corpuscular HGB Conc 32.6 g/dl (32-36); Mean Corpuscular Hemoglobin 28.9 pg (26-34); Mean Corpuscular Volume 88.6 fl (80-100); Monocytes Absolute Auto 0.6 K/mm3 (0.1-0.6); Monocytes Percent Auto 10.1 % (2.6-8.5); Neutrophils Absolute Auto 3.6 K/mm3 (1.3-6.7); Neutrophils Percent Auto 58.8 % (45.5-73.1); Platelet Count Result 198 k/mm3 (150-375); Red Blood Count 3.15 M/mm3 (4.6-6.20); Red Cell Distribution Width 15.7 % (11.5-14.5); White Blood Count 6.1 K/mm3 (4.5-10.0)
[2024-10-09 09:20] LABS: Partial Thromboplastin Time 31.5 Seconds (22.3-36.8); Prothrombin Time 14.1 Seconds (11.1-14.7)
[2024-10-09 09:22] LABS: Alanine Aminotransferase 10 U/L (6-50); Albumin Level 2.5 g/dL (3.5-5.1); Alkaline Phosphatase 103 U/L (38-126); Anion Gap 3 mmol/L (4-12); Aspartate Amino Transferase 18 U/L (17-59); Bilirubin,Total 0.6 mg/dL (0.2-1.3); Blood Urea Nitrogen 61 mg/dL (9-20); Calcium 8.6 mg/dL (8.4-10.2); Carbon Dioxide 29 mmol/L (22-30); Chloride 108 mmol/L (98-107); Estimated CRCL calculation 19 ml/min; Estimated Glomerular Filt Rate 41; Glucose 103 mg/dL (65-110); Magnesium 2.6 mg/dL (1.6-2.3); Phosphorus 5.2 mg/dL (2.5-4.5); Potassium 3.7 mmol/L (3.4-5.0); Sodium 140 mmol/L (137-145)
[2024-10-09 09:29] LABS: Transferrin 103 mg/dL (206-381)
[2024-10-09 12:56] LABS: Glucose Point of Care 102 mg/dl (65-105)
[2024-10-09 14:00] VITALS: BP 125/86; PULSE 67; RESP 16; TEMP 36.2; O2SAT 100
--- NOTE | 2024-10-09 14:41 | PCSTNOTE ---
Please refer to the Modified Barium Swallow Evaluation in the EMR. REPEAT MBS RESULTS: The pt was seen for a repeat MBS with the previous test being on 10/02. Pt was seated for a lateral view; he appeared much more alert c/t previous evaluation. He was presented with thin liquids, mildly thick liquid, and pudding in controlled amounts via a spoon. The oral stages were within functional limits; during the pharyngeal stage, reduced laryngeal elevation was exhibited as evidenced by severe pyriform sinus residue; additionally small bony protrusions were exhibited at the level of C5/6 with concern that the UES may not be relaxing to its fullest capacity (contributing to the excess pyriform sinus residuals noted with all trials). Reduced laryngeal elevation and adduction was noted as well as evidenced by laryngeal penetration and (silent) aspiration (of thin liquids) during the swallow. The residuals spilled into the laryngeal vestibule and were intermittently aspirated after the swallows with all trials. Despite verbal cues and coaching during the evaluation, the pt was not able to sufficiently clear the residue which never completely eliminates aspiration risk. At this time, unfortunately NPO is still recommended. GI consult is also recommended to further investigate the efficient relaxation of the UES. ST will continue dysphagia therapy.
[2024-10-09] MEDS: FAT EMULSIONS IV 20% 250 ML 20.83 ML IVPB (14:50)
[2024-10-09] MEDS: AMINO ACIDS 4.25%/D5W/LYTES/CA 2,000 ML 80 ML IV CONT (14:51)
--- NOTE | 2024-10-09 15:03 | PCOTNOTE ---
Attempted OT treatment session this P.M. Patient, his and grandson are having a family talk about decisions to be made. Patient and his family declined therapy session this P.M.
--- NOTE | 2024-10-09 15:42 | PM.IMPN ---
Progress Note: A&P Assessment and Plan (1) Acute hyponatremia: Code(s): E87.1 - Hypo-osmolality and hyponatremia Status: Acute Assessment and Plan: NA 140 resolved monitor (2) Adult failure to thrive: Code(s): R62.7 - Adult failure to thrive Status: Chronic Assessment and Plan: Speech eval recommended no oral feeds Continue PPN Failed MBS 2 times GI will evaluate for G tube placement (3) Unintentional weight loss: Code(s): R63.4 - Abnormal weight loss Status: Chronic Assessment and Plan: Now on PPN Awaiting G tube placement Pending hospice evaluation (4) Protein-calorie malnutrition, moderate: Code(s): E44.0 - Moderate protein-calorie malnutrition Status: Acute Assessment and Plan: Continue above care On Dronabinol (5) Major depression: Code(s): F32.9 - Major depressive disorder, single episode, unspecified Status: Acute Assessment and Plan: Continue Lexapro (6) Afib: Qualifiers: Atrial fibrillation type: paroxysmal Qualified Code(s): I48.0 - Paroxysmal atrial fibrillation Code(s): I48.91 - Unspecified atrial fibrillation Status: Chronic Assessment and Plan: Rate controlled and anticoagulated (7) Prostate CA: Code(s): C61 - Malignant neoplasm of prostate Status: Chronic Assessment and Plan: Follow-up in outpatient setting (8) Dysphagia: Code(s): R13.10 - Dysphagia, unspecified Status: Acute Assessment and Plan: Failed MBS 2 times Awaiting GI eval for G tube placement Plan Cholelithiasis RUQ US showed Cholelithiasis, HIDA scan negative Cholecystitis ruled out and Gen surgery signed off monitor DVT prophylaxis on Sq Lovenox (eliquis on hold) Awaiting possible G tube placement and SNF placement Subjective Date/time seen: 10/09/24 15:42 Interval history: Patient underwent MBS again today. Patient failed MBS and recommended NPO. Discussed with his grandson who is the POA. He wants to discuss the goal of care again with his grandfather. Currently the want to discuss both the options, either placing PEG Tube vs hospice. Both were consulted. Review of Systems Review of Systems: Generalized weakness, poor appetite, poor per orally intake Exam Narrative: Patient is laying in a stretcher Const: General: comfortable, no acute distress, well developed, alert, awake, ill appearing chronically, malnourished and underweight Nutritional Appearance: malnourished and underweight Orientation/consciousness: patient oriented x3 HENMT: Head: normal to inspection, normocephalic and atraumatic Ears: hearing grossly normal bilaterally Face/Nose/Sinus: normal facial exam Face and sinus: normal facial exam Other: Bitemporal muscle wasting Eyes: General: appearance normal, both eyes and all related structures Pupils: Equal, round and reactive pupils present EOM: EOMs intact bilaterally Neck: Neck: full ROM, no lymphadenopathy and no JVD Thyroid: thyroid normal Lymphatic: no lymphadenopathy noted Resp: Effort & Inspection: normal respiratory effort and able to speak in complete sentences Auscultation: clear to auscultation bilaterally Cardio: Jugular venous distension: no JVD Rate: regular rate Rhythm: regular rhythm Heart sounds: S1 normal heart sound present and S2 normal heart sound present : General: Yes deferred Skin: Rashes: no rashes Wounds: no wounds Neuro: General: patient oriented x3 and CN's II-XI intact bilaterally Cranial nerves: Yes CN's II-XII intact bilaterally and Yes Equal, round and reactive pupils present Cognition (Neuro): normal cognition Speech: normal speech Gait exam (Neuro): Normal gait present Motor exam (neuro): 5/5 motor strength present throughout Extrem: General: normal to inspection, full ROM, no joint enlargement and no pedal edema Objective Data Vital Signs Vital Signs: Vital Signs - 24 hr 10/08/24 21:44 10/09/24 05:14 10/09/24 09:13 Temperature 97.8 F 97.9 F Pulse Rate 80 65 Respiratory Rate 16 18 Blood Pressure 145/85 H 138/85 Pulse Oximetry 100 99 Oxygen Delivery Room Air 10/09/24 14:00 Temperature 97.1 F L Pulse Rate 67 Respiratory Rate 16 Blood Pressure 125/86 Pulse Oximetry 100 Oxygen Delivery Intake/Output Intake/Output: Intake & Output 10/06/24 10/07/24 10/08/24 10/09/24 23:59 23:59 23:59 23:59 Intake Total 1890 2107.3 2060.7 2250 Output Total 1600 1900 100 250 Balance 290 207.3 1960.7 1999 Meds/Results Medications: Active Medications Generic Name Dose Route Start Last Admin Trade Name Freq PRN Reason Stop Dose Admin Acetaminophen 650 mg 09/21/24 22:50 09/29/24 20:31 Acetaminophen 325 Mg Tablet PO 650 mg Q4H PRN Administration Mild Pain (1-3) or Fever Acetaminophen 650 mg 10/05/24 05:27 10/05/24 05:55 Acetaminophen 650 Mg Suppository RECTAL 650 mg ONCE PRN Administration Mild Pain (1-3) Or Fever Acetaminophen 650 mg 10/07/24 20:42 Acetaminophen 325 Mg Tablet PO Q4H PRN Headache Albuterol 2 puff 09/22/24 02:42 Albuterol Sulfate (*Sp) Aerosol 1 Puff INHALATION Q4HRT PRN shortness of breath or wheezing Apixaban 2.5 mg 09/22/24 09:00 10/03/24 13:08 Apixaban 2.5 Mg Tablet PO Not Given Q12HR [facility] Dicyclomine HCl 20 mg 09/22/24 02:42 09/30/24 16:48 Dicyclomine Hcl 10 Mg Capsule PO 20 mg TID PRN Administration abdominal pain Doxazosin Mesylate 8 mg 09/22/24 09:00 10/07/24 09:05 Doxazosin Mesylate 4 Mg Tablet BY MOUTH Not Given DAILY [facility] Enoxaparin Sodium 50 mg 10/03/24 17:00 10/08/24 17:57 Enoxaparin 60 Mg/0.6 Ml Syringe SUB-Q Not Given Q24H [facility] Escitalopram Oxalate 5 mg 09/22/24 09:00 10/06/24 11:47 Escitalopram Oxalate 5 Mg Tablet PO Not Given DAILY [facility] Famotidine 20 mg 10/06/24 11:15 10/09/24 08:41 Famotidine 20 Mg/2 Ml Vial IV PUSH 20 mg DAILY [facility] Administration Fluticasone Propionate 2 spray 09/22/24 09:00 10/09/24 08:43 Fluticasone Propionate 0.05% Na Spr 16 Gm Btl (*Bkc) NASAL 2 spray DAILY [facility] Administration Hydralazine HCl 10 mg 10/06/24 09:39 Hydralazine Hcl 20 Mg/Ml Vial IV PUSH Q4H PRN Blood Pressure - SBP >160 Dextrose 1,000 mls @ 50 mls/hr 10/03/24 12:52 Dextrose 10% IV CONT .Q20H PRN if PN is interrupted Amino Acids/Electrolytes/Dextrose 2,000 mls @ 80 mls/hr 10/03/24 14:00 10/09/24 14:51 Clinimix E 4.25%/5% Solution IV CONT 80 mls/hr .Q24H [facility] Administration Protocol Fat Emulsion Intravenous 250 mls @ 20.833 mls/hr 10/03/24 14:00 10/09/24 14:50 Lipids 20% IVPB 20.83 mls/hr Q24H [facility] Administration Insulin Human Regular 0 units 10/03/24 18:00 10/09/24 14:28 Insulin Human Regular (*Bkc) 100 Units/Ml SUB-Q Not Given Q6HR [facility] Protocol Lisinopril 5 mg 09/27/24 09:00 10/07/24 09:05 Lisinopril 5 Mg Tablet PO Not Given QAM [facility] Lorazepam 0.25 mg 10/04/24 13:28 10/09/24 08:45 Lorazepam Inj (*Crx) 2 Mg/Ml Vial IV PUSH 0.25 mg BID PRN Administration Anxiety Metoprolol Tartrate 5 mg 10/03/24 15:19 Metoprolol Tartrate Inj 5 Mg/5 Ml Vial IV PUSH Q6HR PRN Tachycardia Ondansetron HCl 4 mg 09/21/24 22:50 10/09/24 15:05 Ondansetron Inj 4 Mg/2 Ml Vial IV PUSH 4 mg Q4H PRN Administration Nausea Promethazine HCl 12.5 mg 09/22/24 09:57 10/04/24 19:59 Promethazine Hcl 25 Mg/Ml Ampul IV PUSH 12.5 mg Q6H PRN Administration Nausea And Vomiting Sodium Chloride 10 ml 10/06/24 22:00 10/09/24 14:51 Saline Lock Flush IV PUSH 10 ml Q8HR [facility] Administration Sodium Chloride 10 ml 10/06/24 14:58 Saline Lock Flush IV PUSH PRN PRN Flush Sodium Chloride 20 ml 10/06/24 14:58 Saline Lock Flush IV PUSH PRN PRN after blood draws Sotalol HCl 40 mg 09/22/24 09:00 10/07/24 09:06 Sotalol Hcl 40 Mg Tablet PO Not Given Q12HR [facility] Trazodone HCl 50 mg 09/22/24 22:25 10/06/24 20:22 Trazodone Hcl 50 Mg Tablet PO Not Given HS [facility] Radiology Results: ITS Impressions Chest X-Ray 09/21/24 19:27 IMPRESSION: No acute cardiopulmonary process. Abdomen Ultrasound 09/22/24 19:31 IMPRESSION: Cholelithiasis. Possibility of cholecystitis cannot be excluded. Clinical correlation advised. Bilateral renal cysts. Small left hepatic lobe cyst. Hepatobiliary Scan Nuclear Medicine 09/25/24 12:18 IMPRESSION: 1. Normal hepatobiliary scan. Modified Barium Swallow 10/09/24 11:54 IMPRESSION: 1. Aspiration. 2. Please refer to the speech therapy report for recommendations. Labs Labs: Laboratory Results - last 24 hr 10/08/24 10/08/24 10/09/24 18:22 23:44 05:50 WBC RBC Hgb Hct MCV MCH MCHC RDW Plt Count MPV Immature Gran % (Auto) Neut % (Auto) Lymph % (Auto) [place] % (Auto) Eos % (Auto) Baso % (Auto) Lymph # (Auto) [place] # (Auto) Eos # (Auto) Baso # (Auto) Abs Immat Gran (auto) Absolute Neuts (auto) Absolute Nucleated RBC Nucleated RBC % PT INR APTT Sodium Potassium Chloride Carbon Dioxide Anion Gap BUN Creatinine Estim Creat Clear Calc Estimated GFR Glucose POC Capillary Glucose 108 H 97 117 H Calcium Phosphorus Magnesium Transferrin Total Bilirubin AST ALT Alkaline Phosphatase Total Protein Albumin 10/09/24 10/09/24 08:59 12:41 WBC 6.1 RBC 3.15 L Hgb 9.1 L Hct 27.9 L MCV 88.6 MCH 28.9 MCHC 32.6 RDW 15.7 H Plt Count 198 MPV 11.0 H Immature Gran % (Auto) 0.5 Neut % (Auto) 58.8 Lymph % (Auto) 27.0 [place] % (Auto) 10.1 H Eos % (Auto) 3.3 Baso % (Auto) 0.3 Lymph # (Auto) 1.66 [place] # (Auto) 0.6 Eos # (Auto) 0.2 Baso # (Auto) 0.0 Abs Immat Gran (auto) 0.03 Absolute Neuts (auto) 3.6 Absolute Nucleated RBC 0.000 Nucleated RBC % 0.0 PT 14.1 INR 1.0 APTT 31.5 Sodium 140 Potassium 3.7 Chloride 108 H Carbon Dioxide 29 Anion Gap 3 L BUN 61 H Creatinine 1.60 H Estim Creat Clear Calc 19 Estimated GFR 41 L Glucose 103 POC Capillary Glucose 102 Calcium 8.6 Phosphorus 5.2 H Magnesium 2.6 H Transferrin 103 L Total Bilirubin 0.6 AST 18 ALT 10 Alkaline Phosphatase 103 Total Protein 5.0 L Albumin 2.5 L Hospitalist MIPS Advance Care Plan I have confirmed that the patient's Advanced Care Plan is present, code status is documented, or surrogate decision maker is listed in patient medical record.: Yes Medication Reconciliation I have utilized all available resources to obtain, update and review the patients current medications (includes all prescriptions, OTC, herbals, cannabis, and nutritional supplements).: Yes
--- NOTE | 2024-10-09 16:08 | WPDGIPROGNO ---
Progress Note: A&P Assessment and Plan (1) Dysphagia: Code(s): R13.10 - Dysphagia, unspecified Status: Acute Assessment and Plan: aspiration again in MBS family thinking about comfort but will talk to primary team, will hold off G-tube placement until they make final decision (2) Protein-calorie malnutrition, moderate: Code(s): E44.0 - Moderate protein-calorie malnutrition Status: Acute Assessment and Plan: still on tpn given risk of aspiration and npo status (3) Adult failure to thrive: Code(s): R62.7 - Adult failure to thrive Status: Chronic (4) CKD (chronic kidney disease), stage III: Code(s): N18.3 - Chronic kidney disease, stage 3 (moderate) Status: Acute Subjective Date/time seen: 10/09/24 16:08 Interval history: failed again MBS, family now deciding how to proceed and considering hospice Review of Systems Review of Systems: All systems reviewed & are unremarkable except as noted in HPI and below Exam Const: General: comfortable, no acute distress, alert, awake, ill appearing chronically, malnourished and underweight HENMT: Head: normal to inspection Other: Bitemporal muscle wasting Eyes: General: appearance normal, both eyes and all related structures Neck: Neck: full ROM Resp: Effort & Inspection: normal respiratory effort and able to speak in complete sentences Cardio: Rate: regular rate Rhythm: regular rhythm GI: GI Palp: Yes Soft to palpation and No Tenderness to palpation present (GI) Auscultation: normal bowel sounds Skin: Rashes: no rashes Neuro: General: patient oriented x3 Extrem: General: normal to inspection Psych: Affect: Anxious affect present Objective Data Vital Signs Vital Signs: Vital Signs - 24 hr 10/08/24 21:44 10/09/24 05:14 10/09/24 09:13 Temperature 97.8 F 97.9 F Pulse Rate 80 65 Respiratory Rate 16 18 Blood Pressure 145/85 H 138/85 Pulse Oximetry 100 99 Oxygen Delivery Room Air 10/09/24 14:00 Temperature 97.1 F L Pulse Rate 67 Respiratory Rate 16 Blood Pressure 125/86 Pulse Oximetry 100 Oxygen Delivery Intake/Output Intake/Output: Intake & Output 10/06/24 10/07/24 10/08/24 10/09/24 23:59 23:59 23:59 23:59 Intake Total 1890 2107.3 2060.7 2250 Output Total 1600 1900 100 250 Balance 290 207.3 1960.7 1999 Meds/Results Medications: Active Medications Generic Name Dose Route Start Last Admin Trade Name Freq PRN Reason Stop Dose Admin Acetaminophen 650 mg 09/21/24 22:50 09/29/24 20:31 Acetaminophen 325 Mg Tablet PO 650 mg Q4H PRN Administration Mild Pain (1-3) or Fever Acetaminophen 650 mg 10/05/24 05:27 10/05/24 05:55 Acetaminophen 650 Mg Suppository RECTAL 650 mg ONCE PRN Administration Mild Pain (1-3) Or Fever Acetaminophen 650 mg 10/07/24 20:42 Acetaminophen 325 Mg Tablet PO Q4H PRN Headache Albuterol 2 puff 09/22/24 02:42 Albuterol Sulfate (*Sp) Aerosol 1 Puff INHALATION Q4HRT PRN shortness of breath or wheezing Apixaban 2.5 mg 09/22/24 09:00 10/03/24 13:08 Apixaban 2.5 Mg Tablet PO Not Given Q12HR [facility] Dicyclomine HCl 20 mg 09/22/24 02:42 09/30/24 16:48 Dicyclomine Hcl 10 Mg Capsule PO 20 mg TID PRN Administration abdominal pain Doxazosin Mesylate 8 mg 09/22/24 09:00 10/07/24 09:05 Doxazosin Mesylate 4 Mg Tablet BY MOUTH Not Given DAILY [facility] Enoxaparin Sodium 50 mg 10/03/24 17:00 10/08/24 17:57 Enoxaparin 60 Mg/0.6 Ml Syringe SUB-Q Not Given Q24H [facility] Escitalopram Oxalate 5 mg 09/22/24 09:00 10/06/24 11:47 Escitalopram Oxalate 5 Mg Tablet PO Not Given DAILY [facility] Famotidine 20 mg 10/06/24 11:15 10/09/24 08:41 Famotidine 20 Mg/2 Ml Vial IV PUSH 20 mg DAILY [facility] Administration Fluticasone Propionate 2 spray 09/22/24 09:00 10/09/24 08:43 Fluticasone Propionate 0.05% Na Spr 16 Gm Btl (*Bkc) NASAL 2 spray DAILY [facility] Administration Hydralazine HCl 10 mg 10/06/24 09:39 Hydralazine Hcl 20 Mg/Ml Vial IV PUSH Q4H PRN Blood Pressure - SBP >160 Dextrose 1,000 mls @ 50 mls/hr 10/03/24 12:52 Dextrose 10% IV CONT .Q20H PRN if PN is interrupted Amino Acids/Electrolytes/Dextrose 2,000 mls @ 80 mls/hr 10/03/24 14:00 10/09/24 14:51 Clinimix E 4.25%/5% Solution IV CONT 80 mls/hr .Q24H [facility] Administration Protocol Fat Emulsion Intravenous 250 mls @ 20.833 mls/hr 10/03/24 14:00 10/09/24 14:50 Lipids 20% IVPB 20.83 mls/hr Q24H [facility] Administration Insulin Human Regular 0 units 10/03/24 18:00 10/09/24 14:28 Insulin Human Regular (*Bkc) 100 Units/Ml SUB-Q Not Given Q6HR [facility] Protocol Lisinopril 5 mg 09/27/24 09:00 10/07/24 09:05 Lisinopril 5 Mg Tablet PO Not [facility] Lorazepam 0.25 mg 10/04/24 13:28 10/09/24 08:45 Lorazepam Inj (*Crx) 2 Mg/Ml Vial IV PUSH 0.25 mg BID PRN Administration Anxiety Metoprolol Tartrate 5 mg 10/03/24 15:19 Metoprolol Tartrate Inj 5 Mg/5 Ml Vial IV PUSH Q6HR PRN Tachycardia Ondansetron HCl 4 mg 09/21/24 22:50 10/09/24 15:05 Ondansetron Inj 4 Mg/2 Ml Vial IV PUSH 4 mg Q4H PRN Administration Nausea Promethazine HCl 12.5 mg 09/22/24 09:57 10/04/24 19:59 Promethazine Hcl 25 Mg/Ml Ampul IV PUSH 12.5 mg Q6H PRN Administration Nausea And Vomiting Sodium Chloride 10 ml 10/06/24 22:00 10/09/24 14:51 Saline Lock Flush IV PUSH 10 ml Q8HR [facility] Administration Sodium Chloride 10 ml 10/06/24 14:58 Saline Lock Flush IV PUSH PRN PRN Flush Sodium Chloride 20 ml 10/06/24 14:58 Saline Lock Flush IV PUSH PRN PRN after blood draws Sotalol HCl 40 mg 09/22/24 09:00 10/07/24 09:06 Sotalol Hcl 40 Mg Tablet PO Not Given Q12HR [facility] Trazodone HCl 50 mg 09/22/24 22:25 10/06/24 20:22 Trazodone Hcl 50 Mg Tablet PO Not Given HS [facility] Radiology Results: ITS Impressions Chest X-Ray 09/21/24 19:27 IMPRESSION: No acute cardiopulmonary process. Abdomen Ultrasound 09/22/24 19:31 IMPRESSION: Cholelithiasis. Possibility of cholecystitis cannot be excluded. Clinical correlation advised. Bilateral renal cysts. Small left hepatic lobe cyst. Hepatobiliary Scan Nuclear Medicine 09/25/24 12:18 IMPRESSION: 1. Normal hepatobiliary scan. Modified Barium Swallow 10/09/24 11:54 IMPRESSION: 1. Aspiration. 2. Please refer to the speech therapy report for recommendations. Labs Labs: Laboratory Results - last 24 hr 10/08/24 10/08/24 10/09/24 18:22 23:44 05:50 WBC RBC Hgb Hct MCV MCH MCHC RDW Plt Count MPV Immature Gran % (Auto) Neut % (Auto) Lymph % (Auto) [place] % (Auto) Eos % (Auto) Baso % (Auto) Lymph # (Auto) [place] # (Auto) Eos # (Auto) Baso # (Auto) Abs Immat Gran (auto) Absolute Neuts (auto) Absolute Nucleated RBC Nucleated RBC % PT INR APTT Sodium Potassium Chloride Carbon Dioxide Anion Gap BUN Creatinine Estim Creat Clear Calc Estimated GFR Glucose POC Capillary Glucose 108 H 97 117 H Calcium Phosphorus Magnesium Transferrin Total Bilirubin AST ALT Alkaline Phosphatase Total Protein Albumin 10/09/24 10/09/24 08:59 12:41 WBC 6.1 RBC 3.15 L Hgb 9.1 L Hct 27.9 L MCV 88.6 MCH 28.9 MCHC 32.6 RDW 15.7 H Plt Count 198 MPV 11.0 H Immature Gran % (Auto) 0.5 Neut % (Auto) 58.8 Lymph % (Auto) 27.0 [place] % (Auto) 10.1 H Eos % (Auto) 3.3 Baso % (Auto) 0.3 Lymph # (Auto) 1.66 [place] # (Auto) 0.6 Eos # (Auto) 0.2 Baso # (Auto) 0.0 Abs Immat Gran (auto) 0.03 Absolute Neuts (auto) 3.6 Absolute Nucleated RBC 0.000 Nucleated RBC % 0.0 PT 14.1 INR 1.0 APTT 31.5 Sodium 140 Potassium 3.7 Chloride 108 H Carbon Dioxide 29 Anion Gap 3 L BUN 61 H Creatinine 1.60 H Estim Creat Clear Calc 19 Estimated GFR 41 L Glucose 103 POC Capillary Glucose 102 Calcium 8.6 Phosphorus 5.2 H Magnesium 2.6 H Transferrin 103 L Total Bilirubin 0.6 AST 18 ALT 10 Alkaline Phosphatase 103 Total Protein 5.0 L Albumin 2.5 L
[2024-10-09] MEDS: ENOXAPARIN 60 MG/0.6 ML SYRINGE 50 MG SUB-Q (17:12)
[2024-10-09 18:14] LABS: Glucose Point of Care 113 mg/dl (65-105)
[2024-10-09 21:39] VITALS: BP 142/96; PULSE 66; RESP 20; TEMP 36.4; O2SAT 99
[2024-10-09 23:54] LABS: Glucose Point of Care 85 mg/dl (65-105)
[2024-10-10 06:00] VITALS: BP 141/82; PULSE 81; RESP 20; TEMP 36.8; O2SAT 97
[2024-10-10] MEDS: SALINE LOCK FLUSH 10 ML IV PUSH ×3 (07:31→22:55)
[2024-10-10] MEDS: FLUTICASONE PROPIONATE 0.05% NA SPR 16 GM BTL (*BKC) 2 SPRAY NASAL (08:18)
[2024-10-10] MEDS: FAMOTIDINE 20 MG/2 ML VIAL IV PUSH (08:19)
[2024-10-10 10:57] LABS: Anion Gap 9 mmol/L (4-12); Blood Urea Nitrogen 62 mg/dL (9-20); Carbon Dioxide 25 mmol/L (22-30); Chloride 107 mmol/L (98-107); Estimated CRCL calculation 18 ml/min; Estimated Glomerular Filt Rate 40; Glucose 120 mg/dL (65-110); Phosphorus 5.9 mg/dL (2.5-4.5); Potassium 4.4 mmol/L (3.4-5.0); Sodium 141 mmol/L (137-145)
[2024-10-10 12:09] LABS: Glucose Point of Care 109 mg/dl (65-105)
[2024-10-10 12:09] LABS: Triglycerides 87 mg/dL (<150)
--- NOTE | 2024-10-10 13:15 | P.PNIM_ITS ---
Progress Note: A&P Assessment and Plan (1) Acute hyponatremia: Code(s): E87.1 - Hypo-osmolality and hyponatremia Status: Acute Assessment and Plan: resolved monitor (2) Adult failure to thrive: Code(s): R62.7 - Adult failure to thrive Status: Chronic Assessment and Plan: Speech eval recommended no oral feeds Continue PPN Failed MBS 2 times GI will evaluate for G tube placement (3) Unintentional weight loss: Code(s): R63.4 - Abnormal weight loss Status: Chronic Assessment and Plan: Now on PPN Awaiting G tube placement Pending hospice evaluation (4) Protein-calorie malnutrition, moderate: Code(s): E44.0 - Moderate protein-calorie malnutrition Status: Acute Assessment and Plan: Continue above care On Dronabinol (5) Major depression: Code(s): F32.9 - Major depressive disorder, single episode, unspecified Status: Acute Assessment and Plan: Continue Lexapro (6) Afib: Qualifiers: Atrial fibrillation type: paroxysmal Qualified Code(s): I48.0 - Paroxysmal atrial fibrillation Code(s): I48.91 - Unspecified atrial fibrillation Status: Chronic Assessment and Plan: Rate controlled and anticoagulated (7) Prostate CA: Code(s): C61 - Malignant neoplasm of prostate Status: Chronic Assessment and Plan: Follow-up in outpatient setting (8) Dysphagia: Code(s): R13.10 - Dysphagia, unspecified Status: Acute Assessment and Plan: Failed MBS 2 times Awaiting GI eval for G tube placement Plan Cholelithiasis RUQ US showed Cholelithiasis, HIDA scan negative Cholecystitis ruled out and Gen surgery signed off monitor DVT prophylaxis on Sq Lovenox (eliquis on hold) Awaiting possible G tube placement and SNF placement Subjective Date/time seen: 10/10/24 13:15 Interval history: Discussed with his grandson ,who wanted to perform another MBS even though the patient previously failed MBS 2 times. He believes the Ativan has caused him to fail the MBS. In spite of explaining the risk of doing another MBS, and risk of holding Ativan,he persist in doing another MBS. Patient last dose of Ativan was yesterday morning. Ordered another MBS today. 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 Family wants to do PEG tube placement and taking him to rehab. Review of Systems Review of Systems: Generalized weakness, poor appetite, poor per orally intake Exam Narrative: Patient is laying in a stretcher Const: General: comfortable, no acute distress, well developed, alert, awake, ill appearing chronically, malnourished and underweight Nutritional Appearance: malnourished and underweight Orientation/consciousness: patient oriented x3 HENMT: Head: normal to inspection, normocephalic and atraumatic Ears: hear ing grossly normal bilaterally Face/Nose/Sinus: normal facial exam Face and sinus: normal facial exam Other: Bitemporal muscle wasting Eyes: General: appearance normal, both eyes and all related structures Pupils: Equal, round and reactive pupils present EOM: EOMs intact bilaterally Neck: Neck: full ROM, no lymphadenopathy and no JVD Thyroid: thyroid normal Lymphatic: no lymphadenopathy noted Resp: Effort & Inspection: normal respiratory effort and able to speak in complete sentences Auscultation: clear to auscultation bilaterally Cardio: Jugular venous distension: no JVD Rate: regular rate Rhythm: regular rhythm Heart sounds: S1 normal heart sound present and S2 normal heart sound present : General: Yes deferred Skin: Rashes: no rashes Wounds: no wounds Neuro: General: patient oriented x3 and CN's II-XI intact bilaterally Cranial nerves: Yes CN's II-XII intact bilaterally and Yes Equal, round and reactive pupils present Cognition (Neuro): normal cognition Speech: normal speech Gait exam (Neuro): Normal gait present Motor exam (neuro): 5/5 motor strength present throughout Extrem: General: normal to inspection, full ROM, no joint enlargement and no pedal edema Objective Data Vital Signs Vital Signs: Vital Signs - 24 hr 10/09/24 14:00 10/09/24 21:39 10/10/24 06:00 Temperature 97.1 F L 97.5 F L 98.2 F Pulse Rate 67 66 81 Respiratory Rate 16 20 20 Blood Pressure 125/86 142/96 H 141/82 H Pulse Oximetry 100 99 97 Intake/Output Intake/Output: Intake & Output 10/07/24 10/08/24 10/09/24 10/10/24 23:59 23:59 23:59 23:59 Intake Total 2107.3 2060.7 2250 0 Output Total 3685 511 9166 500 Balance 207.3 1960.7 1000 -500 Meds/Results Medications: Active Medications Generic Name Dose Route Start Last Admin Trade Name Freq PRN Reason Stop Dose Admin Acetaminophen 650 mg 09/21/24 22:50 09/29/24 20:31 Acetaminophen 325 Mg Tablet PO 650 mg Q4H PRN Administration Mild Pain (1-3) or Fever Acetaminophen 650 mg 10/05/24 05:27 10/05/24 05:55 Acetaminophen 650 Mg Suppository RECTAL 650 mg ONCE PRN Administration Mild Pain (1-3) Or Fever Acetaminophen 650 mg 10/07/24 20:42 Acetaminophen 325 Mg Tablet PO Q4H PRN Headache Albuterol 2 puff 09/22/24 02:42 Albuterol Sulfate (*Sp) Aerosol 1 Puff INHALATION Q4HRT PRN shortness of breath or wheezing Apixaban 2.5 mg 09/22/24 09:00 10/03/24 13:08 Apixaban 2.5 Mg Tablet PO Not Given Q12HR [facility] Dicyclomine HCl 20 mg 09/22/24 02:42 09/30/24 16:48 Dicyclomine Hcl 10 Mg Capsule PO 20 mg TID PRN Administration abdominal pain Doxazosin Mesylate 8 mg 09/22/24 09:00 10/07/24 09:05 Doxazosin Mesylate 4 Mg Tablet BY MOUTH Not Given DAILY [facility] Enoxaparin Sodium 50 mg 10/03/24 17:00 10/09/24 17:12 Enoxaparin 60 Mg/0.6 Ml Syringe SUB-Q 50 mg Q24H [facility] Administration Escitalopram Oxalate 5 mg 09/22/24 09:00 10/06/24 11:47 Escitalopram Oxalate 5 Mg Tablet PO Not Given DAILY [facility] Famotidine 20 mg 10/06/24 11:15 10/10/24 08:19 Famotidine 20 Mg/2 Ml Vial IV PUSH 20 mg DAILY [facility] Administration Fluticasone Propionate 2 spray 09/22/24 09:00 10/10/24 08:18 Fluticasone Propionate 0.05% Na Spr 16 Gm Btl (*Bkc) NASAL 2 spray DAILY [facility] Administration Hydralazine HCl 10 mg 10/06/24 09:39 Hydralazine Hcl 20 Mg/Ml Vial IV PUSH Q4H PRN Blood Pressure - SBP >160 Dextrose 1,000 mls @ 50 mls/hr 10/03/24 12:52 Dextrose 10% IV CONT .Q20H PRN if PN is interrupted Amino Acids/Electrolytes/Dextrose 2,000 mls @ 80 mls/hr 10/03/24 14:00 10/09/24 14:51 Clinimix E 4.25%/5% Solution IV CONT 80 mls/hr .Q24H [facility] Administration Protocol Fat Emulsion Intravenous 250 mls @ 20.833 mls/hr 10/03/24 14:00 10/09/24 14:50 Lipids 20% IVPB 20.83 mls/hr Q24H [facility] Administration Insulin Human Regular 0 units 10/03/24 18:00 10/10/24 12:11 Insulin Human Regular (*Bkc) 100 Units/Ml SUB-Q Not Given Q6HR [facility] Protocol Lisinopril 5 mg 09/27/24 09:00 10/07/24 09:05 Lisinopril 5 Mg Tablet PO Not Given QAM [facility] Lorazepam 0.25 mg 10/04/24 13:28 10/09/24 08:45 Lorazepam Inj (*Crx) 2 Mg/Ml Vial IV PUSH 0.25 mg BID PRN Administration Anxiety Metoprolol Tartrate 5 mg 10/03/24 15:19 Metoprolol Tartrate Inj 5 Mg/5 Ml Vial IV PUSH Q6HR PRN Tachycardia Ondansetron HCl 4 mg 09/21/24 22:50 10/09/24 15:05 Ondansetron Inj 4 Mg/2 Ml Vial IV PUSH 4 mg Q4H PRN Administration Nausea Promethazine HCl 12.5 mg 09/22/24 09:57 10/04/24 19:59 Promethazine Hcl 25 Mg/Ml Ampul IV PUSH 12.5 mg Q6H PRN Administration Nausea And Vomiting Sodium Chloride 10 ml 10/06/24 22:00 10/10/24 07:31 Saline Lock Flush IV PUSH 10 ml Q8HR [facility]UE Administration Sodium Chloride 10 ml 10/06/24 14:58 Saline Lock Flush IV PUSH PRN PRN Flush Sodium Chloride 20 ml 10/06/24 14:58 Saline Lock Flush IV PUSH PRN PRN after blood draws Sotalol HCl 40 mg 09/22/24 09:00 10/07/24 09:06 Sotalol Hcl 40 Mg Tablet PO Not Given Q12HR [facility] Trazodone HCl 50 mg 09/22/24 22:25 10/06/24 20:22 Trazodone Hcl 50 Mg Tablet PO Not Given HS [facility] Radiology Results: ITS Impressions Chest X-Ray 09/21/24 19:27 IMPRESSION: No acute cardiopulmonary process. Abdomen Ultrasound 09/22/24 19:31 IMPRESSION: Cholelithiasis. Possibility of cholecystitis cannot be excluded. Clinical correlation advised. Bilateral renal cysts. Small left hepatic lobe cyst. Hepatobiliary Scan Nuclear Medicine 09/25/24 12:18 IMPRESSION: 1. Normal hepatobiliary scan. Modified Barium Swallow 10/09/24 11:54 IMPRESSION: 1. Aspiration. 2. Please refer to the speech therapy report for recommendations. Labs Labs: Laboratory Results - last 24 hr 10/09/24 10/09/24 10/10/24 18:09 23:50 09:36 Sodium Potassium Chloride Carbon Dioxide Anion Gap BUN Creatinine Estim Creat Clear Calc Estimated GFR Glucose POC Capillary Glucose 113 H 85 Calcium Phosphorus Triglycerides 87 10/10/24 10/10/24 09:42 12:05 Sodium 141 Potassium 4.4 Chloride 107 Carbon Dioxide 25 Anion Gap 9 BUN 62 H Creatinine 1.64 H Estim Creat Clear Calc 18 Estimated GFR 40 L Glucose 120 H POC Capillary Glucose 109 H Calcium 9.0 Phosphorus 5.9 H Triglycerides Hospitalist MIPS Advance Care Plan I have confirmed that the patient's Advanced Care Plan is present, code status is documented, or surrogate decision maker is listed in patient medical record.: Yes Medication Reconciliation I have utilized all available resources to obtain, update and review the patients current medications (includes all prescriptions, OTC, herbals, cannabis, and nutritional supplements).: Yes
--- NOTE | 2024-10-10 13:31 | PCNFU ---
Nutrition Follow-Up Complete: Severe protein calorie malnutrition related to reduced po intake as evidenced by family report of poor po intake for greater than 1 month, a significant weight loss of -25% x 6 months, and NFPE findings for severe subcutaneous fat loss (cheeks) and severe muscle wasting (temples, clavicle, shoulders). Goal:PO intake greater than 50% of meals - N/A at this time. Pt is NPO Pt is meeting 60% of estimated needs, 100% of protein needs via PPN Pt current nutrition is NPO. Nutrition recommendation: consider PEG placement with tube feeding Last recorded weight is 44.6 kg. Bowel Motility: +BM 10/08 Labs Reviewed: Hgb:9.1, HCT:27.9, Alb:2.5, BUN:61, Cr:1.6 Meds Noted: eliquis Skin: WNL Additional Notes: Pt and family have been in discussion of hospice care vs PEG placement. Failed a second MBS on 10/09. Grandson is concerned that the pt taking Ativan contributed to his swallow issues and would like another speech evaluation with d/c of ativan. Family did talk with hospice today. Decision made today to proceed with discontinuing ativan, further speech evaluation, and PEG placement as needed with SNF placement after. Noted tube feeding recommendations should pt receive a PEG: recommend Jevity 1.5 @ goal rate 55 ml/h. Flush 150 ml q 4 hours for total free water 1820 ml/d. Start at 30 ml/h and advance 10 ml q 4 hours as tolerated. to provide 1815 kcal, 77 g protein, 920 ml free water. D/C PPN when tube feeding is started Monitor intake, wt, labs. Follow up every Wednesday and Wednesday.
[2024-10-10 14:00] VITALS: BP 134/99; PULSE 80; RESP 16; TEMP 36.7; O2SAT 98
--- NOTE | 2024-10-10 14:50 | P.PNGI_ITS ---
Progress Note: A&P Assessment and Plan (1) Dysphagia: Code(s): R13.10 - Dysphagia, unspecified Status: Acute Assessment and Plan: will try another evaluation with MBS, if aspiration then family is agreeable to proceed with g-tube will reassess (2) Protein-calorie malnutrition, moderate: Code(s): E44.0 - Moderate protein-calorie malnutrition Status: Acute Assessment and Plan: still on tpn given risk of aspiration and npo status (3) Adult failure to thrive: Code(s): R62.7 - Adult failure to thrive Status: Chronic (4) CKD (chronic kidney disease), stage III: Code(s): N18.3 - Chronic kidney disease, stage 3 (moderate) Status: Acute Subjective Date/time seen: 10/10/24 14:50 Interval history: no changes, today will get another MBS- family decided to proceed with g-tube if still shows aspiration. Review of Systems Review of Systems: All systems reviewed & are unremarkable except as noted in HPI and below Exam Const: General: comfortable, no acute distress, alert, awake, ill appearing chronically, malnourished and underweight HENMT: Head: normal to inspection Other: Bitemporal muscle wasting Eyes: General: appearance normal, both eyes and all related structures Neck: Neck: full ROM Resp: Effort & Inspection: normal respiratory effort and able to speak in complete sentences Cardio: Rate: regular rate Rhythm: regular rhythm GI: GI Palp: Yes Soft to palpation and No Tenderness to palpation present (GI) Auscultation: normal bowel sounds Skin: Rashes: no rashes Neuro: General: patient oriented x3 Extrem: General: normal to inspection Psych: Affect: Anxious affect present Objective Data Vital Signs Vital Signs: Vital Signs - 24 hr 10/09/24 21:39 10/10/24 06:00 Temperature 97.5 F L 98.2 F Pulse Rate 66 81 Respiratory Rate 20 20 Blood Pressure 142/96 H 141/82 H Pulse Oximetry 99 97 Intake/Output Intake/Output: Intake & Output 10/07/24 10/08/24 10/09/24 10/10/24 23:59 23:59 23:59 23:59 Intake Total 2107.3 2060.7 2250 0 Output Total 8862 916 7668 500 Balance 207.3 1960.7 1000 -500 Meds/Results Medications: Active Medications Generic Name Dose Route Start Last Admin Trade Name Freq PRN Reason Stop Dose Admin Acetaminophen 650 mg 09/21/24 22:50 09/29/24 20:31 Acetaminophen 325 Mg Tablet PO 650 mg Q4H PRN Administration Mild Pain (1-3) or Fever Acetaminophen 650 mg 10/05/24 05:27 10/05/24 05:55 Acetaminophen 650 Mg Suppository RECTAL 650 mg ONCE PRN Administration Mild Pain (1-3) Or Fever Acetaminophen 650 mg 10/07/24 20:42 Acetaminophen 325 Mg Tablet PO Q4H PRN Headache Albuterol 2 puff 09/22/24 02:42 Albuterol Sulfate (*Sp) Aerosol 1 Puff INHALATION Q4HRT PRN shortness of breath or wheezing Apixaban 2.5 mg 09/22/24 09:00 10/03/24 13:08 Apixaban 2.5 Mg Tablet PO Not Given Q12HR [facility] Dicyclomine HCl 20 mg 09/22/24 02:42 09/30/24 16:48 Dicyclomine Hcl 10 Mg Capsule PO 20 mg TID PRN Administration abdominal pain Doxazosin Mesylate 8 mg 09/22/24 09:00 10/07/24 09:05 Doxazosin Mesylate 4 Mg Tablet BY MOUTH Not Given DAILY [facility] Enoxaparin Sodium 50 mg 10/03/24 17:00 10/09/24 17:12 Enoxaparin 60 Mg/0.6 Ml Syringe SUB-Q 50 mg Q24H [facility] Administration Escitalopram Oxalate 5 mg 09/22/24 09:00 10/06/24 11:47 Escitalopram Oxalate 5 Mg Tablet PO Not Given DAILY [facility] Famotidine 20 mg 10/06/24 11:15 10/10/24 08:19 Famotidine 20 Mg/2 Ml Vial IV PUSH 20 mg DAILY [facility] Administration Fluticasone Propionate 2 spray 09/22/24 09:00 10/10/24 08:18 Fluticasone Propionate 0.05% Na Spr 16 Gm Btl (*Bkc) NASAL 2 spray DAILY [facility] Administration Hydralazine HCl 10 mg 10/06/24 09:39 Hydralazine Hcl 20 Mg/Ml Vial IV PUSH Q4H PRN Blood Pressure - SBP >160 Dextrose 1,000 mls @ 50 mls/hr 10/03/24 12:52 Dextrose 10% IV CONT .Q20H PRN if PN is interrupted Amino Acids/Electrolytes/Dextrose 2,000 mls @ 80 mls/hr 10/03/24 14:00 10/09/24 14:51 Clinimix E 4.25%/5% Solution IV CONT 80 mls/hr .Q24H [facility] Administration Protocol Fat Emulsion Intravenous 250 mls @ 20.833 mls/hr 10/03/24 14:00 10/09/24 14:50 Lipids 20% IVPB 20.83 mls/hr Q24H [facility] Administration Insulin Human Regular 0 units 10/03/24 18:00 10/10/24 12:11 Insulin Human Regular (*Bkc) 100 Units/Ml SUB-Q Not Given Q6HR [facility] Protocol Lisinopril 5 mg 09/27/24 09:00 10/07/24 09:05 Lisinopril 5 Mg Tablet PO Not Given QAM [facility] Lorazepam 0.25 mg 10/04/24 13:28 10/09/24 08:45 Lorazepam Inj (*Crx) 2 Mg/Ml Vial IV PUSH 0.25 mg BID PRN Administration Anxiety Metoprolol Tartrate 5 mg 10/03/24 15:19 Metoprolol Tartrate Inj 5 Mg/5 Ml Vial IV PUSH Q6HR PRN Tachycardia Ondansetron HCl 4 mg 09/21/24 22:50 10/09/24 15:05 Ondansetron Inj 4 Mg/2 Ml Vial IV PUSH 4 mg Q4H PRN Administration Nausea Promethazine HCl 12.5 mg 09/22/24 09:57 10/04/24 19:59 Promethazine Hcl 25 Mg/Ml Ampul IV PUSH 12.5 mg Q6H PRN Administration Nausea And Vomiting Sodium Chloride 10 ml 10/06/24 22:00 10/10/24 13:30 Saline Lock Flush IV PUSH 10 ml Q8HR [facility] Administration Sodium Chloride 10 ml 10/06/24 14:58 Saline Lock Flush IV PUSH PRN PRN Flush Sodium Chloride 20 ml 10/06/24 14:58 Saline Lock Flush IV PUSH PRN PRN after blood draws Sotalol HCl 40 mg 09/22/24 09:00 10/07/24 09:06 Sotalol Hcl 40 Mg Tablet PO Not Given Q12HR [facility] Trazodone HCl 50 mg 09/22/24 22:25 10/06/24 20:22 Trazodone Hcl 50 Mg Tablet PO Not Given HS [facility] Radiology Results: ITS Impressions Chest X-Ray 09/21/24 19:27 IMPRESSION: No acute cardiopulmonary process. Abdomen Ultrasound 09/22/24 19:31 IMPRESSION: Cholelithiasis. Possibility of cholecystitis cannot be excluded. Clinical correlation advised. Bilateral renal cysts. Small left hepatic lobe cyst. Hepatobiliary Scan [facility] 09/25/24 12:18 IMPRESSION: 1. Normal hepatobiliary scan. Modified Barium Swallow 10/09/24 11:54 IMPRESSION: 1. Aspiration. 2. Please refer to the speech therapy report for recommendations. Labs Labs: Laboratory Results - last 24 hr 10/09/24 10/09/24 10/10/24 18:09 23:50 09:36 Sodium Potassium Chloride Carbon Dioxide Anion Gap BUN Creatinine Estim Creat Clear Calc Estimated GFR Glucose POC Capillary Glucose 113 H 85 Calcium Phosphorus Triglycerides 87 10/10/24 10/10/24 09:42 12:05 Sodium 141 Potassium 4.4 Chloride 107 Carbon Dioxide 25 Anion Gap 9 BUN 62 H Creatinine 1.64 H Estim Creat Clear Calc 18 Estimated GFR 40 L Glucose 120 H POC Capillary Glucose 109 H Calcium 9.0 Phosphorus 5.9 H Triglycerides
[2024-10-10] MEDS: AMINO ACIDS 4.25%/D5W/LYTES/CA 2,000 ML 80 ML IV CONT (15:24)
[2024-10-10] MEDS: FAT EMULSIONS IV 20% 250 ML 20.83 ML IVPB (15:25)
[2024-10-10] MEDS: ENOXAPARIN 60 MG/0.6 ML SYRINGE 50 MG SUB-Q (17:17)
[2024-10-10 17:51] LABS: Glucose Point of Care 97 mg/dl (65-105)
[2024-10-10 20:20] VITALS: PULSE 74; RESP 20; O2SAT 95
[2024-10-10 20:28] VITALS: BP 144/99; PULSE 74; RESP 20; TEMP 36.4; O2SAT 95
[2024-10-10 23:55] LABS: Glucose Point of Care 102 mg/dl (65-105)
[2024-10-11] VITALS (8 sets, daily range): BP systolic 109–187; BP diastolic 75–115; PULSE 71–95; RESP 14–30; TEMP 36.1–36.9; O2SAT 95–100
[2024-10-11 05:28] LABS: Glucose Point of Care 105 mg/dl (65-105)
[2024-10-11] MEDS: SALINE LOCK FLUSH 10 ML IV PUSH ×3 (05:46→20:48)
[2024-10-11 07:12] LABS: Anion Gap 5 mmol/L (4-12); Blood Urea Nitrogen 67 mg/dL (9-20); Calcium 8.5 mg/dL (8.4-10.2); Carbon Dioxide 25 mmol/L (22-30); Chloride 109 mmol/L (98-107); Estimated CRCL calculation 18 ml/min; Estimated Glomerular Filt Rate 39; Glucose 90 mg/dL (65-110); Potassium 3.7 mmol/L (3.4-5.0); Sodium 139 mmol/L (137-145)
[2024-10-11] MEDS: FAMOTIDINE 20 MG/2 ML VIAL IV PUSH (08:31)
[2024-10-11] MEDS: FLUTICASONE PROPIONATE 0.05% NA SPR 16 GM BTL (*BKC) 2 SPRAY NASAL (08:31)
--- NOTE | 2024-10-11 09:31 | P.PNIM_ITS ---
Progress Note: A&P Assessment and Plan (1) Acute hyponatremia: Code(s): E87.1 - Hypo-osmolality and hyponatremia Status: Acute Assessment and Plan: resolved monitor (2) Adult failure to thrive: Code(s): R62.7 - Adult failure to thrive Status: Chronic Assessment and Plan: Speech eval recommended oral feeds under their guidance Continue PPN Failed MBS 3 times GI will evaluate for G tube placement (3) Unintentional weight loss: Code(s): R63.4 - Abnormal weight loss Status: Chronic Assessment and Plan: Now on PPN Awaiting G tube placement (4) Protein-calorie malnutrition, moderate: Code(s): E44.0 - Moderate protein-calorie malnutrition Status: Acute Assessment and Plan: Continue above care On Dronabinol (5) Major depression: Code(s): F32.9 - Major depressive disorder, single episode, unspecified Status: Acute Assessment and Plan: Continue Lexapro (6) Afib: Qualifiers: Atrial fibrillation type: paroxysmal Qualified Code(s): I48.0 - Paroxysmal atrial fibrillation Code(s): I48.91 - Unspecified atrial fibrillation Status: Chronic Assessment and Plan: Rate controlled and anticoagulated (7) Prostate CA: Code(s): C61 - Malignant neoplasm of prostate Status: Chronic Assessment and Plan: Follow-up in outpatient setting (8) Dysphagia: Code(s): R13.10 - Dysphagia, unspecified Status: Acute Assessment and Plan: Failed MBS 3 times Awaiting GI eval for G tube placement Plan Cholelithiasis RUQ US showed Cholelithiasis, HIDA scan negative Cholecystitis ruled out and Gen surgery signed off monitor DVT prophylaxis on Sq Lovenox (eliquis on hold) Awaiting possible G tube placement and SNF placement Subjective Date/time seen: 10/11/24 09:31 Interval history: So speech therapy recommended oral feeling with the certified ophthalmic surgical assistant of speech therapist. Patient received PEG tube placement. Review of Systems Review of Systems: Generalized weakness, poor appetite, poor per orally intake Exam Narrative: Patient is laying in a stretcher Const: General: comfortable, no acute distress, well developed, alert, awake, ill appearing chronically, malnourished and underweight Nutritional Appearance: malnourished and underweight Orientation/consciousness: patient oriented x3 HENMT: Head: normal to inspection, normocephalic and atraumatic Ears: hearing grossly normal bilaterally Face/Nose/Sinus: normal facial exam Face and sinus: normal facial exam Other: Bitemporal muscle wasting Eyes: General: appearance normal, both eyes and all related structures Pupils: Equal, round and reactive pupils present EOM: EOMs intact bilaterally Neck: Neck: full ROM, no lymphadenopathy and no JVD Thyroid: thyroid normal Lymphatic: no lymphadenopathy noted Resp: Effort & Inspection: normal respiratory effort and able to speak in complete sentences Auscultation: clear to auscultation bilaterally Cardio: Jugular venous distension: no JVD Rate: regular rate Rhythm: regular rhythm Heart sounds: S1 normal heart sound present and S2 normal heart sound present : General: Yes deferred Skin: Rashes: no rashes Wounds: no wounds Neuro: General: patient oriented x3 and CN's II-XI intact bilaterally Cranial nerves: Yes CN's II-XII intact bilaterally and Yes Equal, round and reactive pupils present Cognition (Neuro): normal cognition Speech: normal speech Gait exam (Neuro): Normal gait present Motor exam (neuro): 5/5 motor strength present throughout Extrem: General: normal to inspection, full ROM, no joint enlargement and no pedal edema Objective Data Vital Signs Vital Signs: Vital Signs - 24 hr 10/10/24 14:00 10/10/24 20:20 10/10/24 20:28 Temperature 98.0 F 97.5 F L Pulse Rate 80 74 74 Respiratory Rate 16 20 20 Blood Pressure 134/99 H 144/99 H Pulse Oximetry 98 95 95 Oxygen Delivery Room Air Fraction of Inspired Oxygen 21 10/11/24 05:58 Temperature 97.2 F L Pulse Rate 71 Respiratory Rate 14 Blood Pressure 133/89 Pulse Oximetry 99 Oxygen Delivery Fraction of Inspired Oxygen Intake/Output Intake/Output: Intake & Output 10/08/24 10/09/24 10/10/24 10/11/24 23:59 23:59 23:59 23:59 Intake Total 2060.7 2250 2214 0 Output Total 100 1250 1000 500 Balance 1960.7 1000 1214 -500 Meds/Results Medications: Active Medications Generic Name Dose Route Start Last Admin Trade Name Freq PRN Reason Stop Dose Admin Acetaminophen 650 mg 09/21/24 22:50 09/29/24 20:31 Acetaminophen 325 Mg Tablet PO 650 mg Q4H PRN Administration Mild Pain (1-3) or Fever Acetaminophen 650 mg 10/05/24 05:27 10/05/24 05:55 Acetaminophen 650 Mg Suppository RECTAL 650 mg ONCE PRN Administration Mild Pain (1-3) Or Fever Acetaminophen 650 mg 10/07/24 20:42 Acetaminophen 325 Mg Tablet PO Q4H PRN Headache Albuterol 2 puff 09/22/24 02:42 Albuterol Sulfate (*Sp) Aerosol 1 Puff INHALATION Q4HRT PRN shortness of breath or wheezing Apixaban 2.5 mg 09/22/24 09:00 10/03/24 13:08 Apixaban 2.5 Mg Tablet PO Not Given Q12HR HUE Dicyclomine HCl 20 mg 09/22/24 02:42 09/30/24 16:48 Dicyclomine Hcl 10 Mg Capsule PO 20 mg TID PRN Administration abdominal pain Doxazosin Mesylate 8 mg 09/22/24 09:00 10/07/24 09:05 Doxazosin Mesylate 4 Mg Tablet BY MOUTH Not Given DAILY HUE Enoxaparin Sodium 50 mg 10/03/24 17:00 10/10/24 17:17 Enoxaparin 60 Mg/0.6 Ml Syringe SUB-Q 50 mg Q24H HUE Administration Escitalopram Oxalate 5 mg 09/22/24 09:00 10/06/24 11:47 Escitalopram Oxalate 5 Mg Tablet PO Not Given DAILY HUE Famotidine 20 mg 10/06/24 11:15 10/11/24 08:31 Famotidine 20 Mg/2 Ml Vial IV PUSH 20 mg DAILY HUE Administration Fluticasone Propionate 2 spray 09/22/24 09:00 10/11/24 08:31 Fluticasone Propionate 0.05% Na Spr 16 Gm Btl (*Bkc) NASAL 2 spray DAILY HUE Administration Hydralazine HCl 10 mg 10/06/24 09:39 Hydralazine Hcl 20 Mg/Ml Vial IV PUSH Q4H PRN Blood Pressure - SBP >160 Dextrose 1,000 mls @ 50 mls/hr 10/03/24 12:52 Dextrose 10% IV CONT .Q20H PRN if PN is interrupted Amino Acids/Electrolytes/Dextrose 2,000 mls @ 80 mls/hr 10/03/24 14:00 10/10/24 15:24 Clinimix E 4.25%/5% Solution IV CONT 80 mls/hr .Q24H HUE Administration Protocol Fat Emulsion Intravenous 250 mls @ 20.833 mls/hr 10/03/24 14:00 10/10/24 15:25 Lipids 20% IVPB 20.83 mls/hr Q24H HUE Administration Insulin Human Regular 0 units 10/03/24 18:00 10/11/24 05:45 Insulin Human Regular (*Bkc) 100 Units/Ml SUB-Q Not Given Q6HR [facility] Protocol Lisinopril 5 mg 09/27/24 09:00 10/07/24 09:05 Lisinopril 5 Mg Tablet PO Not Given QAM HUE Lorazepam 0.25 mg 10/04/24 13:28 10/09/24 08:45 Lorazepam Inj (*Crx) 2 Mg/Ml Vial IV PUSH 0.25 mg BID PRN Administration Anxiety Metoprolol Tartrate 5 mg 10/03/24 15:19 Metoprolol Tartrate Inj 5 Mg/5 Ml Vial IV PUSH Q6HR PRN Tachycardia Ondansetron HCl 4 mg 09/21/24 22:50 10/09/24 15:05 Ondansetron Inj 4 Mg/2 Ml Vial IV PUSH 4 mg Q4H PRN Administration Nausea Promethazine HCl 12.5 mg 09/22/24 09:57 10/04/24 19:59 Promethazine Hcl 25 Mg/Ml Ampul IV PUSH 12.5 mg Q6H PRN Administration Nausea And Vomiting Sodium Chloride 10 ml 10/06/24 22:00 10/11/24 05:46 Saline Lock Flush IV PUSH 10 ml Q8HR HUE Administration Sodium Chloride 10 ml 10/06/24 14:58 Saline Lock Flush IV PUSH PRN PRN Flush Sodium Chloride 20 ml 10/06/24 14:58 Saline Lock Flush IV PUSH PRN PRN after blood draws Sotalol HCl 40 mg 09/22/24 09:00 10/07/24 09:06 Sotalol Hcl 40 Mg Tablet PO Not Given Q12HR HUE Trazodone HCl 50 mg 09/22/24 22:25 10/06/24 20:22 Trazodone Hcl 50 Mg Tablet PO Not Given HS [facility] Radiology Results: ITS Impressions Chest X-Ray 09/21/24 19:27 IMPRESSION: No acute cardiopulmonary process. Abdomen Ultrasound 09/22/24 19:31 IMPRESSION: Cholelithiasis. Possibility of cholecystitis cannot be excluded. Clinical correlation advised. Bilateral renal cysts. Small left hepatic lobe cyst. Hepatobiliary Scan Nuclear Medicine 09/25/24 12:18 IMPRESSION: 1. Normal hepatobiliary scan. Modified Barium Swallow 10/10/24 15:31 IMPRESSION: 1. Laryngeal penetration. 2. Please refer to the speech therapy report for recommendations. Labs Labs: Laboratory Results - last 24 hr 10/10/24 10/10/24 10/10/24 09:36 09:42 12:05 Sodium 141 Potassium 4.4 Chloride 107 Carbon Dioxide 25 Anion Gap 9 BUN 62 H Creatinine 1.64 H Estim Creat Clear Calc 18 Estimated GFR 40 L Glucose 120 H POC Capillary Glucose 109 H Calcium 9.0 Phosphorus 5.9 H Triglycerides 87 10/10/24 10/10/24 10/11/24 17:48 23:48 05:24 Sodium Potassium Chloride Carbon Dioxide Anion Gap BUN Creatinine Estim Creat Clear Calc Estimated GFR Glucose POC Capillary Glucose 97 102 105 Calcium Phosphorus Triglycerides 10/11/24 06:10 Sodium 139 Potassium 3.7 Chloride 109 H Carbon Dioxide 25 Anion Gap 5 BUN 67 H Creatinine 1.66 H Estim Creat Clear Calc 18 Estimated GFR 39 L Glucose 90 POC Capillary Glucose Calcium 8.5 Phosphorus Triglycerides Hospitalist MIPS Advance Care Plan I have confirmed that the patient's Advanced Care Plan is present, code status is documented, or surrogate decision maker is listed in patient medical record.: Yes Medication Reconciliation I have utilized all available resources to obtain, update and review the patients current medications (includes all prescriptions, OTC, herbals, cannabis, and nutritional supplements).: Yes
--- NOTE | 2024-10-11 10:23 | PCSTNOTE ---
Please refer to the Modified Barium Swallow Evaluation (MBS) in the EMR. MBS completed: 10/10/24 The pt was seen for a 3rd MBS; pt's very involved sera and RADHA requested a repeat MBS as the MBS completed on 10/09 was completed approximately 1-2 hours after a dose of Ativan. Sera questions interference of drug on pts ability to swallow. They are also deciding on hospice versus PEG placement and want to be fully informed. MBS was therefore re-ordered and completed on this date. Pt's last dose of Ativan at the time of this MBS was > 30 hours or so. The pt was seated for a lateral view (sera was present in xray suite); pt was presented with 5ml via spoon, <1 tsp amount of pudding, <1 tsp amount of crumbled cracker, & a small ST-controlled cup sip. Throughout entire testing, pt was instructed to perform a chin tuck with head turn R and perform an effortful swallow as well as many repeated dry swallows. (To note, pt was actually only able to achieve minimal neck ROM for the chin tuck and head turn R). Across all consistencies, pt exhibited intermittent penetration during & after the swallow, severe pyriform sinus residue and intermittent (mild) vallecular residue. Severe pyriform sinus residue is indicative of reduced laryngeal elevation but is also questionably related to the small bony protrusions noted at C5/6 and the questionable impact on the adequate relaxation of the UES (upper esophageal sphincter, specifically the cricopharyngeus muscle). Pt was given repeated verbal cues to dry swallow and cough to clear residual as well as any penetration that occurred. With the pudding and crumbled cracker, 5ml liquid wash was also used to attempt to clear residual which was slightly effective. Pt was instructed to continue the cough and repeated dry swallows. 5 to 10 minutes after testing, pt was viewed again via x-ray, at that time nearly all residual was cleared. It is felt that is directly due to the excess cues for repeat swallows. It is also felt that aspiration, possibly copious, was avoided due to the max verbal cueing by ST. Refer to the full report in the EMR which details specific findings with each consistency. Impressions: Severe dysphagia Recommendation: Nonoral feeding; therapeutic feeding with [employer] CHIEF MARKETING OFFICER only. After testing, the results & recommendations were explained in great detail to the pt and his grandson. Pt and his grandson asked very appropriate questions. The high risk of aspiration was explained; the importance & significance of the verbal cueing that was given during the testing was explained as well as why NPO is recommended. Thank you for this referral.
[2024-10-11] MEDS: LACTATED RINGERS 1,000 ML 150 ML IV CONT (11:37)
[2024-10-11 11:45] LABS: Glucose Point of Care 87 mg/dl (65-105)
--- NOTE | 2024-10-11 11:52 | WPDANESEPPF ---
Anes - Initial Pre Proc Eval Procedure: Operation Date: 10/11/24 12:30 Proposed Procedures p Percutaneous Endoscopic Gastrostomy - Jcarlos Drew MD Date/Time: 10/11/24 11:52 Surgeon: Wilberto Chung MD Pre Op Diagnosis: failure to thrive, underweight, hyponatremia, pros Patient Data Age: 88 Gender: M Height: 1.8 m Weight: 44.2 kg Last Vital Signs Temp 97 F L 10/11/24 11:37 Pulse 75 10/11/24 11:37 Resp 18 10/11/24 11:37 BP 162/100 H 10/11/24 11:37 Pulse Ox 99 10/11/24 11:37 O2 Del Method Room Air 10/11/24 11:37 FiO2 21 10/10/24 20:20 Allergies Allergy/AdvReac Type Severity Reaction Status Date / Time latex Allergy Mild Rash Verified 10/11/24 11:33 Home Medications ?Medication ?Instructions ?Recorded ?Confirmed ?Type multivitamin 1 tablet PO DAILY 12/08/19 09/22/24 History sotalol 80 mg tablet 40 mg PO DAILY 09/14/23 09/22/24 History albuterol sulfate 90 mcg/actuation 2 inh inhalation Q4H PRN shortness 08/30/24 09/22/24 Rx aerosol inhaler of breath or wheezing #8.5 grams enzalutamide 80 mg tablet (Xtandi) 80 mg PO DAILY 08/30/24 09/22/24 History fluticasone propionate 50 2 spray intranasal DAILY #16 grams 08/30/24 09/22/24 Rx mcg/actuation nasal spray,suspension (Children's Flonase Allergy Relief) lorazepam 0.5 mg tablet 0.5 mg PO TID PRN anxiety #90 tabs 09/01/24 09/22/24 Rx escitalopram oxalate 5 mg tablet 5 mg PO DAILY #30 tabs 09/07/24 09/22/24 Rx (Lexapro) dicyclomine 20 mg tablet 20 mg PO TID PRN abdominal pain 09/13/24 09/22/24 Rx #20 tabs famotidine 20 mg tablet See Rx Instructions .Route 09/13/24 09/22/24 Rx .COMPLEX #90 tabs ondansetron 4 mg disintegrating See Rx Instructions .Route 09/18/24 09/22/24 Rx tablet .COMPLEX #10 tabs doxazosin 8 mg tablet See Rx Instructions .Route 09/19/24 09/22/24 Rx .COMPLEX #90 tabs apixaban 2.5 mg tablet (Eliquis) 2.5 mg PO .q12hr 09/22/24 09/22/24 History Laboratory Tests 10/10/24 10/10/24 10/10/24 09:36 12:05 17:48 Sodium Potassium Chloride Carbon Dioxide Anion Gap BUN Creatinine Estim Creat Clear Calc Estimated GFR Glucose POC Capillary Glucose 109 H mg/dl 97 mg/dl (65-105) (65-105) Calcium Triglycerides 87 mg/dL (<150) 10/10/24 10/11/24 10/11/24 23:48 05:24 06:10 Sodium 139 mmol/L (137-145) Potassium 3.7 mmol/L (3.4-5.0) Chloride 109 H mmol/L (98-107) Carbon Dioxide 25 mmol/L (22-30) Anion Gap 5 mmol/L (4-12) BUN 67 H mg/dL (9-20) Creatinine 1.66 H mg/dL (0.7-1.3) Estim Creat Clear Calc 18 ml/min Estimated GFR 39 L (59 - ) Glucose 90 mg/dL (65-110) POC Capillary Glucose 102 mg/dl 105 mg/dl (65-105) (65-105) Calcium 8.5 mg/dL (8.4-10.2) Triglycerides 10/11/24 11:42 Sodium Potassium Chloride Carbon Dioxide Anion Gap BUN Creatinine Estim Creat Clear Calc Estimated GFR Glucose POC Capillary Glucose 87 mg/dl (65-105) Calcium Triglycerides Patient hx anesthesia problems: none Family hx anesthesia problems: none Results Review: All pre-operative results and documents have been reviewed as part of the pre-operative evaluation. [facility] Past Medical History Medical History Prostatism Thoracic aortic aneurysm (TAA) CKD (chronic kidney disease), stage III H/O Malignant melanoma Anxiety Mixed hyperlipidemia Essential hypertension Surgical History Surgical History H/O hernia repair Family History Family History Father Hypertension Mother Hypertension Sibling Hypertension Social History Social History Smoking packs per day: 0.5 Smoking cigarettes per day: 10.0 Years smoked: 10 Smoking pack-years: 5.00 Smoking status: Former smoker Second hand tobacco smoke exposure: No Alcohol intake: former Alcohol use details: social Substance use: never Substance use type: does not use Do You Feel Safe in your Home?: Yes Lack of Transportation: No Lack of Food: Never True Current Housing: I Have Housing Concerned About Future Housing: No Difficulty Paying Gas/Electric Bills: No Difficulty Paying for Meds: No Currently Unemployed: No Education: Trade/Vocational Certificate Difficulty w/ Childcare or Family Care: No Gender identity (if verbalized by the patient): Male Sexual Orientation (if Verbalized by the Patient): Straight or Heterosexual Spiritual care concerns: No Agree to blood products: Yes Anes - Eval Final PreProcedure Day of Procedure 10/11/24 11:52 Patient weight: cachectic Heart: irregular rhythm Lungs: clear to auscultation Airway: Mallampati scale class II Neurological: alert and oriented Last oral intake: >/= 8 hours ASA classification: IV Emergent: no Anesthetic plan: proceed Anesthesia type and monitoring: general GIVS and standard monitoring Results Review: All pre-operative results and documents have been reviewed as part of the pre-operative evaluation. Informed Consent: The patient's anesthetic plan and its attendant risks and benefits were discussed with the patient/family/POA. Questions were solicited and answers provided to the satisfaction of the patient/family/POA.
--- NOTE | 2024-10-11 11:56 | PCSTNOTE ---
Attempted to see pt this am but upon arrival to room pt was leaving for PEG tube placement; ST will check again this pm
[2024-10-11] MEDS: ceFAZolin SODIUM 1 GM VIAL IV PUSH (12:47)
--- NOTE | 2024-10-11 13:14 | PC.NURSE ---
To GI Lab per [ ], IV [ ]. Report given to [Sen].
--- NOTE | 2024-10-11 13:14 | PC.NURSE ---
Returned from GI Lab. Report received from [Brenda].
[2024-10-11] MEDS: hydrALAZINE HCL 20 MG/ML VIAL 10 MG IV PUSH (13:32)
--- NOTE | 2024-10-11 13:56 | PCDIET ---
Tube feeding consult: PEG placement today. Recommend starting on continuous feeding to establish tolerance and then switch to bolus before discharge to SNF. recommend Jevity 1.5 @ goal rate 55 ml/h. start at 30 ml/h and advance 10 ml q 4 hours as tolerated. Flush 150 ml q 4 hours. Provides @ goal rate: 1815 kcal, 77 g protein, 920 ml free water; total H2O with flushes 1820 ml/day. Discontinue PPN. Communication with
[2024-10-11] MEDS: ENOXAPARIN 60 MG/0.6 ML SYRINGE 50 MG SUB-Q (16:54)
[2024-10-11 17:08] LABS: Glucose Point of Care 77 mg/dl (65-105)
[2024-10-11] MEDS: ACETAMINOPHEN 325 MG TABLET 650 MG PO ×2 (17:31→21:01)
[2024-10-11] MEDS: SOTALOL HCL 40 MG TABLET PO (20:48)
[2024-10-11 23:35] LABS: Glucose Point of Care 129 mg/dl (65-105)
[2024-10-12] MEDS: SALINE LOCK FLUSH 10 ML IV PUSH ×3 (05:03→21:46)
[2024-10-12 05:13] LABS: Glucose Point of Care 118 mg/dl (65-105)
[2024-10-12 05:35] VITALS: BP 118/89; PULSE 64; RESP 16; TEMP 36.5; O2SAT 99
[2024-10-12 06:16] LABS: Basophils Percent Auto 0.4 % (0.2-1.2); Eosinophils Percent Auto 0.3 % (0-4.4); Hematocrit 30.9 % (42.0-52.0); Hemoglobin 9.8 g/dL (14.0-18.0); Immature Granulocyte Absolute 0.03 K/mm3 (0.00-0.031); Immature Granulocyte Percent A 0.4 % (0-0.5); Lymphocytes Absolute Auto 1.54 K/mm3 (0.9-3.2); Lymphocytes Percent Auto 23.1 % (18.3-44.2); Mean Corpuscular HGB Conc 31.7 g/dl (32-36); Mean Corpuscular Hemoglobin 28.2 pg (26-34); Mean Corpuscular Volume 88.8 fl (80-100); Mean Platelet Volume 11.7 fl (7.4-10.4); Monocytes Absolute Auto 0.7 K/mm3 (0.1-0.6); Monocytes Percent Auto 11.1 % (2.6-8.5); Neutrophils Absolute Auto 4.3 K/mm3 (1.3-6.7); Neutrophils Percent Auto 64.7 % (45.5-73.1); Platelet Count Result 209 k/mm3 (150-375); Red Blood Count 3.48 M/mm3 (4.6-6.20); Red Cell Distribution Width 16.2 % (11.5-14.5); White Blood Count 6.7 K/mm3 (4.5-10.0)
[2024-10-12 06:27] LABS: Alanine Aminotransferase 10 U/L (6-50); Albumin Level 2.6 g/dL (3.5-5.1); Alkaline Phosphatase 120 U/L (38-126); Anion Gap 4 mmol/L (4-12); Aspartate Amino Transferase 16 U/L (17-59); Bilirubin,Total 0.6 mg/dL (0.2-1.3); Blood Urea Nitrogen 61 mg/dL (9-20); Calcium 8.7 mg/dL (8.4-10.2); Carbon Dioxide 28 mmol/L (22-30); Chloride 111 mmol/L (98-107); Estimated CRCL calculation 15 ml/min; Estimated Glomerular Filt Rate 33; Glucose 95 mg/dL (65-110); Magnesium 2.8 mg/dL (1.6-2.3); Potassium 3.7 mmol/L (3.4-5.0); Sodium 143 mmol/L (137-145)
[2024-10-12] MEDS: ACETAMINOPHEN 325 MG TABLET 650 MG PO ×2 (06:47→19:42)
[2024-10-12 09:00] VITALS: O2SAT 98
[2024-10-12 09:01] VITALS: PULSE 57
[2024-10-12] MEDS: DOXAZOSIN MESYLATE 4 MG TABLET 8 MG BY MOUTH (09:01)
[2024-10-12] MEDS: ESCITALOPRAM OXALATE 5 MG TABLET PO (09:01)
[2024-10-12] MEDS: SOTALOL HCL 40 MG TABLET PO ×2 (09:01→21:45)
[2024-10-12] MEDS: FLUTICASONE PROPIONATE 0.05% NA SPR 16 GM BTL (*BKC) 2 SPRAY NASAL (09:04)
[2024-10-12] MEDS: FAMOTIDINE 20 MG/2 ML VIAL IV PUSH (09:05)
[2024-10-12 11:49] LABS: Triglycerides 72 mg/dL (<150)
[2024-10-12 11:50] LABS: Glucose Point of Care 121 mg/dl (65-105)
--- NOTE | 2024-10-12 12:22 | PM.IMPN ---
Progress Note: A&P Assessment and Plan (1) Acute hyponatremia: Code(s): E87.1 - Hypo-osmolality and hyponatremia Status: Acute Assessment and Plan: resolved monitor (2) Adult failure to thrive: Code(s): R62.7 - Adult failure to thrive Status: Chronic Assessment and Plan: Speech eval recommended oral feeds under their guidance Continue PPN Failed MBS 3 times GI will evaluate for G tube placement (3) Unintentional weight loss: Code(s): R63.4 - Abnormal weight loss Status: Chronic Assessment and Plan: Now on PPN Awaiting G tube placement (4) Protein-calorie malnutrition, moderate: Code(s): E44.0 - Moderate protein-calorie malnutrition Status: Acute Assessment and Plan: Continue above care On Dronabinol (5) Major depression: Code(s): F32.9 - Major depressive disorder, single episode, unspecified Status: Acute Assessment and Plan: Continue Lexapro (6) Afib: Qualifiers: Atrial fibrillation type: paroxysmal Qualified Code(s): I48.0 - Paroxysmal atrial fibrillation Code(s): I48.91 - Unspecified atrial fibrillation Status: Chronic Assessment and Plan: Rate controlled and anticoagulated (7) Prostate CA: Code(s): C61 - Malignant neoplasm of prostate Status: Chronic Assessment and Plan: Follow-up in outpatient setting Ordered PET scan (8) Dysphagia: Code(s): R13.10 - Dysphagia, unspecified Status: Acute Assessment and Plan: Failed MBS 3 times 10/11: Placed PEG tube Currently in continuous feed will transition him to bolus since in Rehab will accept patients only with bolus. Will resume feeding at 15 ml/hr and increase 5 ml q 6hrs if patient is able to tolerate. Plan Cholelithiasis RUQ US showed Cholelithiasis, HIDA scan negative Cholecystitis ruled out and Gen surgery signed off monitor DVT prophylaxis on Sq Lovenox (eliquis on hold) Awaiting possible G tube placement and SNF placement Subjective Date/time seen: 10/12/24 12:22 Interval history: Patient is depressed and reports he just want to live his life happy.He believes having PEG tube placement made him feel not better. Currently in continuous feed will transition him to bolus since in Rehab will accept patients only with bolus. Nursing called around 2.30pm to report pt is complaining of sever abdominal pain. Upon evaluation vitals wnl. He says his stomach is paining. Stopped feeding for sometime. Will resume feeding at 15 ml/hr and increase 5 ml q 6hrs if patient is able to tolerate. Review of Systems Review of Systems: Generalized weakness, poor appetite, poor per orally intake Exam Narrative: Patient is laying in a stretcher Const: General: comfortable, no acute distress, well developed, alert, awake, ill appearing chronically, malnourished and underweight Nutritional Appearance: malnourished and underweight Orientation/consciousness: patient oriented x3 HENMT: Head: normal to inspection, normocephalic and atraumatic Ears: hearing grossly normal bilaterally Face/Nose/Sinus: normal facial exam Face and sinus: normal facial exam Other: Bitemporal muscle wasting Eyes: General: appearance normal, both eyes and all related structures Pupils: Equal, round and reactive pupils present EOM: EOMs intact bilaterally Neck: Neck: full ROM, no lymphadenopathy and no JVD Thyroid: thyroid normal Lymphatic: no lymphadenopathy noted Resp: Effort & Inspection: normal respiratory effort and able to speak in complete sentences Auscultation: clear to auscultation bilaterally Cardio: Jugular venous distension: no JVD Rate: regular rate Rhythm: regular rhythm Heart sounds: S1 normal heart sound present and S2 normal heart sound present : General: Yes deferred Skin: Rashes: no rashes Wounds: no wounds Neuro: General: patient oriented x3 and CN's II-XI intact bilaterally Cranial nerves: Yes CN's II-XII intact bilaterally and Yes Equal, round and reactive pupils present Cognition (Neuro): normal cognition Speech: normal speech Gait exam (Neuro): Normal gait present Motor exam (neuro): 5/5 motor strength present throughout Extrem: General: normal to inspection, full ROM, no joint enlargement and no pedal edema Objective Data Vital Signs Vital Signs: Vital Signs - 24 hr 10/11/24 13:14 10/11/24 13:24 10/11/24 13:34 Temperature Pulse Rate 86 74 95 Respiratory Rate 30 H 20 20 Blood Pressure 133/93 H 181/115 H 187/102 H Pulse Oximetry 95 100 100 Oxygen Delivery Simple Face Mask Room Air Room Air Oxygen Flow Rate 4 10/11/24 15:50 10/11/24 20:38 10/11/24 20:48 Temperature 97.0 F L Pulse Rate 77 75 Respiratory Rate 16 Blood Pressure 109/80 Pulse Oximetry 97 Oxygen Delivery Room Air Oxygen Flow Rate 10/11/24 21:20 10/12/24 05:35 10/12/24 09:01 Temperature 98.5 F 97.7 F Pulse Rate 86 64 57 L Respiratory Rate 18 16 Blood Pressure 116/75 118/89 Pulse Oximetry 98 99 Oxygen Delivery Oxygen Flow Rate Intake/Output Intake/Output: Intake & Output 10/09/24 10/10/24 10/11/24 10/12/24 23:59 23:59 23:59 23:59 Intake Total 2250 2214 284.5 704 Output Total 1250 1000 950 200 Balance 1000 1214 -665.5 504 Meds/Results Medications: Active Medications Generic Name Dose Route Start Last Admin Trade Name Freq PRN Reason Stop Dose Admin Acetaminophen 650 mg 09/21/24 22:50 09/29/24 20:31 Acetaminophen 325 Mg Tablet PO 650 mg Q4H PRN Administration Mild Pain (1-3) or Fever Acetaminophen 650 mg 10/05/24 05:27 10/05/24 05:55 Acetaminophen 650 Mg Suppository RECTAL 650 mg ONCE PRN Administration Mild Pain (1-3) Or Fever Acetaminophen 650 mg 10/07/24 20:42 10/12/24 06:47 Acetaminophen 325 Mg Tablet PO 650 mg Q4H PRN Administration Headache Albuterol 2 puff 09/22/24 02:42 Albuterol Sulfate (*Sp) Aerosol 1 Puff INHALATION Q4HRT PRN shortness of breath or wheezing Apixaban 2.5 mg 09/22/24 09:00 10/03/24 13:08 Apixaban 2.5 Mg Tablet PO Not Given Q12HR HUE Dicyclomine HCl 20 mg 09/22/24 02:42 09/30/24 16:48 Dicyclomine Hcl 10 Mg Capsule PO 20 mg TID PRN Administration abdominal pain Doxazosin Mesylate 8 mg 09/22/24 09:00 10/12/24 09:01 Doxazosin Mesylate 4 Mg Tablet BY MOUTH 8 mg DAILY HUE Administration Enoxaparin Sodium 50 mg 10/03/24 17:00 10/11/24 16:54 Enoxaparin 60 Mg/0.6 Ml Syringe SUB-Q 50 mg Q24H HUE Administration Escitalopram Oxalate 5 mg 09/22/24 09:00 10/12/24 09:01 Escitalopram Oxalate 5 Mg Tablet PO 5 mg DAILY HUE Administration Famotidine 20 mg 10/06/24 11:15 10/12/24 09:05 Famotidine 20 Mg/2 Ml Vial IV PUSH 20 mg DAILY HUE Administration Fluticasone Propionate 2 spray 09/22/24 09:00 10/12/24 09:04 Fluticasone Propionate 0.05% Na Spr 16 Gm Btl (*Bkc) NASAL 2 spray DAILY HUE Administration Hydralazine HCl 10 mg 10/06/24 09:39 Hydralazine Hcl 20 Mg/Ml Vial IV PUSH Q4H PRN Blood Pressure - SBP >160 Dextrose 1,000 mls @ 50 mls/hr 10/03/24 12:52 Dextrose 10% IV CONT .Q20H PRN if PN is interrupted Insulin Human Regular 0 units 10/03/24 18:00 10/12/24 12:05 Insulin Human Regular (*Bkc) 100 Units/Ml SUB-Q Not Given Q6HR [facility] Protocol Lisinopril 5 mg 09/27/24 09:00 10/07/24 09:05 Lisinop[facility] 5 Mg [facility] 0.25 mg 10/04/24 13:28 10/09/24 08:45 Lorazepam Inj (*Crx) 2 Mg/Ml Vial IV PUSH 0.25 mg BID PRN Administration Anxiety Metoprolol Tartrate 5 mg 10/03/24 15:19 Metoprolol Tartrate Inj 5 Mg/5 Ml Vial IV PUSH Q6HR PRN Tachycardia Ondansetron HCl 4 mg 09/21/24 22:50 10/09/24 15:05 Ondansetron Inj 4 Mg/2 Ml Vial IV PUSH 4 mg Q4H PRN Administration Nausea Promethazine HCl 12.5 mg 09/22/24 09:57 10/04/24 19:59 Promethazine Hcl 25 Mg/Ml Ampul IV PUSH 12.5 mg Q6H PRN Administration Nausea And Vomiting Sodium Chloride 10 ml 10/06/24 22:00 10/12/24 05:03 Saline Lock Flush IV PUSH 10 ml Q8HR HUE Administration Sodium Chloride 10 ml 10/06/24 14:58 Saline Lock Flush IV PUSH PRN PRN Flush Sodium Chloride 20 ml 10/06/24 14:58 Saline Lock Flush IV PUSH PRN PRN after blood draws Sotalol HCl 40 mg 09/22/24 09:00 10/12/24 09:01 Sotalol Hcl 40 Mg Tablet PO 40 mg Q12HR [facility] Administration Trazodone HCl 50 mg 09/22/24 22:25 10/06/24 20:22 Trazodone Hcl 50 Mg Tablet PO Not Given HS [facility] Radiology Results: ITS Impressions Chest X-Ray 09/21/24 19:27 IMPRESSION: No acute cardiopulmonary process. Abdomen Ultrasound 09/22/24 19:31 IMPRESSION: Cholelithiasis. Possibility of cholecystitis cannot be excluded. Clinical correlation advised. Bilateral renal cysts. Small left hepatic lobe cyst. Hepatobiliary Scan Nuclear Medicine 09/25/24 12:18 IMPRESSION: 1. Normal hepatobiliary scan. Modified Barium Swallow 10/10/24 15:31 IMPRESSION: 1. Laryngeal penetration. 2. Please refer to the speech therapy report for recommendations. Labs Labs: Laboratory Results - last 24 hr 10/11/24 10/11/24 10/12/24 17:05 23:26 05:04 WBC RBC Hgb Hct MCV MCH MCHC RDW Plt Count MPV Immature Gran % (Auto) Neut % (Auto) Lymph % (Auto) [place] % (Auto) Eos % (Auto) Baso % (Auto) Lymph # (Auto) [place] # (Auto) Eos # (Auto) Baso # (Auto) Abs Immat Gran (auto) Absolute Neuts (auto) Absolute Nucleated RBC Nucleated RBC % Sodium Potassium Chloride Carbon Dioxide Anion Gap BUN Creatinine Estim Creat Clear Calc Estimated GFR Glucose POC Capillary Glucose 77 129 H 118 H Calcium Magnesium Total Bilirubin AST ALT Alkaline Phosphatase Total Protein Albumin Triglycerides 10/12/24 10/12/24 10/12/24 05:43 05:47 11:45 WBC 6.7 RBC 3.48 L Hgb 9.8 L Hct 30.9 L MCV 88.8 MCH 28.2 MCHC 31.7 L RDW 16.2 H Plt Count 209 MPV 11.7 H Immature Gran % (Auto) 0.4 Neut % (Auto) 64.7 Lymph % (Auto) 23.1 [place] % (Auto) 11.1 H Eos % (Auto) 0.3 Baso % (Auto) 0.4 Lymph # (Auto) 1.54 [place] # (Auto) 0.7 H Eos # (Auto) 0.0 Baso # (Auto) 0.0 Abs Immat Gran (auto) 0.03 Absolute Neuts (auto) 4.3 Absolute Nucleated RBC 0.000 Nucleated RBC % 0.0 Sodium 143 Potassium 3.7 Chloride 111 H Carbon Dioxide 28 Anion Gap 4 BUN 61 H Creatinine 1.91 H Estim Creat Clear Calc 15 Estimated GFR 33 L Glucose 95 POC Capillary Glucose 121 H Calcium 8.7 Magnesium 2.8 H Total Bilirubin 0.6 AST 16 L ALT 10 Alkaline Phosphatase 120 Total Protein 6.0 L Albumin 2.6 L Triglycerides 72 Hospitalist MIPS Advance Care Plan I have confirmed that the patient's Advanced Care Plan is present, code status is documented, or surrogate decision maker is listed in patient medical record.: Yes Medication Reconciliation I have utilized all available resources to obtain, update and review the patients current medications (includes all prescriptions, OTC, herbals, cannabis, and nutritional supplements).: Yes
[2024-10-12 14:00] VITALS: BP 95/69; PULSE 61; RESP 12; TEMP 36.3; O2SAT 98
--- NOTE | 2024-10-12 16:07 | WPDGIPROGNO ---
Progress Note: A&P Assessment and Plan (1) Dysphagia: Code(s): R13.10 - Dysphagia, unspecified Status: Acute Assessment and Plan: s/p peg placement tube feeding on hold after episode of confusion earlier today ok to resume lower rate and monitor (2) Protein-calorie malnutrition, moderate: Code(s): E44.0 - Moderate protein-calorie malnutrition Status: Acute (3) Adult failure to thrive: Code(s): R62.7 - Adult failure to thrive Status: Chronic (4) Pulmonary nodule: Code(s): R91.1 - Solitary pulmonary nodule Status: Acute Assessment and Plan: new finding, ? malignancy (5) CKD (chronic kidney disease), stage III: Code(s): N18.3 - Chronic kidney disease, stage 3 (moderate) Status: Acute Subjective Date/time seen: 10/12/24 16:07 Interval history: peg yesterday without complications and was tolerated tube feeding but ealier today became confused and had emesis, then had emesis that showed pulmonary nodules Review of Systems Review of Systems: All systems reviewed & are unremarkable except as noted in HPI and below Exam Const: General: comfortable, alert, ill appearing chronically, malnourished and underweight HENMT: Head: normal to inspection Other: Bitemporal muscle wasting Eyes: General: appearance normal, both eyes and all related structures Neck: Neck: full ROM Resp: Effort & Inspection: normal respiratory effort and able to speak in complete sentences Cardio: Rate: regular rate Rhythm: regular rhythm GI: GI Palp: Yes Soft to palpation Auscultation: normal bowel sounds Other: g-tube in place Skin: Rashes: no rashes Neuro: Other: more slow to respond Extrem: General: normal to inspection Psych: Affect: Anxious affect present Objective Data Vital Signs Vital Signs: Vital Signs - 24 hr 10/11/24 20:38 10/11/24 20:48 10/11/24 21:20 Temperature 98.5 F Pulse Rate 75 86 Respiratory Rate 18 Blood Pressure 116/75 Pulse Oximetry 98 Oxygen Delivery Room Air 10/12/24 05:35 10/12/24 09:01 10/12/24 14:00 Temperature 97.7 F 97.3 F L Pulse Rate 64 57 L 61 Respiratory Rate 16 12 Blood Pressure 118/89 95/69 L Pulse Oximetry 99 98 Oxygen Delivery Intake/Output Intake/Output: Intake & Output 10/09/24 10/10/24 10/11/24 10/12/24 23:59 23:59 23:59 23:59 Intake Total 2250 2214 284.5 704 Output Total 1250 1000 950 200 Balance 1000 1214 -665.5 504 Meds/Results Medications: Active Medications Generic Name Dose Route Start Last Admin Trade Name Freq PRN Reason Stop Dose Admin Acetaminophen 650 mg 09/21/24 22:50 09/29/24 20:31 Acetaminophen 325 Mg Tablet PO 650 mg Q4H PRN Administration Mild Pain (1-3) or Fever Acetaminophen 650 mg 10/05/24 05:27 10/05/24 05:55 Acetaminophen 650 Mg Suppository RECTAL 650 mg ONCE PRN Administration Mild Pain (1-3) Or Fever Acetaminophen 650 mg 10/07/24 20:42 10/12/24 06:47 Acetaminophen 325 Mg Tablet PO 650 mg Q4H PRN Administration Headache Albuterol 2 puff 09/22/24 02:42 Albuterol Sulfate (*Sp) Aerosol 1 Puff INHALATION Q4HRT PRN shortness of breath or wheezing Apixaban 2.5 mg 09/22/24 09:00 10/03/24 13:08 Apixaban 2.5 Mg Tablet PO Not Given Q12HR HUE Dicyclomine HCl 20 mg 09/22/24 02:42 09/30/24 16:48 Dicyclomine Hcl 10 Mg Capsule PO 20 mg TID PRN Administration abdominal pain Doxazosin Mesylate 8 mg 09/22/24 09:00 10/12/24 09:01 Doxazosin Mesylate 4 Mg Tablet BY MOUTH 8 mg DAILY HUE Administration Enoxaparin Sodium 50 mg 10/03/24 17:00 10/11/24 16:54 Enoxaparin 60 Mg/0.6 Ml Syringe SUB-Q 50 mg Q24H HUE Administration Escitalopram Oxalate 5 mg 09/22/24 09:00 10/12/24 09:01 Escitalopram Oxalate 5 Mg Tablet PO 5 mg DAILY HUE Administration Famotidine 20 mg 10/06/24 11:15 10/12/24 09:05 Famotidine 20 Mg/2 Ml Vial IV PUSH 20 mg DAILY HUE Administration Fluticasone Propionate 2 spray 09/22/24 09:00 10/12/24 09:04 Fluticasone Propionate 0.05% Na Spr 16 Gm Btl (*Bkc) NASAL 2 spray DAILY HUE Administration Hydralazine HCl 10 mg 10/06/24 09:39 Hydralazine Hcl 20 Mg/Ml Vial IV PUSH Q4H PRN Blood Pressure - SBP >160 Dextrose 1,000 mls @ 50 mls/hr 10/03/24 12:52 Dextrose 10% IV CONT .Q20H PRN if PN is interrupted Insulin Human Regular 0 units 10/03/24 18:00 10/12/24 12:05 Insulin Human Regular (*Bkc) 100 Units/Ml SUB-Q Not Given Q6HR [facility] Protocol Lisinopril 5 mg 09/27/24 09:00 10/07/24 09:05 Lisinopril 5 Mg Tablet PO Not Given QAM [facility]UE Lorazepam 0.25 mg 10/04/24 13:28 10/09/24 08:45 Lorazepam Inj (*Crx) 2 Mg/Ml Vial IV PUSH 0.25 mg BID PRN Administration Anxiety Metoprolol Tartrate 5 mg 10/03/24 15:19 Metoprolol Tartrate Inj 5 Mg/5 Ml Vial IV PUSH Q6HR PRN Tachycardia Ondansetron HCl 4 mg 09/21/24 22:50 10/09/24 15:05 Ondansetron Inj 4 Mg/2 Ml Vial IV PUSH 4 mg Q4H PRN Administration Nausea Promethazine HCl 12.5 mg 09/22/24 09:57 10/04/24 19:59 Promethazine Hcl 25 Mg/Ml Ampul IV PUSH 12.5 mg Q6H PRN Administration Nausea And Vomiting Sodium Chloride 10 ml 10/06/24 22:00 10/12/24 05:03 Saline Lock Flush IV PUSH 10 ml Q8HR [facility]UE Administration Sodium Chloride 10 ml 10/06/24 14:58 Saline Lock Flush IV PUSH PRN PRN Flush Sodium Chloride 20 ml 10/06/24 14:58 Saline Lock Flush IV PUSH PRN PRN after blood draws Sotalol HCl 40 mg 09/22/24 09:00 10/12/24 09:01 Sotalol Hcl 40 Mg Tablet PO 40 mg Q12HR [facility]UE Administration Trazodone HCl 50 mg 09/22/24 22:25 10/06/24 20:22 Trazodone Hcl 50 Mg Tablet PO Not Given HS [facility] Radiology Results: ITS Impressions Chest X-Ray 09/21/24 19:27 IMPRESSION: No acute cardiopulmonary process. Abdomen Ultrasound 09/22/24 19:31 IMPRESSION: Cholelithiasis. Possibility of cholecystitis cannot be excluded. Clinical correlation advised. Bilateral renal cysts. Small left hepatic lobe cyst. Hepatobiliary Scan Nuclear Medicine 09/25/24 12:18 IMPRESSION: 1. Normal hepatobiliary scan. Modified Barium Swallow 10/10/24 15:31 IMPRESSION: 1. Laryngeal penetration. 2. Please refer to the speech therapy report for recommendations. Chest/Abdomen/Pelvis CT 10/12/24 14:32 IMPRESSION: CHEST: 1. Dilated ascending aorta measuring 5 cm. 2. Dilated pulmonary vessels suggestive of pulmonary hypertension. 3. Multiple nodules. 3 months follow-up or PET scan is advised. 4. Pneumonia in the right upper lobe. ABDOMEN/PELVIS: 1. Hepatomegaly. 2. Cholelithiasis 3. Large cyst in the right kidney upper pole. 4. No evidence of appendicitis, diverticulitis or intestinal obstruction. 5. Colostomy tube with no definite abnormality. Labs Labs: Laboratory Results - last 24 hr 10/11/24 10/11/24 10/12/24 17:05 23:26 05:04 WBC RBC Hgb Hct MCV MCH MCHC RDW Plt Count MPV Immature Gran % (Auto) Neut % (Auto) Lymph % (Auto) Terry % (Auto) Eos % (Auto) Baso % (Auto) Lymph # (Auto) Terry # (Auto) Eos # (Auto) Baso # (Auto) Abs Immat Gran (auto) Absolute Neuts (auto) Absolute Nucleated RBC Nucleated RBC % Sodium Potassium Chloride Carbon Dioxide Anion Gap BUN Creatinine Estim Creat Clear Calc Estimated GFR Glucose POC Capillary Glucose 77 129 H 118 H Calcium Magnesium Total Bilirubin AST ALT Alkaline Phosphatase Total Protein Albumin Triglycerides 10/12/24 10/12/24 10/12/24 05:43 05:47 11:45 WBC 6.7 RBC 3.48 L Hgb 9.8 L Hct 30.9 L MCV 88.8 MCH 28.2 MCHC 31.7 L RDW 16.2 H Plt Count 209 MPV 11.7 H Immature Gran % (Auto) 0.4 Neut % (Auto) 64.7 Lymph % (Auto) 23.1 Terry % (Auto) 11.1 H Eos % (Auto) 0.3 Baso % (Auto) 0.4 Lymph # (Auto) 1.54 Terry # (Auto) 0.7 H Eos # (Auto) 0.0 Baso # (Auto) 0.0 Abs Immat Gran (auto) 0.03 Absolute Neuts (auto) 4.3 Absolute Nucleated RBC 0.000 Nucleated RBC % 0.0 Sodium 143 Potassium 3.7 Chloride 111 H Carbon Dioxide 28 Anion Gap 4 BUN 61 H Creatinine 1.91 H Estim Creat Clear Calc 15 Estimated GFR 33 L Glucose 95 POC Capillary Glucose 121 H Calcium 8.7 Magnesium 2.8 H Total Bilirubin 0.6 AST 16 L ALT 10 Alkaline Phosphatase 120 Total Protein 6.0 L Albumin 2.6 L Triglycerides 72
[2024-10-12] MEDS: ENOXAPARIN 60 MG/0.6 ML SYRINGE 50 MG SUB-Q (17:15)
[2024-10-12 18:26] LABS: Glucose Point of Care 135 mg/dl (65-105)
[2024-10-12 20:55] VITALS: BP 96/60; PULSE 66; RESP 20; TEMP 36.2; O2SAT 99
[2024-10-12 21:45] VITALS: PULSE 66
[2024-10-12] MEDS: LORazepam INJ (*CRX) 2 MG/ML VIAL 0.25 MG IV PUSH (23:35)
[2024-10-13 00:24] LABS: Glucose Point of Care 104 mg/dl (65-105)
[2024-10-13 04:53] VITALS: BP 132/69; PULSE 61; RESP 16; TEMP 36.6; O2SAT 93
[2024-10-13 05:03] LABS: Glucose Point of Care 107 mg/dl (65-105)
[2024-10-13 06:22] LABS: Anion Gap 5 mmol/L (4-12); Blood Urea Nitrogen 60 mg/dL (9-20); Calcium 8.3 mg/dL (8.4-10.2); Carbon Dioxide 28 mmol/L (22-30); Chloride 112 mmol/L (98-107); Estimated CRCL calculation 15 ml/min; Estimated Glomerular Filt Rate 30; Glucose 107 mg/dL (65-110); Potassium 3.6 mmol/L (3.4-5.0); Sodium 145 mmol/L (137-145)
[2024-10-13 08:35] VITALS: BP 148/73; PULSE 82; RESP 30; O2SAT 100
[2024-10-13] MEDS: FAMOTIDINE 20 MG/2 ML VIAL IV PUSH (08:51)
[2024-10-13] MEDS: ONDANSETRON INJ 4 MG/2 ML VIAL IV PUSH (08:51)
[2024-10-13] MEDS: PIPERACILLIN/TAZ 2.25G/NS 50ML 2.25 GM/50 ML BAG IVPB ×2 (09:58→17:04)
[2024-10-13 10:03] VITALS: PULSE 88
[2024-10-13] MEDS: SOTALOL HCL 40 MG TABLET PO ×2 (10:03→21:36)
[2024-10-13] MEDS: ESCITALOPRAM OXALATE 5 MG TABLET PO (10:04)
[2024-10-13] MEDS: DOXAZOSIN MESYLATE 4 MG TABLET 8 MG BY MOUTH (10:04)
[2024-10-13] MEDS: FLUTICASONE PROPIONATE 0.05% NA SPR 16 GM BTL (*BKC) 2 SPRAY NASAL (10:12)
--- NOTE | 2024-10-13 10:23 | PCOTNOTE ---
Attempted to see Patient, RN in the room, stated he has been vomiting, not handling the tub feeding and was required to be turned off at this time. Will check back later
--- NOTE | 2024-10-13 10:45 | PCNFU ---
Nutrition Follow-Up Complete: Severe protein calorie malnutrition related to reduced po intake as evidenced by family report of poor po intake for greater than 1 month, a significant weight loss of -25% x 6 months, and NFPE findings for severe subcutaneous fat loss (cheeks) and severe muscle wasting (temples, clavicle, shoulders). PO intake greater than 50% of meals - Not able to meet goal PO New goal: Tolerate tube feeding at goal rate - Not progressing Goal: Pt current nutrition is Jevity 1.5 via PEG -ON HOLD due to emesis. Nutrition recommendation: Recommend possible pro-motility agent. Because of tolerance issues: Decrease goal rate to 45 ml/h to provide 1485 kcal, 63 g pro, 753 ml free water. Flush 150 ml q 4 h. Flush 150 ml water q 4 hours for total water 1650 ml/day. For conversion to bolus: 240 ml QID for 1440 kcal, 60 g protein, 720 ml free water. Flush 200 ml water QID for total water 1520 ml/d. Last recorded weight is 45.8 kg. Bowel Motility: +1 BM 10/12/23. Pt said he had diarrhea Labs Reviewed: GFR 30, BUN 60, Cre 2.09, Glu 107 Meds Noted: Zosyn, bentyl, promethazine Skin: No pressure injuries noted Additional Notes: Pt had another episode of emesis so tF currently on hold and to start at 20 ml/h later on today. Recommend decreasing goal rate to 45 ml/h because of labs. This will meet estimated nutrition needs @ 32 kcal/kg, 1.3 g pro/kg. Bolus recs above. Recommend trying promotility agent such as Reglan for tolerance. If Reglan does not improve tolerance, may need to try Osmolite 1.5 @ same goal rate (45 ml/h). Pt says he had some diarrhea but belly is soft and pt denies distension. Renal labs are elevating. Monitor intake, wt, labs. Follow up in 5 days.
[2024-10-13 11:47] LABS: Glucose Point of Care 113 mg/dl (65-105)
--- NOTE | 2024-10-13 11:48 | PCPTNOTE ---
The patient treatment was not able to be completed at this time due to medical changes with nausea. Will plan to continue treatment per plan of care.
[2024-10-13] MEDS: LORazepam INJ (*CRX) 2 MG/ML VIAL 0.25 MG IV PUSH ×2 (12:13→21:35)
--- NOTE | 2024-10-13 12:35 | PC.NURSE ---
pt c/o mild abd pain and that he is feeling anxious, he and had been speaking to [facility] enc[facility] about hospice care, administered ativan per PRN orders per pt request
--- NOTE | 2024-10-13 13:10 | PCOTNOTE ---
Attempted again this afternoon. Patient unable to participate in activity at this time. Patient very lethargic, Per RN, Patient requested medication to help him with pain and anxiety and verbalized family is discussing hospice.
[2024-10-13 13:51] VITALS: BP 110/66; PULSE 71; RESP 14; TEMP 36.1; O2SAT 97
--- NOTE | 2024-10-13 13:56 | P.PNGI_ITS ---
Progress Note: A&P Assessment and Plan (1) Dysphagia: Code(s): R13.10 - Dysphagia, unspecified Status: Acute Assessment and Plan: s/p peg placement he has been more drowsy, also pneumonia he has not been tolerating feeding tube consideration of hospice- also aspiration pneumonia and possible lung lesions (2) Protein-calorie malnutrition, moderate: Code(s): E44.0 - Moderate protein-calorie malnutrition Status: Acute (3) Adult failure to thrive: Code(s): R62.7 - Adult failure to thrive Status: Chronic (4) Pulmonary nodule: Code(s): R91.1 - Solitary pulmonary nodule Status: Acute Assessment and Plan: new finding, ? malignancy, also pneumonia (5) CKD (chronic kidney disease), stage III: Code(s): N18.3 - Chronic kidney disease, stage 3 (moderate) Status: Acute Subjective Date/time seen: 10/13/24 13:56 Interval history: nauseous after tube feeding, he has been sleeping CXR showed again pneumonia Review of Systems Review of Systems: All systems reviewed & are unremarkable except as noted in HPI and below Exam Const: General: ill appearing chronically, malnourished and underweight HENMT: Head: normal to inspection Other: Bitemporal muscle wasting Eyes: General: appearance normal, both eyes and all related structures Neck: Neck: supple Resp: Auscultation: diminished lung sounds Cardio: Rate: regular rate Rhythm: regular rhythm GI: GI Palp: Yes Soft to palpation Auscultation: normal bowel sounds Other: g-tube in place Skin: Rashes: no rashes Neuro: Other: more slow to respond and more sleepy Extrem: General: normal to inspection Psych: Affect: Anxious affect present Objective Data Vital Signs Vital Signs: Vital Signs - 24 hr 10/12/24 14:00 10/12/24 20:00 10/12/24 20:55 Temperature 97.3 F L 97.2 F L Pulse Rate 61 66 Respiratory Rate 12 20 Blood Pressure 95/69 L 96/60 L Pulse Oximetry 98 99 Oxygen Delivery Room Air 10/12/24 21:45 10/13/24 04:53 10/13/24 08:35 Temperature 97.8 F Pulse Rate 66 61 82 Respiratory Rate 16 30 H Blood Pressure 132/69 148/73 H Pulse Oximetry 93 100 Oxygen Delivery 10/13/24 10:03 10/13/24 13:51 Temperature 96.9 F L Pulse Rate 88 71 Respiratory Rate 14 Blood Pressure 110/66 Pulse Oximetry 97 Oxygen Delivery Intake/Output Intake/Output: Intake & Output 10/10/24 10/11/24 10/12/24 10/13/24 23:59 23:59 23:59 23:59 Intake Total 2214 284.5 744 513 Output Total 3783 804 5953 400 Balance 1214 -665.5 -256 113 Meds/Results Medications: Active Medications Generic Name Dose Route Start Last Admin Trade Name Freq PRN Reason Stop Dose Admin Acetaminophen 650 mg 10/05/24 05:27 10/05/24 05:55 Acetaminophen 650 Mg Suppository RECTAL 650 mg ONCE PRN Administration Mild Pain (1-3) Or Fever Acetaminophen 650 mg 10/07/24 20:42 10/12/24 19:42 Acetaminophen 325 Mg Tablet PO 650 mg Q4H PRN Administration Headache Albuterol 2 puff 09/22/24 02:42 Albuterol Sulfate (*Sp) Aerosol 1 Puff INHALATION Q4HRT PRN shortness of breath or wheezing Apixaban 2.5 mg 09/22/24 09:00 10/03/24 13:08 Apixaban 2.5 Mg Tablet PO Not Given Q12HR [facility] Dicyclomine HCl 20 mg 09/22/24 02:42 09/30/24 16:48 Dicyclomine Hcl 10 Mg Capsule PO 20 mg TID PRN Administration abdominal pain Doxazosin Mesylate 8 mg 09/22/24 09:00 10/13/24 10:04 Doxazosin Mesylate 4 Mg Tablet BY MOUTH 8 mg DAILY [facility]UE Administration Enoxaparin Sodium 50 mg 10/03/24 17:00 10/12/24 17:15 Enoxaparin 60 Mg/0.6 Ml Syringe SUB-Q 50 mg Q24H [facility] Administration Escitalopram Oxalate 5 mg 09/22/24 09:00 10/13/24 10:04 Escitalopram Oxalate 5 Mg Tablet PO 5 mg DAILY HUE Administration Famotidine 20 mg 10/06/24 11:15 10/13/24 08:51 Famotidine 20 Mg/2 Ml Vial IV PUSH 20 mg DAILY [facility]UE Administration Fluticasone Propionate 2 spray 09/22/24 09:00 10/13/24 10:12 Fluticasone Propionate 0.05% Na Spr 16 Gm Btl (*Bkc) NASAL 2 spray DAILY [facility]UE Administration Hydralazine HCl 10 mg 10/06/24 09:39 Hydralazine Hcl 20 Mg/Ml Vial IV PUSH Q4H PRN Blood Pressure - SBP >160 Dextrose 1,000 mls @ 50 mls/hr 10/03/24 12:52 Dextrose 10% IV CONT .Q20H PRN if PN is interrupted Piperacillin Sod/Tazobactam Sod 2.25 gm in 50 mls @ 100 mls/hr 10/13/24 09:00 10/13/24 09:58 Zosyn 2.25 Gm/Ns 50 Ml IVPB 100 mls/hr Q8H [facility] Administration Insulin Human Regular 0 units 10/03/24 18:00 10/13/24 12:40 Insulin Human Regular (*Bkc) 100 Units/Ml SUB-Q Not Given Q6HR [facility] Protocol Lisinopril 5 mg 09/27/24 09:00 10/07/24 09:05 Lisinopril 5 Mg Tablet PO Not Given QAM [facility] Lorazepam 0.25 mg 10/04/24 13:28 10/13/24 12:13 Lorazepam Inj (*Crx) 2 Mg/Ml Vial IV PUSH 0.25 mg BID PRN Administration Anxiety Metoprolol Tartrate 5 mg 10/03/24 15:19 Metoprolol Tartrate Inj 5 Mg/5 Ml Vial IV PUSH Q6HR PRN Tachycardia Miscellaneous Information 1 each 10/13/24 00:01 Lorazepam Needs To Be Renewed Or It Will Automatically Discontinue. XX 11/12/24 00:00 CLARIFY [facility] Ondansetron HCl 4 mg 09/21/24 22:50 10/13/24 08:51 Ondansetron Inj 4 Mg/2 Ml Vial IV PUSH 4 mg Q4H PRN Administration Nausea Promethazine HCl 12.5 mg 09/22/24 09:57 10/04/24 19:59 Promethazine Hcl 25 Mg/Ml Ampul IV PUSH 12.5 mg Q6H PRN Administration Nausea And Vomiting Sodium Chloride 10 ml 10/06/24 22:00 10/13/24 06:31 Saline Lock Flush IV PUSH Not Given Q8HR [facility] Sodium Chloride 10 ml 10/06/24 14:58 Saline Lock Flush IV PUSH PRN PRN Flush Sodium Chloride 20 ml 10/06/24 14:58 Saline Lock Flush IV PUSH PRN PRN after blood draws Sotalol HCl 40 mg 09/22/24 09:00 10/13/24 10:03 Sotalol Hcl 40 Mg Tablet PO 40 mg Q12HR [facility] Administration Trazodone HCl 50 mg 09/22/24 22:25 10/06/24 20:22 Trazodone Hcl 50 Mg Tablet PO Not Given HS [facility]UE Radiology Results: ITS Impressions Abdomen Ultrasound 09/22/24 19:31 IMPRESSION: Cholelithiasis. Possibility of cholecystitis cannot be excluded. Clinical correlation advised. Bilateral renal cysts. Small left hepatic lobe cyst. Hepatobiliary Scan Nuclear Medicine 09/25/24 12:18 IMPRESSION: 1. Normal hepatobiliary scan. Modified Barium Swallow 10/10/24 15:31 IMPRESSION: 1. Laryngeal penetration. 2. Please refer to the speech therapy report for recommendations. Chest/Abdomen/Pelvis CT 10/12/24 14:32 IMPRESSION: CHEST: 1. Dilated ascending aorta measuring 5 cm. 2. Dilated pulmonary vessels suggestive of pulmonary hypertension. 3. Multiple nodules. 3 months follow-up or PET scan is advised. 4. Pneumonia in the right upper lobe. ABDOMEN/PELVIS: 1. Hepatomegaly. 2. Cholelithiasis 3. Large cyst in the right kidney upper pole. 4. No evidence of appendicitis, diverticulitis or intestinal obstruction. 5. Colostomy tube with no definite abnormality. Chest X-Ray 10/13/24 09:12 IMPRESSION: Atelectasis versus pneumonia in the right upper lobe near to the transverse fissure. Follow-up to resolution is advised. Labs Labs: Laboratory Results - last 24 hr 10/12/24 10/12/24 10/13/24 18:23 23:58 04:47 Sodium Potassium Chloride Carbon Dioxide Anion Gap BUN Creatinine Estim Creat Clear Calc Estimated GFR Glucose POC Capillary Glucose 135 H 104 107 H Calcium 10/13/24 10/13/24 05:47 11:44 Sodium 145 Potassium 3.6 Chloride 112 H Carbon Dioxide 28 Anion Gap 5 BUN 60 H Creatinine 2.09 H Estim Creat Clear Calc 15 Estimated GFR 30 L Glucose 107 POC Capillary Glucose 113 H Calcium 8.3 L
--- NOTE | 2024-10-13 14:41 | P.PNIM_ITS ---
Progress Note: A&P Assessment and Plan (1) Acute hyponatremia: Code(s): E87.1 - Hypo-osmolality and hyponatremia Status: Acute Assessment and Plan: resolved monitor (2) Adult failure to thrive: Code(s): R62.7 - Adult failure to thrive Status: Chronic Assessment and Plan: Speech eval recommended oral feeds under their guidance Continue PPN Failed MBS 3 times GI will evaluate for G tube placement (3) Unintentional weight loss: Code(s): R63.4 - Abnormal weight loss Status: Chronic Assessment and Plan: Now on PPN Awaiting G tube placement (4) Protein-calorie malnutrition, moderate: Code(s): E44.0 - Moderate protein-calorie malnutrition Status: Acute Assessment and Plan: Continue above care On Dronabinol (5) Major depression: Code(s): F32.9 - Major depressive disorder, single episode, unspecified Status: Acute Assessment and Plan: Continue Lexapro (6) Afib: Qualifiers: Atrial fibrillation type: paroxysmal Qualified Code(s): I48.0 - Paroxysmal atrial fibrillation Code(s): I48.91 - Unspecified atrial fibrillation Status: Chronic Assessment and Plan: Rate controlled and anticoagulated (7) Prostate CA: Code(s): C61 - Malignant neoplasm of prostate Status: Chronic Assessment and Plan: Follow-up in outpatient setting Ordered PET scan (8) Dysphagia: Code(s): R13.10 - Dysphagia, unspecified Status: Acute Assessment and Plan: Failed MBS 3 times 10/11: Placed PEG tube.Currently in continuous feed will transition him to bolus since in Rehab will accept patients only with bolus. 10/12:Unable to tolerate feeding.Will resume feeding at 15 ml/hr and increase 5 ml q 6hrs if patient is able to tolerate. 10/13: Patient is not able to tolerate feeding even at 25 ml/hr. Added Reglan. Advised to start at 15ml/hr and continue without increasing at least for 24 hours. Will re-evaluate tomorrow. Discussed goals of care with family again. They might consider hospice but will wait for their final decision. Plan Cholelithiasis RUQ US showed Cholelithiasis, HIDA scan negative Cholecystitis ruled out and Gen surgery signed off monitor DVT prophylaxis on Sq Lovenox (eliquis on hold) Awaiting possible G tube placement and SNF placement Subjective Date/time seen: 10/13/24 14:41 Interval history: Patient is not able to tolerate feeding even at 25 ml/hr. Added Reglan. Advised to start at 15ml/hr and continue without increasing at least for 24 hours. Will re-evaluate tomorrow. Discussed goals of care with family again. They want to co nsider hospice with [facility]. Review of Systems Review of Systems: Generalized weakness, poor appetite, poor per orally intake Exam Narrative: Patient is laying in a stretcher Const: General: comfortable, no acute distress, well developed, alert, awake, ill appearing chronically, malnourished and underweight Nutritional Appeara nce: malnourished and underweight Orientation/consciousness: patient oriented x3 HENMT: Head: normal to inspection, normocephalic and atraumatic Ears: hearing grossly normal bilaterally Face/Nose/Sinus: normal facial exam Face and sinus: normal facial exam Other: Bitemporal muscle wasting Eyes: General: appearance normal, both eyes and all related structures Pupils: Equal, round and reactive pupils present EOM: EOMs intact bilaterally Neck: Neck: full ROM, no lymphadenopathy and no JVD Thyroid: thyroid normal Lymphatic: no lymphadenopathy noted Resp: Effort & Inspection: normal respiratory effort and able to speak in complete sentences Auscultation: clear to auscultation bilaterally Cardio: Jugular venous distension: no JVD Rate: regular rate Rhythm: regular rhythm Heart sounds: S1 normal heart sound present and S2 normal heart sound present : General: Yes deferred Skin: Rashes: no rashes Wounds: no wounds Neuro: General: patient oriented x3 and CN's II-XI intact bilaterally Cranial nerves: Yes CN's II-XII intact bilaterally and Yes Equal, round and reactive pupils present Cognition (Neuro): normal cognition Speech: normal speech Gait exam (Neuro): Normal gait present Motor exam (neuro): 5/5 mo tor strength present throughout Extrem: General: normal to inspection, full ROM, no joint enlargement and no pedal edema Objective Data Vital Signs Vital Signs: Vital Signs - 24 hr 10/12/24 20:00 10/12/24 20:55 10/12/24 21:45 Temperature 97.2 F L Pulse Rate 66 66 Respiratory Rate 20 Blood Pressure 96/60 L Pulse Oximetry 99 Oxygen Delivery Room Air 10/13/24 04:53 10/13/24 08:35 10/13/24 08:35 Temperature 97.8 F Pulse Rate 61 82 Respiratory Rate 16 30 H Blood Pressure 132/69 148/73 H Pulse Oximetry 93 100 100 Oxygen Delivery Room Air 10/13/24 10:03 10/13/24 13:51 Temperature 96.9 F L Pulse Rate 88 71 Respiratory Rate 14 Blood Pressure 110/66 Pulse Oximetry 97 Oxygen Delivery Intake/Output Intake/Output: Intake & Output 10/10/24 10/11/24 10/12/24 10/13/24 23:59 23:59 23:59 23:59 Intake Total 2214 284.5 744 563 Output Total 1309 141 7152 400 Balance 1214 -665.5 -256 163 Meds/Results Medications: Active Medications Generic Name Dose Route Start Last Admin Trade Name Freq PRN Reason Stop Dose Admin Acetaminophen 650 mg 10/05/24 05:27 10/05/24 05:55 Acetaminophen 650 Mg Suppository RECTAL 650 mg ONCE PRN Administration Mild Pain (1-3) Or Fever Acetaminophen 650 mg 10/07/24 20:42 10/12/24 19:42 Acetaminophen 325 Mg Tablet PO 650 mg Q4H PRN Administration Headache Albuterol 2 puff 09/22/24 02:42 Albuterol Sulfate (*Sp) Aerosol 1 Puff INHALATION Q4HRT PRN shortness of breath or wheezing Apixaban 2.5 mg 09/22/24 09:00 10/03/24 13:08 Apixaban 2.5 Mg Tablet PO Not Given Q12HR [facility] Dicyclomine HCl 20 mg 09/22/24 02:42 09/30/24 16:48 Dicyclomine Hcl 10 Mg Capsule PO 20 mg TID PRN Administration abdominal pain Doxazosin Mesylate 8 mg 09/22/24 09:00 10/13/24 10:04 Doxazosin Mesylate 4 Mg Tablet BY MOUTH 8 mg DAILY [facility]UE Administration Enoxaparin Sodium 50 mg 10/03/24 17:00 10/12/24 17:15 Enoxaparin 60 Mg/0.6 Ml Syringe SUB-Q 50 mg Q24H [facility] Administration Escitalopram Oxalate 5 mg 09/22/24 09:00 10/13/24 10:04 Escitalopram Oxalate 5 Mg Tablet PO 5 mg DAILY [facility]UE Administration Famotidine 20 mg 10/06/24 11:15 10/13/24 08:51 Famotidine 20 Mg/2 Ml Vial IV PUSH 20 mg DAILY [facility]UE Administration Fluticasone Propionate 2 spray 09/22/24 09:00 10/13/24 10:12 Fluticasone Propionate 0.05% Na Spr 16 Gm Btl (*Bkc) NASAL 2 spray DAILY [facility] Administration Hydralazine HCl 10 mg 10/06/24 09:39 Hydralazine Hcl 20 Mg/Ml Vial IV PUSH Q4H PRN Blood Pressure - SBP >160 Dextrose 1,000 mls @ 50 mls/hr 10/03/24 12:52 Dextrose 10% IV CONT .Q20H PRN if PN is interrupted Piperacillin Sod/Tazobactam Sod 2.25 gm in 50 mls @ 100 mls/hr 10/13/24 09:00 10/13/24 10:28 Zosyn 2.25 Gm/Ns 50 Ml IVPB Infused Q8H [facility] Infusion Insulin Human Regular 0 units 10/03/24 18:00 10/13/24 12:40 Insulin Human Regular (*Bkc) 100 Units/Ml SUB-Q Not Given Q6HR [facility] Protocol Lisinopril 5 mg 09/27/24 09:00 10/07/24 09:05 Lisinopril 5 Mg Tablet PO Not Given QAM [facility] Lorazepam 0.25 mg 10/04/24 13:28 10/13/24 12:13 Lorazepam Inj (*Crx) 2 Mg/Ml Vial IV PUSH 0.25 mg BID PRN Administration Anxiety Metoprolol Tartrate 5 mg 10/03/24 15:19 Metoprolol Tartrate Inj 5 Mg/5 Ml Vial IV PUSH Q6HR PRN Tachycardia Miscellaneous Information 1 each 10/13/24 00:01 Lorazepam Needs To Be Renewed Or It Will Automatically Discontinue. XX 11/12/24 00:00 CLARIFY [facility] Ondansetron HCl 4 mg 09/21/24 22:50 10/13/24 08:51 Ondansetron Inj 4 Mg/2 Ml Vial IV PUSH 4 mg Q4H PRN Administration Nausea Promethazine HCl 12.5 mg 09/22/24 09:57 10/04/24 19:59 Promethazine Hcl 25 Mg/Ml Ampul IV PUSH 12.5 mg Q6H PRN Administration Nausea And Vomiting Sodium Chloride 10 ml 10/06/24 22:00 10/13/24 06:31 Saline Lock Flush IV PUSH Not Given Q8HR [facility] Sodium Chloride 10 ml 10/06/24 14:58 Saline Lock Flush IV PUSH PRN PRN Flush Sodium Chloride 20 ml 10/06/24 14:58 Saline Lock Flush IV PUSH PRN PRN after blood draws Sotalol HCl 40 mg 09/22/24 09:00 10/13/24 10:03 Sotalol Hcl 40 Mg Tablet PO 40 mg Q12HR [facility] Administration Trazodone HCl 50 mg 09/22/24 22:25 10/06/24 20:22 Trazodone Hcl 50 Mg Tablet PO Not Given HS HUE Radiology Results: ITS Impressions Abdomen Ultrasound 09/22/24 19:31 IMPRESSION: Cholelithiasis. Possibility of cholecystitis cannot be excluded. Clinical correlation advised. Bilateral renal cysts. Small left hepatic lobe cyst. Hepatobiliary Scan Nuclear Medicine 09/25/24 12:18 IMPRESSION: 1. Normal hepatobiliary scan. Modified Barium Swallow 10/10/24 15:31 IMPRESSION: 1. Laryngeal penetration. 2. Please refer to the speech therapy report for recommendations. Chest/Abdomen/Pelvis CT 10/12/24 14:32 IMPRESSION: CHEST: 1. Dilated ascending aorta measuring 5 cm. 2. Dilated pulmonary vessels suggestive of pulmonary hypertension. 3. Multiple nodules. 3 months follow-up or PET scan is advised. 4. Pneumonia in the right upper lobe. ABDOMEN/PELVIS: 1. Hepatomegaly. 2. Cholelithiasis 3. Large cyst in the right kidney upper pole. 4. No evidence of appendicitis, diverticulitis or intestinal obstruction. 5. Colostomy tube with no definite abnormality. Chest X-Ray 10/13/24 09:12 IMPRESSION: Atelectasis versus pneumonia in the right upper lobe near to the transverse fissure. Follow-up to resolution is advised. Labs Labs: Laboratory Results - last 24 hr 10/12/24 10/12/24 10/13/24 18:23 23:58 04:47 Sodium Potassium Chloride Carbon Dioxide Anion Gap BUN Creatinine Estim Creat Clear Calc Estimated GFR Glucose POC Capillary Glucose 135 H 104 107 H Calcium 10/13/24 10/13/24 05:47 11:44 Sodium 145 Potassium 3.6 Chloride 112 H Carbon Dioxide 28 Anion Gap 5 BUN 60 H Creatinine 2.09 H Estim Creat Clear Calc 15 Estimated GFR 30 L Glucose 107 POC Capillary Glucose 113 H Calcium 8.3 L Hospitalist MIPS Advance Care Plan I have confirmed that the patient's Advanced Care Plan is present, code status is documented, or surrogate decision maker is listed in patient medical record.: Yes Medication Reconciliation I have utilized all available resources to obtain, update and review the patients current medications (includes all prescriptions, OTC, herbals, cannabis, and nutritional supplements).: Yes
[2024-10-13] MEDS: SALINE LOCK FLUSH 10 ML IV PUSH ×2 (17:04→21:36)
[2024-10-13] MEDS: ENOXAPARIN 60 MG/0.6 ML SYRINGE 50 MG SUB-Q (17:04)
[2024-10-13 18:16] LABS: Glucose Point of Care 94 mg/dl (65-105)
[2024-10-13 21:21] VITALS: BP 135/67; PULSE 61; RESP 16; TEMP 36.1; O2SAT 99
[2024-10-13 21:36] VITALS: PULSE 70
[2024-10-14] MEDS: PIPERACILLIN/TAZ 2.25G/NS 50ML 2.25 GM/50 ML BAG IVPB ×3 (00:01→17:40)
[2024-10-14] MEDS: PROCHLORPERAZINE EDISYLATE 10 MG/2 ML VIAL IV PUSH ×4 (00:04→18:24)
[2024-10-14] MEDS: SALINE LOCK FLUSH 10 ML IV PUSH ×4 (00:31→21:38)
[2024-10-14 01:18] LABS: Glucose Point of Care 91 mg/dl (65-105)
[2024-10-14] MEDS: SALINE LOCK FLUSH 20 ML IV PUSH (05:36)
[2024-10-14 05:44] LABS: Glucose Point of Care 113 mg/dl (65-105)
[2024-10-14 05:51] VITALS: BP 146/78; PULSE 72; RESP 12; TEMP 36.4; O2SAT 98
[2024-10-14] MEDS: diphenhydrAMINE HCl INJ 50 MG/ML VIAL 25 MG IV PUSH ×2 (06:10→21:38)
[2024-10-14 07:46] LABS: Hematocrit 28.5 % (42.0-52.0); Hemoglobin 8.5 g/dL (14.0-18.0); Mean Corpuscular HGB Conc 29.8 g/dl (32-36); Mean Corpuscular Hemoglobin 27.9 pg (26-34); Mean Corpuscular Volume 93.4 fl (80-100); Mean Platelet Volume 11.7 fl (7.4-10.4); Platelet Count Result 183 k/mm3 (150-375); Red Blood Count 3.05 M/mm3 (4.6-6.20); Red Cell Distribution Width 17.1 % (11.5-14.5); White Blood Count 5.1 K/mm3 (4.5-10.0)
[2024-10-14 07:49] LABS: Alanine Aminotransferase 6 U/L (6-50); Albumin Level 2.5 g/dL (3.5-5.1); Alkaline Phosphatase 101 U/L (38-126); Anion Gap 3 mmol/L (4-12); Aspartate Amino Transferase 16 U/L (17-59); Bilirubin,Total 0.8 mg/dL (0.2-1.3); Blood Urea Nitrogen 56 mg/dL (9-20); Carbon Dioxide 29 mmol/L (22-30); Chloride 115 mmol/L (98-107); Estimated CRCL calculation 13 ml/min; Estimated Glomerular Filt Rate 26; Glucose 102 mg/dL (65-110); Potassium 3.6 mmol/L (3.4-5.0); Sodium 147 mmol/L (137-145)
[2024-10-14 08:31] LABS: Triglycerides 131 mg/dL (<150)
[2024-10-14 09:01] VITALS: PULSE 72
[2024-10-14] MEDS: SOTALOL HCL 40 MG TABLET PO ×2 (09:01→21:37)
[2024-10-14] MEDS: DOXAZOSIN MESYLATE 4 MG TABLET 8 MG BY MOUTH (09:01)
[2024-10-14] MEDS: ESCITALOPRAM OXALATE 5 MG TABLET PO (09:02)
[2024-10-14] MEDS: FLUTICASONE PROPIONATE 0.05% NA SPR 16 GM BTL (*BKC) 2 SPRAY NASAL (09:02)
[2024-10-14] MEDS: FAMOTIDINE 20 MG/2 ML VIAL IV PUSH (09:02)
[2024-10-14 12:30] LABS: Glucose Point of Care 120 mg/dl (65-105)
--- NOTE | 2024-10-14 12:53 | P.PNIM_ITS ---
Progress Note: A&P Assessment and Plan (1) Acute hyponatremia: Code(s): E87.1 - Hypo-osmolality and hyponatremia Status: Acute Assessment and Plan: resolved monitor (2) Adult failure to thrive: Code(s): R62.7 - Adult failure to thrive Status: Chronic Assessment and Plan: Hospice Speech eval recommended oral feeds under their guidance Continue PPN Failed MBS 3 times Placed G tube Unable to tolerate feed Added Reglan Hospice consulted (3) Unintentional weight loss: Code(s): R63.4 - Abnormal weight loss Status: Chronic Assessment and Plan: Now on PPN Awaiting G tube placement (4) Protein-calorie malnutrition, moderate: Code(s): E44.0 - Moderate protein-calorie malnutrition Status: Acute Assessment and Plan: Continue above care On Dronabinol (5) Major depression: Code(s): F32.9 - Major depressive disorder, single episode, unspecified Status: Acute Assessment and Plan: Continue Lexapro (6) Afib: Qualifiers: Atrial fibrillation type: paroxysmal Qualified Code(s): I48.0 - Paroxysmal atrial fibrillation Code(s): I48.91 - Unspecified atrial fibrillation Status: Chronic Assessment and Plan: Rate controlled and anticoagulated (7) Prostate CA: Code(s): C61 - Malignant neoplasm of prostate Status: Chronic Assessment and Plan: Follow-up in outpatient setting Ordered PET scan (8) Dysphagia: Code(s): R13.10 - Dysphagia, unspecified Status: Acute Assessment and Plan: Failed MBS 3 times 10/11: Placed PEG tube.Currently in continuous feed will transition him to bolus since in Rehab will accept patients only with bolus. 10/12:Unable to tolerate feeding.Will resume feeding at 15 ml/hr and increase 5 ml q 6hrs if patient is able to tolerate. 10/13: Patient is not able to tolerate feeding even at 25 ml/hr. Added Reglan. Advised to start at 15ml/hr and continue without increasing at least for 24 hours. Will re-evaluate tomorrow. Discussed goals of care with family again. They might consider hospice but will wait for their final decision. 10/14: Hospice is consulted. Plan Cholelithiasis RUQ US showed Cholelithiasis, HIDA scan negative Cholecystitis ruled out and Gen surgery signed off monitor DVT prophylaxis on Sq Lovenox (eliquis on hold) Awaiting possible G tube placement and SNF placement Subjective Date/time seen: 10/14/24 12:53 Interval history: Patient is frustrated and says he is PEG tube site is paining and nobody is able to say why he has so much pain. Hospice is consulted.Unable to titrate his PEG feeding due to intolerance. Currently in 15ml/hr will titrate up later.Patient will be discharged with hospice tomorrow Review of Systems Review of Systems: Generalized weakness, poor appetite, poor per orally intake Exam Narrative: Patient is laying in a stretcher Const: General: comfortable, no acute distress, well developed, alert, awake, ill appearing chronically, malnourished and underweight Nutritional Appearance: malnourished and underweight Orientation/consciousness: patient oriented x3 HENMT: Head: normal to inspection, normocephalic and atraumatic Ears: hearing grossly normal bilaterally Face/Nose/Sinus: normal facial exam Face and sinus: normal facial exam Other: Bitemporal muscle wasting Eyes: General: appearance normal, both eyes and all related structures Pupils: Equal, round and reactive pupils present EOM: EOMs intact bilaterally Neck: Neck: full ROM, no lymphadenopathy and no JVD Thyroid: thyroid normal Lymphatic: no lymphadenopathy noted Resp: Effort & Inspection: normal respiratory effort and able to speak in complete sentences Auscultation: clear to auscultation bilaterally Cardio: Jugular venous distension: no JVD Rate: regular rate Rhythm: regular rhythm Heart sounds: S1 normal heart sound present and S2 normal heart sound present : General: Yes deferred Skin: Rashes: no rashes Wounds: no wounds Neuro: General: patient oriented x3 and CN's II-XI intact bilaterally Cranial nerves: Yes CN's II-XII intact bilaterally and Yes Equal, round and reactive pupils present Cognition (Neuro): normal cognition Speech: normal speech Gait exam (Neuro): Normal gait present Motor exam (neuro): 5/5 motor strength present throughout Extrem: General: normal to inspection, full ROM, no joint enlargement and no pedal edema Objective Data Vital Signs Vital Signs: Vital Signs - 24 hr 10/13/24 13:51 10/13/24 20:00 10/13/24 21:21 Temperature 96.9 F L 97.0 F L Pulse Rate 71 61 Respiratory Rate 14 16 Blood Pressure 110/66 135/67 Pulse Oximetry 97 99 Oxygen Delivery Room Air 10/13/24 21:36 10/14/24 05:51 10/14/24 08:00 Temperature 97.5 F L Pulse Rate 70 72 Respiratory Rate 12 Blood Pressure 146/78 H Pulse Oximetry 98 Oxygen Delivery Room Air 10/14/24 09:01 Temperature Pulse Rate 72 Respiratory Rate Blood Pressure Pulse Oximetry Oxygen Delivery Intake/Output Intake/Output: Intake & Output 10/11/24 10/12/24 10/13/24 10/14/24 23:59 23:59 23:59 23:59 Intake Total 284.5 744 873 444 Output Total 950 1000 750 150 Balance -665.5 -256 123 294 Meds/Results Medications: Active Medications Generic Name Dose Route Start Last Admin Trade Name Freq PRN Reason Stop Dose Admin Acetaminophen 650 mg 10/05/24 05:27 10/05/24 05:55 Acetaminophen 650 Mg Suppository RECTAL 650 mg ONCE PRN Administration Mild Pain (1-3) Or Fever Acetaminophen 650 mg 10/07/24 20:42 10/12/24 19:42 Acetaminophen 325 Mg Tablet PO 650 mg Q4H PRN Administration Headache Albuterol 2 puff 09/22/24 02:42 Albuterol Sulfate (*Sp) Aerosol 1 Puff INHALATION Q4HRT PRN shortness of breath or wheezing Apixaban 2.5 mg 09/22/24 09:00 10/03/24 13:08 Apixaban 2.5 Mg Tablet PO Not Given Q12HR [facility]UE Dicyclomine HCl 20 mg 09/22/24 02:42 09/30/24 16:48 Dicyclomine Hcl 10 Mg Capsule PO 20 mg TID PRN Administration abdominal pain Diphenhydramine HCl 25 mg 10/13/24 23:39 10/14/24 06:10 Diphenhydramine Hcl Inj 50 Mg/Ml Vial IV PUSH 25 mg ONCE PRN Administration itching Diphenhydramine HCl 25 mg 10/13/24 23:40 Diphenhydramine Hcl Inj 50 Mg/Ml Vial IV PUSH ONCE PRN if first dose ineffective Doxazosin Mesylate 8 mg 09/22/24 09:00 10/14/24 09:01 Doxazosin Mesylate 4 Mg Tablet BY MOUTH 8 mg DAILY HUE Administration Enoxaparin Sodium 50 mg 10/03/24 17:00 10/13/24 17:04 Enoxaparin 60 Mg/0.6 Ml Syringe SUB-Q 50 mg Q24H [facility]UE Administration Escitalopram Oxalate 5 mg 09/22/24 09:00 10/14/24 09:02 Escitalopram Oxalate 5 Mg Tablet PO 5 mg DAILY HUE Administration Famotidine 20 mg 10/06/24 11:15 10/14/24 09:02 Famotidine 20 Mg/2 Ml Vial IV PUSH 20 mg DAILY HUE Administration Fluticasone Propionate 2 spray 09/22/24 09:00 10/14/24 09:02 Fluticasone Propionate 0.05% Na Spr 16 Gm Btl (*Bkc) NASAL 2 spray DAILY HUE Administration Hydralazine HCl 10 mg 10/06/24 09:39 Hydralazine Hcl 20 Mg/Ml Vial IV PUSH Q4H PRN Blood Pressure - SBP >160 Dextrose 1,000 mls @ 50 mls/hr 10/03/24 12:52 Dextrose 10% IV CONT .Q20H PRN if PN is interrupted Piperacillin Sod/Tazobactam Sod 2.25 gm in 50 mls @ 100 mls/hr 10/13/24 09:00 10/14/24 09:00 Zosyn 2.25 Gm/Ns 50 Ml IVPB 100 mls/hr Q8H [facility]UE Administration Insulin Human Regular 0 units 10/03/24 18:00 10/14/24 06:10 Insulin Human Regular (*Bkc) 100 Units/Ml SUB-Q Not Given Q6HR [facility] Protocol Lisinopril 5 mg 09/27/24 09:00 10/07/24 09:05 Lisinopril 5 Mg Tablet PO Not Given QAM [facility] Lorazepam 0.25 mg 10/04/24 13:28 10/13/24 21:35 Lorazepam Inj (*Crx) 2 Mg/Ml Vial IV PUSH 10/23/24 23:59 0.25 mg BID PRN Administration Anxiety Metoprolol Tartrate 5 mg 10/03/24 15:19 Metoprolol Tartrate Inj 5 Mg/5 Ml Vial IV PUSH Q6HR PRN Tachycardia Ondansetron HCl 4 mg 09/21/24 22:50 10/13/24 08:51 Ondansetron Inj 4 Mg/2 Ml Vial IV PUSH 4 mg Q4H PRN Administration Nausea Prochlorperazine Edisylate 10 mg 10/14/24 00:00 10/14/24 05:36 Prochlorperazine Edisylate 10 Mg/2 Ml Vial IV PUSH 10 mg Q6HR [facility]UE Administration Promethazine HCl 12.5 mg 09/22/24 09:57 10/04/24 19:59 Promethazine Hcl 25 Mg/Ml Ampul IV PUSH 12.5 mg Q6H PRN Administration Nausea And Vomiting Sodium Chloride 10 ml 10/06/24 22:00 10/14/24 05:36 Saline Lock Flush IV PUSH 10 ml Q8HR [facility]UE Administration Sodium Chloride 10 ml 10/06/24 14:58 10/14/24 00:31 Saline Lock Flush IV PUSH 10 ml PRN PRN Administration Flush Sodium Chloride 20 ml 10/06/24 14:58 10/14/24 05:36 Saline Lock Flush IV PUSH 20 ml PRN PRN Administration after blood draws Sotalol HCl 40 mg 09/22/24 09:00 10/14/24 09:01 Sotalol Hcl 40 Mg Tablet PO 40 mg Q12HR [facility] Administration Trazodone HCl 50 mg 09/22/24 22:25 10/06/24 20:22 Trazodone Hcl 50 Mg Tablet PO Not Given HS HUE Radiology Results: ITS Impressions Abdomen Ultrasound 09/22/24 19:31 IMPRESSION: Cholelithiasis. Possibility of cholecystitis cannot be excluded. Clinical correlation advised. Bilateral renal cysts. Small left hepatic lobe cyst. Hepatobiliary Scan Nuclear Medicine 09/25/24 12:18 IMPRESSION: 1. Normal hepatobiliary scan. Modified Barium Swallow 10/10/24 15:31 IMPRESSION: 1. Laryngeal penetration. 2. Please refer to the speech therapy report for recommendations. Chest/Abdomen/Pelvis CT 10/12/24 14:32 IMPRESSION: CHEST: 1. Dilated ascending aorta measuring 5 cm. 2. Dilated pulmonary vessels suggestive of pulmonary hypertension. 3. Multiple nodules. 3 months follow-up or PET scan is advised. 4. Pneumonia in the right upper lobe. ABDOMEN/PELVIS: 1. Hepatomegaly. 2. Cholelithiasis 3. Large cyst in the right kidney upper pole. 4. No evidence of appendicitis, diverticulitis or intestinal obstruction. 5. Colostomy tube with no definite abnormality. Chest X-Ray 10/13/24 09:12 IMPRESSION: Atelectasis versus pneumonia in the right upper lobe near to the transverse fissure. Follow-up to resolution is advised. Labs Labs: Laboratory Results - last 24 hr 10/13/24 10/14/24 10/14/24 18:08 00:41 05:40 WBC RBC Hgb Hct MCV MCH MCHC RDW Plt Count MPV Sodium Potassium Chloride Carbon Dioxide Anion Gap BUN Creatinine Estim Creat Clear Calc Estimated GFR Glucose POC Capillary Glucose 94 91 113 H Calcium Total Bilirubin AST ALT Alkaline Phosphatase Total Protein Albumin Triglycerides 10/14/24 10/14/24 07:28 12:28 WBC 5.1 RBC 3.05 L Hgb 8.5 L Hct 28.5 L MCV 93.4 D MCH 27.9 MCHC 29.8 L RDW 17.1 H Plt Count 183 MPV 11.7 H Sodium 147 H Potassium 3.6 Chloride 115 H Carbon Dioxide 29 Anion Gap 3 L BUN 56 H Creatinine 2.34 H Estim Creat Clear Calc 13 Estimated GFR 26 L Glucose 102 POC Capillary Glucose 120 H Calcium 9.0 Total Bilirubin 0.8 AST 16 L ALT 6 Alkaline Phosphatase 101 Total Protein 6.0 L Albumin 2.5 L Triglycerides 131 Hospitalist [facility] Advance Care Plan I have confirmed that the patient's Advanced Care Plan is present, code status is documented, or surrogate decision maker is listed in patient medical record.: Yes Medication Reconciliation I have utilized all available resources to obtain, update and review the patients current medications (includes all prescriptions, OTC, herbals, cannabis, and nutritional supplements).: Yes
[2024-10-14] MEDS: LORazepam INJ (*CRX) 2 MG/ML VIAL 0.25 MG IV PUSH ×2 (13:25→21:38)
[2024-10-14 14:00] VITALS: BP 157/79; PULSE 98; RESP 18; TEMP 36.4; O2SAT 98
[2024-10-14 20:25] VITALS: BP 167/98; PULSE 54; RESP 18; TEMP 36.6; O2SAT 100
[2024-10-15] MEDS: PROCHLORPERAZINE EDISYLATE 10 MG/2 ML VIAL IV PUSH ×2 (00:17→05:09)
[2024-10-15] MEDS: PIPERACILLIN/TAZ 2.25G/NS 50ML 2.25 GM/50 ML BAG IVPB (00:17)
[2024-10-15 04:10] VITALS: BP 163/83; PULSE 71; RESP 18; TEMP 37.1; O2SAT 99
[2024-10-15] MEDS: SALINE LOCK FLUSH 10 ML IV PUSH (05:09)
[2024-10-15 08:00] VITALS: PULSE 71; RESP 18; O2SAT 99
--- NOTE | 2024-10-15 08:17 | PM.IMPN ---
Progress Note: A&P Assessment and Plan (1) Acute hyponatremia: Code(s): E87.1 - Hypo-osmolality and hyponatremia Status: Acute Assessment and Plan: resolved monitor (2) Adult failure to thrive: Code(s): R62.7 - Adult failure to thrive Status: Chronic Assessment and Plan: Hospice Speech eval recommended oral feeds under their guidance Continue PPN Failed MBS 3 times Placed G tube Unable to tolerate feed Added Reglan Hospice consulted (3) Unintentional weight loss: Code(s): R63.4 - Abnormal weight loss Status: Chronic Assessment and Plan: Now on PPN Awaiting G tube placement (4) Protein-calorie malnutrition, moderate: Code(s): E44.0 - Moderate protein-calorie malnutrition Status: Acute Assessment and Plan: Continue above care On Dronabinol (5) Major depression: Code(s): F32.9 - Major depressive disorder, single episode, unspecified Status: Acute Assessment and Plan: Continue Lexapro (6) Afib: Qualifiers: Atrial fibrillation type: paroxysmal Qualified Code(s): I48.0 - Paroxysmal atrial fibrillation Code(s): I48.91 - Unspecified atrial fibrillation Status: Chronic Assessment and Plan: Rate controlled and anticoagulated (7) Prostate CA: Code(s): C61 - Malignant neoplasm of prostate Status: Chronic Assessment and Plan: Follow-up in outpatient setting Ordered PET scan (8) Dysphagia: Code(s): R13.10 - Dysphagia, unspecified Status: Acute Assessment and Plan: Failed MBS 3 times 10/11: Placed PEG tube.Currently in continuous feed will transition him to bolus since in Rehab will accept patients only with bolus. 10/12:Unable to tolerate feeding.Will resume feeding at 15 ml/hr and increase 5 ml q 6hrs if patient is able to tolerate. 10/13: Patient is not able to tolerate feeding even at 25 ml/hr. Added Reglan. Advised to start at 15ml/hr and continue without increasing at least for 24 hours. Will re-evaluate tomorrow. Discussed goals of care with family again. They might consider hospice but will wait for their final decision. 10/14: Hospice is consulted. Plan Cholelithiasis RUQ US showed Cholelithiasis, HIDA scan negative Cholecystitis ruled out and Gen surgery signed off monitor DVT prophylaxis on Sq Lovenox (eliquis on hold) Awaiting possible G tube placement and SNF placement Subjective Date/time seen: 10/15/24 08:17 Interval history: Possible discharge today with hospice. Review of Systems Review of Systems: Generalized weakness, poor appetite, poor per orally intake Exam Narrative: Patient is laying in a stretcher Const: General: comfortable, no acute distress, well developed, alert, awake, ill appearing chronically, malnourished and underweight Nutritional Appearance: malnourished and underweight Orientation/consciousness: patient oriented x3 HENMT: Head: normal to inspection, normocephalic and atraumatic Ears: hearing grossly normal bilaterally Face/Nose/Sinus: normal facial exam Face and sinus: normal facial exam Other: Bitemporal muscle wasting Eyes: General: appearance normal, both eyes and all related structures Pupils: Equal, round and reactive pupils present EOM: EOMs intact bilaterally Neck: Neck: full ROM, no lymphadenopathy and no JVD Thyroid: thyroid normal Lymphatic: no lymphadenopathy noted Resp: Effort & Inspection: normal respiratory effort and able to speak in complete sentences Auscultation: clear to auscultation bilaterally Cardio: Jugular venous distension: no JVD Rate: regular rate Rhythm: regular rhythm Heart sounds: S1 normal heart sound present and S2 normal heart sound present : General: Yes deferred Skin: Rashes: no rashes Wounds: no wounds Neuro: General: patient oriented x3 and CN's II-XI intact bilaterally Cranial nerves: Yes CN's II-XII intact bilaterally and Yes Equal, round and reactive pupils present Cognition (Neuro): normal cognition Speech: normal speech Gait exam (Neuro): Normal gait present Motor exam (neuro): 5/5 motor strength present throughout Extrem: General: normal to inspection, full ROM, no joint enlargement and no pedal edema Objective Data Vital Signs Vital Signs: Vital Signs - 24 hr 10/14/24 09:01 10/14/24 14:00 10/14/24 20:00 Temperature 97.5 F L Pulse Rate 72 98 Respiratory Rate 18 Blood Pressure 157/79 H Pulse Oximetry 98 Oxygen Delivery Room Air 10/14/24 20:25 10/15/24 04:10 Temperature 97.9 F 98.7 F Pulse Rate 54 L 71 Respiratory Rate 18 18 Blood Pressure 167/98 H 163/83 H Pulse Oximetry 100 99 Oxygen Delivery Intake/Output Intake/Output: Intake & Output 10/12/24 10/13/24 10/14/24 10/15/24 23:59 23:59 23:59 23:59 Intake Total 744 873 594 50 Output Total 1000 750 700 450 Balance -256 123 106 -400 Meds/Results Medications: Active Medications Generic Name Dose Route Start Last Admin Trade Name Freq PRN Reason Stop Dose Admin Acetaminophen 650 mg 10/05/24 05:27 10/05/24 05:55 Acetaminophen 650 Mg Suppository RECTAL 650 mg ONCE PRN Administration Mild Pain (1-3) Or Fever Acetaminophen 650 mg 10/07/24 20:42 10/12/24 19:42 Acetaminophen 325 Mg Tablet PO 650 mg Q4H PRN Administration Headache Albuterol 2 puff 09/22/24 02:42 Albuterol Sulfate (*Sp) Aerosol 1 Puff INHALATION Q4HRT PRN shortness of breath or wheezing Apixaban 2.5 mg 09/22/24 09:00 10/03/24 13:08 Apixaban 2.5 Mg Tablet PO Not Given Q12HR [facility] Dicyclomine HCl 20 mg 09/22/24 02:42 09/30/24 16:48 Dicyclomine Hcl 10 Mg Capsule PO 20 mg TID PRN Administration abdominal pain Diphenhydramine HCl 25 mg 10/13/24 23:39 10/14/24 21:38 Diphenhydramine Hcl Inj 50 Mg/Ml Vial IV PUSH 25 mg ONCE PRN Administration itching Diphenhydramine HCl 25 mg 10/13/24 23:40 Diphenhydramine Hcl Inj 50 Mg/Ml Vial IV PUSH ONCE PRN if first dose ineffective Doxazosin Mesylate 8 mg 09/22/24 09:00 10/14/24 09:01 Doxazosin Mesylate 4 Mg Tablet BY MOUTH 8 mg DAILY [facility]UE Administration Enoxaparin Sodium 50 mg 10/03/24 17:00 10/14/24 17:39 Enoxaparin 60 Mg/0.6 Ml Syringe SUB-Q Not Given Q24H [facility] Escitalopram Oxalate 5 mg 09/22/24 09:00 10/14/24 09:02 Escitalopram Oxalate 5 Mg Tablet PO 5 mg DAILY [facility]UE Administration Famotidine 20 mg 10/06/24 11:15 10/14/24 09:02 Famotidine 20 Mg/2 Ml Vial IV PUSH 20 mg DAILY HUE Administration Fluticasone Propionate 2 spray 09/22/24 09:00 10/14/24 09:02 Fluticasone Propionate 0.05% Na Spr 16 Gm Btl (*Bkc) NASAL 2 spray DAILY [facility]UE Administration Hydralazine HCl 10 mg 10/06/24 09:39 Hydralazine Hcl 20 Mg/Ml Vial IV PUSH Q4H PRN Blood Pressure - SBP >160 Dextrose 1,000 mls @ 50 mls/hr 10/03/24 12:52 Dextrose 10% IV CONT .Q20H PRN if PN is interrupted Piperacillin Sod/Tazobactam Sod 2.25 gm in 50 mls @ 100 mls/hr 10/13/24 09:00 10/15/24 00:17 Zosyn 2.25 Gm/Ns 50 Ml IVPB 100 mls/hr Q8H [facility] Administration Insulin Human Regular 0 units 10/03/24 18:00 10/15/24 05:10 Insulin Human Regular (*Bkc) 100 Units/Ml SUB-Q Not Given Q6HR [facility] Protocol Lisinopril 5 mg 09/27/24 09:00 10/07/24 09:05 Lisinopril 5 Mg Tablet PO Not Given QAM [facility] Lorazepam 0.25 mg 10/04/24 13:28 10/14/24 21:38 Lorazepam Inj (*Crx) 2 Mg/Ml Vial IV PUSH 10/23/24 23:59 0.25 mg BID PRN Administration Anxiety Metoprolol Tartrate 5 mg 10/03/24 15:19 Metoprolol Tartrate Inj 5 Mg/5 Ml Vial IV PUSH Q6HR PRN Tachycardia Ondansetron HCl 4 mg 09/21/24 22:50 10/13/24 08:51 Ondansetron Inj 4 Mg/2 Ml Vial IV PUSH 4 mg Q4H PRN Administration Nausea Prochlorperazine Edisylate 10 mg 10/14/24 00:00 10/15/24 05:09 Prochlorperazine Edisylate 10 Mg/2 Ml Vial IV PUSH 10 mg Q6HR [facility] Administration Promethazine HCl 12.5 mg 09/22/24 09:57 10/04/24 19:59 Promethazine Hcl 25 Mg/Ml Ampul IV PUSH 12.5 mg Q6H PRN Administration Nausea And Vomiting Sodium Chloride 10 ml 10/06/24 22:00 10/15/24 05:09 Saline Lock Flush IV PUSH 10 ml Q8HR [facility] Administration Sodium Chloride 10 ml 10/06/24 14:58 10/14/24 00:31 Saline Lock Flush IV PUSH 10 ml PRN PRN Administration Flush Sodium Chloride 20 ml 10/06/24 14:58 10/14/24 05:36 Saline Lock Flush IV PUSH 20 ml PRN PRN Administration after blood draws Sotalol HCl 40 mg 09/22/24 09:00 10/14/24 21:37 Sotalol Hcl 40 Mg Tablet PO 40 mg Q12HR [facility] Administration Trazodone HCl 50 mg 09/22/24 22:25 10/06/24 20:22 Trazodone Hcl 50 Mg Tablet PO Not Given HS [facility] Radiology Results: ITS Impressions Abdomen Ultrasound 09/22/24 19:31 IMPRESSION: Cholelithiasis. Possibility of cholecystitis cannot be excluded. Clinical correlation advised. Bilateral renal cysts. Small left hepatic lobe cyst. Hepatobiliary Scan Nuclear Medicine 09/25/24 12:18 IMPRESSION: 1. Normal hepatobiliary scan. Modified Barium Swallow 10/10/24 15:31 IMPRESSION: 1. Laryngeal penetration. 2. Please refer to the speech therapy report for recommendations. Chest/Abdomen/Pelvis CT 10/12/24 14:32 IMPRESSION: CHEST: 1. Dilated ascending aorta measuring 5 cm. 2. Dilated pulmonary vessels suggestive of pulmonary hypertension. 3. Multiple nodules. 3 months follow-up or PET scan is advised. 4. Pneumonia in the right upper lobe. ABDOMEN/PELVIS: 1. Hepatomegaly. 2. Cholelithiasis 3. Large cyst in the right kidney upper pole. 4. No evidence of appendicitis, diverticulitis or intestinal obstruction. 5. Colostomy tube with no definite abnormality. Chest X-Ray 10/13/24 09:12 IMPRESSION: Atelectasis versus pneumonia in the right upper lobe near to the transverse fissure. Follow-up to resolution is advised. Labs Labs: Laboratory Results - last 24 hr 10/14/24 10/14/24 07:28 12:28 POC Capillary Glucose 120 H Triglycerides 131 Hospitalist [facility] Advance Care Plan I have confirmed that the patient's Advanced Care Plan is present, code status is documented, or surrogate decision maker is listed in patient medical record.: Yes Medication Reconciliation I have utilized all available resources to obtain, update and review the patients current medications (includes all prescriptions, OTC, herbals, cannabis, and nutritional supplements).: Yes
--- NOTE | 2024-10-15 10:27 | PM.DS ---
DS: Admitting Diagnosis Discharge Date 10/15/2024 Admitting Diagnosis Failure to thrive DS: Discharge Diagnosis Discharge Diagnosis (1) Acute hyponatremia: Code(s): E87.1 - Hypo-osmolality and hyponatremia Status: Acute Assessment and Plan: resolved (2) Adult failure to thrive: Code(s): R62.7 - Adult failure to thrive Status: Chronic Assessment and Plan: Hospice Speech eval recommended oral feeds under their guidance Failed MBS 3 times Placed G tube Unable to tolerate feed Added Reglan DC with Hospice (3) Unintentional weight loss: Code(s): R63.4 - Abnormal weight loss Status: Chronic Assessment and Plan: Hospice (4) Protein-calorie malnutrition, moderate: Code(s): E44.0 - Moderate protein-calorie malnutrition Status: Acute Assessment and Plan: Continue above care On Dronabinol (5) Major depression: Code(s): F32.9 - Major depressive disorder, single episode, unspecified Status: Acute Assessment and Plan: Continue Lexapro (6) Afib: Qualifiers: Atrial fibrillation type: paroxysmal Qualified Code(s): I48.0 - Paroxysmal atrial fibrillation Code(s): I48.91 - Unspecified atrial fibrillation Status: Chronic Assessment and Plan: Rate controlled and anticoagulated (7) Prostate CA: Code(s): C61 - Malignant neoplasm of prostate Status: Chronic Assessment and Plan: Follow-up in outpatient setting Ordered PET scan (8) Dysphagia: Code(s): R13.10 - Dysphagia, unspecified Status: Acute Assessment and Plan: Failed MBS 3 times 10/11: Placed PEG tube.Currently in continuous feed will transition him to bolus since in Rehab will accept patients only with bolus. 10/12:Unable to tolerate feeding.Will resume feeding at 15 ml/hr and increase 5 ml q 6hrs if patient is able to tolerate. 10/13: Patient is not able to tolerate feeding even at 25 ml/hr. Added Reglan. Advised to start at 15ml/hr and continue without increasing at least for 24 hours. Will re-evaluate tomorrow. Discussed goals of care with family again. They might consider hospice but will wait for their final decision. 10/14: Hospice is consulted. 10/15: DC with hospice DS: Summary Hospital Course Hospital Course: This is an 88-year-old male with past medical history significant for prostate CA, chronic kidney disease ,anxiety, hypertension ,dyslipidemia. Patient was brought to the emergency room due to poor per orally intake, weight loss, generalized weakness. Patient denies any fevers, rigors, chills, cough, sputum production, shortness of breath, nausea, vomiting, diarrhea. Most of the history has been obtained from daughter who is at bedside. Preliminary workup has been significant for sodium of 127, creatinine is 1.8 BUN is 55 albumin is 2.5. Patient has been admitted for further evaluation management and treatment. Patient is been in the hospital from 09/21 for evaluation of weight loss and poor oral feed. I assumed care on 09/28 and back on 10/09 09/28: Patient has a past medical history of prostate cancer, was admitted due to failure to thrive and decreased appetite. Patient lost approximately 40 lb since February 2024. Right upper quadrant ultrasound showed cholelithiasis HIDA scan was ordered which was negative. Patient is on doxycycline started by previous hospitalist and was continued until 09/30. Had a conversation with his daughter and his about his goal care and wanted to continue all the aggressive measure Assumed care back on 10/09 till 10/15: During the whole course of hospitalization had multiple discussion with the family about the goals of care. As per family request patient had 3 MBS which he failed all 3 times and PEG was placed on 10/11/2024. Unfortunately after the PEG tube placement,patient was not able to handle the stress of surgery and complained of more pain and distressed from the events happening. He was unable to tolerate the feeds and 2 times we have completely stopped the feeds and restarted at 15 ml/hr and added Reglan. Still patient is not able to tolerate the feed. Hospice was consulted 2 times and first time they declined Hospice but 2nd time they agreed for hospice. Pa Status at Discharge Cognitive/behavioral status at discharge: Guarded Time Spent with Patient Time attestation: Total time spent providing and/or coordinating discharge services:45 mins Exam Narrative: Patient is laying in a stretcher HENMT: Other: Bitemporal muscle wasting DS: Data Data Completed and Pending Labs on day of discharge: Labs from last 24 hours 10/14/24 12:28 POC Capillary Glucose 120 H Discharge Plan Discharge Attending physician on discharge: Ezra Collins Discharging Clinician: Jayaraj,Ezra Anticipated Discharge Date/Time: 10/15/24 10:24 Patient Disposition: Hospice - Home Activity: other - see discharge instructions Diet: other - see discharge instructions Discharge Instructions: Patient has PEG tube. Please follow hospice protocol for medication reconciliation and tube feeding. Patient Instructions: Removal of a Central Line, PICC, or Midline Catheter (DC) Patient Language: Cymraes Stand Alone Forms: General Discharge Information Discharge Medications: Continued Xtandi 80 mg tablet 80 mg PO DAILY fluticasone propionate [Children's Flonase Allergy Rlf] 50 mcg/actuation spray,suspension 2 spray intranasal DAILY Qty: 16 0RF Rx Instructions: administer into each nostril albuterol sulfate 90 mcg/actuation HFA aerosol inhaler 2 inh inhalation Q4H PRN (Reason: shortness of breath or wheezing) Qty: 8.5 0RF sotalol 80 mg tablet 40 mg PO DAILY escitalopram oxalate [Lexapro] 5 mg tablet 5 mg PO DAILY Qty: 30 1RF Eliquis 2.5 mg tablet 2.5 mg PO .q12hr lorazepam 0.5 mg tablet 0.5 mg PO TID PRN (Reason: anxiety) Qty: 90 0RF famotidine 20 mg tablet See Rx Instructions .ROUTE .COMPLEX Qty: 90 0RF Dose Instruction: TAKE 1 TABLET BY MOUTH DAILY Rx Instructions: TAKE 1 TABLET BY MOUTH DAILY dicyclomine 20 mg tablet 20 mg PO TID PRN (Reason: abdominal pain) Qty: 20 0RF ondansetron 4 mg tablet,disintegrating See Rx Instructions .ROUTE .COMPLEX Qty: 10 0RF Dose Instruction: DISSOLVE 1 TABLET ON THE TONGUE EVERY 8 HOURS NEEDED FOR NAUSEA OR VOMITING Rx Instructions: DISSOLVE 1 TABLET ON THE TONGUE EVERY 8 HOURS NEEDED FOR NAUSEA OR VOMITING doxazosin 8 mg tablet See Rx Instructions .ROUTE .COMPLEX Qty: 90 0RF Dose Instruction: TAKE 1 TABLET BY MOUTH DAILY Rx Instructions: TAKE 1 TABLET BY MOUTH DAILY Discontinued multivitamin Tablet 1 tablet PO DAILY Date of admission: 09/22/24 08:20 Primary Care Provider: Ibeth Patel Admitting Provider: Wilberto Chung V. Attending physician on admission: Wilberto Chung V. Condition: Guarded Prognosis
[2024-10-15] MEDS: NEOMYCIN/POLYMYXIN/BACITRACIN OINTMENT PACKET 1 PACKET (12:15)
== END 2024-10-15 12:06 | disposition hospice, home (50) | DRG 640 ==
LOC: ANHED 23:08 → ANH3MEDSUR 23:58
PROVIDERS: Internal Medicine; Internal Medicine Gastroenterology; Physician Assistant; Admitting Provider Internal Medicine; Emergency Provider Emergency Medicine; PCP Nurse Practitioner Family; Visit Provider General Practice
PROC: 0DH63UZ Insertion of Feeding Device into Stomach, Percutaneous Approach (ICD-10-PCS; CPT 43246; principal; 2024-10-11 12:30)
DX: E87.1 Hypo-osmolality and hyponatremia (principal); J69.0 Pneumonitis due to inhalation of food and vomit; Z68.1 Body mass index [BMI] 19.9 or less, adult; E44.0 Moderate protein-calorie malnutrition; R64 Cachexia; F32.9 Major depressive disorder, single episode, unspecified; R62.7 Adult failure to thrive; E78.2 Mixed hyperlipidemia; I12.9 Hypertensive chronic kidney disease with stage 1 through stage 4 chronic kidney disease, or unspecified chronic kidney disease; N18.30 Chronic kidney disease, stage 3 unspecified; F41.9 Anxiety disorder, unspecified; I71.20 Thoracic aortic aneurysm, without rupture, unspecified; K80.20 Calculus of gallbladder without cholecystitis without obstruction; R13.10 Dysphagia, unspecified; J98.4 Other disorders of lung; C61 Malignant neoplasm of prostate; I48.91 Unspecified atrial fibrillation; Z85.820 Personal history of malignant melanoma of skin; Z87.891 Personal history of nicotine dependence; Z79.01 Long term (current) use of anticoagulants
CPT/HCPCS: 36415; 36569; 43246; 71045; 71046; 71250; 74176; 76700; 78226; 78815; 80048; 80053; 81001; 82728; 82948; 83540; 83550; 83735; 84100; 84132; 84466; 84478; 85025; 85027; 85055; 85610; 85730; 92526; 92610; 92611; 93005; 97110; 97116; 97161; 97165; 97530; 97535; 99285; A9270; A9537; A9596; C1751; G0378; J0360; J0690; J0780; J1200; J1650; J2003; J2060; J2371; J2405; J2543; J2550; J2704; J3475; J3480; J7030; J7040; J7120; P9047